=== PATIENT | female | born 2000 | race Caucasian/White ===

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

== ENCOUNTER 2020-06-24 16:04 | Inpatient (IN) ==
[2020-06-24] MEDS ORDERED: ONDANSETRON INJ 2 MG/ML 2 ML VIAL IV STA (18:13)
[2020-06-24] MEDS ORDERED: HYDROmorphone INJ 0.5 MG/0.5 ML SYR IV STA (18:13)
[2020-06-24] MEDS ORDERED: AMPICILLIN/SULBACTAM SOD 3,000 MG in 0.9 % SODIUM CHLORIDE 100 ML IV STA (18:13)
[2020-06-24] MEDS ORDERED: SODIUM CHLORIDE 0.9% 1000ML 1,000 ML IV ONE (18:15)
--- NOTE | 2020-06-24 18:23 | Emergency Department Note ---
Impression & Plan Bacteremia, Dental infection ED Provider Note CHIEF COMPLAINT: Dental pain, facial swelling, fevers HISTORY OF PRESENTING ILLNESS: This is a 19-year-old female who presents to the emergency department by private vehicle with complaint of worsening left-sided dental pain. She believes that the pain is coming from her left lower first molar, on which she had a root canal performed 1 week ago. The patient was evaluated in this emergency department last night for the same pain, she was giv en IV antibiotics as well as IV Dilaudid and sent home with Percocet and Augmentin. Patient states that she has been taking the Percocet and Augmentin without improvement. She has also taken ibuprofen. She states that she had a fever of 103 this afternoon and the pain has been progressively worsening today, she describes it as a constant throbbing and rates the pain a 5/10 currently. There is not been any discharge within the mouth. She states she has been unable to get a hold of her dentist. She denies any voice changes, difficulty swallowing, difficulty breathing, or pain radiating down the neck. She does feel that the facial swelling has gotten slightly worse. She denies any chest pain, palpitations, dizziness or syncope. REVIEW OF SYSTEMS: A complete 10 point review of systems was reviewed with the patient with pertinent positives and negatives as per history of present illn ess. All else were negative. PAST MEDICAL HISTORY: Anxiety, ADHD, IBS SOCIAL HISTORY: Lives at home, she denies tobacco use ALLERGIES: Reviewed in chart and with the patient PHYSICAL EXAM: CONSTITUTIONAL: Pleasant and cooperative. Nontoxic-appearing and in no acute distress, but appears uncomfortable from pain. Mildly dehydrated, but otherwise well appearing and well nourished. HEENT: Normocephalic, atraumatic. PERRL, EOMI. TMs normal. Tacky mucous membranes. The #19 tooth is carious and the gum is swollen and tender around it, especially along the lateral aspect, without any discharge or signs of an abscess. No woody edema or tenderness of the mouth floor. The remainder of the pharynx and tonsils are without erythema, edema, or exudate. The airway is patent. There is mild left-sided facial swelling which is warm and tender to palpation. The patient has overall good dental hygiene. NECK: Supple, full active range of motion without discomfort. No cervical or submandibular lymphadenopathy. RESPIRATORY: Clear to auscultation bilaterally with no wheezing, crackles, rhonchi or stridor. Equal expansion bilaterally. CARDIOVASCULAR: Regular rate and rhythm with no murmurs, rubs or gallops. Normal peripheral perfusion. No edema. GASTROINTESTINAL: Soft, nontender, nondistended. Bowel sounds present in all quadrants. MUSCULOSKELETAL: Full range of motion of all joints without discomfort. INTEGUMENTARY: No rash or other significant dermatologic conditions noted. NEUROLOGIC: Alert and oriented X 4 with normal affect. Normal strength and sensation in all 4 extremities. Normal speech. Normal gait observed. ED COURSE AND MEDICAL DECISION MAKING: CC: Patient presenting with complaint of dental pain, facial swelling, fevers DIFFERENTIAL DIAGNOSIS: Includes, but not limited to dental infection/abscess, facial cellulitis, postoperative pain, Haresh's angina, bacteremia/sepsis, among others. INTERPRETATION OF LABS: Leukocytosis with left shift, no anemia, normal platelets, no significant electrolyte abnormalities, normal renal function, normal liver enzymes. Lactate within normal limits. Serum negative. IMAGING: CT soft tissue neck w con HISTORY: 19 years-old Female left lower molar dental infection acute left-sided facial pain with reported dental infection COMPARISON: None TECHNIQUE: Multiple axial CT images of the soft tissues of the neck were obtained following the intravenous administration of 92 mL Optiray 320 IV contrast. A dose lowering technique was used consistent with the principals of ALARA. FINDINGS: There is no acute process of the imaged intracranial structures. The nasopharynx, oral pharynx and hypopharynx are patent. The epiglottis and aryepiglottic folds are unremarkable. The glottis and subglottic airway is within normal limits. Unremarkable thyroid. There are a few nonspecific prominent paratracheal lymph nodes of the upper mediastinum. The parotid and submandibular glands are unremarkable. Prominent left-sided level 1 lymph nodes measure up to 8 mm, likely reactive. Lung apices are clear without pneumothorax. Mastoid air cells and middle ear cavities are clear. Mild mucosal thickening involves the ethmoid air cells. Minimal mucosal thickening involves the sphenoid and inferior maxillary sinuses. There is a skin marker noted along the left jaw. Unerupted bilateral maxillary and left mandibular third molars with associated dentigerous (follicular) cysts, largest involving the left mandibular molar. No third molar identified involving the right mandible. No large periapical cysts. Streak artifact from dental amalgam hardware limits evaluation of the teeth. Root canal changes are noted involving the first left mandibular molar. No significant soft tissue swelling or drainable fluid collection. IMPRESSION: 1. Unerupted bilateral maxillary and left mandibular third molars are noted with associated dentigerous (follicular) cysts. 2. Streak artifact from dental amalgam hardware limits evaluation of the teeth. No large periapical cysts or drainable fluid collection identified. 3. Mildly prominent left-sided level I lymph nodes, likely reactive. 4. Mild paranasal sinus disease. MEDICATION RECONCILIATION: I attest that I have personally reviewed the patient's current medication list. INITIAL VITAL SIGNS REVIEW: I reviewed the patient's initial vital signs and interpret them as follows: T: Afebrile; BP: Normotensive; HR: Mildly tachycardic; RR: Within normal limits; Pulse Ox: Within normal limits on room air. Blood pressure screening: The patient was found to have normal blood pressure on screening and does not require follow-up for repeat blood pressure check. MDM SUMMARY: Patient was evaluated at bedside, history and physical exam performed. Patient is alert and oriented, in no acute distress, resting calmly in the stretcher. She is afebrile and nontoxic-appearing. She is noted to be mildly tachycardic and appears dehydrated clinically on exam. There is mild left-sided facial swelling appreciated on exam, and tenderness around the left lower first molar with no signs of a periapical abscess. No submandibular edema, trismus, or apparent airway involvement. I do not suspect Haresh's angina clinically. Cardiac monitoring: An order was placed for continuous cardiac monitoring. The monitor shows a rate of 104 bpm with sinus tachycardia rhythm. Orders were placed at bedside for labs including a lactic acid, IV fluid bolus for hydration, IV Unasyn 3 g for infection, IV Dilaudid for pain, IV Zofran for nausea, CT soft tissue neck with IV contrast to evaluate for dental abscess. Patient discussed with Dr. Stephen, who agrees with my assessment, plan, and disposition. Labs and imaging reviewed as above, labs notable for leukocytosis which is elevated from labs last night. Lactate is within normal limits. Labs are otherwise unremarkable. CT imaging of the soft tissues of the neck did not show any drainable fluid collection. The patient complained of persistent pain, which was initially improved after the Dilaudid, but she states it is coming back. Orders were placed for IV Toradol and p.o. Tylenol. The ED pharmacist contacted me to notify of 4/4 blood cultures from last night that are preliminarily positive for gram-positive cocci, most consistent with strep per ED pharmacist. He recommended placing the patient on IV vancomycin for better coverage, this was ordered. The patient has not been febrile during her ED stay and her tachycardia is improving. She denies any complaints of chest pain, shortness of breath, palpitations, dizziness or syncope. There was no heart murmur heard on auscultation. I spoke on the phone with Dr. Landa, [facility] hospitalist, who agrees to evaluate the patient for admission. The patient was updated on all results and plan for admission, all questions were answered to the best of my ability and she verbalized understanding, she was comfortable with this plan. The patient was stable at time of admission. The chart was completed utilizing [employer] Speech voice recognition software. G rammatical errors, random word insertions, pronoun errors, and incomplete sentences are an occasional consequence of this system due to software limitations, ambient noise, and hardware issues. Any formal questions or concerns about the content, text, or information contained within the body of this dictation should be directly addressed to the nurse practitioner for clarification. Past Med/Surg History Medical History (Updated 06/24/20 @ 23:07 by CAIO Rodríguez) ADH disorder Anxiety IBS (irritable bowel syndrome) Surgical History No pertinent past surgical history Family History Other No significant family history Social History Smoking Status: Never smoker Preferred Language: Citizen Of [place] marital status: Single Current Living Situation: Family current occupational status: employed and student Feels Safe at Home: Yes Allergies Allergies Allergy/AdvReac Type Severity Reaction Status Date / Time pseudoephedrine Allergy Mild Vomiting, Verified 06/24/20 00:05 breathing difficulty bee venom protein (honey bee) Allergy Unknown swelling Verified 06/24/20 00:05 omeprazole AdvReac Intermediate Vomiting Verified 06/24/20 00:05 and diarrhea Home Meds Home Medications Medication Instructions Recorded Confirmed cholecalciferol (vitamin D3) 1,000 unit PO QAM 09/24/18 06/24/20 [Vitamin D3] dicyclomine 20 mg PO QID 09/24/18 06/24/20 sertraline 50 mg PO DAILY@1500 09/24/18 06/24/20 norgestimate-ethinyl estradiol 1 tab PO DAILY 02/14/20 06/24/20 [Sprintec (28)] methylphenidate HCl 60 mg PO QAM 03/28/20 06/24/20 lidocaine 1 patch TOP DAILY PRN 04/10/20 06/24/20 methylphenidate HCl 20 mg PO DIRECTED 04/10/20 06/24/20 Previous Rx's Medication Instructions Recorded amoxicillin-pot clavulanate 1 tab PO BID #20 tab 06/24/20 [Augmentin] Results & Data (ED) Vital Signs Vital Signs - 24 hr 06/24/20 16:14 06/24/20 19:04 06/24/20 19:05 Temperature 37 C Temperature Source Oral Pulse Rate 91 H 93 H Pulse Rate [Left] 93 H Pulse Rate from SpO2 Sensor 88 Respiratory Rate 18 19 Blood Pressure 120/79 109/59 L Blood Pressure [Right Arm] 109/59 L Blood Pressure Mean 92 75 Blood Pressure Mean [Right Arm] 75 Pulse Oximetry 98 99 Oxygen Delivery Method Room Air Room Air Room Air Sepsis Recent Fever Within 48 Hours No Sepsis New/Unexplained Change in Mental Status No Sepsis Action Taken by Nursing No Action Required 06/24/20 19:38 06/24/20 20:00 06/24/20 20:30 Temperature Temperature Source Pulse Rate 102 H 95 H 107 H Pulse Rate [Left] Pulse Rate from SpO2 Sensor 102 H 96 H 108 H Respiratory Rate 27 H 17 18 Blood Pressure 117/77 127/89 131/77 Blood Pressure [Right Arm] Blood Pressure Mean 97 108 87 Blood Pressure Mean [Right Arm] Pulse Oximetry 100 100 99 Oxygen Delivery Method Room Air Room Air Room Air Sepsis Recent Fever Within 48 Hours Sepsis New/Unexplained Change in Mental Status Sepsis Action Taken by Nursing 06/24/20 21:00 06/24/20 21:30 06/24/20 22:01 Temperature Temperature Source Pulse Rate 102 H 88 101 H Pulse Rate [Left] Pulse Rate from SpO2 Sensor 103 H Respiratory Rate 17 16 16 Blood Pressure 136/80 136/71 179/80 H Blood Pressure [Right Arm] Blood Pressure Mean 96 101 116 Blood Pressure Mean [Right Arm] Pulse Oximetry 100 Oxygen Delivery Method Room Air Sepsis Recent Fever Within 48 Hours Sepsis New/Unexplained Change in Mental Status Sepsis Action Taken by Nursing 06/24/20 22:07 06/24/20 22:30 Temperature Temperature Source Pulse Rate 105 H 94 H Pulse Rate [Left] Pulse Rate from SpO2 Sensor 105 H 91 H Respiratory Rate 20 18 Blood Pressure 122/71 117/74 Blood Pressure [Right Arm] Blood Pressure Mean 97 103 Blood Pressure Mean [Right Arm] Pulse Oximetry 98 98 Oxygen Delivery Method Room Air Room Air Sepsis Recent Fever Within 48 Hours Sepsis New/Unexplained Change in Mental Status Sepsis Action Taken by Nursing Laboratory Data Result diagrams: 06/24/20 18:42 06/24/20 18:42 Lab Results 06/24/20 06/24/20 06/24/20 Range/Units 18:21 18:42 18:42 WBC 12.45 H (4.8-10.8) K/uL RBC 4.35 (4.2-5.4) M/uL Hgb 12.5 (12.0-16.0) g/dL Hct 37.4 (37-47) % MCV 86.0 (80-100) fL MCH 28.7 (25-34) pg MCHC 33.4 (32-36) g/dL RDW Std Deviation 42.2 (36.4-46.3) fL RDW Coeff of Candido 13.2 (11.5-14.5) % Plt Count 157 (130-400) K/uL MPV 9.7 (7.4-10.4) fL Immature Gran % (Auto) 0.2 % Neut % (Auto) 92.3 % Lymph % (Auto) 5.6 % [place] % (Auto) 1.7 % Eos % (Auto) 0.1 % Baso % (Auto) 0.1 % Neut # (Auto) 11.50 H (1.4-6.5) K/uL Lymph # (Auto) 0.70 L (1.2-3.4) K/uL [place] # (Auto) 0.21 (0.11-0.59) K/uL Eos # (Auto) 0.01 (0-0.5) K/uL Baso # (Auto) 0.01 (0-0.2) K/uL Immature Gran # (Auto) 0.02 (0.00-0.02) K/uL Sodium 139 (136-145) mmol/L Potassium 3.7 (3.5-5.1) mmol/L Chloride 108 H (98-107) mmol/L Carbon Dioxide 25 (21-32) mmol/L Anion Gap 6.0 (3-11) BUN 8 D (7-18) mg/dl Creatinine 0.84 (0.6-1.2) mg/dl Est Cr Clr Drug Dosing 129.9 ml/min Est GFR ( Amer) 116.8 Est GFR (Non-Af Amer) 100.8 BUN/Creatinine Ratio 9.4 L (10-20) Glucose 109 H (70-99) mg/dl Lactate 0.7 (0.4-2.0) mmol/L Calcium 8.6 (8.5-10.1) mg/dl Magnesium (1.8-2.4) mg/dl Total Bilirubin 0.4 (0.2-1) mg/dl AST 17 (15-37) U/L ALT 19 (12-78) U/L Alkaline Phosphatase 47 (45-117) U/L Troponin I (0-0.045) ng/ml Total Protein 7.1 (6.4-8.2) gm/dl Albumin 3.1 L (3.4-5.0) gm/dl Globulin 4.0 (2.5-4.0) gm/dl Albumin/Globulin Ratio 0.8 L (0.9-2) HCG, Qual (Negative) 06/24/20 06/24/20 06/24/20 Range/Units 18:42 18:42 18:42 WBC (4.8-10.8) K/uL RBC (4.2-5.4) M/uL Hgb (12.0-16.0) g/dL Hct (37-47) % MCV (80-100) fL MCH (25-34) pg MCHC (32-36) g/dL RDW Std Deviation (36.4-46.3) fL RDW Coeff of Candido (11.5-14.5) % Plt Count (130-400) K/uL MPV (7.4-10.4) fL Immature Gran % (Auto) % Neut % (Auto) % Lymph % (Auto) % [place] % (Auto) % Eos % (Auto) % Baso % (Auto) % Neut # (Auto) (1.4-6.5) K/uL Lymph # (Auto) (1.2-3.4) K/uL [place] # (Auto) (0.11-0.59) K/uL Eos # (Auto) (0-0.5) K/uL Baso # (Auto) (0-0.2) K/uL Immature Gran # (Auto) (0.00-0.02) K/uL Sodium (136-145) mmol/L Potassium (3.5-5.1) mmol/L Chloride (98-107) mmol/L Carbon Dioxide (21-32) mmol/L Anion Gap (3-11) BUN (7-18) mg/dl Creatinine (0.6-1.2) mg/dl Est Cr Clr Drug Dosing ml/min Est GFR ( Amer) Est GFR (Non-Af Amer) BUN/Creatinine Ratio (10-20) Glucose (70-99) mg/dl Lactate (0.4-2.0) mmol/L Calcium (8.5-10.1) mg/dl Magnesium 2.1 (1.8-2.4) mg/dl Total Bilirubin (0.2-1) mg/dl AST (15-37) U/L ALT (12-78) U/L Alkaline Phosphatase (45-117) U/L Troponin I < 0.015 (0-0.045) ng/ml Total Protein (6.4-8.2) gm/dl Albumin (3.4-5.0) gm/dl Globulin (2.5-4.0) gm/dl Albumin/Globulin Ratio (0.9-2) HCG, Qual Negative (Negative) Administered Medications Vancomycin HCl 2,500 mg/ (Sodium Chloride) 550 mls @ 200 mls/hr IV NOW ONE Stop: 06/24/20 23:09 Last Admin: 06/24/20 20:59 Dose: 200 mls/hr Documented by: [id number] Discontinued Medications Acetaminophen (Acetaminophen 500 Mg Tab) 1,000 mg PO NOW STA Stop: 06/24/20 20:15 Last Admin: 06/24/20 20:32 Dose: 1,000 mg Documented by: [id number] Hydromorphone HCl (Hydromorphone Inj 0.5 Mg/0.5 Ml Syr) 0.5 mg IV NOW STA Stop: 06/24/20 18:14 Last Admin: 06/24/20 18:57 Dose: 0.5 mg Documented by: [id number] Ampicillin Sodium/Sulbactam Sodium 3,000 mg/ Sodium Chloride 108 mls @ 200 mls/hr IV NOW STA Stop: 06/24/20 18:45 Last Infusion: 06/24/20 19:41 Dose: 0 mls/hr Documented by: [id number] Admin: 06/24/20 18:57 Dose: 200 mls/hr Documented by: [id number] Sodium Chloride (Nss 1000ml) 1,000 mls @ 999 mls/hr IV .Q1H1M ONE Stop: 06/24/20 19:15 Last Infusion: 06/24/20 19:51 Dose: 0 mls/hr Documented by: [id number] Admin: 06/24/20 18:57 Dose: 999 mls/hr Documented by: [id number] Ioversol (Ioversol 100ml) 92 ml IV ONCE ONE Stop: 06/24/20 19:28 Last Admin: 06/24/20 19:28 Dose: 92 ml Documented by: [id number] Ketorolac Tromethamine (Ketorolac Tromethamine 15 Mg/Ml Vial) 15 mg IV NOW STA Stop: 06/24/20 20:15 Last Admin: 06/24/20 20:32 Dose: 15 mg Documented by: [id number] Ondansetron HCl (Ondansetron Inj 2 Mg/Ml 2 Ml Vial) 4 mg IV NOW STA Stop: 06/24/20 18:14 Last Admin: 06/24/20 18:57 Dose: 4 mg Documented by: [id number] Discharge Plan Visit Data Chief Complaint: Dental/Oral Stated Complaint: INFECTION IN TOOTH ED Provider: Matias Stephen ED Midlevel Provider: Taya Rolle Discharge Problem: Bacteremia, Dental infection Patient Disposition: Admitted As Inpatient Condition: Good Discharge Instructions Interventions: ED Discharge Assessment Last Done: 06/24/20 22:49 Forms Stand Alone Forms: [facility] Prescriptions Prescriptions: No Action methylphenidate HCl 60 mg capsule, ER biphasic 30-70 60 mg PO QAM RF: 0 amoxicillin-pot clavulanate [Augmentin] 875-125 mg tablet 1 tab PO BID Qty: 20 RF: 0 dicyclomine 20 mg Tablet 20 mg PO QID RF: 0 sertraline 50 mg Tablet 50 mg PO DAILY@1500 RF: 0 cholecalciferol (vitamin D3) [Vitamin D3] 1,000 unit Capsule 1,000 unit PO QAM RF: 0 norgestimate-ethinyl estradiol [Sprintec (28)] 0.25-35 mg-mcg tablet 1 tab PO DAILY RF: 0 methylphenidate HCl 20 mg tablet 20 mg PO DIRECTED RF: 0 lidocaine 5 % adhesive patch,medicated 1 patch TOP DAILY PRN (Reason: Back Pain) RF: 0 Referrals Referrals: Gustavo Ag MD [Primary Care Provider] -
[2020-06-24 18:49] LABS: Basophils # (auto) 0.01 K/uL (0-0.2); Basophils % (auto) 0.1 %; Eosinophils # (auto) 0.01 K/uL (0-0.5); Eosinophils % (auto) 0.1 %; Hematocrit (blood only) 37.4 % (37-47); Hemoglobin 12.5 g/dL (12.0-16.0); Immature Granulocytes # (auto) 0.02 K/uL (0.00-0.02); Immature Granulocytes % (auto) 0.2 %; Lymphocytes % (auto) 5.6 %; Mean Corpuscular Hemoglobin 28.7 pg (25-34); Mean Corpuscular Hgb Conc 33.4 g/dL (32-36); Mean Platelet Volume 9.7 fL (7.4-10.4); Monocytes # (auto) 0.21 K/uL (0.11-0.59); Monocytes % (auto) 1.7 %; Neutrophils % (auto) 92.3 %; Platelet Count 157 K/uL (130-400); RDW Coefficient of Variation 13.2 % (11.5-14.5); RDW Standard Deviation 42.2 fL (36.4-46.3); Red Blood Count 4.35 M/uL (4.2-5.4); White Blood Count 12.45 K/uL (4.8-10.8)
[2020-06-24 19:12] LABS: Albumin Globulin Ratio 0.8 (0.9-2); Albumin Level 3.1 gm/dl (3.4-5.0); BUN Creatinine Ratio 9.4 (10-20); Bilirubin,Total 0.4 mg/dl (0.2-1); Calcium 8.6 mg/dl (8.5-10.1); Creatinine Clr Calc Pharmacy 129.9 ml/min; Est GFR (African American) 116.8; Est GFR (Non-African American) 100.8; Potassium 3.7 mmol/L (3.5-5.1); Total Protein 7.1 gm/dl (6.4-8.2)
[2020-06-24 19:16] LABS: Pregnancy Test, Serum Negative (Negative)
[2020-06-24] MEDS ORDERED: IOVERSOL 100ml IV ONE (19:27)
--- NOTE | 2020-06-24 19:45 | CT Scan Report ---
CT soft tissue neck w con HISTORY: 19 years-old Female left lower molar dental infection acute left-sided facial pain with rep orted dental infection COMPARISON: None TECHNIQUE: Multiple axial CT images of the soft tissues of the neck were obtained following the intra venous administration of 92 mL Optiray 320 IV contrast. A dose lowering technique was used consistent with the principals of MICHI. FINDINGS: There is no acute process of the imaged intracranial structures. The nasopharynx, oral pharynx and hy popharynx are patent. The epiglottis and aryepiglottic folds are unremarkable. The glottis and subglo ttic airway is within normal limits. Unremarkable thyroid. There are a few nonspecific prominent para tracheal lymph nodes of the upper mediastinum. The parotid and submandibular glands are unremarkable. Prominent left-sided level 1 lymph nodes measure up to 8 mm, likely reactive. Lung apices are clear without pneumothorax. Mastoid air cells and middle ear cavities are clear. Mild mucosal thickening involves the ethmoid air cells. Minimal mucosal thickening involves the sphenoid and inferior maxillary sinuses. There is a s kin marker noted along the left jaw. Unerupted bilateral maxillary and left mandibular third molars w ith associated dentigerous (follicular) cysts, largest involving the left mandibular molar. No third molar identified involving the right mandible. No large periapical cysts. Streak artifact from dental amalgam hardware limits evaluation of the teeth. Root canal changes are noted involving the first le ft mandibular molar. No significant soft tissue swelling or drainable fluid collection. IMPRESSION: 1. Unerupted bilateral maxillary and left mandibular third molars are noted with associated dentigero us (follicular) cysts. 2. Streak artifact from dental amalgam hardware limits evaluation of the teeth. No large periapical c ysts or drainable fluid collection identified. 3. Mildly prominent left-sided level I lymph nodes, likely reactive. 4. Mild paranasal sinus disease. ACT 112: Negative or not required by law. The above report was generated using voice recognition software. It may contain grammatical, syntax o r spelling errors. Electronically signed by: Johnathan Rosas M.D. 06/24/2020 7:43 PM
[2020-06-24] MEDS ORDERED: KETOROLAC TROMETHAMINE 15 MG/ML VIAL IV STA (20:14)
[2020-06-24] MEDS ORDERED: ACETAMINOPHEN 500 MG TAB PO STA (20:14)
[2020-06-24] MEDS ORDERED: VANCOMYCIN CONSULT ACTIVE PRN (20:25)
[2020-06-24] MEDS ORDERED: VANCOMYCIN HCL 2,500 MG in SODIUM CHLORIDE 0.9% 500 ML IV ONE (20:25)
--- NOTE | 2020-06-24 21:18 | History & Physical Report ---
Date of Service June 24, 2020 Assessment & Plan (1) Sepsis: Septicemia Gram-positive cocci in chains on initial Gram stain results Recent dental procedure ? Endocarditis ADD, learning disability as per records Medical telemetry Unasyn for now Repeat blood cultures in a.m. TTE re chest pain, gram-positive bacteremia possible endocarditis [facility] ID consult once CS results finalized RE bacteremia Inpatient dental consult as per patient family request, will consult oral maxillofacial surgeon RE dental pain DVT prophylaxis Lovenox subcu Full code Patient's mother requesting updates for providers. Ms. Mikaela Payne, contact #[phone]. Text document was generated using Scov[employer] recognition software. It may contain grammatical or spelling errors. Kindly contact undersigned for clarification of any documentation item in question. History of Present Illness Chief Complaint: Worsening dental pain Primary Care Provider: Gustavo Ag MD History obtained from patient, family, and records. Medical history significant for ADD, learning disability as per records, IBS as per records. Last week patient underwent root canal procedure for the first molar of her left lower jaw at a dental clinic in [place]. Patient recalls significant manipulation and pain during procedure. Yesterday afternoon however patient developed intolerable pain on the left jaw with fever and chills. No cough symptoms. No trismus. Patient noted to be febrile and tachycardic upon arrival at the ER. Blood cultures obtained at the ER. Patient given Unasyn for dental infection. Discharged on Augmentin course and advised to follow-up with local dentist. Local dentist recommended follow-up with [place] [facility] office as per patient. [place] [facility] office closed for the day as per patient's mother. 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 No unusual shortness of breath. Patient return to ER for evaluation. 2 bottles of blood cultures drawn from last night's ER visit currently growing gram-positive cocci in chains. Patient given Unasyn and Vancomycin at the ER. 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 Allergies Allergy/AdvReac Type Severity Reaction Status Date / Time pseudoephedrine Allergy Mild Vomiting, Verified 06/24/20 00:05 breathing difficulty bee venom protein (honey bee) Allergy Unknown swelling Verified 06/24/20 00:05 omeprazole AdvReac Intermediate Vomiting Verified 06/24/20 00:05 and diarrhea Home Medications Home Medications Medication Instructions Recorded Confirmed Type cholecalciferol (vitamin D3) 1,000 unit PO QAM 09/24/18 06/24/20 History [Vitamin D3] dicyclomine 20 mg PO QID 09/24/18 06/24/20 History sertraline 50 mg PO DAILY@1500 09/24/18 06/24/20 History norgestimate-ethinyl estradiol 1 tab PO DAILY 02/14/20 06/24/20 History [Sprintec (28)] methylphenidate HCl 60 mg PO QAM 03/28/20 06/24/20 History lidocaine 1 patch TOP DAILY PRN 04/10/20 06/24/20 History methylphenidate HCl 20 mg PO DIRECTED 04/10/20 06/24/20 History amoxicillin-pot clavulanate 1 tab PO BID #20 tab 06/24/20 06/24/20 Rx [Augmentin] Past Med/Surg History Medical History (Updated 06/25/20 @ 00:09 by Julius Landa MD) ADH disorder Anxiety IBS (irritable bowel syndrome) Surgical History No pertinent past surgical history Family History Other No significant family history Social History Smoking Status: Never smoker Hx Alcohol Use: No Hx Substance Use: No Preferred Language: Lebanese Communication Ability: Effective marital status: Single Current Living Situation: Family current occupational status: employed and student Feels Safe at Home: Yes Safety Concerns: Feels Safe At This Time Review of Systems Review of Systems: As per HPI, all 10 systems reviewed, all other ROS negative Physical Exam Physical Exam: GENERAL: Comfortable, anxious, obese, no respiratory distress SKIN: Normal color, warm HEENT: Bespectacled, [place] palpebral conjunctivae, no ptosis, dry buccal mucosa, no trismus, carious molars left mandibular arch NECK : Supple, short neck, no tenderness CHEST : CTA, anterior chest wall tenderness HEART : Tachycardic, no obvious murmurs ABDOMEN: Some distention, nontender EXTREMITIES : Minimal LE swelling, no LE tenderness, no other conspicuous deformities noted NEUROLOGIC : Coherent, no facial asymmetry, no other gross focality Results & Data Results & Data ([facility]) Vital Signs (Past 12 Hours) Vital Signs Temp Pulse Pulse Resp BP BP Pulse Ox 06/24/20 21:00 102 H 17 136/80 100 06/24/20 20:30 107 H 18 131/77 99 06/24/20 20:00 95 H 17 127/89 100 06/24/20 19:38 102 H 27 H 117/77 100 06/24/20 19:05 93 H 93 H 19 109/59 L 109/59 L 99 06/24/20 16:14 37 C 91 H 18 120/79 98 Laboratory Results Laboratory Results WBC 12.45 K/uL (4.8-10.8) H 06/24/20 18:42 RBC 4.35 M/uL (4.2-5.4) 06/24/20 18:42 Hgb 12.5 g/dL (12.0-16.0) 06/24/20 18:42 Hct 37.4 % (37-47) 06/24/20 18:42 MCV 86.0 fL (80-100) 06/24/20 18:42 MCH 28.7 pg (25-34) 06/24/20 18:42 MCHC 33.4 g/dL (32-36) 06/24/20 18:42 RDW Std Deviation 42.2 fL (36.4-46.3) 06/24/20 18:42 RDW Coeff of [place] 13.2 % (11.5-14.5) 06/24/20 18:42 Plt Count 157 K/uL (130-400) 06/24/20 18:42 MPV 9.7 fL (7.4-10.4) 06/24/20 18:42 Immature Gran % (Auto) 0.2 % 06/24/20 18:42 Neut % (Auto) 92.3 % 06/24/20 18:42 Lymph % (Auto) 5.6 % 06/24/20 18:42 [place] % (Auto) 1.7 % 06/24/20 18:42 Eos % (Auto) 0.1 % 06/24/20 18:42 Baso % (Auto) 0.1 % 06/24/20 18:42 Neut # (Auto) 11.50 K/uL (1.4-6.5) H 06/24/20 18:42 Lymph # (Auto) 0.70 K/uL (1.2-3.4) L 06/24/20 18:42 Foster # (Auto) 0.21 K/uL (0.11-0.59) 06/24/20 18:42 Eos # (Auto) 0.01 K/uL (0-0.5) 06/24/20 18:42 Baso # (Auto) 0.01 K/uL (0-0.2) 06/24/20 18:42 Immature Gran # (Auto) 0.02 K/uL (0.00-0.02) 06/24/20 18:42 Sodium 139 mmol/L (136-145) 06/24/20 18:42 Potassium 3.7 mmol/L (3.5-5.1) 06/24/20 18:42 Chloride 108 mmol/L (98-107) H 06/24/20 18:42 Carbon Dioxide 25 mmol/L (21-32) 06/24/20 18:42 Anion Gap 6.0 (3-11) 06/24/20 18:42 BUN 8 mg/dl (7-18) D 06/24/20 18:42 Creatinine 0.84 mg/dl (0.6-1.2) 06/24/20 18:42 Est Cr Clr Drug Dosing 129.9 ml/min 06/24/20 18:42 Est GFR ( Amer) 116.8 06/24/20 18:42 Est GFR (Non-Af Amer) 100.8 06/24/20 18:42 BUN/Creatinine Ratio 9.4 (10-20) L 06/24/20 18:42 Glucose 109 mg/dl (70-99) H 06/24/20 18:42 Lactate 0.7 mmol/L (0.4-2.0) 06/24/20 18:21 Calcium 8.6 mg/dl (8.5-10.1) 06/24/20 18:42 Magnesium 2.1 mg/dl (1.8-2.4) 06/24/20 18:42 Total Bilirubin 0.4 mg/dl (0.2-1) 06/24/20 18:42 AST 17 U/L (15-37) 06/24/20 18:42 ALT 19 U/L (12-78) 06/24/20 18:42 Alkaline Phosphatase 47 U/L (45-117) 06/24/20 18:42 Total Protein 7.1 gm/dl (6.4-8.2) 06/24/20 18:42 Albumin 3.1 gm/dl (3.4-5.0) L 06/24/20 18:42 Globulin 4.0 gm/dl (2.5-4.0) 06/24/20 18:42 Albumin/Globulin Ratio 0.8 (0.9-2) L 06/24/20 18:42 HCG, Qual Negative (Negative) 06/24/20 18:42 Diagnostic Findings Soft tissue neck CT: 1. Unerupted bilateral maxillary and left mandibular third molars are noted with associated dentigerous (follicular) cysts. 2. Streak artifact from dental amalgam hardware limits evaluation of the teeth. No large periapical cysts or drainable fluid collection identified. 3. Mildly prominent left-sided level I lymph nodes, likely reactive. 4. Mild paranasal sinus disease. Chest x-ray as per my interpretation no infiltrate EKG as per my interpretation : rate 105, sinus tachycardia, normal axis, no ischemia
[2020-06-24] MEDS ORDERED: LORazepam 0.25 MG/0.5 ML VIAL IV STA (23:21)
[2020-06-24] MEDS ORDERED: IBUPROFEN 200 MG TAB PO PRN (23:21)
[2020-06-24] MEDS ORDERED: LIDOCAINE 5% 1 PATCH TD PRN (23:21)
[2020-06-24] MEDS ORDERED: AMPICILLIN/SULBACTAM CONSULT ACTIVE PRN (23:27)
[2020-06-25] MEDS ORDERED: POTASSIUM CHLORIDE 20 MEQ TABCR PO ONE
[2020-06-25] MEDS: AMPICILLIN/SULBACTAM SOD 3,000 MG in 0.9 % SODIUM CHLORIDE 100 ML IV SCH ×5 (01:09→23:36)
[2020-06-25 01:49] LABS: Appearance Urine Clear (Clear); Bacteria Urine Automated Negative (Negative); Bilirubin Urine Negative (Negative); Blood Urine Trace (Negative); Cast Urine Automated 0 /lpf (0-5); Color Urine Yellow; Epithelial Cell Urine Auto >30 /lpf (0-5); Glucose Urine UA Negative (Negative); Ketones Urine Negative (Negative); Leukocyte Esterase Urine Negative (Negative); Nitrite Urine Negative (Negative); Protein Urine Negative (Negative); RBC Urine Automated 0-4 /hpf (0-4); Specific Gravity Urine 1.016 (1.000-1.030); Urobilinogen Urine Negative (Negative)
[2020-06-25 02:10] LABS: Amphetamines+Metham, Urine Neg (Neg); Barbiturates, Urine Neg (Neg); Benzodiazepine, Urine Neg (Neg); Cocaine, Urine Neg (Neg); MDMA (Ecstacy), Urine Neg (Neg); Methadone, Urine Neg (Neg); Opiate, Urine Neg (Neg); Phencyclidine, Urine Neg (Neg)
[2020-06-25] MEDS: ACETAMINOPHEN 325 MG TAB PO PRN ×3 (03:06→21:41)
[2020-06-25] MEDS ORDERED: LACTATED RINGER'S 1,000 ML IV ONE (04:12)
[2020-06-25 06:01] LABS: Basophils # (auto) 0.01 K/uL (0-0.2); Basophils % (auto) 0.2 %; Eosinophils # (auto) 0.02 K/uL (0-0.5); Eosinophils % (auto) 0.4 %; Hematocrit (blood only) 36.2 % (37-47); Hemoglobin 11.8 g/dL (12.0-16.0); Immature Granulocytes # (auto) 0.01 K/uL (0.00-0.02); Immature Granulocytes % (auto) 0.2 %; Lymphocytes # (auto) 0.43 K/uL (1.2-3.4); Lymphocytes % (auto) 7.7 %; Mean Corpuscular Hemoglobin 28.7 pg (25-34); Mean Corpuscular Hgb Conc 32.6 g/dL (32-36); Mean Corpuscular Volume 88.1 fL (80-100); Mean Platelet Volume 10.2 fL (7.4-10.4); Monocytes % (auto) 5.3 %; Neutrophils # (auto) 4.84 K/uL (1.4-6.5); Neutrophils % (auto) 86.2 %; Platelet Count 158 K/uL (130-400); RDW Coefficient of Variation 13.6 % (11.5-14.5); RDW Standard Deviation 44.4 fL (36.4-46.3); Red Blood Count 4.11 M/uL (4.2-5.4); White Blood Count 5.61 K/uL (4.8-10.8)
[2020-06-25] MEDS ORDERED: NSS + 20MEQ KCL 20 MEQ/1,000 ML BAG IV ONE ×2 (06:15)
[2020-06-25 06:30] LABS: BUN Creatinine Ratio 5.6 (10-20); Calcium 8.1 mg/dl (8.5-10.1); Creatinine Clr Calc Pharmacy 153.7 ml/min; Est GFR (African American) 140.7; Est GFR (Non-African American) 121.4; Potassium 4.1 mmol/L (3.5-5.1)
--- NOTE | 2020-06-25 07:37 | XRay Report ---
XR chest 1V portable CLINICAL HISTORY: Chest pain on admission. COMPARISON STUDY: Chest radiograph April 10, 2020. FINDINGS: Lung volumes are normal. Lungs are clear. There is no pneumothorax or pleural effusion. Car diac size is normal. Mediastinal contours are normal. There is no evidence for pulmonary edema. IMPRESSION: No acute cardiopulmonary findings. ACT 112: Negative or not required by law. Electronically signed by: Andrew Plata M.D. 06/25/2020 7:36 AM
[2020-06-25] MEDS: ENOXAPARIN INJ 40 MG/0.4 ML SYR SQ SCH (08:57)
[2020-06-25] MEDS: KETOROLAC TROMETHAMINE 15 MG/ML VIAL IV PRN ×2 (08:57→16:53)
--- NOTE | 2020-06-25 10:58 | Hospitalist Progress Note ---
Date of Service June 25, 2020 Assessment & Plan (1) Sepsis: resuscitated with abx (2) Bacteremia: S viridans bacteremia. Cont current abx and clear infection. BCx repeat are pending. Then follow ID instructions regarding PICC placement after tooth removal and clear cultures. (3) Dental infection: Tooth extraction planned for her by Dr. Blunt (4) Anxiety: Cont sertraline per home regimen. (5) IBS (irritable bowel syndrome): Dicyclomine per home regimen. Explore C-diff and stool studies in setting of abx. (6) DVT prophylaxis: Lovenox Full Code Dispo-to home when medically stable. Samantha Ames DO [facility] Hospitalist Admission and Anticipated Discharge Date Admission Date: June 24, 2020 Subjective +pain in L jaw and L neck area. One fever overnight Denies n/v Tolerating some food and water. Diarrhea 2 episodes Review of Systems Review of Systems: All systems reviewed & are unremarkable except as noted in Subjective Physical Exam Physical Exam: CONSTITUTIONAL: WNWD, vitals as above, generally well- appearing EYES: normal conjunctivae, no scleral icterus ENT: external ear and nose normal, oropharynx clear, TTP of L mandible and L neck, some erythema and swelling of left gumline NECK: trachea midline, pain to palpation of L neck and submandibular area. RESPIRATORY: clear to auscultation bilaterally, no crackles, rales or wheezes, normal respiratory effort CARDIOVASCULAR: regular rate and rhythm, S1 and 2 heard without murmurs, gallops or rubs, no JVD, no peripheral edema CHEST: inspection of chest was normal (+pacemaker, +port) GASTROINTESTINAL: normal bowel sounds, soft, nontender, no hepatomegaly, no guarding MUSCULOSKELETAL: strength 5/5 throughout, head is normocephalic and atraumatic SKIN: warm and dry NEUROLOGIC: No facial palsy, no dysarthria. CN 2-12 grossly intact, no sensory deficit, normal cognition, normal speech, no tremor PSYCHIATRIC: alert cooperative and oriented to person, place and time. Results & Data Results & Data ([facility]) Vital Signs (Past 12 Hours) Vital Signs Temp Pulse Pulse Resp BP Pulse Ox 06/25/20 07:34 89 06/25/20 07:03 37 C 91 H 18 112/76 98 06/25/20 03:03 38.4 C H 109 H 15 97/52 L 96 06/25/20 00:57 89 06/25/20 00:34 37.2 C 91 H 18 121/77 96 Laboratory Results Short CBC 06/24/20 06/25/20 Range/Units 18:42 05:17 WBC 12.45 H 5.61 (4.8-10.8) K/uL Hgb 12.5 11.8 L (12.0-16.0) g/dL Hct 37.4 36.2 L (37-47) % Plt Count 157 158 (130-400) K/uL BMP 06/24/20 06/25/20 18:42 05:17 Sodium 139 141 Potassium 3.7 4.1 Chloride 108 H 114 H Carbon Dioxide 25 23 BUN 8 D 4 L Creatinine 0.84 0.72 Glucose 109 H 105 H Calcium 8.6 8.1 L Cardiac Enzymes 06/24/20 Range/Units 18:42 Troponin I < 0.015 (0-0.045) ng/ml Liver Function 06/24/20 Range/Units 18:42 Total Bilirubin 0.4 (0.2-1) mg/dl AST 17 (15-37) U/L ALT 19 (12-78) U/L Alkaline Phosphatase 47 (45-117) U/L Albumin 3.1 L (3.4-5.0) gm/dl Urine 06/25/20 Range/Units 01:35 Urine Color Yellow Urine Appearance Clear (Clear) Urine pH 7.0 (4.5-7.5) Ur Specific [place] 1.016 (1.000-1.030) Urine Protein Negative (Negative) Urine Glucose (UA) Negative (Negative) Medications Administered Current Inpatient Medications Acetaminophen (Acetaminophen 325 Mg Tab) 650 mg PO Q4H PRN PRN Reason: Pain or Fever Stop: 07/24/20 23:20 Last Admin: 06/25/20 03:06 Dose: 650 mg Documented by: Enoxaparin Sodium (Enoxaparin Inj 40 Mg/0.4 Ml Syr) 40 mg SQ QAM [facility] Stop: 07/25/20 08:59 Last Admin: 06/25/20 08:57 Dose: Not Given Documented by: Ampicillin Sodium/Sulbactam Sodium 3,000 mg/ Sodium Chloride 108 mls @ 216 mls/hr IV Q6H [facility] Stop: 07/05/20 00:00 Last Infusion: 06/25/20 07:28 Dose: Infused Documented by: Potassium Chloride/Sodium Chloride (Normal Saline W/20 Meq Kcl) 20 meq in 1,000 mls @ 75 mls/hr IV .[id number] Stop: 06/25/20 19:34 Last Admin: 06/25/20 06:44 Dose: 75 mls/hr Documented by: Ibuprofen (Ibuprofen 200 Mg Tab) 200 mg PO Q6H PRN PRN Reason: Mild Pain Stop: 07/24/20 23:20 Last Admin: 06/25/20 06:15 Dose: 200 mg Documented by: Ketorolac Tromethamine (Ketorolac Tromethamine 15 Mg/Ml Vial) 15 mg IV Q6H PRN PRN Reason: Pain Stop: 06/29/20 23:20 Last Admin: 06/25/20 08:57 Dose: 15 mg Documented by: Lidocaine (Lidocaine 5% 1 Patch) 1 patch TD DAILY PRN PRN Reason: Back Pain Stop: 07/24/20 23:20 Miscellaneous (Remove Lidoderm Patch) 1 ea N/A DAILY@2100 [facility] Stop: 07/25/20 20:59 Miscellaneous (Methylphenidate Order Awaiting Action) 1 ea N/A QS [facility] Stop: 07/25/20 00:00 Last Admin: 06/25/20 07:38 Dose: Not Given Documented by: Miscellaneous ( Control- Order Awaiting Action) 1 ea N/A QS NESS Stop: 07/25/20 00:00 Last Admin: 06/25/20 07:38 Dose: Not Given Documented by: Miscellaneous Information (Ampicillin/Sulbactam Consult Active) 1 ea N/A UD PRN PRN Reason: Consult Stop: 07/24/20 23:26 Sertraline HCl (Sertraline Hcl 50 Mg Tablet) 50 mg PO DAILY@1500 NESS Stop: 07/25/20 14:59
--- NOTE | 2020-06-25 13:52 | Surgery Consultation ---
Date of Consultation June 25, 2020 I did see Kiki this AM I am in the process of seeing what is going on with her lower left tooth. I have calls in to the dental office and I am trying to obtain her recent dental X RAYs. Not sure what is going on but as soon as I get more information I will be able to complete the consult and come up with a tretament plan. No swelling, no + findings on CT scan, only symptoms--pain in tooth where ? root canal was done. I see no evidence of any dental infection! Thanks Fei Blunt History of Present Illness Attending Physician: Oral Maxillofacial Surgery Exam Present Complaint: I have pain from the tooth I had a root canal on last WednesdayJun 17 Symptoms have been ongoing for a while they would come and go. Intense pain over the weekend with fever--To ER diagnosed with a blood born infection--see ID consult. A detailed oral exam was completed. Finding-- No P-cor associated with the impacted teeth, tender gingival tissue # 19 area, no swelling,tender to percussion. Panorex: The Panorex X Ray was reviewed, there were no abnormal findings other then the impacted/malposed wisdom teeth. The following teeth were impacted # 1,16,17, The following teeth are decayed/fractured--#19 Root canal tooth that never became pain free. No interest in re doing procedure The following teeth are planned to be removed-- 19 wisdom teeth in future Soft tissue of the floor of the mouth, tongue, hard/soft palate, posterior pharyngeal area all with in normal limits, no pathology or abnormal findings noted. Cancer exam--No lesions noted that require follow up or Bx. Oral Care---Overall oral care is good Occlusion---Class I TMJ exam: No pop, clicking, pain, good ROM, No history of TMJ injury or dysfunction Periodontal exam---good Neck is supple, FROM, Able to extend and flex neck w/o difficulty, no masses, no abnormalities, no airway issues, no evidence of sleep apnea. Plan: I obtained XRs form dentist and discussed case with office doing the root canal--x rays show a well done endo # 19. Panorex shows impacted wisdom teeth that at present are asymptomatic --removal in future I reviewed that Endo was completed and looks good on XR but given the intense pain and clinical picture + families desire to remove tooth I will plan extraction WILMER. Set up with general anesthesia in hospital Risks reviewed (see below) Physical exam completed I reviewed the treatment plan and consent with the patient and her mother. Understanding was expressed. Time was given for questions regarding the surgery, risks and post op care. The procedure will be set up for Wednesday Review of informed consent with patient (and mother) Reason for surgery to remove the # 19 tooth that has not responded to the root canal causing intense pain: The wisdom teeth are impacted and in an abnormal position, removal is indicated and medically necessary we will plan this in the future to prevent another infection. The following tooth will be removed to control the pain and most likely cause of the blood infection--Given that the apex was not perforated based on working Endo films and no clinical swelling surrounding # 19 or adjacent soft tissue I can not say with any degree of certainty that there is a direct link between the endo procedure and the bacteriemia. I unusually see a post endo infection with facial and gingival swelling--the soft tissue and Post endo XRs look great but the pain is intense. Risks discussed: Pain,swelling,infection, dry socket, delayed healing, nerve injury to face,lips,tongue,chin area which could be permanent (rare). TMJ, jaw stiffness, change in bite (rare), ear pain (referred). Sinus problems like fistula or infection. Need to leave a small root fragment in place to avoid injury to nerve or sinus. Home care reviewed--tooth brushing, rinsing, follow up care with Dr Blunt. diet=[id number] dental. Discussed activity level, driving/work while on Rx pain Meds. Plan: For the GA and surgery at Hospital Set up wisdom teeth in future Allergies Allergy/AdvReac Type Severity Reaction Status Date / Time pseudoephedrine Allergy Mild Vomiting, Verified 06/24/20 00:05 breathing difficulty bee venom protein (honey bee) Allergy Unknown swelling Verified 06/24/20 00:05 omeprazole AdvReac Intermediate Vomiting Verified 06/24/20 00:05 and diarrhea Home Medications Home Medications Medication Instructions Recorded Confirmed Type cholecalciferol (vitamin D3) 1,000 unit PO QAM 09/24/18 06/24/20 History [Vitamin D3] dicyclomine 20 mg PO QID 09/24/18 06/24/20 History sertraline 50 mg PO DAILY@1500 09/24/18 06/24/20 History norgestimate-ethinyl estradiol 1 tab PO DAILY 02/14/20 06/24/20 History [Sprintec (28)] methylphenidate HCl 60 mg PO QAM 03/28/20 06/24/20 History lidocaine 1 patch TOP DAILY PRN 04/10/20 06/24/20 History methylphenidate HCl 20 mg PO DIRECTED 04/10/20 06/24/20 History amoxicillin-pot clavulanate 1 tab PO BID #20 tab 06/24/20 06/24/20 Rx [Augmentin] Patient History Medical History (Updated 06/25/20 @ 10:58 by Samantha Ames DO) ADH disorder Anxiety IBS (irritable bowel syndrome) Surgical History No pertinent past surgical history Family History Other No significant family history Social History Smoking Status: Never smoker Hx Alcohol Use: No Hx Substance Use: No Preferred Language: Yakut Communication Ability: Effective marital status: Single Current Living Situation: Family current occupational status: employed and 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
[2020-06-25] MEDS: SERTRALINE HCL 50 MG TABLET PO SCH (15:37)
--- NOTE | 2020-06-25 16:32 | Anesthesiology Consultation ---
Date of Service June 25, 2020 The patient tested negative for Covid 19 on 06/25/20. Assessment & Plan (1) Encounter for pre-operative examination: Chart Review Chart Review: Acceptable Risk for Surgery and Patient NOT seen in Pre Admission Testing Consults Requested none History Surgery Operation Date: 06/26/20 08:20 Proposed Procedures p Incision and Drainage, Extraction #19 Tooth - Fei Blunt, DMD Height/Weight Height: 5 ft 7 in Weight: 101.3 kg Allergies Allergy/AdvReac Type Severity Reaction Status Date / Time pseudoephedrine Allergy Mild Vomiting, Verified 06/24/20 00:05 breathing difficulty bee venom protein (honey bee) Allergy Unknown swelling Verified 06/24/20 00:05 omeprazole AdvReac Intermediate Vomiting Verified 06/24/20 00:05 and diarrhea Medications Home Medications Medication Instructions Recorded Confirmed Last Taken cholecalciferol (vitamin D3) 1,000 unit PO QAM 09/24/18 06/24/20 01/07/20 [Vitamin D3] dicyclomine 20 mg PO QID 09/24/18 06/24/20 01/07/20 21:00 sertraline 50 mg PO DAILY@1500 09/24/18 06/24/20 01/07/20 15:00 norgestimate-ethinyl estradiol 1 tab PO DAILY 02/14/20 06/24/20 Unknown [Sprintec (28)] methylphenidate HCl 60 mg PO QAM 03/28/20 06/24/20 Unknown lidocaine 1 patch TOP DAILY PRN 04/10/20 06/24/20 Unknown methylphenidate HCl 20 mg PO DIRECTED 04/10/20 06/24/20 Unknown amoxicillin-pot clavulanate 1 tab PO BID #20 tab 06/24/20 06/24/20 Unknown [Augmentin] Active Medications Generic Name Dose Route Start Last Admin Trade Name Freq PRN Reason Stop Dose Admin Acetaminophen 650 mg 06/24/20 23:21 06/25/20 13:21 Acetaminophen 325 Mg Tab PO 07/24/20 23:20 650 mg Q4H PRN Administration Pain or Fever Enoxaparin Sodium 40 mg 06/25/20 09:00 06/25/20 08:57 Enoxaparin Inj 40 Mg/0.4 Ml Syr SQ 07/25/20 08:59 Not Given QAM [facility] Ampicillin Sodium/Sulbactam 108 mls @ 216 mls/hr 06/25/20 00:00 06/25/20 13:13 Sodium 3,000 mg/ Sodium IV 07/05/20 00:00 Infused Chloride Q6H NESS Infusion Potassium Chloride/Sodium Chloride 20 meq in 1,000 mls @ 75 mls/hr 06/25/20 06:15 06/25/20 06:44 Normal Saline W/20 Meq Kcl IV 06/25/20 19:34 75 mls/hr .[id number] ONE Administration Ibuprofen 200 mg 06/24/20 23:21 06/25/20 06:15 Ibuprofen 200 Mg Tab PO 07/24/20 23:20 200 mg Q6H PRN Administration Mild Pain Ketorolac Tromethamine 15 mg 06/24/20 23:21 06/25/20 08:57 Ketorolac Tromethamine 15 Mg/Ml Vial IV 06/29/20 23:20 15 mg Q6H PRN Administration Pain Miscellaneous 1 ea 06/25/20 00:00 06/25/20 07:38 Methylphenidate Order Awaiting Action N/A 07/25/20 00:00 Not Given QS NESS Miscellaneous 1 ea 06/25/20 00:00 06/25/20 07:38 Control- Order Awaiting Action N/A 07/25/20 00:00 Not Given QS NESS Sertraline HCl 50 mg 06/25/20 15:00 06/25/20 15:37 Sertraline Hcl 50 Mg Tablet PO 07/25/20 14:59 50 mg DAILY@1500 NESS Administration Past Medical History Medical History ADH disorder Anxiety IBS (irritable bowel syndrome) Past Family History Family History Other No significant family history Past Surgical History Surgical History No pertinent past surgical history Social History Smoking Status: Never smoker Hx Alcohol Use: No Hx Substance Use: No Physical Exam Vital Signs Last Vital Signs Temp 37.3 C 06/25/20 15:39 Pulse 75 06/25/20 15:59 Resp 18 06/25/20 15:39 BP 125/83 06/25/20 15:39 Pulse Ox 98 06/25/20 15:39 Testing Laboratory Results 06/25/20 05:17 06/25/20 05:17 Urine Color Yellow 06/25/20 01:35 Urine Appearance Clear (Clear) 06/25/20 01:35 Urine pH 7.0 (4.5-7.5) 06/25/20 01:35 Ur Specific [place] 1.016 (1.000-1.030) 06/25/20 01:35 Urine Protein Negative (Negative) 06/25/20 01:35 Urine Glucose (UA) Negative (Negative) 06/25/20 01:35 Urine Ketones Negative (Negative) 06/25/20 01:35 Urine Nitrite Negative (Negative) 06/25/20 01:35 Ur Leukocyte Esterase Negative (Negative) 06/25/20 01:35 Urine WBC (Auto) 1-5 /hpf (0-5) 06/25/20 01:35 Urine RBC (Auto) 0-4 /hpf (0-4) 06/25/20 01:35 U Hyaline Cast (Auto) 0 /lpf (0-5) 06/25/20 01:35 U Epithel Cells (Auto) >30 /lpf (0-5) H 06/25/20 01:35 Urine Bacteria (Auto) Negative (Negative) 06/25/20 01:35 Echocardiogram Date: 06/25/20 EF: 55-60 LV Function: normal
[2020-06-25] MEDS ORDERED: MoRPHine SULFATE 2 MG/ML CARP IV PRN (16:57)
[2020-06-25] MEDS: OXYCODONE/ACETAMINOPHEN 5mg/325mg TAB PO PRN (20:20)
--- NOTE | 2020-06-25 22:48 | Electrocardiogram Report ---
Test Reason : Blood Pressure : / mmHG Vent. Rate : 081 BPM Atrial Rate : 081 BPM P-R Int : 144 ms QRS Dur : 086 ms QT Int : 378 ms P-R-T Axes : 044 058 026 degrees QTc Int : 439 ms Normal sinus rhythm Normal ECG When compared with ECG of 24-JUN-2020 00:20, No significant change was found Confirmed by Boni Littlejohn ([id number]) on 06/25/2020 10:47:49 PM Referred By: REFERRED SELF Confirmed By:Boni Littlejohn
[2020-06-26] MEDS: OXYCODONE/ACETAMINOPHEN 5mg/325mg TAB PO PRN (02:33)
[2020-06-26] MEDS: AMPICILLIN/SULBACTAM SOD 3,000 MG in 0.9 % SODIUM CHLORIDE 100 ML IV SCH ×3 (05:40→20:03)
[2020-06-26] MEDS: METHYLPHENIDATE HCL PO SCH (08:59)
[2020-06-26] MEDS ORDERED: METHYLPHENIDATE PO SCH (09:00)
[2020-06-26] MEDS: ENOXAPARIN INJ 40 MG/0.4 ML SYR SQ SCH (09:00)
[2020-06-26] MEDS: PATIENT'S OWN CONTROLLED MED PO SCH (09:01)
--- NOTE | 2020-06-26 09:14 | Hospitalist Progress Note ---
Date of Service June 26, 2020 Assessment & Plan (1) Sepsis: (2) Dental infection: (3) Bacteremia: S viridans bacteremia Secondary to dental infection Tooth extraction planned by Dr Blunt today BCX from 06/23 and 06/24 positive BCX from 06/25 negative so far Last fever was 06/25 at 3:03am at 38.4 ID recommendations noted Continue unasyn per ID recommendations Will need PICC for outpatient antibiotics once BCx clears (4) Anxiety: Cont sertraline per home regimen. (5) IBS (irritable bowel syndrome): Dicyclomine per home regimen. Will get C diff ordered if diarrhea persists (6) DVT prophylaxis: Lovenox Full Code Dispo-to home when medically stable. Admission and Anticipated Discharge Date Admission Date: June 24, 2020 Subjective Patient seen and examined Reports left jaw pain Denied any fevers, chills,nausea or vomiting Reported mild headache yesterday but none this morning Denied any dizziness, hearing problems Denied any chest pain, shortness of breath, cough Denied any abd pain, constipation. No diarrhea today yet. Denied any dysuria, freq, urgency, incontinence, hematuria Physical Exam Constitutional: well developed and well nourished; no acute distress Eyes: PERRL, conjunctivae normal, anicteric sclerae ENMT: external ear and nose normal, oropharynx normal Tenderness over left mandible Neck: normal visual inspection Normal ROM Respiratory: normal respiratory effort, lungs clear to auscultation Cardiovascular: RRR, no murmur, no edema Gastrointestinal (Abdomen): normal bowel sounds, soft, nontender, no hepatosplenomegaly Musculoskeletal: no cyanosis or clubbing, extremities motor strength 5/5 Neurologic: PERRL, EOMI, accommodation nl, no face palsy, no dysarthria Psychiatric: A+Ox3, euthymic affect Results & Data Results & Data ([facility]) Vital Signs (Past 12 Hours) Vital Signs Temp Pulse Pulse Resp BP Pulse Ox 06/26/20 07:02 37.1 C 81 18 125/76 97 06/26/20 03:02 37.0 C 61 18 119/72 98 06/26/20 01:03 96 H 06/25/20 23:06 37.1 C 79 18 124/74 98
[2020-06-26] MEDS ORDERED: ONDANSETRON INJ 2 MG/ML 2 ML VIAL IV PRN ×2 (10:20→11:38)
[2020-06-26] MEDS ORDERED: ONDANSETRON INJ 2 MG/ML 2 ML VIAL ONE (11:20)
[2020-06-26] MEDS ORDERED: fentaNYL citrate 100 MCG/2 ML VIAL ONE ×2 (11:20→12:22)
[2020-06-26] MEDS ORDERED: DEXAMETHASONE SOD INJ 4 MG/ML VIAL ONE (11:20)
[2020-06-26] MEDS ORDERED: PROPOFOL IV EMULSION 10 MG/ML 20 ML VIAL IV ONE (11:20)
[2020-06-26] MEDS ORDERED: MIDAZOLAM HCL 1 MG/ML 2ML VIAL ONE (11:20)
[2020-06-26] MEDS ORDERED: LIDOCAINE HCL 5% OINT 30 GM TUBE ONE (11:23)
[2020-06-26] MEDS ORDERED: OXYMETAZOLINE 0.05% 30 ML BTL ONE (11:23)
[2020-06-26] MEDS ORDERED: CHLORHEXIDINE GLUCONATE 0.12% 480 ML ONE (11:29)
[2020-06-26] MEDS ORDERED: BUPIVACAINE/EPINEPHRINE 0.5% 1:200,000 1.8 ML CARP ONE (11:29)
[2020-06-26] MEDS ORDERED: NALOXONE HCL 0.4 MG/1 ML VIAL/CARP IV PRN (11:38)
[2020-06-26] MEDS ORDERED: ATROPINE SULFATE 0.1 MG/ML 10ML SYR IV PRN (11:38)
[2020-06-26] MEDS ORDERED: FLUMAZENIL 0.1 MG/1 ML 10 ML VIAL IV PRN (11:38)
[2020-06-26] MEDS ORDERED: fentaNYL citrate 100 MCG/2 ML VIAL IV PRN (11:38)
[2020-06-26] MEDS ORDERED: PROMETHAZINE HCL 12.5 MG in SODIUM CHLORIDE 0.9% 50 ML IV PRN (11:38)
--- NOTE | 2020-06-26 11:59 | History & Physical Bridge Note ---
Date of Service June 26, 2020 History & Physical Bridge Note I have examined the patient, reviewed the History & Physical and in the interval since the performance of the History & Physical I have noted the following changes of clinical significance: no changes noted OK for extraction of the severely painful # 19
--- NOTE | 2020-06-26 12:50 | Post Operative Brief Note ---
PG Immediate Post Op with CF Date of Surgery June 26, 2020 Pre & Post Diagnosis Operation Date: 06/26/20 08:20 Pre-Op Diagnosis: Failed root canal tooth #19 causing bacteremia Post-Op Diagnosis: Failed root canal tooth #19 causing bacteremia I identified the patient and participated in the time-out.: Yes Procedure Operation Date: 06/26/20 08:20 Actual Procedures p Incision and Drainage, Extraction #19 Tooth(Left) - Fei Blunt DMD Surgeon Fei Blunt, [place] Boat Captain none Estimated Blood Loss 2 Findings Consistent with Post-Op Diagnosis Specimens Specimen Description: none
--- NOTE | 2020-06-26 13:38 | Anesthesiology Progress Note ---
Date of Service June 26, 2020 Anesthesia Post Procedure Vital Signs Vital Signs: Temp Pulse Pulse Pulse Pulse Resp BP 06/26/20 13:25 90 19 154/93 H 06/26/20 13:15 85 16 142/86 H 06/26/20 13:05 83 16 137/81 06/26/20 12:58 37.4 C 105 H 18 136/82 06/26/20 11:26 36.8 C 88 88 20 146/85 H 06/26/20 07:02 37.1 C 81 18 125/76 06/26/20 03:02 37.0 C 61 18 119/72 06/26/20 01:03 96 H 06/25/20 23:06 37.1 C 79 18 124/74 06/25/20 19:35 37.1 C 86 18 125/73 06/25/20 15:59 75 06/25/20 15:39 37.3 C 73 18 125/83 Pulse Ox 06/26/20 13:25 100 06/26/20 13:15 100 06/26/20 13:05 99 06/26/20 12:58 99 06/26/20 11:26 99 06/26/20 07:02 97 06/26/20 03:02 98 06/26/20 01:03 06/25/20 23:06 98 06/25/20 19:35 95 06/25/20 15:59 06/25/20 15:39 98 Pain Intensity Mouth: Pain Intensity: 2 Transfer of Care Handoff Completed per policy Notes Mental Status: alert / awake / arousable Patient Amnestic to Procedure: Yes Nausea / Vomiting: adequately controlled Pain: adequately controlled Airway Patency, RR, SpO2: stable & adequate BP & HR: stable & adequate Hydration State: stable & adequate Anesthetic Complications: no major complications apparent
[2020-06-26] MEDS: SPRINTEC CONTRACEPTIVE PO SCH (15:10)
[2020-06-26] MEDS: SERTRALINE HCL 50 MG TABLET PO SCH (15:11)
[2020-06-26] MEDS: METHYLPHENIDATE HCL 10 MG TABLET PO SCH ×2 (15:24→15:42)
[2020-06-27] MEDS: AMPICILLIN/SULBACTAM SOD 3,000 MG in 0.9 % SODIUM CHLORIDE 100 ML IV SCH ×4 (03:26→20:48)
[2020-06-27 05:57] LABS: Hematocrit (blood only) 35.4 % (37-47); Mean Corpuscular Hemoglobin 28.5 pg (25-34); Mean Corpuscular Hgb Conc 33.9 g/dL (32-36); Mean Corpuscular Volume 84.1 fL (80-100); Mean Platelet Volume 10.2 fL (7.4-10.4); Platelet Count 200 K/uL (130-400); RDW Standard Deviation 39.3 fL (36.4-46.3); Red Blood Count 4.21 M/uL (4.2-5.4); White Blood Count 4.88 K/uL (4.8-10.8)
[2020-06-27 06:41] LABS: BUN Creatinine Ratio 11.4 (10-20); Calcium 8.8 mg/dl (8.5-10.1); Creatinine Clr Calc Pharmacy 167.5 ml/min; Est GFR (African American) 148.4; Est GFR (Non-African American) 128.1
[2020-06-27] MEDS: SPRINTEC CONTRACEPTIVE PO SCH (09:15)
[2020-06-27] MEDS: ENOXAPARIN INJ 40 MG/0.4 ML SYR SQ SCH (09:20)
--- NOTE | 2020-06-27 09:25 | Hospitalist Progress Note ---
Date of Service June 27, 2020 Assessment & Plan (1) Sepsis: (2) Dental infection: (3) Bacteremia: S viridans bacteremia Secondary to dental infection s/p Incision and drainage, Tooth #[address] Blunt 06/25/20 Advance diet as tolerated BCX from 06/23 and 06/24 positive BCX from 06/25 negative so far Last fever was 06/25 at 3:03am at 38.4 Continue unasyn Discussed with ID Dr street If blood culture remain negative, Plan for PICC line placement tomorrow and discharge on iv ceft 2g qd + metronidazole 500mg po tid till 07/08/20 (4) Anxiety: Cont sertraline per home regimen. (5) IBS (irritable bowel syndrome): Dicyclomine per home regimen. (6) DVT prophylaxis: Lovenox Full Code Dispo-Possible dc tomorrow Admission and Anticipated Discharge Date Admission Date: June 24, 2020 Subjective Patient seen and examined. Had I/D, extraction of tooth #19 yesterday. Patient reports pain is well controlled No fevers, chills, neck pain No dizziness, headache Had nausea yesterday. Currently resolved Last loose stool was 2 days ago Denied any abd pain Denied any dysuria, freq, urgency, hematuria Denied any chest pain, cough, SOB, WILCOX Physical Exam Constitutional: well developed and well nourished; no acute distress Eyes: PERRL, conjunctivae normal, anicteric sclerae ENMT: external ear and nose normal, oropharynx normal Tooth #19 absent Neck: normal visual inspection Respiratory: normal respiratory effort, lungs clear to auscultation Cardiovascular: RRR, no murmur, no edema Gastrointestinal (Abdomen): normal bowel sounds, soft, nontender, no hepatosplenomegaly Musculoskeletal: no cyanosis or clubbing, extremities motor strength 5/5 Neurologic: PERRL, EOMI, accommodation nl, no face palsy, no dysarthria Psychiatric: A+Ox3, euthymic affect Results & Data Results & Data ([facility]) Vital Signs (Past 12 Hours) Vital Signs Temp Pulse Pulse Resp BP Pulse Ox 06/27/20 07:42 37.1 C 54 L 18 97/58 L 98 06/27/20 02:37 37.0 C 56 L 18 127/78 94 06/26/20 23:39 67 Laboratory Results Laboratory Results - last 24 hr 06/27/20 06/27/20 05:29 05:29 WBC 4.88 RBC 4.21 Hgb 12.0 Hct 35.4 L MCV 84.1 MCH 28.5 MCHC 33.9 RDW Std Deviation 39.3 RDW Coeff of Candido 13.0 Plt Count 200 MPV 10.2 Sodium 140 Potassium 4.0 Chloride 109 H Carbon Dioxide 24 Anion Gap 7.0 BUN 8 Creatinine 0.66 Est Cr Clr Drug Dosing 167.5 Est GFR ( Amer) 148.4 Est GFR (Non-Af Amer) 128.1 BUN/Creatinine Ratio 11.4 Glucose 111 H Calcium 8.8
[2020-06-27] MEDS: METHYLPHENIDATE HCL PO SCH (09:32)
[2020-06-27] MEDS: PATIENT'S OWN CONTROLLED MED PO SCH (09:32)
[2020-06-27] MEDS: METHYLPHENIDATE HCL 10 MG TABLET PO SCH ×2 (12:27→14:55)
[2020-06-27] MEDS: SERTRALINE HCL 50 MG TABLET PO SCH (15:02)
[2020-06-28] MEDS: AMPICILLIN/SULBACTAM SOD 3,000 MG in 0.9 % SODIUM CHLORIDE 100 ML IV SCH ×2 (02:54→10:40)
[2020-06-28 06:03] LABS: Hematocrit (blood only) 33.7 % (37-47); Hemoglobin 11.5 g/dL (12.0-16.0); Mean Corpuscular Hemoglobin 28.9 pg (25-34); Mean Corpuscular Hgb Conc 34.1 g/dL (32-36); Mean Corpuscular Volume 84.7 fL (80-100); Mean Platelet Volume 9.6 fL (7.4-10.4); Platelet Count 203 K/uL (130-400); Red Blood Count 3.98 M/uL (4.2-5.4); White Blood Count 5.66 K/uL (4.8-10.8)
[2020-06-28 06:59] LABS: BUN Creatinine Ratio 18.1 (10-20); Calcium 8.5 mg/dl (8.5-10.1); Creatinine Clr Calc Pharmacy 128.2 ml/min; Est GFR (African American) 116.8; Est GFR (Non-African American) 100.8; Potassium 3.8 mmol/L (3.5-5.1)
[2020-06-28] MEDS ORDERED: COUGH DROP (SUGAR FREE) LOZ 24 LOZ/1 BOX BUCCAL ONE (07:46)
[2020-06-28] MEDS: SPRINTEC CONTRACEPTIVE PO SCH (08:41)
[2020-06-28] MEDS: PATIENT'S OWN CONTROLLED MED PO SCH (08:41)
[2020-06-28] MEDS: METHYLPHENIDATE HCL PO SCH (08:41)
[2020-06-28] MEDS: ENOXAPARIN INJ 40 MG/0.4 ML SYR SQ SCH (08:42)
[2020-06-28 10:06] LABS: Appearance Urine Clear (Clear); Bilirubin Urine Negative (Negative); Blood Urine Negative (Negative); Color Urine Yellow; Glucose Urine UA Negative (Negative); Ketones Urine Negative (Negative); Leukocyte Esterase Urine Negative (Negative); Nitrite Urine Negative (Negative); Protein Urine Negative (Negative); Specific Gravity Urine 1.012 (1.000-1.030); Urobilinogen Urine Negative (Negative)
--- NOTE | 2020-06-28 10:56 | Discharge Summary ---
Date of Service June 28, 2020 Admission HPI Per Admitting Provider History obtained from patient, family, and records. Medical history significant for ADD, learning disability as per records, IBS as per records. Last week patient underwent root canal procedure for the first molar of her left lower jaw at a dental clinic in [place]. Patient recalls significant manipulation and pain during procedure. Yesterday afternoon however patient developed intolerable pain on the left jaw with fever and chills. No cough symptoms. No trismus. Patient noted to be febrile and tachycardic upon arrival at the ER. Blood cultures obtained at the ER. Patient given Unasyn for dental infection. Discharged on Augmentin course and advised to follow-up with local dentist. Local dentist recommended follow-up with [place] [facility] as per patient. [place] [facility] closed for the day as per patient's mother. 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 No unusual shortness of breath. Patient return to ER for evaluation. 2 bottles of blood cultures drawn from last night's ER visit currently growing gram-positive cocci in chains. Patient given Unasyn and Vancomycin at the ER. 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 Admission Exam Per Admitting Provider GENERAL: Comfortable, anxious, obese, no respiratory distress SKIN: Normal color, warm HEENT: [place]pect[place], [place] palpebral conjunctivae, no ptosis, dry buccal mucosa, no trismus, carious molars left mandibular arch NECK : Supple, short neck, no tenderness CHEST : CTA, anterior chest wall tenderness HEART : Tachycardic, no obvious murmurs ABDOMEN: Some distention, nontender EXTREMITIES : Minimal LE swelling, no LE tenderness, no other conspicuous deformities noted NEUROLOGIC : Coherent, no facial asymmetry, no other gross focality Principal Diagnosis Sepsis secondary to dental infection Strep anginosus bacteremia Discharge Exam Constitutional well developed and well nourished; no acute distress Eyes PERRL, conjunctivae normal, anicteric sclerae ENMT external ear and nose normal, oropharynx normal Neck normal visual inspection Respiratory normal respiratory effort, lungs clear to auscultation Cardiovascular RRR, no murmur, no edema Gastrointestinal (Abdomen) normal bowel sounds, soft, nontender, no hepatosplenomegaly Musculoskeletal no cyanosis or clubbing, extremities motor strength 5/5 Neurologic PERRL, EOMI, accommodation nl, no face palsy, no dysarthria Psychiatric A+Ox3, euthymic affect Discharge Data Allergies Allergy/AdvReac Type Severity Reaction Status Date / Time pseudoephedrine Allergy Mild Vomiting, Verified 06/24/20 00:05 breathing difficulty bee venom protein (honey bee) Allergy Unknown swelling Verified 06/24/20 00:05 omeprazole AdvReac Intermediate Vomiting Verified 06/24/20 00:05 and diarrhea Consultations 06/24/20 20:27 ED Decision to Admit Stat 06/24/20 21:46 Consult Oromaxillofacial Surgery Routine 06/25/20 08:33 Consult Infectious Diseases Routine Procedures Performed Operation Date: 06/26/20 08:20 Actual Procedures p Incision and Drainage, Extraction #19 Tooth(Left) - Fei Blunt, DMD Ordered Studies 06/24/20 18:13 CT soft tissue neck w con Stat FINDINGS: There is no acute process of the imaged intracranial structures. The nasopharynx, oral pharynx and hypopharynx are patent. The epiglottis and aryepiglottic folds are unremarkable. The glottis and subglottic airway is within normal limits. Unremarkable thyroid. There are a few nonspecific prominent paratracheal lymph nodes of the upper mediastinum. The parotid and submandibular glands are unremarkable. Prominent left-sided level 1 lymph nodes measure up to 8 mm, likely reactive. Lung apices are clear without pneumothorax. Mastoid air cells and middle ear cavities are clear. Mild mucosal thickening involves the ethmoid air cells. Minimal mucosal thickening involves the sphenoid and inferior maxillary sinuses. There is a skin marker noted along the left jaw. Unerupted bilateral maxillary and left mandibular third molars with associated dentigerous (follicular) cysts, largest involving the left mandibular molar. No third molar identified involving the right mandible. No large periapical cysts. Streak artifact from dental amalgam hardware limits evaluation of the teeth. Root canal changes are noted involving the first left mandibular molar. No significant soft tissue swelling or drainable fluid collection. IMPRESSION: 1. Unerupted bilateral maxillary and left mandibular third molars are noted with associated dentigerous (follicular) cysts. 2. Streak artifact from dental amalgam hardware limits evaluation of the teeth. No large periapical cysts or drainable fluid collection identified. 3. Mildly prominent left-sided level I lymph nodes, likely reactive. 4. Mild paranasal sinus disease. Hospital Course (1) Sepsis: (2) Dental infection: (3) Bacteremia: Secondary to dental infection s/p Incision and drainage, Tooth #[address] Blunt 06/25/20 Advance diet as tolerated BCX from 06/23 and 06/24 positive for streptococcus anginossus Was started on IV unasyn Repeat BCX from 06/25 negative Last fever was 06/25 at 3:03am at 38.4 Was evaluated by ID who recommended discharge on ceftriaxone 2g IV qd + metronidazole 500mg tid till 07/08/20 Patient got USS IV today. Arrangements made for home IV antibiotics (4) Anxiety: Cont sertraline per home regimen. (5) IBS (irritable bowel syndrome): Dicyclomine per home regimen. 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 Condition on Discharge: Good Activity: Resume your previous activity Lifting: Gradually increase as tolerated Bathing: No limitations Exercise/Sports: Gradually increase as tolerated Driving/Machine Use: Resume 1 day after discharge Weightbearing: Full weightbearing Non-emergency contact: Surgeon Call non-emergency contact if: you have any medication questions, your temperature is above 101.5, your wound has increased redness, your wound has increased drainage and your wound pain has increased Follow-up/Referrals: Gustavo Ag MD [Primary Care Provider] - 07/04/20 1:20 pm (Date & Time 07/04/2020 1:20 PM Provider Gustavo Ag MD [facility] ) Fei Blunt, [place] [Physician] - Diet: Regular Addtl Attending Provider Instructions: Ms Babin You came to the hospital with worsening dental pain with fevers and chills after your recent dental procedure. You were evaluated and found to have sepsis due to dental infection. You had incision and drainage with extraction of tooth. You are recovering well You still need antibiotics (iv ceftriaxone through the IV line and metronidazole by mouth) until 07/08/20. Arrangements have been made for your IV infusion at home. You can use tylenol as needed for pain as we discussed. Please follow up with your Primary Doctor ADDITIONAL ACTIVITY RECOMMENDATIONS: * [place] teeth after every meal. It is very important to keep your mouth clean to prevent infection. SPECIAL CARE INSTRUCTIONS: * Keep ice on the side of your face for the next 24 to 36 hours. This will help keep the swelling down. * Tomorrow start rinsing your mouth with 1/2 teaspoon salt in 8 ounces warm water. This rinse should be used every 4-6 hours. * You may experience slight nausea. To prevent this, never take your medication on an empty stomach. If nauseated, take small sips of miguel candy until you feel better; then you may start on applesauce and toast. * Some swelling is common. It should gradually decrease within 4-5 days. * A certain amount of bleeding is to be expected. It is often possible to control mild oozing by placing folded gauze over the area and biting down for 30 minutes. If you are unable to control excessive bleeding, call Dr Blunt at [phone] * You may experience some discomfort for a few days. If pain or swelling increases, Call Dr Blunt Pending Studies at Discharge: No Stand-Alone Forms: [facility], Work/School Release (Inpt), Smoking Cessation Medications and DC Order Prescriptions: New metronidazole 500 mg tablet 500 mg PO TID 10 Days Qty: 30 RF: 0 Continued methylphenidate HCl 60 mg capsule, ER biphasic 30-70 60 mg PO QAM RF: 0 dicyclomine 20 mg Tablet 20 mg PO QID RF: 0 sertraline 50 mg Tablet 50 mg PO DAILY@1500 RF: 0 cholecalciferol (vitamin D3) [Vitamin D3] 1,000 unit Capsule 1,000 unit PO QAM RF: 0 norgestimate-ethinyl estradiol [Sprintec (28)] 0.25-35 mg-mcg tablet 1 tab PO DAILY RF: 0 methylphenidate HCl 20 mg tablet 20 mg PO DIRECTED RF: 0 lidocaine 5 % adhesive patch,medicated 1 patch TOP DAILY PRN (Reason: Back Pain) RF: 0 Discontinued amoxicillin-pot clavulanate [Augmentin] 875-125 mg tablet 1 tab PO BID Qty: 20 RF: 0 Discharge Orders: Discharge Order (Routine); Ordered 06/28/20 Ordered By: Chetna Rivera Admission Data Admit Date/Time: 06/24/20 21:40 Attending Provider: Chetna Rivera I. Admit Provider: Julius Landa Primary Care Provider: Gustavo Ag Other Providers: Samantha Ames ; Julius Landa ; Fei Blunt Carlos M. ; Kwame Lake ; Lawrence Jenkins I. ; Jose Rafael Sanchez II ; Sally Woods ; Ron Carrillo Other Interventions: Discharge Summary Assessment (RN) Last Done: 06/28/20 13:43
[2020-06-28] MEDS ORDERED: cefTRIAXone SODIUM 2,000 MG in DEXTROSE 5% 50 ML IV STA (11:11)
[2020-06-28] MEDS ORDERED: metroNIDAZOLE 500 MG TAB PO SCH (11:15)
[2020-06-28] MEDS: METHYLPHENIDATE HCL 10 MG TABLET PO SCH (12:25)
--- NOTE | 2020-06-29 19:20 | Operative Report ---
Post Operative Report Pre & Post Diagnosis Operation Date: 06/26/20 08:20 Pre-Op Diagnosis: Failed root canal tooth #19 causing bacteremia Post-Op Diagnosis: Failed root canal tooth #19 causing bacteremia I identified the patient and participated in the time-out.: Yes Procedure Operation Date: 06/26/20 08:20 Actual Procedures p Incision and Drainage, Extraction #19 Tooth(Left) - Fei Blunt, DMD Problem: Pain,swelling located---#19 and subperiosteal and floor of mouth left side Finding: There is a carious, fractured and infected tooth at site#19 due to a failed root canal of # 19=perforated root canal causing the current bacteriemia : Plan: Surgical removal of the following tooth # 19 Procedure report: After a complete H&P/ vital signs and oral exam was completed the patient was ready for the surgical procedure. Informed consent was reviewed and the consent form was signed. I gave them time to discuss any questions and if I explained the surgery that I will be performing to their understanding. The patient was positioned and light adjusted, Peridex mouth rinse was used and a final time out was taken to review the correct procedure, once agreed the local anesthesia was given in the standard fashion for the area of surgery. Local Anesthesia: Using 1.8 cc Xylocaine 2% with 1/100,000 epi as a block and 1 cc Articaine 4% with epi as an infiltration, profound anesthesia was obtained within 5-10 minutes. Surgical Note: Now using a periosteal elevator the tissue was reflected to expose the alveolar bone. The rongeur was used to remove bone to allow the forceps to engage solid tooth structure. Using a controlled force the tooth was extracted in the standard manner. Upon removal of the tooth pus extruded from the socket. I reflected the tissue to get to the inferior boarder of the mandibular bone and drained the submandibular, Lingual and subperiosteal spaces. Once removed the roots were inspected it was noted that the root canal material was extruded into the bifurcation of the tooth in 2 areas. The interseptal bone and the socket were curetted. Based upon the finding of the root canal perforation this explains the severe pain and possible etiology of the sepsis. Sutures used: 2-0 Chromic x 2 A gauze pressure pack was placed over the socket and the the patient was allowed to wake up as per anesthesia dept protocal. General anesthesia was medically necessary due to the extreme pain and generalized swelling. Rx given: We will discuss with ID as to the appropriate antibiotics for Kiki given the bacteriemia in her blood. Post Op instructions: At this time I inspected the site: bleeding was controlled, instructions given by nursing staff (diet, oral care, use of gauze, follow up, pain management, activity, no driving if narcotics were Rx.) Discharge: The patient tolerated the I&D /extraction procedure extremely well Patient was discharged from OR Surgeon: Fei Blunt DMD [facility]acial [facility] Fei Blunt, DMD Road Worker none Estimated Blood Loss 2 Findings Consistent with Post-Op Diagnosis Specimens none Description of Procedure I&D and Extraction of # 19 I attest to the content of the Intraoperative Record and any orders documented therein. Any exceptions are noted below.
== END 2020-06-28 14:30 | disposition home health service (06) | DRG 856 ==
LOC: ED 16:04 → SUATTDRO 21:40 → 2N 21:40

== ENCOUNTER 2020-07-30 16:18 | Observation (INO) ==
--- NOTE | 2020-07-30 16:50 | Emergency Department Note ---
History of Present Illness General Chief complaint: Shortness of Breath/Dyspnea Stated complaint: SOB, CHEST PAIN, REF BY DOCTOR Time Seen by Provider: 07/30/20 16:21 Source: patient History of Present Illness Provider complaint: Chest pain Onset (ago): week(s) Location: chest and left Radiation: non-radiation Pain Consistency: + constant Maximum Pain Intensity: 8 Quality: + sharp Relieved By: + none Exacerbated By: + other (Deep breaths and exertion) Associated symptoms: + fever/chills (Chills no fever) and + shortness of breath; no cough and no nausea/vomiting This is a 19-year-old female sent over by her lead former for evaluation for endocarditis. The patient had sepsis from a dental infection in May. Since then she has been very tired and never felt like her self. Over the past week or greater she has had constant left-sided chest pain. The pain is located just left of the sternum and without radiation. She describes it as sharp. It is constant and unrelenting. She states it is worse with deep breaths and exertion. She states she has been to the emergency department 3 times over the past week and follow-up with her lead former today who sent her here for hospital admission. She denies any fever but states that she has had some chills. She complains of generalized fatigue. She has had no vomiting, abdominal pain, cough or cold symptoms or known exposure to COVID-19. She states she had a CT scan of her chest yesterday and she was told that she had inflammation around her heart. Home Medications Home Medications Medication Instructions Recorded Confirmed Type cholecalciferol (vitamin D3) 1,000 unit PO QAM 09/24/18 07/30/20 History [Vitamin D3] dicyclomine 20 mg PO TID 09/24/18 07/30/20 History sertraline 50 mg PO .HOLD 09/24/18 07/30/20 History norgestimate-ethinyl estradiol 1 tab PO QAM 02/14/20 07/30/20 History [Sprintec (28)] methylphenidate HCl 60 mg PO .HOLD 03/28/20 07/30/20 History methylphenidate HCl 20 mg PO .HOLD 04/10/20 07/30/20 History fluticasone propionate 1 spray INTRANASAL DAILY PRN 07/12/20 07/30/20 History hydrocodone-acetaminophen 1 tab PO Q4H PRN 07/22/20 07/30/20 History amoxicillin 875 mg-potassium 1 tab PO Q12H #10 tab 07/26/20 07/30/20 Rx clavulanate 125 mg tablet ondansetron HCl 8 mg PO Q8H PRN 07/30/20 07/30/20 History Allergies Allergy/AdvReac Type Severity Reaction Status Date / Time bee venom protein (honey bee) Allergy Intermediate swelling Verified 07/30/20 17:10 adhesive tape Allergy Mild Rash Verified 07/30/20 17:10 latex Allergy Mild Rash Verified 07/30/20 17:10 pseudoephedrine Allergy Mild Vomiting, Verified 07/30/20 17:10 breathing difficulty omeprazole AdvReac Intermediate Vomiting Verified 07/30/20 17:10 and diarrhea Past Med/Surg History Medical History (Updated 07/30/20 @ 20:05 by Trang Jenkins PA-C) ADH disorder Anxiety and depression Barretts esophagus GERD (gastroesophageal reflux disease) History of bacteremia history of S. anginosus following dental procedure in May 2020 Hx of sepsis 06/25/2020 FROM ROOT CANAL SURGERY IBS (irritable bowel syndrome) Temporomandibular joint disorder Surgical History H/O oral surgery History of colonoscopy History of esophagogastroduodenoscopy (EGD) Family History Grandmother (Paternal) Family history of diabetes mellitus Other Heart disease Social History Smoking Status: Never smoker Second Hand Exposure: No; Hx Alcohol Use: No Hx Substance Use: No Preferred Language: Japanese Communication Ability: Effective Software Sales Required: No Beliefs That Will Affect Care: None marital status: Single Current Living Situation: Family current occupational status: employed and student Other Information That Helps Us Care for You: No Feels Safe at Home: Yes Safety Concerns: Feels Safe At This Time Assistive Devices: Glasses Review of Systems See HPI for pertinent positives & negatives. and A total of 10 systems reviewed and were otherwise negative Physical Exam Vital Signs Vital Signs - 24 hr 07/30/20 16:20 07/30/20 16:40 07/30/20 16:44 Temperature 36.5 C Temperature Source Oral Pulse Rate 121 H 107 H Pulse Rate [Apical] 94 H Pulse Rate from SpO2 Sensor 108 H Pulse Rhythm [Apical] Regular Pulse Strength [Apical] Normal Respiratory Rate 22 20 22 Respiratory Effort / Characteristics Non-Labored Spontaneous Respiratory Depth Normal Normal Respiratory Pattern Regular Blood Pressure 154/98 H 130/87 Blood Pressure [Left Arm] 130/87 Blood Pressure Mean 116 97 Blood Pressure Mean [Left Arm] 101 Blood Pressure Position [Left Arm] Semi-fowlers Pulse Oximetry 100 100 100 Oxygen Delivery Method Room Air Room Air Sepsis Recent Fever Within 48 Hours No Sepsis New/Unexplained Change in Mental Status No Sepsis Action Taken by Nursing No Action Required 07/30/20 17:00 07/30/20 17:33 07/30/20 18:18 Temperature Temperature Source Pulse Rate 89 Pulse Rate [Apical] 102 H Pulse Rate from SpO2 Sensor Pulse Rhythm [Apical] Pulse Strength [Apical] Respiratory Rate 20 18 Respiratory Effort / Characteristics Respiratory Depth Respiratory Pattern Blood Pressure 116/87 Blood Pressure [Left Arm] 143/74 H Blood Pressure Mean 96 Blood Pressure Mean [Left Arm] 97 Blood Pressure Position [Left Arm] Pulse Oximetry 100 100 Oxygen Delivery Method Room Air Room Air Sepsis Recent Fever Within 48 Hours Sepsis New/Unexplained Change in Mental Status Sepsis Action Taken by Nursing 07/30/20 18:19 07/30/20 18:30 07/30/20 19:00 Temperature Temperature Source Pulse Rate 100 H 99 H 104 H Pulse Rate [Apical] Pulse Rate from SpO2 Sensor 104 H 99 H 100 H Pulse Rhythm [Apical] Pulse Strength [Apical] Respiratory Rate 18 18 18 Respiratory Effort / Characteristics Respiratory Depth Respiratory Pattern Blood Pressure 143/74 H 136/87 143/79 H Blood Pressure [Left Arm] Blood Pressure Mean 94 94 98 Blood Pressure Mean [Left Arm] Blood Pressure Position [Left Arm] Pulse Oximetry 100 100 100 Oxygen Delivery Method Sepsis Recent Fever Within 48 Hours Sepsis New/Unexplained Change in Mental Status Sepsis Action Taken by Nursing Constitutional: Vital signs reviewed. Eyes: Pupils are equal round reactive to light. Conjunctiva are noninjected. ENT: Pharynx is clear without erythema or exudate. Mucous membranes are moist. Neck supple without meningeal signs. Respiratory: Clear to auscultation bilaterally. Breath sounds are equal bilaterally. Cardiovascular: Regular rate and rhythm. No rubs or gallops. No murmurs. GI: Soft, nondistended and nontender. Bowel sounds are present. Musculoskeletal: No peripheral edema. No lower extremity tenderness. Integumentary: No cyanosis. or jaundice. Neurological: The patient is awake and alert. No focal deficits. Psychiatric: Anxious. Course Administered Medications Dicyclomine HCl (Dicyclomine Hcl 20 Mg Tab) 20 mg PO TID NESS Stop: 08/29/20 20:59 Last Admin: 07/30/20 21:59 Dose: 20 mg Documented by: [id number] Cefepime HCl 2,000 mg/ Syringe 20 mls @ 5 mls/min IV Q8H NESS Stop: 09/10/20 21:59 Last Admin: 07/30/20 21:59 Dose: 5 mls/min Documented by: [id number] Vancomycin HCl 2,500 mg/ (Sodium Chloride) 550 mls @ 200 mls/hr IV ONE ONE Stop: 07/31/20 00:14 Last Admin: 07/30/20 21:58 Dose: 200 mls/hr Documented by: [id number] Discontinued Medications Potassium Chloride (K Raudel / Wtr) 10 meq in 100 mls @ 100 mls/hr IV ONE ONE Stop: 07/30/20 19:00 Last Infusion: 07/30/20 20:26 Dose: 0 mls/hr Documented by: [id number] Admin: 07/30/20 18:18 Dose: 100 mls/hr Documented by: [id number] Potassium Chloride (Potassium Chloride 20 Meq Tabcr) 40 meq PO NOW STA Stop: 07/30/20 20:59 Last Admin: 07/30/20 21:59 Dose: 40 meq Documented by: [id number] Medical Decision Making Differential Diagnosis Pleurisy, GERD, PE, endocarditis, pericarditis, myocarditis Medical Records Attestation: I reviewed the patient's medical records. The patient was admitted to the hospital in late May for sepsis developing after a dental infection. She was seen here 3 times in the past week for chest pain. She was last seen here yesterday and had a CT angiogram of the chest which showed no evidence of pulmonary embolism. There is no intrathoracic abnormality noted by the radiologist. Home Medications Current Medication List: was personally reviewed by me Laboratory Data Attestation: I reviewed the patient's lab results. Result diagrams: 07/30/20 16:56 07/30/20 16:56 Lab Results 07/30/20 07/30/20 07/30/20 Range/Units 16:56 16:56 16:56 WBC 10.30 (4.8-10.8) K/uL RBC 4.47 (4.2-5.4) M/uL Hgb 12.7 (12.0-16.0) g/dL Hct 37.0 (37-47) % MCV 82.8 (80-100) fL MCH 28.4 (25-34) pg MCHC 34.3 (32-36) g/dL RDW Std Deviation 38.4 (36.4-46.3) fL RDW Coeff of Candido 12.8 (11.5-14.5) % Plt Count 282 (130-400) K/uL MPV 9.6 (7.4-10.4) fL Immature Gran % (Auto) 0.4 % Neut % (Auto) 67.0 % Lymph % (Auto) 25.7 % [place] % (Auto) 6.3 % Eos % (Auto) 0.3 % Baso % (Auto) 0.3 % Neut # (Auto) 6.90 H (1.4-6.5) K/uL Lymph # (Auto) 2.65 (1.2-3.4) K/uL [place] # (Auto) 0.65 H (0.11-0.59) K/uL Eos # (Auto) 0.03 (0-0.5) K/uL Baso # (Auto) 0.03 (0-0.2) K/uL Immature Gran # (Auto) 0.04 H (0.00-0.02) K/uL ESR (0-21) mm/hr PT 11.4 (9.0-12.0) Seconds INR 1.1 (0.9-1.1) APTT 27.9 (21.0-31.0) Seconds PTT Ratio 1.0 Sodium 139 (136-145) mmol/L Potassium 3.2 L (3.5-5.1) mmol/L Chloride 110 H (98-107) mmol/L Carbon Dioxide 19 L (21-32) mmol/L Anion Gap 10.0 (3-11) BUN 9 (7-18) mg/dl Creatinine 0.86 (0.6-1.2) mg/dl Est Cr Clr Drug Dosing 125.5 ml/min Est GFR ( Amer) 113.5 Est GFR (Non-Af Amer) 97.9 BUN/Creatinine Ratio 10.1 (10-20) Glucose 85 (70-99) mg/dl Calcium 9.7 (8.5-10.1) mg/dl Magnesium (1.8-2.4) mg/dl Total Bilirubin 0.5 (0.2-1) mg/dl AST 14 L (15-37) U/L ALT 27 (12-78) U/L Alkaline Phosphatase 59 (45-117) U/L Troponin I < 0.015 (0-0.045) ng/ml C-Reactive Protein 0.42 H (0-0.29) mg/dl Total Protein 8.1 (6.4-8.2) gm/dl Albumin 3.9 (3.4-5.0) gm/dl Globulin 4.2 H (2.5-4.0) gm/dl Albumin/Globulin Ratio 0.9 (0.9-2) Lipase 66 L (73-393) U/L TSH 0.948 (0.300-4.500) uIu/ml Anaplasma Smear See Comment Lyme Disease IgG Ab (Negative) Lyme Disease IgM Ab (Negative) 07/30/20 07/30/20 07/30/20 Range/Units 16:56 16:56 16:59 WBC (4.8-10.8) K/uL RBC (4.2-5.4) M/uL Hgb (12.0-16.0) g/dL Hct (37-47) % MCV (80-100) fL MCH (25-34) pg MCHC (32-36) g/dL RDW Std Deviation (36.4-46.3) fL RDW Coeff of Candido (11.5-14.5) % Plt Count (130-400) K/uL MPV (7.4-10.4) fL Immature Gran % (Auto) % Neut % (Auto) % Lymph % (Auto) % [place] % (Auto) % Eos % (Auto) % Baso % (Auto) % Neut # (Auto) (1.4-6.5) K/uL Lymph # (Auto) (1.2-3.4) K/uL [place] # (Auto) (0.11-0.59) K/uL Eos # (Auto) (0-0.5) K/uL Baso # (Auto) (0-0.2) K/uL Immature Gran # (Auto) (0.00-0.02) K/uL ESR 24 H (0-21) mm/hr PT (9.0-12.0) Seconds INR (0.9-1.1) APTT (21.0-31.0) Seconds PTT Ratio Sodium (136-145) mmol/L Potassium (3.5-5.1) mmol/L Chloride (98-107) mmol/L Carbon Dioxide (21-32) mmol/L Anion Gap (3-11) BUN (7-18) mg/dl Creatinine (0.6-1.2) mg/dl Est Cr Clr Drug Dosing ml/min Est GFR ( Amer) Est GFR (Non-Af Amer) BUN/Creatinine Ratio (10-20) Glucose (70-99) mg/dl Calcium (8.5-10.1) mg/dl Magnesium 1.8 (1.8-2.4) mg/dl Total Bilirubin (0.2-1) mg/dl AST (15-37) U/L ALT (12-78) U/L Alkaline Phosphatase (45-117) U/L Troponin I (0-0.045) ng/ml C-Reactive Protein (0-0.29) mg/dl Total Protein (6.4-8.2) gm/dl Albumin (3.4-5.0) gm/dl Globulin (2.5-4.0) gm/dl Albumin/Globulin Ratio (0.9-2) Lipase (73-393) U/L TSH (0.300-4.500) uIu/ml Anaplasma Smear Lyme Disease IgG Ab Negative (Negative) Lyme Disease IgM Ab Negative (Negative) ECG Data Attestation: I personally reviewed and interpreted this ECG as follows: Indication: + chest pain Rate (beats per minute): 101 Rhythm: + sinus tachycardia ECG Intervals/blocks: + Normal QRS ECG ST segments: + Nonspecific ST abnormalities ECG Findings: no PVCs MDM Narrative Prior to the patient's arrival I did speak to Dr. Rossi of cardiology regarding this patient. He requested the patient have 2 sets of blood cultures drawn and be admitted to the hospital for evaluation of endocarditis. He recommended leaving the antibiotic choice up to the hospitalist. I did evaluate the patient as noted above. She is presenting with generalized fatigue since her discharge last month. She has also had persistent chest pain over the past week or so. IV access was established. I did place an order for continuous cardiac monitoring. The monitor showed normal sinus rhythm at a rate of 98 bpm. I did order and personally review the patient's 12-lead EKG as described above. She has mild sinus tachycardia with no ST elevations or PVCs or heart block, low voltage QRS or electrical alternans. I did order blood cultures. I did order and review the patient's blood work as noted in the electronic medical record. White count is not significantly elevated. She is not anemic. Platelets are normal. CRP and ESR are both elevated. Potassium is 3.2. CO2 is 19. Troponin is negative. I did treat the patient with IV KCl. I did discuss the case with the hospitalist and case management director for further care and evaluation. Impression & Plan Chest pain, Acute hypokalemia, Generalized weakness Discharge Plan Visit Data Chief Complaint: Shortness of Breath/Dyspnea Stated Complaint: SOB, CHEST PAIN, REF BY DOCTOR ED Provider: Nigel Linda Discharge Problem: Chest pain, Acute hypokalemia, Generalized weakness Patient Disposition: Admitted As Inpatient Discharge Instructions Interventions: ED Discharge Assessment Last Done: 07/30/20 20:40
[2020-07-30 17:35] LABS: Basophils # (auto) 0.03 K/uL (0-0.2); Basophils % (auto) 0.3 %; Eosinophils # (auto) 0.03 K/uL (0-0.5); Eosinophils % (auto) 0.3 %; Hemoglobin 12.7 g/dL (12.0-16.0); Immature Granulocytes # (auto) 0.04 K/uL (0.00-0.02); Immature Granulocytes % (auto) 0.4 %; Lymphocytes # (auto) 2.65 K/uL (1.2-3.4); Lymphocytes % (auto) 25.7 %; Mean Corpuscular Hemoglobin 28.4 pg (25-34); Mean Corpuscular Hgb Conc 34.3 g/dL (32-36); Mean Corpuscular Volume 82.8 fL (80-100); Mean Platelet Volume 9.6 fL (7.4-10.4); Monocytes # (auto) 0.65 K/uL (0.11-0.59); Monocytes % (auto) 6.3 %; Platelet Count 282 K/uL (130-400); RDW Coefficient of Variation 12.8 % (11.5-14.5); RDW Standard Deviation 38.4 fL (36.4-46.3); Red Blood Count 4.47 M/uL (4.2-5.4)
[2020-07-30 17:46] LABS: INR 1.1 (0.9-1.1); Partial Thromboplastin Time 27.9 Seconds (21.0-31.0); Prothrombin Time 11.4 Seconds (9.0-12.0)
[2020-07-30 17:53] LABS: Alanine Aminotransferase 27 U/L (12-78); Albumin Level 3.9 gm/dl (3.4-5.0); Aspartate Aminotransferase 14 U/L (15-37); BUN Creatinine Ratio 10.1 (10-20); Blood Urea Nitrogen 9 mg/dl (7-18); Calcium 9.7 mg/dl (8.5-10.1); Carbon Dioxide 19 mmol/L (21-32); Chloride 110 mmol/L (98-107); Creatinine Clr Calc Pharmacy 125.5 ml/min; Est GFR (African American) 113.5; Est GFR (Non-African American) 97.9; Glucose 85 mg/dl (70-99); Lipase 66 U/L (73-393); Potassium 3.2 mmol/L (3.5-5.1); Sodium 139 mmol/L (136-145)
[2020-07-30 17:58] LABS: Albumin Globulin Ratio 0.9 (0.9-2); Alkaline Phosphatase 59 U/L (45-117); Bilirubin,Total 0.5 mg/dl (0.2-1); C Reactive Protein 0.42 mg/dl (0-0.29); Globulin 4.2 gm/dl (2.5-4.0); Total Protein 8.1 gm/dl (6.4-8.2); Troponin I < 0.015 ng/ml (0-0.045)
[2020-07-30] MEDS ORDERED: POTASSIUM CHLORIDE / WTR 10 MEQ/100 ML PLCT IV ONE (18:01)
--- NOTE | 2020-07-30 18:39 | History & Physical Report ---
Date of Service July 30, 2020 Assessment & Plan (1) Endocarditis: SUSPECTED ENDOCARDITIS (2) History of bacteremia: This is a 19yo F with PMH of strep anginosus bacteremia following dental procedure in May 2020, ADHD and IBS who presents from cardiology clinic for evaluation of endocarditis. -Persistent chest tightness, dyspnea and lightheadedness since wisdom teeth removal 07/17/20. Has been taking Bactrim -History of strep anginosus bacteremia 2 months ago treated with Unasyn and discharged home on Rocephin and Flagyl - has not felt back to baseline since -Afebrile on admission, no leukocytosis, mild chest tightness, persistent li ghtheadedness and fatigue -Blood cultures obtained, will start empiric vanc and cefepime and follow cultures. [facility] - risk for abscess formation with strep anginosus, may need additional imaging once culture results -2D echo ordered. Routine cardiology consult placed. NPO after midnight in case of RICKY tomorrow - pre procedural COVID screen ordered (3) Acute hypokalemia: Potassium of 3.2. Replaced with 10mEq K Raudel in ED and additional 40mg PO KCl. Monitor with daily BMP (4) IBS (irritable bowel syndrome): Continue dicyclomine (5) ADH disorder: Ritalin currently held per PCP DVT Ppx: SCDs Code status: FULL PCP: Kimberli Dispo: Observation PCU. Plan to return home once medically stable. Patient seen in collaboration with Dr. Vargas. Please see addendum. Patient will be followed by Dr. Morgan starting tomorrow, 07/31. History of Present Illness Chief Complaint: Sent from clinic for concern for endocarditis Primary Care Provider: Gustavo Ag MD This is a 19yo F with PMH of strep anginosus bacteremia following dental procedure in May 2020, ADHD and IBS who presents from cardiology clinic for evaluation of endocarditis. Patient has been seen the ED in the clinic within the last 10 days for symptoms of chest tightness, palpitations, shortness of breath and dizziness. Underwent root canal at the end of May and developed strep anginosus bacteremia treated with Unasyn and discharged home on Rocephin and Flagyl. Has been feeling poorly since then but has progressively begun to feel worse. Underwent wisdom teeth removal on July 17 and is taking Augmentin. Over the past 10 days, has felt more persistently short of breath with chest tightness but no pain. Denies any near-syncope or syncope. Has felt warm at times with chills but denies any measurable fever. Denies visual changes, cough, wheezing, nausea, vomiting, abdominal pain, dysuria, diarrhea or constipation. Was sent in by cardiology clinic for further work-up of endocarditis. In ED, patient is afebrile and hemodynamically stable. No leukocytosis. Potassium of 3.2. CRP of 0.42 and ESR of 24. Initial troponin negative. Allergies Allergy/AdvReac Type Severity Reaction Status Date / Time bee venom protein (honey bee) Allergy Intermediate swelling Verified 07/30/20 17:10 adhesive tape Allergy Mild Rash Verified 07/30/20 17:10 latex Allergy Mild Rash Verified 07/30/20 17:10 pseudoephedrine Allergy Mild Vomiting, Verified 07/30/20 17:10 breathing difficulty omeprazole AdvReac Intermediate Vomiting Verified 07/30/20 17:10 and diarrhea Home Medications Home Medications Medication Instructions Recorded Confirmed Type cholecalciferol (vitamin D3) 1,000 unit PO QAM 09/24/18 07/30/20 History [Vitamin D3] dicyclomine 20 mg PO TID 09/24/18 07/30/20 History sertraline 50 mg PO .HOLD 09/24/18 07/30/20 History norgestimate-ethinyl estradiol 1 tab PO QAM 02/14/20 07/30/20 History [Sprintec (28)] methylphenidate HCl 60 mg PO .HOLD 03/28/20 07/30/20 History methylphenidate HCl 20 mg PO .HOLD 04/10/20 07/30/20 History fluticasone propionate 1 spray INTRANASAL DAILY PRN 07/12/20 07/30/20 History hydrocodone-acetaminophen 1 tab PO Q4H PRN 07/22/20 07/30/20 History amoxicillin 875 mg-potassium 1 tab PO Q12H #10 tab 07/26/20 07/30/20 Rx clavulanate 125 mg tablet ondansetron HCl 8 mg PO Q8H PRN 07/30/20 07/30/20 History Past Med/Surg History Medical History (Updated 07/30/20 @ 20:05 by Trang Jenkins PA-C) ADH disorder Anxiety and depression Barretts esophagus GERD (gastroesophageal reflux disease) History of bacteremia history of S. anginosus following dental procedure in May 2020 Hx of sepsis 06/25/2020 FROM ROOT CANAL SURGERY IBS (irritable bowel syndrome) Temporomandibular joint disorder Surgical History H/O oral surgery History of colonoscopy History of esophagogastroduodenoscopy (EGD) Family History Grandmother (Paternal) Family history of diabetes mellitus Other Heart disease Social History Smoking Status: Never smoker Second Hand Exposure: No; Hx Alcohol Use: No Hx Substance Use: No Preferred Language: German Communication Ability: Effective Electronic Prepress Operator Required: No Beliefs That Will Affect Care: None marital status: Single Current Living Situation: Family current occupational status: employed and student Feels Safe at Home: Yes Assistive Devices: Glasses Review of Systems Review of Systems: At least ten systems reviewed and negative except as noted in the HPI. Physical Exam Physical Exam: General Appearance: WD/WN, vitals as above, NAD, sitting up in bed, pleasant, conversing easily Head: normocephalic, atraumatic Eyes: normal inspection, PERRL, conjunctivae normal, anicteric sclerae ENT: external ear and nose normal, oropharynx normal Neck: normal visual inspection, trachea midline, no thyromegaly Respiratory: normal respiratory effort, lungs clear to auscultation, no wheeze, rales, rhonchi. No accessory muscle use Cardiovascular: tachycardic, regular rhythm, no murmur appreciated, normal peripheral pulses, no BLE edema. Vessels: no JVD Chest: normal inspection of chest Abdomen/GI: normal bowel sounds, soft, nontender, no hepatosplenomegaly Extremities/Musculoskeletal: no cyanosis or clubbing, extremities motor strength 5/5 Neurologic: PERRL, EOMI, accommodation nl, no face palsy, no dysarthria, CN's II-XI intact bilaterally and moves all extremities Psychiatric: A+Ox3, euthymic affect Skin: no rashes, normal color, warm/dry Results & Data Results & Data ([facility]) Vital Signs (Past 12 Hours) Vital Signs Temp Pulse Pulse Resp BP BP Pulse Ox 07/30/20 18:18 102 H 18 143/74 H 100 07/30/20 17:33 100 07/30/20 16:44 94 H 22 130/87 100 07/30/20 16:20 36.5 C 121 H 22 154/98 H 100 Laboratory Results Short CBC 07/30/20 Range/Units 16:56 WBC 10.30 (4.8-10.8) K/uL Hgb 12.7 (12.0-16.0) g/dL Hct 37.0 (37-47) % Plt Count 282 (130-400) K/uL BMP 07/30/20 16:56 Sodium 139 Potassium 3.2 L Chloride 110 H Carbon Dioxide 19 L BUN 9 Creatinine 0.86 Glucose 85 Calcium 9.7 Cardiac Enzymes 07/30/20 Range/Units 16:56 Troponin I < 0.015 (0-0.045) ng/ml Liver Function 07/30/20 Range/Units 16:56 Total Bilirubin 0.5 (0.2-1) mg/dl AST 14 L (15-37) U/L ALT 27 (12-78) U/L Alkaline Phosphatase 59 (45-117) U/L Albumin 3.9 (3.4-5.0) gm/dl Supervising Physician Co-Signing Physician Notes I, Dr. Tavo Vargas, have seen and examined the patient with physician assistant engineer and would like to comment that on Physical Exam General: no acute distress Heart Rate: high 90 bpm to low 100s Lungs: no wheezing, on room air Abdomen: soft, nontender, positive symptoms Neuro: no focal motor deficits, awake and alert and oriented, and speaking in full sentences Assessment and Plan -This is a 19 year old female who was treated in the past for bacteremia which was treated and then in end of June with dental procedure. Since the dental procedure, patient reports of chest discomforts or subjective shortness of breath. She cannot report objectively if she has had any recorded fevers at h ome. She reports she has had negative Covid-19 tests in the past. Given the history of bacteremia and then subsequent symptoms with dental procedure, the patient is here in the emergency room at the recommendation of [facility] cardiology for ruling out possible endocarditis. -will start on empiric antibiotics of IV cefepime and IV Vancomycin for now, follow the blood cultures, COVID-19 screening test ordered for possible RICKY by cardiology service on 07/31/2020, NPO after midnight for possible RICKY by cardiology service on 07/31/2020 -replete serum potassium with potassium supplements -agree with the assessment and plan as documented by physician assistant engineer -My colleague Dr. Morgan will be following the patient starting on 07/31/2020 as hospitalist
[2020-07-30 20:33] LABS: Lyme Ab IgM w/WB Rflx Negative (Negative)
[2020-07-30 20:34] LABS: Lyme Ab IgG w/WB Rflx Negative (Negative)
[2020-07-30 20:38] LABS: Thyroid Stimulating Hormone 0.948 uIu/ml (0.300-4.500)
[2020-07-30] MEDS ORDERED: FLUTICASONE PROPIONATE NA SPR 16 GM BTL NAE PRN (20:58)
[2020-07-30] MEDS ORDERED: ACETAMINOPHEN 325 MG TAB PO PRN (20:58)
[2020-07-30] MEDS ORDERED: ONDANSETRON INJ 2 MG/ML 2 ML VIAL IV PRN (20:58)
[2020-07-30] MEDS ORDERED: POTASSIUM CHLORIDE 20 MEQ TABCR PO STA (20:58)
[2020-07-30] MEDS ORDERED: POLYETHYLENE (MIRALAX) 17 GM PACK PO PRN (20:58)
[2020-07-30] MEDS ORDERED: VANCOMYCIN CONSULT ACTIVE PRN (21:03)
[2020-07-30] MEDS ORDERED: CEFEPIME CONSULT ACTIVE PRN (21:04)
[2020-07-30] MEDS ORDERED: VANCOMYCIN HCL 2,500 MG in SODIUM CHLORIDE 0.9% 500 ML IV ONE (21:30)
[2020-07-30] MEDS: DICYCLOMINE HCL 20 MG TAB PO SCH (21:59)
[2020-07-30] MEDS: CEFEPIME 2,000 MG in SYRINGE 0 ML IV SCH (21:59)
--- NOTE | 2020-07-30 22:33 | Pharmacy Report ---
Pharmacy Abx Initial Consult - Date of Service July 30, 2020 - Pharmacy Dosing Scope Date of Consult: 07/30/20 Consultation requested by: Trang Jenkins Pharmacy is consulted to initiate Vancomycin and Cefepime IV dosing therapy, order appropriate labs and adjust drug dose/frequency. - Subjective The patient is a 19 year old F admitted on 07/30/20 19:12. - Objective Height: 5 ft 7.5 in Weight: 93.8 kg Vital Signs (Past 12hrs): Vital Signs Temp Pulse Pulse Resp BP BP Pulse Ox 07/30/20 20:59 37.1 C 100 H 18 122/79 100 07/30/20 20:30 108 H 20 117/73 100 07/30/20 19:31 101 H 18 134/73 100 07/30/20 19:00 104 H 18 143/79 H 100 07/30/20 18:30 99 H 18 136/87 100 07/30/20 18:19 100 H 18 143/74 H 100 07/30/20 18:18 102 H 18 143/74 H 100 07/30/20 17:33 100 07/30/20 17:00 89 20 116/87 07/30/20 16:44 94 H 22 130/87 100 07/30/20 16:40 107 H 20 130/87 100 07/30/20 16:20 36.5 C 121 H 22 154/98 H 100 Lab Results (24hrs): Laboratory Tests (24 Hours) 07/30/20 07/30/20 07/30/20 16:56 16:56 16:56 WBC 10.30 Neut # (Auto) 6.90 H ESR 24 H Creatinine 0.86 Est Cr Clr Drug Dosing 125.5 C-Reactive Protein 0.42 H Micro Results: 07/30/20 17:24 Aerobic Blood Culture - Pending Blood Anaerobic Blood Culture - Pending 07/30/20 16:56 Aerobic Blood Culture - Pending Blood Anaerobic Blood Culture - Pending - Risk Factors for Resistance * Antimicrobial use within the last 90 days : Flagyl/ Rocephin and Augmentin in May 2020 - Assessment & Plan Assessment 19 year old F admitted for possible endocarditis. Pt was being treated for strep anginosus bacteremia (with augmentin) following wisdom teeth removal in May 2020. * Renal function at baseline * Blood cultures pending * Patient meets criteria for vancomycin AUC dosing nomogram * AUC/KORY is the preferred PK/PD target for vancomycin * Target AUC/KORY = 400-600 * AUC guided dosing is effective and associated with decreased risk of nephrotoxicity Plan Vancomycin and Cefepime for treatment of possible endocarditis. Vancomycin IV * Estimated PK Parameters: Vd 0.65 L/kg, Kaden 0.104 hr-1, t1/2 6.66 hr * Loading dose: 2500 mg (26 mg/kg) * Maintenance dose: 1500 mg IV (16 mg/kg) every 8 hours * Goal trough level for endocarditis : ~20 mcg/mL * Trough level ordered for 08/01/20 @0530 Cefepime * 2gm IV Q12H Pharmacy will continue to follow and will adjust dose/frequency as necessary. Thank you.
[2020-07-30] MEDS ORDERED: ZOLPIDEM TARTRATE 5 MG TAB PO PRN (23:18)
[2020-07-31] MEDS ORDERED: ORAL CONTRACEPTIVE: ORDER AWAITING ACTION SCH
[2020-07-31 02:29] LABS: Pregnancy Test, Urine Negative (Negative)
[2020-07-31] MEDS ORDERED: DAPTOMYCIN CONSULT ACTIVE PRN (05:04)
--- NOTE | 2020-07-31 05:07 | Hospitalist Progress Note ---
Date of Service July 31, 2020 Assessment & Plan Admission and Anticipated Discharge Date Admission Date: July 30, 2020 Subjective Patient seemed to develop candice syndrome with iv vancomycin. Received benadryl. stopped vanco( received almost the full dose of vancomycin). Changed iv vanco to daptomycin. Thanks Results & Data Results & Data ([facility]) Vital Signs (Past 12 Hours) Vital Signs Temp Pulse Pulse Resp BP BP Pulse Ox 07/31/20 03:28 36.8 C 112 H 16 101/64 96 07/30/20 23:46 36.5 C 98 H 16 101/70 98 07/30/20 20:59 37.1 C 100 H 18 122/79 100 07/30/20 20:30 108 H 20 117/73 100 07/30/20 19:31 101 H 18 134/73 100 07/30/20 19:00 104 H 18 143/79 H 100 07/30/20 18:30 99 H 18 136/87 100 07/30/20 18:19 100 H 18 143/74 H 100 07/30/20 18:18 102 H 18 143/74 H 100 07/30/20 17:33 100
[2020-07-31] MEDS ORDERED: VANCOMYCIN HCL 1,500 MG in SODIUM CHLORIDE 0.9% 500 ML IV SCH (06:00)
[2020-07-31] MEDS: DAPTOmycin 500 MG in SYRINGE 0 ML IV SCH (06:26)
[2020-07-31] MEDS: CEFEPIME 2,000 MG in SYRINGE 0 ML IV SCH ×3 (06:26→21:27)
[2020-07-31] MEDS ORDERED: CONSULT PHARMACY STA (07:07)
--- NOTE | 2020-07-31 08:48 | Cardiology Consultation ---
Date of Consultation July 31, 2020 Assessment & Plan (1) History of bacteremia: (2) Endocarditis: This patient had a previous bacteremia with a strep following a dental procedure and abscess. She has atypical chest pain which is reproducible with palpation of the anterior chest and is increased with inspiration consistent with pleuritic pain. She had a high quality transthoracic echocardiogram which was essentially normal. No evidence of bacterial vegetations. Blood cultures are pending however, the patient was on antibiotics and the value of a negative blood culture is suspect. She has no leukocytosis. I will put her on ibuprofen for her chest wall and pleuritic pain. I am going to hold off on the RICKY for now until her blood cultures have returned. I think at this time a RICKY would be low yield. ID consult is pending. History of Present Illness Attending Physician: Francisco Morgan MD History of Present Illness This is a 19-year-old female who in late May had a root canal performed by dentist in [place]. After that procedure she was admitted with sepsis and an abscessed tooth to [place]. Blood cultures grew St[facility]inosis. [facility] surgery here. She was kept on antibiotics post discharge and eventually in June had an elective removal of her wisdom teeth. Of note, she was not given antibiotics following the extraction of her wisdom teeth, but several days later felt poorly and was started on Augmentin. The patient's blood cultures at that time were negative. She has remained on Augmentin until this hospital admission. She was seen yesterday at the cardiology clinic and described not feeling well with dyspnea and pleuritic chest pain. The patient's pain is very reproducible by palpation of the anterior chest. She was admitted and started on IV antibiotics and blood cultures are still pending. She had an echocardiogram completed which I reviewed. The study is of high quality and essentially shows an anatomically normal heart and no vegetations. Past medical history 1. Chest discomfort 2. Palpitations 3. Sepsis following root canal, May 2020 4. ADHD on chronic Ritalin therapy 5. GERD 6. Anxiety/depression Allergies Allergy/AdvReac Type Severity Reaction Status Date / Time bee venom protein (honey bee) Allergy Intermediate swelling Verified 07/30/20 17:10 adhesive tape Allergy Mild Rash Verified 07/30/20 17:10 latex Allergy Mild Rash Verified 07/30/20 17:10 pseudoephedrine Allergy Mild Vomiting, Verified 07/30/20 17:10 breathing difficulty vancomycin AdvReac Severe Redness of Verified 07/31/20 12:44 Skin omeprazole AdvReac Intermediate Vomiting Verified 07/30/20 17:10 and diarrhea Home Medications Home Medications Medication Instructions Recorded Confirmed Type cholecalciferol (vitamin D3) 1,000 unit PO QAM 09/24/18 07/30/20 History [Vitamin D3] dicyclomine 20 mg PO TID 09/24/18 07/30/20 History sertraline 50 mg PO .HOLD 09/24/18 07/30/20 History norgestimate-ethinyl estradiol 1 tab PO QAM 02/14/20 07/30/20 History [Sprintec (28)] methylphenidate HCl 60 mg PO .HOLD 03/28/20 07/30/20 History methylphenidate HCl 20 mg PO .HOLD 04/10/20 07/30/20 History fluticasone propionate 1 spray INTRANASAL DAILY PRN 07/12/20 07/30/20 History hydrocodone-acetaminophen 1 tab PO Q4H PRN 07/22/20 07/30/20 History amoxicillin 875 mg-potassium 1 tab PO Q12H #10 tab 07/26/20 07/30/20 Rx clavulanate 125 mg tablet ondansetron HCl 8 mg PO Q8H PRN 07/30/20 07/30/20 History Patient History Medical History ADH disorder Anxiety and depression Barretts esophagus GERD (gastroesophageal reflux disease) History of bacteremia history of S. anginosus following dental procedure in May 2020 Hx of sepsis 06/25/2020 FROM ROOT CANAL SURGERY IBS (irritable bowel syndrome) Temporomandibular joint disorder Surgical History H/O oral surgery History of colonoscopy History of esophagogastroduodenoscopy (EGD) Family History Grandmother (Paternal) Family history of diabetes mellitus Other Heart disease Social History Smoking Status: Never smoker Second Hand Exposure: No; Hx Alcohol Use: No Hx Substance Use: No Preferred Language: Israeli Communication Ability: Effective Vest Busheler Required: No Beliefs That Will Affect Care: None marital status: Single Current Living Situation: Family current occupational status: employed and student Other Information That Helps Us Care for You: No Feels Safe at Home: Yes Safety Concerns: Feels Safe At This Time Assistive Devices: Glasses Review of Systems Review of Systems: All systems reviewed & are unremarkable except as noted in HPI & below Nothing additional to add. Physical Exam Physical Exam: General: no acute distress and stated age Head: normocephalic, no masses, lesions, tenderness or abnormalities Eyes: conjunctiva are pink and non-injected, sclera clear Neck: supple, no adenopathy, no bruits, normal jugular venous pulse, no hepatojugular reflux Chest: normal shape and normal respiratory effort Lungs: clear to auscultation and percussion Cardiac Exam: - regular rate & rhythm, no murmurs gallops or rubs - normal S1, normal S2 Pulses: 2(+) throughout Abdomen: abdomen soft, non-tender, no abnormal masses and no hepatosplenomegaly Musculoskeletal: no gait disturbance, no joint inflammation, no deforming arthritis Extremities: no edema and no cyanosis Neuro: grossly normal exam Results & Data ([facility]) Vital Signs (Past 12 Hours) Vital Signs Temp Pulse Pulse Resp BP Pulse Ox 07/31/20 07:45 36.9 C 88 16 115/74 98 07/31/20 03:28 36.8 C 112 H 16 101/64 96 07/30/20 23:46 36.5 C 98 H 16 101/70 98 07/30/20 20:59 37.1 C 100 H 18 122/79 100 Laboratory Results Laboratory Results - last 24 hr 07/30/20 07/30/20 07/30/20 16:56 16:56 16:56 WBC 10.30 RBC 4.47 Hgb 12.7 Hct 37.0 MCV 82.8 MCH 28.4 MCHC 34.3 RDW Std Deviation 38.4 RDW Coeff of Candido 12.8 Plt Count 282 MPV 9.6 Immature Gran % (Auto) 0.4 Neut % (Auto) 67.0 Lymph % (Auto) 25.7 [place]idan % (Auto) 6.3 Eos % (Auto) 0.3 Baso % (Auto) 0.3 Neut # (Auto) 6.90 H Lymph # (Auto) 2.65 Sheridan # (Auto) 0.65 H Eos # (Auto) 0.03 Baso # (Auto) 0.03 Immature Gran # (Auto) 0.04 H ESR PT 11.4 INR 1.1 APTT 27.9 PTT Ratio 1.0 Sodium 139 Potassium 3.2 L Chloride 110 H Carbon Dioxide 19 L Anion Gap 10.0 BUN 9 Creatinine 0.86 Est Cr Clr Drug Dosing 125.5 Est GFR ( Amer) 113.5 Est GFR (Non-Af Amer) 97.9 BUN/Creatinine Ratio 10.1 Glucose 85 Calcium 9.7 Magnesium Total Bilirubin 0.5 AST 14 L ALT 27 Alkaline Phosphatase 59 Troponin I < 0.015 C-Reactive Protein 0.42 H Total Protein 8.1 Albumin 3.9 Globulin 4.2 H Albumin/Globulin Ratio 0.9 Lipase 66 L TSH 0.948 Urine Test Nasal Screen MRSA (PCR) Anaplasma Smear See Comment Lyme Disease IgG Ab Lyme Disease IgM Ab COVID-19 Eval Order SARS-CoV-2, RNA, NAAT 07/30/20 07/30/20 07/30/20 16:56 16:56 16:59 WBC RBC Hgb Hct MCV MCH MCHC RDW Std Deviation RDW Coeff of Candido Plt Count MPV Immature Gran % (Auto) Neut % (Auto) Lymph % (Auto) Sheridan % (Auto) Eos % (Auto) Baso % (Auto) Neut # (Auto) Lymph # (Auto) [place] # (Auto) Eos # (Auto) Baso # (Auto) Immature Gran # (Auto) ESR 24 H PT INR APTT PTT Ratio Sodium Potassium Chloride Carbon Dioxide Anion Gap BUN Creatinine Est Cr Clr Drug Dosing Est GFR ( Amer) Est GFR (Non-Af Amer) BUN/Creatinine Ratio Glucose Calcium Magnesium 1.8 Total Bilirubin AST ALT Alkaline Phosphatase Troponin I C-Reactive Protein Total Protein Albumin Globulin Albumin/Globulin Ratio Lipase TSH Urine Test Nasal Screen MRSA (PCR) Anaplasma Smear Lyme Disease IgG Ab Negative Lyme Disease IgM Ab Negative COVID-19 Eval Order SARS-CoV-2, RNA, NAAT 07/30/20 07/30/20 07/30/20 20:02 20:02 22:05 WBC RBC Hgb Hct MCV MCH MCHC RDW Std Deviation RDW Coeff of Candido Plt Count MPV Immature Gran % (Auto) Neut % (Auto) Lymph % (Auto) [place] % (Auto) Eos % (Auto) Baso % (Auto) Neut # (Auto) Lymph # (Auto) [place] # (Auto) Eos # (Auto) Baso # (Auto) Immature Gran # (Auto) ESR PT INR APTT PTT Ratio Sodium Potassium Chloride Carbon Dioxide Anion Gap BUN Creatinine Est Cr Clr Drug Dosing Est GFR ( Amer) Est GFR (Non-Af Amer) BUN/Creatinine Ratio Glucose Calcium Magnesium Total Bilirubin AST ALT Alkaline Phosphatase Troponin I C-Reactive Protein Total Protein Albumin Globulin Albumin/Globulin Ratio Lipase TSH Urine Test Nasal Screen MRSA (PCR) Negative Anaplasma Smear Lyme Disease IgG Ab Lyme Disease IgM Ab COVID-19 Eval [facility] SARS-CoV-2, RNA, NAAT NEGATIVE 07/31/20 07/31/20 00:50 09:23 WBC RBC Hgb Hct MCV MCH MCHC RDW Std Deviation RDW Coeff of Candido Plt Count MPV Immature Gran % (Auto) Neut % (Auto) Lymph % (Auto) [place] % (Auto) Eos % (Auto) Baso % (Auto) Neut # (Auto) Lymph # (Auto) [place]idan # (Auto) Eos # (Auto) Baso # (Auto) Immature Gran # (Auto) ESR PT INR APTT PTT Ratio Sodium Pending Potassium Pending Chloride Pending Carbon Dioxide Pending Anion Gap Pending BUN Pending Creatinine Pending Est Cr Clr Drug Dosing Pending Est GFR ( Amer) Pending Est GFR (Non-Af Amer) Pending BUN/Creatinine Ratio Pending Glucose Pending Calcium Pending Magnesium Total Bilirubin AST ALT Alkaline Phosphatase Troponin I C-Reactive Protein Total Protein Albumin Globulin Albumin/Globulin Ratio Lipase TSH Urine Test Negative Nasal Screen MRSA (PCR) Anaplasma Smear Lyme Disease IgG Ab Lyme Disease IgM Ab COVID-19 Eval Order SARS-CoV-2, RNA, NAAT Diagnostic Findings The patient's transthoracic echocardiogram shows essentially an anatomically normal heart and no evidence for endocarditis. The patient had a CTA of the chest that failed to show pulmonary emboli or other chest pathology. Medications Administered Current Inpatient Medications Acetaminophen (Acetaminophen 325 Mg Tab) 650 mg PO Q4H PRN PRN Reason: Pain or Fever Stop: 08/29/20 20:57 Dicyclomine HCl (Dicyclomine Hcl 20 Mg Tab) 20 mg PO TID [facility] Stop: 08/29/20 20:59 Last Admin: 07/31/20 09:27 Dose: 20 mg Documented by: Fluticasone Propionate (Fluticasone Propionate Na Spr 16 Gm Btl) 1 sprays LINNEA DAILY PRN PRN Reason: Nasal Congestion Stop: 08/29/20 20:57 Cefepime HCl 2,000 mg/ Syringe 20 mls @ 5 mls/min IV Q8H [facility] Stop: 09/10/20 21:59 Last Admin: 07/31/20 06:26 Dose: 5 mls/min Documented by: Daptomycin 500 mg/ Syringe 10 mls @ 5 mls/min IV DAILY@0600 [facility]; Protocol Stop: 09/11/20 05:59 Last Admin: 07/31/20 06:26 Dose: 5 mls/min Documented by: Ibuprofen (Ibuprofen 200 Mg Tab) 400 mg PO Q6H [facility] Stop: 08/30/20 09:44 Miscellaneous (Sprintec: Patient's Own Oral Contraceptive) 1 ea PO DAILY NESS Stop: 08/30/20 08:59 Last Admin: 07/31/20 09:28 Dose: 1 ea Documented by: Miscellaneous Information (Cefepime Consult Active) 1 ea N/A UD PRN PRN Reason: Consult Stop: 08/29/20 21:03 Miscellaneous Information (Daptomycin Consult Active) 1 ea N/A UD PRN PRN Reason: Consult Stop: 08/30/20 05:03 Ondansetron HCl (Ondansetron Inj 2 Mg/Ml 2 Ml Vial) 4 mg IV Q6H PRN PRN Reason: Nausea Stop: 08/29/20 20:57 Polyethylene Glycol (Polyethylene (Miralax) 17 Gm Pack) 17 gm PO DAILY PRN PRN Reason: Constipation Stop: 08/29/20 20:57 Vitamin D (Cholecalciferol 1,000 Units 25 Mcg Tab) 1,000 units PO QAM [facility] Stop: 08/30/20 08:59 Last Admin: 07/31/20 09:27 Dose: 1,000 units Documented by: Zolpidem Tartrate (Zolpidem Tartrate 5 Mg Tab) 5 mg PO HS PRN PRN Reason: Sleep Stop: 08/29/20 23:17 Last Admin: 07/30/20 23:51 Dose: 5 mg Documented by:
[2020-07-31] MEDS: DICYCLOMINE HCL 20 MG TAB PO SCH ×3 (09:27→19:27)
[2020-07-31] MEDS: CHOLECALCIFEROL 1,000 UNITS 25 MCG TAB PO SCH (09:27)
[2020-07-31] MEDS: SPRINTEC CONTRACEPTIVE PO SCH (09:28)
[2020-07-31 10:20] LABS: BUN Creatinine Ratio 11.3 (10-20); Calcium 9.1 mg/dl (8.5-10.1); Est GFR (African American) 123.9; Est GFR (Non-African American) 106.9; Potassium 4.1 mmol/L (3.5-5.1)
[2020-07-31] MEDS: IBUPROFEN 200 MG TAB PO SCH ×3 (11:14→21:27)
--- NOTE | 2020-07-31 11:51 | Electrocardiogram Report ---
Test Reason : Blood Pressure : / mmHG Vent. Rate : 090 BPM Atrial Rate : 090 BPM P-R Int : 140 ms QRS Dur : 092 ms QT Int : 382 ms P-R-T Axes : 051 067 058 degrees QTc Int : 467 ms Normal sinus rhythm Normal ECG When compared with ECG of 30-JUL-2020 16:31, (unconfirmed) T wave inversion no longer evident in Inferior leads Confirmed by Obinna Livingston ([id number]) on 07/31/2020 11:51:43 AM Referred By: Robby Rossi Confirmed By:Juan Antonio Livingston
--- NOTE | 2020-07-31 11:57 | Electrocardiogram Report ---
Test Reason : Blood Pressure : / mmHG Vent. Rate : 101 BPM Atrial Rate : 101 BPM P-R Int : 138 ms QRS Dur : 096 ms QT Int : 390 ms P-R-T Axes : 042 029 -08 degrees QTc Int : 505 ms Sinus tachycardia Nonspecific ST abnormality Abnormal ECG When compared with ECG of 29-JUL-2020 16:20, No significant change was found Confirmed by Obinna Livingston ([id number]) on 07/31/2020 11:57:18 AM Referred By: Robby Rossi Confirmed By:Juan Antonio Livingston
--- NOTE | 2020-07-31 14:44 | Hospitalist Progress Note ---
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 endocarditis. -Persistent chest tightness, dyspnea and lightheadedness since wisdom teeth removal 07/17/20. Has been taking Augmentin (?Bactrim) -Pt reports taking Abx for the past 2 weeks, last dose AM prior to admission -History of strep anginosus bacteremia 2 months ago treated with Unasyn and discharged home on Rocephin and Flagyl - has not felt back to baseline since -Afebrile on admission, no leukocytosis, mild chest tightness, persistent lightheadedness and fatigue -Blood cultures obtained, started empiric vanc and cefepime on admission, and follow cultures. Consult [facility] ID - risk for abscess formation with strep anginosus, may need additional imaging once culture results -2D echo ordered. Routine cardiology consult placed. NPO after midnight in case of RICKY tomorrow - pre procedural COVID screen ordered -TTE obtained today 07/31, unremarkable (3) Acute hypokalemia: Potassium of 3.2 on admission replete and monitor (4) IBS (irritable bowel syndrome): Continue dicyclomine Pt reports loose stools -will obtain culture and c. diff (5) ADH disorder: Ritalin currently held per PCP DVT Ppx: SCDs Code status: FULL PCP: Kimberli Dispo: Observation PCU. Plan to return home once medically stable. Admission and Anticipated Discharge Date Admission Date: July 30, 2020 Subjective Pt is currently resting in bed in NAD. Says her chest discomfort and dyspnea improved. Reports she felt very poorly yesterday. reports loose stools Review of Systems Review of Systems: All systems reviewed & are unremarkable except as noted in HPI & below Constitutional: no fever and no chills Respiratory: + dyspnea (much improved) Cardiovascular: + chest pain (improved); no edema Gastrointestinal: + change in bowel habits and + diarrhea/loose stools; no abdominal pain, no nausea and no vomiting Physical Exam Physical Exam: General Appearance: young female, WD/WN, vitals as above, NAD, sitting up in bed, pleasant, conversing easily Head: normocephalic, atraumatic Eyes: normal inspection, PERRL,EOMI, conjunctivae normal, anicteric sclerae ENT: external ear and nose normal, oropharynx normal Neck: normal visual inspection, trachea midline, no thyromegaly Respiratory: normal respiratory effort, lungs clear to auscultation, no wheeze, rales, rhonchi. No accessory muscle use Cardiovascular: mildly , regular rhythm, no murmur appreciated, normal peripheral pulses, no BLE edema. Vessels: no JVD Chest: normal inspection of chest Abdomen/GI: normal bowel sounds, soft, nontender, nondistended Extremities/Musculoskeletal: no cyanosis or clubbing, extremities motor strength 5/5, moves extremities spontaneously Neurologic: PERRL, EOMI, accommodation nl, no face palsy, no dysarthria, CN's II-XI intact bilaterally and moves all extremities Psychiatric: A+Ox3, euthymic affect Skin: no rashes, normal color, warm/dry Results & Data Results & Data ([facility]) Vital Signs (Past 12 Hours) Vital Signs Temp Pulse Pulse Pulse Resp BP Pulse Ox 07/31/20 11:26 36.8 C 101 H 18 112/72 95 07/31/20 07:45 36.9 C 89 88 16 115/74 98 07/31/20 03:28 36.8 C 112 H 16 101/64 96 Laboratory Results 07/31/20 07/31/20 07/30/20 Range/Units 09:23 00:50 22:05 WBC (4.8-10.8) K/uL RBC (4.2-5.4) M/uL Hgb (12.0-16.0) g/dL Hct (37-47) % MCV (80-100) fL MCH (25-34) pg MCHC (32-36) g/dL RDW Std Deviation (36.4-46.3) fL RDW Coeff of Candido (11.5-14.5) % Plt Count (130-400) K/uL MPV (7.4-10.4) fL Immature Gran % (Auto) % Neut % (Auto) % Lymph % (Auto) % Meade % (Auto) % Eos % (Auto) % Baso % (Auto) % Neut # (Auto) (1.4-6.5) K/uL Lymph # (Auto) (1.2-3.4) K/uL Meade # (Auto) (0.11-0.59) K/uL Eos # (Auto) (0-0.5) K/uL Baso # (Auto) (0-0.2) K/uL Immature Gran # (Auto) (0.00-0.02) K/uL ESR (0-21) mm/hr PT (9.0-12.0) Seconds INR (0.9-1.1) APTT (21.0-31.0) Seconds PTT Ratio Sodium 142 (136-145) mmol/L Potassium 4.1 D (3.5-5.1) mmol/L Chloride 115 H (98-107) mmol/L Carbon Dioxide 21 (21-32) mmol/L Anion Gap 6.0 (3-11) BUN 9 (7-18) mg/dl Creatinine 0.80 (0.6-1.2) mg/dl Est Cr Clr Drug Dosing 134.0 ml/min Est GFR ( Amer) 123.9 Est GFR (Non-Af Amer) 106.9 BUN/Creatinine Ratio 11.3 (10-20) Glucose 92 (70-99) mg/dl Calcium 9.1 (8.5-10.1) mg/dl Magnesium (1.8-2.4) mg/dl Total Bilirubin (0.2-1) mg/dl AST (15-37) U/L ALT (12-78) U/L Alkaline Phosphatase (45-117) U/L Troponin I (0-0.045) ng/ml C-Reactive Protein (0-0.29) mg/dl Total Protein (6.4-8.2) gm/dl Albumin (3.4-5.0) gm/dl Globulin (2.5-4.0) gm/dl Albumin/Globulin Ratio (0.9-2) Lipase (73-393) U/L TSH (0.300-4.500) uIu/ml Urine Test Negative (Negative) Nasal Screen MRSA (PCR) Negative (Negative) Anaplasma Smear Lyme Disease IgG Ab (Negative) Lyme Disease IgM Ab (Negative) COVID-19 Eval Order SARS-CoV-2, RNA, NAAT (NEGATIVE) 07/30/20 07/30/20 07/30/20 Range/Units 20:02 20:02 16:59 WBC (4.8-10.8) K/uL RBC (4.2-5.4) M/uL Hgb (12.0-16.0) g/dL Hct (37-47) % MCV (80-100) fL MCH (25-34) pg MCHC (32-36) g/dL RDW Std Deviation (36.4-46.3) fL RDW Coeff of Candido (11.5-14.5) % Plt Count (130-400) K/uL MPV (7.4-10.4) fL Immature Gran % (Auto) % Neut % (Auto) % Lymph % (Auto) % Meade % (Auto) % Eos % (Auto) % Baso % (Auto) % Neut # (Auto) (1.4-6.5) K/uL Lymph # (Auto) (1.2-3.4) K/uL Meade # (Auto) (0.11-0.59) K/uL Eos # (Auto) (0-0.5) K/uL Baso # (Auto) (0-0.2) K/uL Immature Gran # (Auto) (0.00-0.02) K/uL ESR (0-21) mm/hr PT (9.0-12.0) Seconds INR (0.9-1.1) APTT (21.0-31.0) Seconds PTT Ratio Sodium (136-145) mmol/L Potassium (3.5-5.1) mmol/L Chloride (98-107) mmol/L Carbon Dioxide (21-32) mmol/L Anion Gap (3-11) BUN (7-18) mg/dl Creatinine (0.6-1.2) mg/dl Est Cr Clr Drug Dosing ml/min Est GFR ( Amer) Est GFR (Non-Af Amer) BUN/Creatinine Ratio (10-20) Glucose (70-99) mg/dl Calcium (8.5-10.1) mg/dl Magnesium (1.8-2.4) mg/dl Total Bilirubin (0.2-1) mg/dl AST (15-37) U/L ALT (12-78) U/L Alkaline Phosphatase (45-117) U/L Troponin I (0-0.045) ng/ml C-Reactive Protein (0-0.29) mg/dl Total Protein (6.4-8.2) gm/dl Albumin (3.4-5.0) gm/dl Globulin (2.5-4.0) gm/dl Albumin/Globulin Ratio (0.9-2) Lipase (73-393) U/L TSH (0.300-4.500) uIu/ml Urine Test (Negative) Nasal Screen MRSA (PCR) (Negative) Anaplasma Smear Lyme Disease IgG Ab Negative (Negative) Lyme Disease IgM Ab Negative (Negative) COVID-19 [facility] SARS-CoV-2, RNA, NAAT NEGATIVE (NEGATIVE) 07/30/20 07/30/20 07/30/20 Range/Units 16:56 16:56 16:56 WBC (4.8-10.8) K/uL RBC (4.2-5.4) M/uL Hgb (12.0-16.0) g/dL Hct (37-47) % MCV (80-100) fL MCH (25-34) pg MCHC (32-36) g/dL RDW Std Deviation (36.4-46.3) fL RDW Coeff of Candido (11.5-14.5) % Plt Count (130-400) K/uL MPV (7.4-10.4) fL Immature Gran % (Auto) % Neut % (Auto) % Lymph % (Auto) % Meade % (Auto) % Eos % (Auto) % Baso % (Auto) % Neut # (Auto) (1.4-6.5) K/uL Lymph # (Auto) (1.2-3.4) K/uL Meade # (Auto) (0.11-0.59) K/uL Eos # (Auto) (0-0.5) K/uL Baso # (Auto) (0-0.2) K/uL Immature Gran # (Auto) (0.00-0.02) K/uL ESR 24 H (0-21) mm/hr PT 11.4 (9.0-12.0) Seconds INR 1.1 (0.9-1.1) APTT 27.9 (21.0-31.0) Seconds PTT Ratio 1.0 Sodium (136-145) mmol/L Potassium (3.5-5.1) mmol/L Chloride (98-107) mmol/L Carbon Dioxide (21-32) mmol/L Anion Gap (3-11) BUN (7-18) mg/dl Creatinine (0.6-1.2) mg/dl Est Cr Clr Drug Dosing ml/min Est GFR ( Amer) Est GFR (Non-Af Amer) BUN/Creatinine Ratio (10-20) Glucose (70-99) mg/dl Calcium (8.5-10.1) mg/dl Magnesium 1.8 (1.8-2.4) mg/dl Total Bilirubin (0.2-1) mg/dl AST (15-37) U/L ALT (12-78) U/L Alkaline Phosphatase (45-117) U/L Troponin I (0-0.045) ng/ml C-Reactive Protein (0-0.29) mg/dl Total Protein (6.4-8.2) gm/dl Albumin (3.4-5.0) gm/dl Globulin (2.5-4.0) gm/dl Albumin/Globulin Ratio (0.9-2) Lipase (73-393) U/L TSH (0.300-4.500) uIu/ml Urine Test (Negative) Nasal Screen MRSA (PCR) (Negative) Anaplasma Smear Lyme Disease IgG Ab (Negative) Lyme Disease IgM Ab (Negative) COVID-19 Eval Order SARS-CoV-2, RNA, NAAT (NEGATIVE) 07/30/20 07/30/20 Range/Units 16:56 16:56 WBC 10.30 (4.8-10.8) K/uL RBC 4.47 (4.2-5.4) M/uL Hgb 12.7 (12.0-16.0) g/dL Hct 37.0 (37-47) % MCV 82.8 (80-100) fL MCH 28.4 (25-34) pg MCHC 34.3 (32-36) g/dL RDW Std Deviation 38.4 (36.4-46.3) fL RDW Coeff of Candido 12.8 (11.5-14.5) % Plt Count 282 (130-400) K/uL MPV 9.6 (7.4-10.4) fL Immature Gran % (Auto) 0.4 % Neut % (Auto) 67.0 % Lymph % (Auto) 25.7 % Meade % (Auto) 6.3 % Eos % (Auto) 0.3 % Baso % (Auto) 0.3 % Neut # (Auto) 6.90 H (1.4-6.5) K/uL Lymph # (Auto) 2.65 (1.2-3.4) K/uL Meade # (Auto) 0.65 H (0.11-0.59) K/uL Eos # (Auto) 0.03 (0-0.5) K/uL Baso # (Auto) 0.03 (0-0.2) K/uL Immature Gran # (Auto) 0.04 H (0.00-0.02) K/uL ESR (0-21) mm/hr PT (9.0-12.0) Seconds INR (0.9-1.1) APTT (21.0-31.0) Seconds PTT Ratio Sodium 139 (136-145) mmol/L Potassium 3.2 L (3.5-5.1) mmol/L Chloride 110 H (98-107) mmol/L Carbon Dioxide 19 L (21-32) mmol/L Anion Gap 10.0 (3-11) BUN 9 (7-18) mg/dl Creatinine 0.86 (0.6-1.2) mg/dl Est Cr Clr Drug Dosing 125.5 ml/min Est GFR ( Amer) 113.5 Est GFR (Non-Af Amer) 97.9 BUN/Creatinine Ratio 10.1 (10-20) Glucose 85 (70-99) mg/dl Calcium 9.7 (8.5-10.1) mg/dl Magnesium (1.8-2.4) mg/dl Total Bilirubin 0.5 (0.2-1) mg/dl AST 14 L (15-37) U/L ALT 27 (12-78) U/L Alkaline Phosphatase 59 (45-117) U/L Troponin I < 0.015 (0-0.045) ng/ml C-Reactive Protein 0.42 H (0-0.29) mg/dl Total Protein 8.1 (6.4-8.2) gm/dl Albumin 3.9 (3.4-5.0) gm/dl Globulin 4.2 H (2.5-4.0) gm/dl Albumin/Globulin Ratio 0.9 (0.9-2) Lipase 66 L (73-393) U/L TSH 0.948 (0.300-4.500) uIu/ml Urine Test (Negative) Nasal Screen MRSA (PCR) (Negative) Anaplasma Smear See Comment Lyme Disease IgG Ab (Negative) Lyme Disease IgM Ab (Negative) COVID-19 Eval Order SARS-CoV-2, RNA, NAAT (NEGATIVE) Medications Administered Current Inpatient Medications Acetaminophen (Acetaminophen 325 Mg Tab) 650 mg PO Q4H PRN PRN Reason: Pain or Fever Stop: 08/29/20 20:57 Dicyclomine HCl (Dicyclomine Hcl 20 Mg Tab) 20 mg PO TID NESS Stop: 08/29/20 20:59 Last Admin: 07/31/20 13:49 Dose: 20 mg Documented by: Fluticasone Propionate (Fluticasone Propionate Na Spr 16 Gm Btl) 1 sprays LINNEA DAILY PRN PRN Reason: Nasal Congestion Stop: 08/29/20 20:57 Cefepime HCl 2,000 mg/ Syringe 20 mls @ 5 mls/min IV Q8H NESS Stop: 09/10/20 21:59 Last Admin: 07/31/20 13:49 Dose: 5 mls/min Documented by: Daptomycin 500 mg/ Syringe 10 mls @ 5 mls/min IV DAILY@0600 [facility]; Protocol Stop: 09/11/20 05:59 Last Admin: 07/31/20 06:26 Dose: 5 mls/min Documented by: Ibuprofen (Ibuprofen 200 Mg Tab) 400 mg PO Q6H NESS Stop: 08/30/20 09:44 Last Admin: 07/31/20 11:14 Dose: 400 mg Documented by: Miscellaneous (Sprintec: Patient's Own Oral Contraceptive) 1 ea PO DAILY NESS Stop: 08/30/20 08:59 Last Admin: 07/31/20 09:28 Dose: 1 ea Documented by: Miscellaneous Information (Cefepime Consult Active) 1 ea N/A UD PRN PRN Reason: Consult Stop: 08/29/20 21:03 Miscellaneous Information (Daptomycin Consult Active) 1 ea N/A UD PRN PRN Reason: Consult Stop: 08/30/20 05:03 Ondansetron HCl (Ondansetron Inj 2 Mg/Ml 2 Ml Vial) 4 mg IV Q6H PRN PRN Reason: Nausea Stop: 08/29/20 20:57 Polyethylene Glycol (Polyethylene (Miralax) 17 Gm Pack) 17 gm PO DAILY PRN PRN Reason: Constipation Stop: 08/29/20 20:57 Vitamin D (Cholecalciferol 1,000 Units 25 Mcg Tab) 1,000 units PO QAM NESS Stop: 08/30/20 08:59 Last Admin: 07/31/20 09:27 Dose: 1,000 units Documented by: Zolpidem Tartrate (Zolpidem Tartrate 5 Mg Tab) 5 mg PO HS PRN PRN Reason: Sleep Stop: 08/29/20 23:17 Last Admin: 07/30/20 23:51 Dose: 5 mg Documented by:
[2020-07-31] MEDS ORDERED: TRAMADOL HCL 50 MG TABLET PO PRN (19:06)
--- NOTE | 2020-07-31 19:11 | Hospitalist Progress Note ---
Date of Service July 31, 2020 Assessment & Plan Admission and Anticipated Discharge Date Admission Date: July 30, 2020 Subjective Patient again had "squeezing chest" sensation, EKG obtained by nursing staff, seems unremarkable. Patient has been taking Tylenol and ibuprofen, reports that it is not helping. Will order as needed 25 tramadol, and heating pad, will continue to closely monitor. Results & Data Results & Data ([facility]) Vital Signs (Past 12 Hours) Vital Signs Temp Pulse Pulse Resp BP Pulse Ox 07/31/20 11:26 36.8 C 101 H 18 112/72 95 07/31/20 07:45 36.9 C 89 88 16 115/74 98
[2020-08-01] MEDS: IBUPROFEN 200 MG TAB PO SCH ×3 (04:24→15:25)
[2020-08-01] MEDS ORDERED: VANCOMYCIN TROUGH ONE (05:30)
[2020-08-01] MEDS: CEFEPIME 2,000 MG in SYRINGE 0 ML IV SCH (06:22)
[2020-08-01] MEDS: DAPTOmycin 500 MG in SYRINGE 0 ML IV SCH (06:22)
[2020-08-01 06:24] LABS: Hematocrit (blood only) 33.8 % (37-47); Hemoglobin 11.1 g/dL (12.0-16.0); Mean Corpuscular Hemoglobin 28.2 pg (25-34); Mean Corpuscular Hgb Conc 32.8 g/dL (32-36); Mean Platelet Volume 9.9 fL (7.4-10.4); Platelet Count 258 K/uL (130-400); RDW Coefficient of Variation 13.1 % (11.5-14.5); RDW Standard Deviation 41.3 fL (36.4-46.3); Red Blood Count 3.93 M/uL (4.2-5.4)
[2020-08-01 06:58] LABS: Blood Urea Nitrogen 12 mg/dl (7-18); Calcium 8.6 mg/dl (8.5-10.1); Carbon Dioxide 22 mmol/L (21-32); Chloride 112 mmol/L (98-107); Creatinine Clr Calc Pharmacy 171.8 ml/min; Est GFR (African American) > 150.0; Glucose 94 mg/dl (70-99); Potassium 4.2 mmol/L (3.5-5.1); Sodium 140 mmol/L (136-145)
[2020-08-01] MEDS: SPRINTEC CONTRACEPTIVE PO SCH (08:52)
[2020-08-01] MEDS: CHOLECALCIFEROL 1,000 UNITS 25 MCG TAB PO SCH (08:52)
[2020-08-01] MEDS: DICYCLOMINE HCL 20 MG TAB PO SCH ×2 (08:52→14:10)
--- NOTE | 2020-08-01 09:10 | Hospitalist Progress Note ---
Date of Service August 01, 2020 Assessment & Plan (1) Endocarditis: Pt admitted for SUSPECTED ENDOCARDITIS Endocarditis not confirmed at this time, and likely not the cause of patient's symptoms. 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 endocarditis. -Persistent chest tightness, dyspnea and lightheadedness since wisdom teeth removal 07/17/20. Has been taking Augmentin (?Bactrim) -Pt reports taking Abx for the past 2 weeks, last dose AM prior to admission -History of strep anginosus bacteremia 2 months ago treated with Unasyn and discharged home on Rocephin and Flagyl - has not felt back to baseline since -Afebrile on admission, no leukocytosis, mild chest tightness, persistent lightheadedness and fatigue -Blood cultures obtained, started empiric vanc and cefepime on admission, and follow cultures. -Consult [facility] ID - risk for abscess formation with strep anginosus, may need additional imaging once culture results -2D echo obtained and cardiology consulted. -TTE obtained 07/31, unremarkable -Discussed with ID, agree that RICKY is low yield and so not recommended at this time. Recommend to follow-up blood cultures as outpatient. Recommend to stop antibiotics. (3) Acute hypokalemia: Potassium of 3.2 on admission replete and monitor (4) IBS (irritable bowel syndrome): Continue dicyclomine Pt reports loose stools -will obtain culture and c. diff (5) ADH disorder: Ritalin currently held per PCP DVT Ppx: SCDs Code status: FULL PCP: Dr. Ag Dispo: Observed PCU. Plan to return home Admission and Anticipated Discharge Date Admission Date: July 30, 2020 Subjective Patient is currently resting in bed, in no acute distress. Currently denies any chest pain or shortness of breath. She says occasionally she has squeezing sensation of her chest however her echocardiogram, and all EKGs are unremarkable. Per cardiology, recommend ibuprofen and Tylenol. Infectious disease specialist, recommend to discontinue antibiotics and follow- up cultures, RICKY is likely low yield and so not recommended at this time. Review of Systems Review of Systems: All systems reviewed & are unremarkable except as noted in HPI & below Constitutional: no fever and no chills Respiratory: no cough and no dyspnea Cardiovascular: no chest pain, no palpitations and no edema Gastrointestinal: no abdominal pain, no nausea and no vomiting Physical Exam Physical Exam: General Appearance: young female, WD/WN, vitals as above, NAD, sitting up in bed, pleasant, conversing easily Head: normocephalic, atraumatic Eyes: normal inspection, PERRL,EOMI, conjunctivae normal, anicteric sclerae ENT: external ear and nose normal, oropharynx normal Neck: normal visual inspection, trachea midline, no thyromegaly Respiratory: normal respiratory effort, lungs clear to auscultation, no wheeze, rales, rhonchi. No accessory muscle use Cardiovascular: mildly , regular rhythm, no murmur appreciated, normal peripheral pulses, no BLE edema. Vessels: no JVD Chest: normal inspection of chest Abdomen/GI: normal bowel sounds, soft, nontender, nondistended Extremities/Musculoskeletal: no cyanosis or clubbing, extremities motor strength 5/5, moves extremities spontaneously Neurologic: PERRL, EOMI, no face palsy, no dysarthria, CN's II-XI intact bilaterally and moves all extremities Psychiatric: A+Ox3, euthymic affect Skin: no rashes, normal color, warm/dry Results & Data Results & Data ([facility]) Vital Signs (Past 12 Hours) Vital Signs Temp Pulse Resp BP Pulse Ox 08/01/20 07:10 37.2 C 69 19 113/58 L 96 08/01/20 03:19 36.9 C 84 14 118/74 98 07/31/20 23:29 37 C 111 H 16 139/67 95 Laboratory Results 08/01/20 08/01/20 08/01/20 Range/Units 05:29 05:29 05:29 WBC 6.80 (4.8-10.8) K/uL RBC 3.93 L (4.2-5.4) M/uL Hgb 11.1 L (12.0-16.0) g/dL Hct 33.8 L (37-47) % MCV 86.0 (80-100) fL MCH 28.2 (25-34) pg MCHC 32.8 (32-36) g/dL RDW Std Deviation 41.3 (36.4-46.3) fL RDW Coeff of Candido 13.1 (11.5-14.5) % Plt Count 258 (130-400) K/uL MPV 9.9 (7.4-10.4) fL Sodium 140 (136-145) mmol/L Potassium 4.2 (3.5-5.1) mmol/L Chloride 112 H (98-107) mmol/L Carbon Dioxide 22 (21-32) mmol/L Anion Gap 6.0 (3-11) BUN 12 (7-18) mg/dl Creatinine 0.63 (0.6-1.2) mg/dl Est Cr Clr Drug Dosing 171.8 ml/min Est GFR ( Amer) > 150.0 Est GFR (Non-Af Amer) 130.0 BUN/Creatinine Ratio 19.0 (10-20) Glucose 94 (70-99) mg/dl Calcium 8.6 (8.5-10.1) mg/dl Vancomycin Trough 1.0 (See Comment) mcg/ml 07/31/20 Range/Units 09:23 WBC (4.8-10.8) K/uL RBC (4.2-5.4) M/uL Hgb (12.0-16.0) g/dL Hct (37-47) % MCV (80-100) fL MCH (25-34) pg MCHC (32-36) g/dL RDW Std Deviation (36.4-46.3) fL RDW Coeff of Candido (11.5-14.5) % Plt Count (130-400) K/uL MPV (7.4-10.4) fL Sodium 142 (136-145) mmol/L Potassium 4.1 D (3.5-5.1) mmol/L Chloride 115 H (98-107) mmol/L Carbon Dioxide 21 (21-32) mmol/L Anion Gap 6.0 (3-11) BUN 9 (7-18) mg/dl Creatinine 0.80 (0.6-1.2) mg/dl Est Cr Clr Drug Dosing 134.0 ml/min Est GFR ( Amer) 123.9 Est GFR (Non-Af Amer) 106.9 BUN/Creatinine Ratio 11.3 (10-20) Glucose 92 (70-99) mg/dl Calcium 9.1 (8.5-10.1) mg/dl Vancomycin Trough (See Comment) mcg/ml Medications Administered Current Inpatient Medications Acetaminophen (Acetaminophen 325 Mg Tab) 650 mg PO Q4H PRN PRN Reason: Pain or Fever Stop: 08/29/20 20:57 Dicyclomine HCl (Dicyclomine Hcl 20 Mg Tab) 20 mg PO TID NESS Stop: 08/29/20 20:59 Last Admin: 08/01/20 08:52 Dose: 20 mg Documented by: Fluticasone Propionate (Fluticasone Propionate Na Spr 16 Gm Btl) 1 sprays LINNEA DAILY PRN PRN Reason: Nasal Congestion Stop: 08/29/20 20:57 Cefepime HCl 2,000 mg/ Syringe 20 mls @ 5 mls/min IV Q8H [facility] Stop: 09/10/20 21:59 Last Admin: 08/01/20 06:22 Dose: 5 mls/min Documented by: Daptomycin 500 mg/ Syringe 10 mls @ 5 mls/min IV DAILY@0600 [facility]; Protocol Stop: 09/11/20 05:59 Last Admin: 08/01/20 06:22 Dose: 5 mls/min Documented by: Ibuprofen (Ibuprofen 200 Mg Tab) 400 mg PO Q6H [facility] Stop: 08/30/20 09:44 Last Admin: 08/01/20 08:52 Dose: 400 mg Documented by: Miscellaneous (Sprintec: Patient's Own Oral Contraceptive) 1 ea PO DAILY NESS Stop: 08/30/20 08:59 Last Admin: 08/01/20 08:52 Dose: 1 ea Documented by: Miscellaneous Information (Cefepime Consult Active) 1 ea N/A UD PRN PRN Reason: Consult Stop: 08/29/20 21:03 Miscellaneous Information (Daptomycin Consult Active) 1 ea N/A UD PRN PRN Reason: Consult Stop: 08/30/20 05:03 Ondansetron HCl (Ondansetron Inj 2 Mg/Ml 2 Ml Vial) 4 mg IV Q6H PRN PRN Reason: Nausea Stop: 08/29/20 20:57 Polyethylene Glycol (Polyethylene (Miralax) 17 Gm Pack) 17 gm PO DAILY PRN PRN Reason: Constipation Stop: 08/29/20 20:57 Tramadol HCl (Tramadol Hcl 50 Mg Tablet) 25 mg PO Q4H PRN PRN Reason: Pain Stop: 08/30/20 19:05 Last Admin: 07/31/20 19:27 Dose: 25 mg Documented by: Vitamin D (Cholecalciferol 1,000 Units 25 Mcg Tab) 1,000 units PO QAM NESS Stop: 08/30/20 08:59 Last Admin: 08/01/20 08:52 Dose: 1,000 units Documented by: Zolpidem Tartrate (Zolpidem Tartrate 5 Mg Tab) 5 mg PO HS PRN PRN Reason: Sleep Stop: 08/29/20 23:17 Last Admin: 07/30/20 23:51 Dose: 5 mg Documented by:
--- NOTE | 2020-08-01 11:08 | Cardiology Progress Note ---
Date of Service August 01, 2020 Assessment & Plan (1) Endocarditis: (2) History of bacteremia: (3) Anxiety: (4) ADH disorder: (5) IBS (irritable bowel syndrome): The patient had a telemedicine consult with the ID specialist from [facility] today. The report is not currently available. If they do not feel strongly that the patient needs a RICKY then I believe she can be started on a diet. If the ID consult indicates the need for RICKY then we will perform it today. Admission and Anticipated Discharge Date Admission Date: July 30, 2020 Subjective The patient states that her chest pain and dyspnea have improved. She had a telemedicine consult with ID from [facility] today. Review of Systems Review of Systems: All systems reviewed & are unremarkable except as noted in Subjective Physical Exam Physical Exam: General: no acute distress and stated age Head: normocephalic, no masses, lesions, tenderness or abnormalities Eyes: conjunctiva are pink and non-injected, sclera clear Neck: supple, no adenopathy, no bruits, normal jugular venous pulse, no hepatojugular reflux Chest: normal shape and normal respiratory effort Lungs: clear to auscultation and percussion Cardiac Exam: - regular rate & rhythm, no murmurs gallops or rubs - normal S1, normal S2 Pulses: 2(+) throughout Abdomen: abdomen soft, non-tender, no abnormal masses and no hepatosplenomegaly Musculoskeletal: no gait disturbance, no joint inflammation, no deforming arthritis Extremities: no edema and no cyanosis Neuro: grossly normal exam Results & Data ([facility]) Vital Signs (Past 12 Hours) Vital Signs Temp Pulse Resp BP Pulse Ox 08/01/20 07:10 37.2 C 69 19 113/58 L 96 08/01/20 03:19 36.9 C 84 14 118/74 98 07/31/20 23:29 37 C 111 H 16 139/67 95 Laboratory Results Laboratory Results - last 24 hr 08/01/20 08/01/20 08/01/20 05:29 05:29 05:29 WBC 6.80 RBC 3.93 L Hgb 11.1 L Hct 33.8 L MCV 86.0 MCH 28.2 MCHC 32.8 RDW Std Deviation 41.3 RDW Coeff of Candido 13.1 Plt Count 258 MPV 9.9 Sodium 140 Potassium 4.2 Chloride 112 H Carbon Dioxide 22 Anion Gap 6.0 BUN 12 Creatinine 0.63 Est Cr Clr Drug Dosing 171.8 Est GFR ( Amer) > 150.0 Est GFR (Non-Af Amer) 130.0 BUN/Creatinine Ratio 19.0 Glucose 94 Calcium 8.6 Stl C. diff Tox B Gene Vancomycin Trough 1.0 08/01/20 09:15 WBC RBC Hgb Hct MCV MCH MCHC RDW Std Deviation RDW Coeff of Candido Plt Count MPV Sodium Potassium Chloride Carbon Dioxide Anion Gap BUN Creatinine Est Cr Clr Drug Dosing Est GFR ( Amer) Est GFR (Non-Af Amer) BUN/Creatinine Ratio Glucose Calcium Stl C. diff Tox B Gene TNP Vancomycin Trough Diagnostic Findings EKG is normal today. Medications Administered Current Inpatient Medications Acetaminophen (Acetaminophen 325 Mg Tab) 650 mg PO Q4H PRN PRN Reason: Pain or Fever Stop: 08/29/20 20:57 Dicyclomine HCl (Dicyclomine Hcl 20 Mg Tab) 20 mg PO TID [facility] Stop: 08/29/20 20:59 Last Admin: 08/01/20 08:52 Dose: 20 mg Documented by: Fluticasone Propionate (Fluticasone Propionate Na Spr 16 Gm Btl) 1 sprays LINNEA DAILY PRN PRN Reason: Nasal Congestion Stop: 08/29/20 20:57 Cefepime HCl 2,000 mg/ Syringe 20 mls @ 5 mls/min IV Q8H [facility] Stop: 09/10/20 21:59 Last Admin: 08/01/20 06:22 Dose: 5 mls/min Documented by: Daptomycin 500 mg/ Syringe 10 mls @ 5 mls/min IV DAILY@0600 [facility]; Protocol Stop: 09/11/20 05:59 Last Admin: 08/01/20 06:22 Dose: 5 mls/min Documented by: Ibuprofen (Ibuprofen 200 Mg Tab) 400 mg PO Q6H [facility] Stop: 08/30/20 09:44 Last Admin: 08/01/20 08:52 Dose: 400 mg Documented by: Miscellaneous (Sprintec: Patient's Own Oral Contraceptive) 1 ea PO DAILY NESS Stop: 08/30/20 08:59 Last Admin: 08/01/20 08:52 Dose: 1 ea Documented by: Miscellaneous Information (Cefepime Consult Active) 1 ea N/A UD PRN PRN Reason: Consult Stop: 08/29/20 21:03 Miscellaneous Information (Daptomycin Consult Active) 1 ea N/A UD PRN PRN Reason: Consult Stop: 08/30/20 05:03 Ondansetron HCl (Ondansetron Inj 2 Mg/Ml 2 Ml Vial) 4 mg IV Q6H PRN PRN Reason: Nausea Stop: 08/29/20 20:57 Polyethylene Glycol (Polyethylene (Miralax) 17 Gm Pack) 17 gm PO DAILY PRN PRN Reason: Constipation Stop: 08/29/20 20:57 Tramadol HCl (Tramadol Hcl 50 Mg Tablet) 25 mg PO Q4H PRN PRN Reason: Pain Stop: 08/30/20 19:05 Last Admin: 07/31/20 19:27 Dose: 25 mg Documented by: Vitamin D (Cholecalciferol 1,000 Units 25 Mcg Tab) 1,000 units PO QAM NESS Stop: 08/30/20 08:59 Last Admin: 08/01/20 08:52 Dose: 1,000 units Documented by: Zolpidem Tartrate (Zolpidem Tartrate 5 Mg Tab) 5 mg PO HS PRN PRN Reason: Sleep Stop: 08/29/20 23:17 Last Admin: 07/30/20 23:51 Dose: 5 mg Documented by:
--- NOTE | 2020-08-01 15:28 | Discharge Summary ---
Date of Service August 01, 2020 Admission HPI Per Admitting Provider This is a 19yo F with PMH of strep anginosus bacteremia following dental procedure in May 2020, ADHD and IBS who presents from cardiology clinic for evaluation of endocarditis. Patient has been seen the ED in the clinic within the last 10 days for symptoms of chest tightness, palpitations, shortness of breath and dizziness. Underwent root canal at the end of May and developed strep anginosus bacteremia treated with Unasyn and discharged home on Rocephin and Flagyl. Has been feeling poorly since then but has progressively begun to feel worse. Underwent wisdom teeth removal on July 17 and is taking Augmentin. Over the past 10 days, has felt more persistently short of breath with chest tightness but no pain. Denies any near-syncope or syncope. Has felt warm at times with chills but denies any measurable fever. Denies visual changes, cough, wheezing, nausea, vomiting, abdominal pain, dysuria, diarrhea or constipation. Was sent in by cardiology clinic for further work-up of endocarditis. In ED, patient is afebrile and hemodynamically stable. No leukocytosis. Potassium of 3.2. CRP of 0.42 and ESR of 24. Initial troponin negative. Admission Exam Per Admitting Provider General Appearance: WD/WN, vitals as above, NAD, sitting up in bed, pleasant, conversing easily Head: normocephalic, atraumatic Eyes: normal inspection, PERRL, conjunctivae normal, anicteric sclerae ENT: external ear and nose normal, oropharynx normal Neck: normal visual inspection, trachea midline, no thyromegaly Respiratory: normal respiratory effort, lungs clear to auscultation, no wheeze, rales, rhonchi. No accessory muscle use Cardiovascular: tachycardic, regular rhythm, no murmur appreciated, normal peripheral pulses, no BLE edema. Vessels: no JVD Chest: normal inspection of chest Abdomen/GI: normal bowel sounds, soft, nontender, no hepatosplenomegaly Extremities/Musculoskeletal: no cyanosis or clubbing, extremities motor strength 5/5 Neurologic: PERRL, EOMI, accommodation nl, no face palsy, no dysarthria, CN's II-XI intact bilaterally and moves all extremities Psychiatric: A+Ox3, euthymic affect Skin: no rashes, normal color, warm/dry Principal Diagnosis Chest pain, suspected endocarditis, endocarditis not confirmed Chest pain secondary to costochondritis, chest wall and pleuritic pain Discharge Exam General Appearance: young female, WD/WN, vitals as above, NAD, sitting up in bed, pleasant, conversing easily Head: normocephalic, atraumatic Eyes: normal inspection, PERRL,EOMI, conjunctivae normal, anicteric sclerae ENT: external ear and nose normal, oropharynx normal Neck: normal visual inspection, trachea midline, no thyromegaly Respiratory: normal respiratory effort, lungs clear to auscultation, no wheeze, rales, rhonchi. No accessory muscle use Cardiovascular: mildly , regular rhythm, no murmur appreciated, normal peripheral pulses, no BLE edema. Vessels: no JVD Chest: normal inspection of chest Abdomen/GI: normal bowel sounds, soft, nontender, nondistended Extremities/Musculoskeletal: no cyanosis or clubbing, extremities motor strength 5/5, moves extremities spontaneously Neurologic: PERRL, EOMI, no face palsy, no dysarthria, CN's II-XI intact bilaterally and moves all extremities Psychiatric: A+Ox3, euthymic affect Skin: no rashes, normal color, warm/dry Discharge Data Allergies Allergy/AdvReac Type Severity Reaction Status Date / Time bee venom protein (honey bee) Allergy Intermediate swelling Verified 07/30/20 17:10 adhesive tape Allergy Mild Rash Verified 07/30/20 17:10 latex Allergy Mild Rash Verified 07/30/20 17:10 pseudoephedrine Allergy Mild Vomiting, Verified 07/30/20 17:10 breathing difficulty vancomycin AdvReac Severe Redness of Verified 07/31/20 12:44 Skin omeprazole AdvReac Intermediate Vomiting Verified 07/30/20 17:10 and diarrhea Consultations 07/30/20 18:35 ED Decision to Admit Stat 07/30/20 20:58 Consult Cardiology Routine 07/31/20 14:03 Consult Infectious Diseases Routine Hospital Course (1) Endocarditis: Pt admitted for SUSPECTED ENDOCARDITIS Endocarditis not confirmed at this time, and likely not the cause of patient's symptoms. 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 endocarditis. -Persistent chest tightness, dyspnea and lightheadedness since wisdom teeth removal 07/17/20. Has been taking Augmentin (?Bactrim) -Pt reports taking Abx for the past 2 weeks, last dose AM prior to admission -History of strep anginosus bacteremia 2 months ago treated with Unasyn and discharged home on Rocephin and Flagyl - has not felt back to baseline since -Afebrile on admission, no leukocytosis, mild chest tightness, persistent lightheadedness and fatigue -Blood cultures obtained, started empiric vanc and cefepime on admission, and follow cultures. -Consult [facility] ID - risk for abscess formation with strep anginosus, may need additional imaging once culture results -2D echo obtained and cardiology consulted. -TTE obtained 07/31, unremarkable -Discussed with ID, agree that RICKY is low yield and so not recommended at this time. Recommend to follow-up blood cultures as outpatient. Recommend to stop antibiotics. -At this time believed, chest pain is caused by costochondritis, chest wall/pleuritic pain, recommend Tylenol and ibuprofen. PCP follow-up. (3) Acute hypokalemia: Potassium of 3.2 on admission replete and monitor (4) IBS (irritable bowel syndrome): Continue dicyclomine Pt reports loose stools -will obtain culture and c. diff (5) ADH disorder: Ritalin currently held per PCP PCP: Dr. Ag Total Time Total Time Spent Total Time Spent (In Minutes): 40 Total Time Includes: Examination of the Patient, Discharge Planning, Medication Reconciliation and Communication With Other Providers Discharge Plan Discharge Items Patient Disposition: Home - Self-Care Reason For Visit: ENDOCARDITIS Discharge Diagnosis: Chest pain, suspected endocarditis, endocarditis not confirmed Chest pain secondary to costochondritis, chest wall and pleuritic pain Activity: Per Instructions section Non-emergency contact: Primary Care Provider Call non-emergency contact if: you have any medication questions and your symptoms worsen Follow-up/Referrals: Gustavo Ag MD [Primary Care Provider] - (Date & Time 08/07/2020 11:20 AM Provider Gustavo Ag MD [facility] ) Diet: Regular Addtl Attending Provider Instructions: Follow-up with your primary care doctor, appointment was scheduled for you for August 07. Primary care provider will need to check on final blood cultures results. If blood cultures are positive, you may need RICKY, procedure we discussed in the hospital. If blood cultures are positive, you will also need to be seen by infectious disease doctor. Continue taking Tylenol and ibuprofen for suspected costochondritis/chest wall and pleuritic pain. Pending Studies at Discharge: Yes Studies:: Blood culture, final results Stand-Alone Forms: My [facility], Smoking Cessation Medications and DC Order Prescriptions: New acetaminophen 325 mg Tablet 650 mg PO Q4H PRN (Reason: pain) 10 Days RF: 0 ibuprofen 200 mg Tablet 400 mg PO Q6H 10 Days Qty: 80 RF: 0 Continued fluticasone propionate 50 mcg/actuation [place],Suspension 1 spray INTRANASAL DAILY PRN (Reason: Nasal Congestion) RF: 0 hydrocodone-acetaminophen 7.5-325 mg tablet 1 tab PO Q4H PRN (Reason: Pain) RF: 0 ondansetron HCl 8 mg tablet 8 mg PO Q8H PRN (Reason: Nausea And Vomiting) RF: 0 dicyclomine 20 mg Tablet 20 mg PO TID RF: 0 sertraline 50 mg Tablet 50 mg PO .HOLD RF: 0 cholecalciferol (vitamin D3) [Vitamin D3] 1,000 unit Capsule 1,000 unit PO QAM RF: 0 norgestimate-ethinyl estradiol [Sprintec (28)] 0.25-35 mg-mcg tablet 1 tab PO QAM RF: 0 Discontinued amoxicillin-pot clavulanate 875-125 mg tablet 1 tab PO Q12H Qty: 10 RF: 0 methylphenidate HCl 60 mg capsule, ER biphasic 30-70 60 mg PO .HOLD RF: 0 methylphenidate HCl 20 mg tablet 20 mg PO .HOLD RF: 0 Discharge Orders: Discharge Order (Routine); Ordered 08/01/20 Ordered By: Francisco Morgan Admission Data Admit Date/Time: 07/30/20 19:12 Attending Provider: Francisco Morgan Admit Provider: Tavo Vargas Primary Care Provider: Gustavo Ag Other Providers: Tl Richard ; Frank Ludwig ; Tavo Vargas ; Patrick Lockhart ; Kwame Lake ; Lawrence Jenkins I. ; Jose Rafael Sanchez II ; Sally Woods ; Ron Carrillo
--- NOTE | 2020-08-01 17:40 | Electrocardiogram Report ---
Test Reason : Blood Pressure : / mmHG Vent. Rate : 092 BPM Atrial Rate : 053 BPM P-R Int : 000 ms QRS Dur : 084 ms QT Int : 384 ms P-R-T Axes : 000 040 026 degrees QTc Int : 474 ms Sinus rhythm Confirmed by Obinna Livingston ([id number]) on 08/01/2020 5:39:31 PM Referred By: Robby Rossi Confirmed By:Juan Antonio Livingston
--- NOTE | 2020-08-01 17:45 | Electrocardiogram Report ---
Test Reason : Blood Pressure : / mmHG Vent. Rate : 077 BPM Atrial Rate : 077 BPM P-R Int : 140 ms QRS Dur : 096 ms QT Int : 402 ms P-R-T Axes : 041 063 041 degrees QTc Int : 454 ms Normal sinus rhythm Normal ECG When compared with ECG of 31-JUL-2020 18:50, (unconfirmed) Previous ECG has undetermined rhythm, needs review Confirmed by Obinna Livingston ([id number]) on 08/01/2020 5:45:33 PM Referred By: Robby Rossi Confirmed By:Juan Antonio Livingston
== END 2020-08-01 17:03 | disposition home or self-care (01) ==
LOC: 2S 16:18 → ED 16:18 → SUATTDRO 19:12 → 2S 20:40

== ENCOUNTER 2021-05-07 00:22 | Inpatient (IN) ==
[2021-05-07] MEDS ORDERED: OXYTOCIN 30 UNITS/500 ML BAG IV PRN ×3 (00:42→15:42)
[2021-05-07] MEDS ORDERED: PENICILLIN G POTASSIUM 6 MU in DEXTROSE 5% 250 ML IV STA (00:42)
--- NOTE | 2021-05-07 00:49 | Progress Note ---
Date of Service May 07, 2021 Subjective Admit Note 20 F P0000 at 35 weeks admitted to L&D with PROM at around 1145 PM 05/06/21 with copious clear fluid. Cervix 2/70/-3/vertex/anterior/soft. EFW 7.5 lbs. GBS is unknown. Covid testing is pending. Will admit in early labor and start antibiotics. Planning for epidural. Anticipate normal delivery,
[2021-05-07 01:14] LABS: Hematocrit (blood only) 32.4 % (37-47); Mean Corpuscular Hemoglobin 28.4 pg (25-34); Mean Corpuscular Volume 83.5 fL (80-100); Platelet Count 165 K/uL (130-400); RDW Coefficient of Variation 14.8 % (11.5-14.5); RDW Standard Deviation 45.5 fL (36.4-46.3); Red Blood Count 3.88 M/uL (4.2-5.4); White Blood Count 10.41 K/uL (4.8-10.8)
[2021-05-07] MEDS: LACTATED RINGER'S 1,000 ML IV PRN ×2 (01:20→12:12)
[2021-05-07] MEDS: PENICILLIN G POTASSIUM 3 MU in DEXTROSE 5% 100 ML IV PRN ×3 (04:55→12:43)
[2021-05-07] MEDS ORDERED: ePHEDrine sulfate 50 MG/ML AMP ONE (05:04)
[2021-05-07] MEDS ORDERED: fentaNYL citrate 100 MCG/2 ML VIAL ONE (05:04)
[2021-05-07] MEDS ORDERED: BUPIVACAINE 0.25% 30 ML VIAL ONE (05:04)
[2021-05-07] MEDS ORDERED: SODIUM CHLORIDE 0.9% INJ 10 ML VIAL ONE (05:04)
[2021-05-07] MEDS ORDERED: fentaNYL 2MCG/ML ROPIVACAINE 1.25MG/ML 100 ML BAG EPI ONE (05:05)
--- NOTE | 2021-05-07 05:43 | Anesthesiology Consultation ---
Date of Service May 07, 2021 Assessment & Plan Chart Review Chart Review: Acceptable Risk for Labor Epidural Consults Requested none ASA ASA2 Proposed Anesthesia Anesthesia Type: Labor Epidural Risk / Benefits Reviewed With: PT / POA / Parent / Guardian, Accepts Plan and Informed Consent Obtained History Height/Weight Height: 5 ft 8 in Weight: 114.759 kg Allergies Allergy/AdvReac Type Severity Reaction Status Date / Time bee venom protein (honey bee) Allergy Intermediate swelling Verified 04/14/21 10:30 adhesive tape Allergy Mild Rash Verified 04/14/21 10:30 latex Allergy Mild Rash Verified 04/14/21 10:30 pseudoephedrine Allergy Mild Vomiting, Verified 04/14/21 10:30 breathing difficulty vancomycin AdvReac Severe Redness of Verified 04/14/21 10:30 Skin omeprazole AdvReac Intermediate Vomiting Verified 04/14/21 10:30 and diarrhea Medications Home Medications Medication Instructions Recorded Confirmed Last Taken vit no.133-ferrous 1 tab PO DAILY 11/12/20 05/07/21 05/06/21 09:00 fumarate 28 mg-folic acid 800 mcg tablet () ferrous sulfate 325 mg (65 mg 325 mg PO DAILY #30 tab 04/14/21 05/07/21 05/06/21 09:00 iron) tablet,delayed release Active Medications Generic Name Dose Route Start Last Admin Trade Name kCq PRN Reason Stop Dose Admin Penicillin G Potassium 3 mu/ 106 mls @ 100 mls/hr 05/07/21 00:42 05/07/21 04:55 Dextrose IV 05/17/21 00:41 100 mls/hr Q4H PRN Administration Give until delivery Lactated Ringer's 1,000 mls @ 125 mls/hr 05/07/21 00:42 05/07/21 01:20 Lr IV 05/09/21 00:41 999 mls/hr .Q8H PRN Administration L&D Protocol Protocol Past Medical History Medical History ADH disorder Anxiety and depression Barretts esophagus GERD (gastroesophageal reflux disease) History of bacteremia history of S. anginosus following dental procedure in May 2020 Hx of sepsis 06/25/2020 FROM ROOT CANAL SURGERY IBS (irritable bowel syndrome) Temporomandibular joint disorder Exercise / Class Metabolic Activity II 4-5 Yardwork/Stairs/Walk up hill Past Family History Family History Grandmother (Paternal) Family history of diabetes mellitus Other Heart disease Past Surgical History Surgical History H/O oral surgery History of colonoscopy History of esophagogastroduodenoscopy (EGD) Past Anesthesia History No Hx of Anesthesia Complications and No Family Hx of Anesthesia Complications History of PONV No Hx of PONV and No Hx of Motion Sickness Social History Smoking Status: Never smoker Do You Dip or Chew Tobacco: No Hx Alcohol Use: No Hx Substance Use: No substance use type: does not use Physical Exam Vital Signs Last Vital Signs Temp 98.1 F 05/07/21 03:54 Pulse 79 05/07/21 05:37 Resp 18 05/07/21 00:45 BP 161/92 H 05/07/21 05:34 Pulse Ox 100 05/07/21 05:37 ENMT Mouth: no dentition abnormality Thyromental Distance: > or= 3.5 Finger Breadths Mallampati Class: II Neck normal visual inspection Respiratory normal respiratory effort Auscultation: lungs clear to auscultation bilaterally Cardiovascular Rate/Rhythm: regular rate and regular rhythm Testing Laboratory Results 05/07/21 00:58
[2021-05-07] MEDS ORDERED: NALOXONE HCL 1 MG in SODIUM CHLORIDE 0.9% 1000ML 1,000 ML IV PRN (06:09)
[2021-05-07] MEDS ORDERED: ONDANSETRON INJ 2 MG/ML 2 ML VIAL IV PRN (06:09)
[2021-05-07] MEDS ORDERED: NALBUPHINE HCL INJ 10 MG/ML AMP IV PRN (06:09)
[2021-05-07] MEDS ORDERED: ePHEDrine sulfate 50 MG/ML AMP IV PRN (06:09)
[2021-05-07] MEDS ORDERED: diphenhydrAMINE 50 MG/ML VIAL IV PRN (06:09)
[2021-05-07] MEDS ORDERED: fentaNYL 2MCG/ML ROPIVACAINE 1.25MG/ML 100 ML BAG EPI PRN (06:09)
[2021-05-07] MEDS ORDERED: NALOXONE HCL 0.4 MG/1 ML VIAL/CARP IV PRN (06:09)
--- NOTE | 2021-05-07 11:15 | Labor Progress Brief Note ---
Date of Service May 07, 2021 Assessment & Plan Admission and Anticipated Discharge Date Admission Date: May 07, 2021 Physical Exam Genitourinary: Manual OB Exam: + cervical dilation 4 cm, + cervical effacement 80%, + station -2 and + amniotic fluid clear Results & Data ([facility]) Vital Signs (Past 12 Hours) Vital Signs Temp Pulse Resp BP Pulse Ox 05/07/21 11:12 90 100 05/07/21 11:10 90 123/70 05/07/21 11:07 80 98 05/07/21 11:02 91 H 100 05/07/21 10:57 89 100 05/07/21 10:54 82 109/68 05/07/21 10:52 76 99 05/07/21 10:47 88 100 05/07/21 10:42 89 99 05/07/21 10:40 98 H 127/68 05/07/21 10:37 116 H 100 05/07/21 10:32 99 H 100 05/07/21 10:29 83 111/60 05/07/21 10:27 85 100 05/07/21 10:26 98 H 136/92 05/07/21 10:22 79 100 05/07/21 10:17 79 100 05/07/21 10:12 89 100 05/07/21 10:11 82 124/75 05/07/21 10:10 20 05/07/21 10:07 85 100 05/07/21 10:02 83 100 05/07/21 09:57 80 100 05/07/21 09:54 80 136/63 05/07/21 09:52 77 100 05/07/21 09:47 92 H 100 05/07/21 09:42 83 99 05/07/21 09:40 76 133/60 05/07/21 09:37 82 100 05/07/21 09:32 81 100 05/07/21 09:27 83 100 05/07/21 09:25 78 129/69 05/07/21 09:22 80 100 05/07/21 09:17 83 99 05/07/21 09:12 75 100 05/07/21 09:11 75 122/60 05/07/21 09:10 20 05/07/21 09:07 77 99 05/07/21 09:02 78 100 05/07/21 08:57 80 100 05/07/21 08:54 78 121/62 05/07/21 08:52 74 100 05/07/21 08:47 74 100 05/07/21 08:42 84 100 05/07/21 08:40 75 115/59 L 05/07/21 08:37 83 100 05/07/21 08:32 81 100 05/07/21 08:27 83 100 05/07/21 08:24 93 H 131/72 05/07/21 08:22 70 100 05/07/21 08:17 99 H 100 05/07/21 08:12 105 H 100 05/07/21 08:11 83 127/71 05/07/21 08:10 18 05/07/21 08:07 67 100 05/07/21 08:02 66 100 05/07/21 07:57 64 99 05/07/21 07:55 80 128/63 05/07/21 07:52 90 100 05/07/21 07:47 73 100 05/07/21 07:42 71 99 05/07/21 07:39 68 119/56 L 05/07/21 07:37 71 98 05/07/21 07:32 66 99 05/07/21 07:27 78 100 05/07/21 07:26 74 112/53 L 05/07/21 07:22 72 100 05/07/21 07:17 76 100 05/07/21 07:12 86 100 05/07/21 07:10 36.6 C 91 H 18 142/71 H 05/07/21 07:07 73 98 05/07/21 07:02 71 98 05/07/21 06:57 82 100 05/07/21 06:55 81 133/63 05/07/21 06:52 91 H 100 05/07/21 06:47 78 100 05/07/21 06:42 82 100 05/07/21 06:39 81 113/58 L 05/07/21 06:37 77 98 05/07/21 06:32 84 98 05/07/21 06:28 82 124/59 L 05/07/21 06:27 82 100 05/07/21 06:23 175/117 H 05/07/21 06:22 77 175/101 H 100 05/07/21 06:19 82 174/74 H 05/07/21 06:17 79 159/73 H 100 05/07/21 06:16 81 161/64 H 05/07/21 06:13 77 162/77 H 05/07/21 06:12 82 157/73 H 99 05/07/21 06:11 75 162/76 H 05/07/21 06:09 80 160/89 H 05/07/21 06:07 89 158/84 H 98 05/07/21 06:03 85 159/75 H 05/07/21 06:02 84 99 05/07/21 06:00 86 156/81 H 05/07/21 05:57 114 H 188/99 H 100 05/07/21 05:54 104 H 169/79 H 05/07/21 05:52 98 H 100 05/07/21 05:51 99 H 149/78 H 05/07/21 05:50 108 H 151/85 H 05/07/21 05:47 108 H 169/94 H 100 05/07/21 05:42 105 H 100 05/07/21 05:37 79 100 05/07/21 05:34 80 161/92 H 05/07/21 05:32 92 H 100 05/07/21 05:27 72 100 05/07/21 05:23 75 139/80 05/07/21 05:22 89 100 05/07/21 04:53 83 122/70 05/07/21 03:54 36.7 C 70 106/62 05/07/21 03:09 89 123/78 05/07/21 00:49 85 135/96 05/07/21 00:45 36.6 C 18 05/07/21 00:43 36.6 C 85 18 135/96
--- NOTE | 2021-05-07 14:23 | Delivery Summary ---
Vaginal Delivery Summary Date of Service May 07, 2021 Vaginal Delivery Summary live male RAMÓN over intact perineum with delayed cord clamping and Apgars 7/8 weight pending. Cord blood obtained followed by spontaneous delivery of intact placenta. No tears. EBL 100 ml. Final sponge and instrument count are correct. Mom and baby stable.
--- NOTE | 2021-05-07 14:53 | Anesthesia Procedure Note ---
Date of Service May 07, 2021 Anesthesia Post Epidural Note Vital Signs Vital Signs: Temp Pulse Resp BP Pulse Ox 36.8 C 83 18 120/54 L 98 05/07/21 14:15 05/07/21 14:46 05/07/21 14:30 05/07/21 14:46 05/07/21 14:17 Notes Mental Status: alert / awake / arousable and participated in evaluation Nausea / Vomiting: adequately controlled Pain: adequately controlled Airway Patency, RR, SpO2: stable & adequate BP & HR: stable & adequate Hydration State: stable & adequate Neuraxial Anesthesia: was administered and sensory block is resolving Anesthetic Complications: no major complications apparent and Pt Satisfied with anesthetic care Epidural: Removed without complications and With tip intact Notes: Epidural site clean, dry and intact. No signs of edema, erythema or bruising at insertion site. Pt instructed to request anesthesia if she has residual lower extremity numbness or if she develops lower extremity pain or weakness, back pain or headache.
[2021-05-07] MEDS ORDERED: DIPHTHERIA/TETANUS/PERTUSSIS 0.5 ML SYR/VIAL IM ONE (15:42)
[2021-05-07] MEDS ORDERED: bisacodyL 10 MG SUPP PR PRN (15:42)
[2021-05-07] MEDS ORDERED: SUPERCREAM 0.870% 15 GM JAR EXT PRN (15:42)
[2021-05-07] MEDS ORDERED: ACETAMINOPHEN 325 MG TAB PO PRN (15:42)
[2021-05-07] MEDS ORDERED: HYDROCORTISONE ACETATE 25 MG SUPP PR PRN (15:42)
[2021-05-07] MEDS ORDERED: BENZOCAINE 20% AER SPR 82.5 GM CAN EXT PRN (15:42)
[2021-05-07] MEDS ORDERED: IBUPROFEN 600 MG TAB PO ONE (15:46)
[2021-05-07] MEDS: IBUPROFEN 600 MG TAB PO PRN (20:31)
[2021-05-07] MEDS: DOCUSATE SODIUM 100 MG CAP PO SCH (20:31)
[2021-05-08 06:32] LABS: Hematocrit (blood only) 30.1 % (37-47); Hemoglobin 10.1 g/dL (12.0-16.0); Mean Corpuscular Hemoglobin 28.2 pg (25-34); Mean Corpuscular Hgb Conc 33.6 g/dL (32-36); Mean Corpuscular Volume 84.1 fL (80-100); Mean Platelet Volume 10.1 fL (7.4-10.4); Platelet Count 146 K/uL (130-400); RDW Coefficient of Variation 14.9 % (11.5-14.5); RDW Standard Deviation 46.2 fL (36.4-46.3); Red Blood Count 3.58 M/uL (4.2-5.4); White Blood Count 10.54 K/uL (4.8-10.8)
[2021-05-08] MEDS: FERROUS SULFATE 325 MG TAB PO SCH (09:00)
[2021-05-08] MEDS: DOCUSATE SODIUM 100 MG CAP PO SCH ×2 (09:00→21:24)
[2021-05-08] MEDS: PRENATAL VITAMIN 1 TAB PO SCH (09:00)
[2021-05-08] MEDS ORDERED: NON-FORMULARY MEDICATION (Pnv133-Ferrous Fumarate-Fa [Prenatal] 28-800 mg-mcg Tablet) PO SCH (09:00)
[2021-05-08] MEDS ORDERED: FERROUS SULFATE 325 MG TAB PO SCH (09:00)
--- NOTE | 2021-05-08 09:44 | Obstetrical Progress Note ---
Date of Service May 08, 2021 Assessment & Plan (1) Normal course: PPD #1 pt doing well d/c AM Subjective Ambulation: ambulating normally Voiding: no voiding problems Passing Gas:: Yes Diet Tolerance:: regular diet Lochia:: Small Feeding Type:: breast feeding Review of Systems All systems reviewed & are unremarkable except as noted in HPI & below Physical Exam Constitutional WD/WN, vitals as above well developed and well nourished Eyes PERRL, conjunctivae normal, anicteric sclerae Neck trachea midline, no thyromegaly Respiratory normal respiratory effort, lungs clear to auscultation Auscultation: no crackles, no rales and no wheezes Cardiovascular RRR, no murmur, no edema Gastrointestinal (Abdomen) normal bowel sounds, soft, nontender, no hepatosplenomegaly Uterus is below umbilicus Musculoskeletal no cyanosis or clubbing, extremities motor strength 5/5 Skin no rashes, warm and dry Neurologic patellar DTR's 2+ bilat, sensation intact Psychiatric A+Ox3, euthymic affect Genitourinary normal external appearance Results & Data ([facility]) Vital Signs (Past 12 Hours) Vital Signs Temp Pulse Resp BP 05/08/21 07:35 37.1 C 81 16 111/70 05/08/21 04:35 36.7 C 81 18 106/68 05/07/21 23:30 37.1 C 92 H 18 121/79
[2021-05-08] MEDS ORDERED: bisacodyL 5 MG TABEC PO SCH (20:00)
[2021-05-09] MEDS: IBUPROFEN 600 MG TAB PO PRN (06:25)
[2021-05-09 07:02] LABS: Hematocrit (blood only) 33.2 % (37-47); Hemoglobin 10.8 g/dL (12.0-16.0)
[2021-05-09] MEDS: FERROUS SULFATE 325 MG TAB PO SCH (08:36)
[2021-05-09] MEDS: PRENATAL VITAMIN 1 TAB PO SCH (08:36)
[2021-05-09] MEDS: DOCUSATE SODIUM 100 MG CAP PO SCH (08:38)
--- NOTE | 2021-05-09 08:55 | Obstetrical Progress Note ---
Date of Service May 09, 2021 Assessment & Plan Admission and Anticipated Discharge Date Admission Date: May 07, 2021 Subjective Patient is seen and examined. She feels well, no complaints. Ambulating without dizziness Voiding without difficulty Tolerating regular diet with out N&V Bleeding is minimal No fever/ chills/ CP/ SOB/ N&V/ Leg pain Bottle feeding without problems. Baby is in nursery Vital Signs Temp Pulse Resp BP 05/09/21 00:00 36.9 C 89 16 113/72 Lab Results 05/07/21 05/07/21 05/07/21 Range/Units 00:50 00:50 00:58 WBC 10.41 (4.8-10.8) K/uL RBC 3.88 L (4.2-5.4) M/uL Hgb 11.0 L (12.0-16.0) g/dL Hct 32.4 L (37-47) % MCV 83.5 (80-100) fL MCH 28.4 (25-34) pg MCHC 34.0 (32-36) g/dL RDW Std Deviation 45.5 (36.4-46.3) fL RDW Coeff of Candido 14.8 H (11.5-14.5) % Plt Count 165 (130-400) K/uL MPV 10.0 (7.4-10.4) fL COVID-19 Eval Order Covid19 [facility]Now [facility] SARS-CoV-2, RNA, NAAT NEGATIVE (NEGATIVE) 05/08/21 05/09/21 Range/Units 06:04 06:47 WBC 10.54 (4.8-10.8) K/uL RBC 3.58 L (4.2-5.4) M/uL Hgb 10.1 L 10.8 L (12.0-16.0) g/dL Hct 30.1 L 33.2 L (37-47) % MCV 84.1 (80-100) fL MCH 28.2 (25-34) pg MCHC 33.6 (32-36) g/dL RDW Std Deviation 46.2 (36.4-46.3) fL RDW Coeff of Candido 14.9 H (11.5-14.5) % Plt Count 146 (130-400) K/uL MPV 10.1 (7.4-10.4) fL COVID-19 Eval Order SARS-CoV-2, RNA, NAAT (NEGATIVE) PE: General: Alert, orientedx3, NAD Abd: soft, NT, fundus firm, below Umbilicus Perineum intact, Lochia rubra minimal Ext; NT, no edema AP: 20 yo s/p , ppd# 2 VSS Afebrile doing well Continue routine care All questions were answered D/C home / nesting, f/u in office Discussed when to call Results & Data ([facility]) Vital Signs (Past 12 Hours) Vital Signs Temp Pulse Resp BP 05/09/21 00:00 36.9 C 89 16 113/72
== END 2021-05-09 18:15 | disposition home or self-care (01) | DRG 807 ==
LOC: OPB 00:22 → 4S1 00:26 → 4S2 17:09

== ENCOUNTER 2023-10-31 08:54 | Inpatient (IN) ==
--- OUTSIDE RECORDS SUMMARY | 2023-10-31 08:59 | External Medical Summary | Summary of Care ---
Author Name Unknown Organization [facility] Address [address] [address] Phone [phone] Care Team Providers Care Puppet Developer Name Role Phone Gustavo Ag MD Primary Care Provider [phone] Reason for Visit * Reason Comments Follow Up Yearly, hx of IBS, i ntestinal metaplasia Encounter Details Date Type Department Care Team (Late st Contact Info) Description 09/24/2023 9:00 AM EST Office Visit Gastroenterology, [facility] [address] [place] [address] Leonor Agrawal CRNP [address] [place] [address] Intestinal metaplasia of gastric mucosa* Allergies Active Allergy Reactions Criticality Noted Date Comments Adhesive Tape Low 07/30/2020 Other reaction(s): Rash Bee Venom Anaphylaxis High 10/16/2010 Latex Low 07/30/2020 Other reaction(s): Rash Omeprazole High 04/10/2020 Pseudoephedrine Nausea/vomiting,Unkn o wn Low 02/01/2019 Vancomycin High 07/31/2020 Other reaction(s): Redness of Skin; Umm Syndrome Wound Dressing Adhesive 07/30/2020 documented as of this encounter (statuses as of 09/24/2023) Medications Medication Sig Dispensed Refills Start Date End Date Status Sertraline HCl 50 MG Oral Tablet (Zoloft)Indications :Depression 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 X 2 weeks. Increasing to 1 tab daily therafter.. 90 Tablet 1 03/18/2022 Active Polyethylene Glycol 3350 17 GM/SCOOP Oral Powder (MiraLax) Take 17 g by mouth in the morning. One cap full in juice, to effect 1 stool per day. .. 1530 g 3 03/19/2023 Active Folic Acid 1 MG Oral TabletIndications:F olic acid deficiency Take 1 Tablet by mouth in the morning. 90 Tablet 1 04/11/2023 Active B-12 1000 MCG Oral TabletIndications:B 12 deficiency Take 1 Tablet by mouth daily. 90 Tablet 1 04/18/2023 Active Vitamin D 25 MCG (1000 UT) Oral TabletIndications:V itamin D deficiency Take 1 Tablet by mouth daily. 90 Tablet 1 04/18/2023 Active buPROPion HCl ER (SR) 150 MG Oral Tablet Extended Release 12 Hour (Wellbutrin SR) Take 1 tab by mouth once a day for 1 week then take 1 tab twice a day (morning & late afternoon) 60 Tablet 4 08/03/2023 Active Naltrexone HCl 50 MG Oral Tablet (Revia) Take 1/2 tab by mouth once a day for 1 week then take 1/2 tab twice a day (morning & late afternoon) 30 Tablet 4 08/03/2023 Active Famotidine 20 MG Oral Tablet (Pepcid) Take 1 Tablet by mouth at bedtime. 30 Tablet 2 09/24/2023 Active documented as of this encounter (statuses as of 09/24/2023) Active Problems Problem Noted Date Diagnosed Date Gastroesophageal reflux disease without esophagi tis 02/01/2023 Food insecurity 04/06/2022 Overview: Per [facility] Protocol Iron deficiency anemia 03/26/2022 Anemia of 03/26/2022 Globus sensation 05/06/2020 Hematuria 07/30/2017 Irritable bowel syndrome wit h both constipation and diarrhea 05/11/2017 Class 2 obesity without seri ous comorbidity with body mass index (BMI) of 37.0 to 37.9 in adult 08/24/2016 LEARNING DISABILITY 11/11/2009 documented as of this encounter (statuses as of 09/24/2023) Resolved Problems Problem Noted Date Diagnosed Date Resolved Date Vaginal delivery 05/21/2022 02/01/2023 Depression during in third trimester 03/20/2022 06/24/2022 Overview: 04/29/2022: Patient reports that mood is stable. Declines assistance. Denies suicidal or homicidal thoughts. Advised patient to go to the emergency room if she has any suicidal or homicidal thoughts. Patient verbalized understanding and agrees. Nausea and vomiting during 03/20/2022 06/24/2022 Overview: Desires assistance. Prescription given for Zofran per patient request as this has worked well for her in the past. Back pain affecting pregnanc y in third trimester 02/26/2022 06/24/2022 Overview: Intermittent backache and sciatic pain. Patient desires physical therapy referral. Referral made. related nausea, antepartum 12/22/2021 06/24/2022 Overview: On vitamin B6. Heartburn during in third trimester 12/22/1906/24/2022 Overview: On Pepcid. Trichomonas infection 12/22/20212021 Overview: Trichomonas positive in . S/p treatment with Metronidazole. Retesting negative. Retesting at 3 months - negative. Retest at 36 weeks gestation - obtained on 04/29/2022. Thyroid disease during pregn jennifer in third trimester 10/01/2021 06/24/2022 Overview: See endocrinology evaluation 09/23/21: "mild elevation of free T4, suppressed TSH D/d: Autoimmune thyroiditis Thyrotoxicosis in Physiological changes in " TSH 08/28/21 TSH 0.02, T4 1.8 10/02/21 TSH 2.25, Free T4 0.7 Doing well on current Levothyroxine dose. Endocrinology is following patient - saw patient last on 04/20/2022. S/p TSH and T4 on 02/16/2022 - within normal limits. Last Assessment & Plan: TSH Results: Lab Results Component Value Date/Time TSH - [facility] 0.82 12/23/2021 09:22 AM TSH - [facility] 0.72 11/21/2021 08:59 AM TSH - [facility] 1.54 10/29/2021 04:03 PM TSH - [facility] 0.73 05/25/2020 09:44 AM TSH - [facility] 0.59 07/08/2017 12:01 PM TSH - [facility] 0.93 05/18/2016 01:13 PM Abnormal glucose tolerance i n mother complicating 10/01/2021 06/24/2022 Overview: Abnormal early GTT 144, passes 3 hour. Passed three hour glucose test in the third trimester. Short interval between pregn ancies complicating , antepartum 09/22/202106/24 Overview: Last on 05/07/2021. History of delivery, currently in third trimester 09/22/2021 06/24/2022 Overview: delivery at 35 weeks, 0 days. Seeing MFM. Discontinuing Perla due to significant side effects. Discussed with Dr. Lopez and he agrees. Recommended vaginal progesterone - patient declines. Discussed other options with [facility] [place] and no additional options. Patient aware. Last Assessment & Plan: Patient is taking Perla. Elevated LFTs 09/22/2021 06/24/2022 Overview: Elevated LFT on 09/22/2021. Repeat CMP - LFTs within normal limits on 11/12/2021. Last Assessment & Plan: Advise repeat LFT and referral to chainstitch tunnel elastic operator if continued elevations. BMI 38.0-38.9,adult 09/22/2021 06/24/20 22 Overview: Pre-gravid BMI 38.09. 11 to 20 lbs weight gain in . Declines Nutrition referral. NST's weekly at 37 weeks. Growth ultrasound every 4 weeks after 20 weeks. Failed early 1 hour glucose, passed early three hour glucose. Repeat three hour glucose test at 28 weeks. Following with MFM. Abnormal TSH 09/22/2021 06/24/2022 Overview: TSH Results: Lab Results Component Value Date/Time TSH - [facility] 0.02 (L) 08/28/2021 12:42 PM TSH - [facility] 0.73 05/25/2020 09:44 AM TSH - [facility] 0.59 07/08/2017 12:01 PM TSH - [facility] 0.93 05/18/2016 01:13 PM T4 Results: Lab Results Component Value Date/Time FREE T4 REFLEXIVE NOT APPLICABLE 05/25/2020 09:44 AM T4, FREE - [facility] 1.8 (H) 08/28/2021 12:42 PM T4, FREE - [facility] 1.02 01/22/2012 09:21 AM T4, FREE - [facility] 1.11 06/09/2011 09:18 AM T4, FREE - [facility] 0.95 07/09/2010 01:52 PM T4, TOTAL - [facility] 6.5 01/22/2012 09:21 AM T4, TOTAL - [facility] 6.7 06/09/2011 09:18 AM Urgent Endocrinology referral made. Supervision of high-risk pre gnancy, third trimester 09/22/2021 06/24/2022 Overview: Estimated Date of Delivery: 05/26/2022. Continue vitamin. O positive. Rubella immune. Varicella not immune. Qnatal low risk. Declines MSAFP testing. Seeing [facility] for anatomy ultrasound. Doing the following lab work on 03/18/2022: CBC, type and screen and three hour glucose test. Tdap vaccine completed on 04/29/2022. GBS culture - Negative. Completed COVID-19 vaccine. Completed influenza vaccine. contraception: IUD immediately . Desires to bottle feed. Last Assessment & Plan: We discussed common symptoms of second pregnancies. We discussed use of the My Chart Alexi to communicate with providers. History of premature rupture of membranes (PPROM) 09/22/2021 06/24/2022 Overview: PPROM at 35 weeks, 0 days on 05/07/2021. Discontinuing Sydnee due to significant side effects. Discussed with Dr. Lopez and he agrees. Recommended vaginal progesterone - patient declines. Discussed with MFM and no other available option. Patient aware. Enlarged thyroid 09/22/2021 06/24/2022 Overview: 1. Mild thyroid enlargement with heterogeneous echotexture. Correlate with thyroid function tests. 2. Hypoechoic nodule along the inferior aspect of the right thyroid lobe. Differential considerations include parathyroid adenoma and lymph node. Correlate with serum calcium level. Urgent Endocrinology referral made. History of depression 09/22/20212021 Overview: Reports stable mood currently. Declines assistance. 09/22/2021 02/01/2023 Overview: 09/22/21 Problem Action Taken Date entered Entered by Date resolved BMI greater than 30 Discuss importance of proper diet 09/22/2021 Nayana Lilly RN 09/22/21 Depression Discuss options with Provider 09/22/2021 Nayana Lilly RN 09/22/21 History of labor Maternal Medicine consult 09/22/2021 Nayana Lilly RN 09/22/21 Education Booklet and appropriate trimester education reviewed. 09/22/2021 Nayana Lilly RN 09/22/21 Nutrition Discussed WIC 09/22/2021 Nayana Lilly RN 09/22/21 02/11/22 Problem Action Taken Date entered Entered by Date resolved Possibly leaking fluid Appointment with provider 02/11/2022 Yas Talavera RN 02/11/22 03/03/22 Problem Action Taken Date entered Entered by Date resolved Current needs or questions Patient denies having any current needs or questions 03/03/2022 Yas Talavera RN 03/03/22 04/02/22 Problem Action Taken Date entered Entered by Date resolved Pelvic pain or discomfort/General discomfort Appointment with provider 04/02/2022 Yas Talavera RN Ongoing 04/29/22 Problem Action Taken Date entered Entered by Date resolved Current needs or questions Patient denies having any current needs or questions 04/29/2022 05/06/22 Yas Talavera RN 04/29/22 05/06/22 05/06/22 05/07/22 Problem Action Taken Date entered Entered by Date resolved Pelvic pain or discomfort/General discomfort Take a warm (not hot) tub bath or shower Change positions, try Tylenol according to directions, if pain is severe or persistent, call your provider 05/07/2022 Yas Talavera RN Ongoing Antepartum anemia complicating 05/01/2021 05/29/2021 Overview: hgb 10.0 on 04/14 Abnormal findings on screening 04/21/2021 05/29/2021 Overview: Dilated renal pelvis seen on growth u/s at 32w. Supervision of normal first 10/31/2020 05/29/2021 Overview: Problem Action Taken Date entered Entered by Date resolved First placed referral for Nurse Family partnership 10/31/2020 Amira Caruso RN 10/31/2020 nutrition Provided due date letter for pt to attend WIC 10/31/2020 Amira Caruso RN 10/31/2020 1st trimester education Reviewed w/pt 10/31/2020 Amira Caruso RN 10/31/2020 Problem Action Taken Date entered Entered by Date resolved Current needs or questions Patient denies having any current needs or questions 11/28/2020 Amira Caruso RN 11/28/2020 Problem Action Taken Date entered Entered by Date resolved Current needs or questions Patient denies having any current needs or questions 12/26/2020 Amira Caruso RN 12/26/2020 Problem Action Taken Date entered Entered by Date resolved 2nd trimester education Reviewed w/patient 12/26/2020 Amira Caruso RN 12/26/2020 Problem Action Taken Date entered Entered by Date resolved Current needs or questions Patient denies having any current needs or questions 01/23/2021 Amira Caruso RN 01/23/2021 Problem Action Taken Date entered Entered by Date resolved Current needs or questions Patient denies having any current needs or questions 02/20/2021 Amira Caruso RN 02/20/2021 Problem Action Taken Date entered Entered by Date resolved Current needs or questions 3rd trimester education completed Patient denies having any current needs or questions 03/20/2021 Maria Eugenia Thornton RN 03/20/2021 Problem Action Taken Date entered Entered by resolved Current needs or questions Patient denies having any current needs or questions 04/03/2021 Maria Eugenia Thornton RN 04/03/2021 Problem Action Taken Date entered Entered by Date resolved Current needs or questions Patient denies having any current needs or questions 04/03/2021 Maria Eugenia Thornton RN 04/03/2021 Problem Action Taken Date entered Entered by Date resolved Readiness form completed 04/18/2021 Amira Caruso RN 04/18/2021 Abdominal pain, chronic, right upper quadrant 07/30/20 17 09/22/2021 Acute noninfective otitis ex terna of both ears 04/08/2017 05/11/2017 Eustachian tube dysfunction 04/08/2017 05/11/2017 Chronic rhinitis 04/08/2017 05/11/2017 Otalgia 04/08/2017 05/11/2017 Chronic chest pain 02/19/2017 7 Nausea 09/10/2016 04/06/2017 Small intestinal bacterial overgrowth 09/10/2016 04/06/2017 Irritable bowel syndrome wit h both constipation and diarrhea 08/24/2016 04/06/2017 Chronic abdominal pain 08/24/201604/06 Nausea and vomiting 08/24/2016 09/10/20 16 Constipation 09/24/2011 07/09/2015 Overview: ICD-10 update of inactive term Hematuria, microscopic 09/24/201104/06 Obesity, pediatric, BMI 95th to 98th percentile for age 1209/24/2011 08/24/2016 Proteinuria 09/24/2011 07/09/2015 Attention deficit hyperactiv ity disorder (ADHD) 04/13/2011 06/24/2022 Overview: Stopped medication with knowledge of . States doing okay although at times noting lack of focus. Planning to stay off till after the . Prescriber aware. Last Assessment & Plan: Discussed that avoidance of ADHD medications advised. Risk versus benefit to be considered. Continued use potentially increases risk of IUGR. Recommend referral to mental health specialist for evaluation and treatment if the patient experiences increased inattention, forgetfulness, restlessness and/or impulsivity. These symptoms may adversely affect the patient's behavioral and/or emotional functioning. With continued use of ADHD amphetamine like medications f/u with MFM for growth ultrasound every 4 weeks recommended. CANDIDAL PERIRECTAL RASH 07/31/201010/2010 ARTICULATION DISORDER 12/20/20092014 Situational anxiety 12/20/2009 03/11/20 20 ECZEMATOUS DERMATITIS 11/11/20092016 HYPOTHYROIDISM NOS 10/08/2009 6 documented as of this encounter (statuses as of 09/24/2023) Immunizations Name Administration Dates Next Due COVID-19 mRNA, LNP-s, No Pre serve, 2-Dose Series (Moderna) 10/27/2021,09/29/2021 DTaP Dipth/Tet/Acell Pertussis (Infanrix), Peds 10/28/2005,01/19/2002,04/18/2001,02/14,2000 H1N1 2009 Influenza, IM 09/30/2009,08/26/2009 H1N1 2009 Influenza, Intranasal 09/30/2009,08/29 HIB PRP-T, 4 dose (ActHib) 10/20/2001,02/14/2001 ,2000 HPV Vaccine, 4-Valent 07/18/2013,06/16/2012,11/25 Haemophilius B (HIB), unspecified 10/20/2001,,2000 Hepatitis B, 0-19 yrs 10/20/2001,02/14/2001,11/26 IPV - Polio Virus Vaccine (Inact) 2005,10/20/2001,02/14/2001,12/16 MMR - Measles/Mumps/Rubella Vaccine 10/28/2005,1 2000 Meningococcal Conjugate Vacc ine (Menactra/Menveo) 02/28/2018,12/09/2011 Meningococcal MCV4P Conjugat e Vaccine (Menactra) 02/28/2018,12/09/2011 PPD 10/03/2021, 9,12/05/2018,10/20,10/11/2017 Pneumococcal Conjugate Vacci ne, 7 Valent 03/27/2002,04/18/2001,02/14/2001,12/16 SEASONAL INFLUENZA, PF, 6 M & Above, IM , (FLULAVAL or FLUZONE) 08/25/2022,09/15/2021,08/12/2018 Seasonal Influenza Virus Vac cine, Unspecified Formulation 08/25/2022,09/15/2021,08/31/2019,08/12,07/18/2013,07/16/2011,07/28/2010 ,08/14/2009 Seasonal Influenza, Quadriva lent, No Preserve, IM 08/31/2019 Seasonal Influenza, Split, I IV3, With Preserve, Inj 07/18/2013,07/16/2011,07/28/2010,08/14 TD - Tetanus/Diptheria (ADULT) 06/26/2011 TD, Preservative Free 06/26/2011 TDAP (age 10 and older)(Boostrix) 04/29/2022, Varicella Vaccine (Chicken Pox) 01/18/2008,09/30 documented as of this encounter Social History Tobacco Use Types Packs/Day Years Used Date Smoking Tobacco: Never Passive Smoke Exposure: Past Smokeless Tobacco: Never Tobacco Cessation:Counseling Given: Not Answered Alcohol Use Standard Drinks/Week Comments No 0 (1 standard drink = 0.6 oz pur e alcohol) Denies with 2020 PHQ-2 Answer Date Recorded PHQ Adult Total Score 0 04/07/2023 Hunger Vital Sign Answer Date Recorded Worried About Running Out of Food in the Last Ye ar Never true 05/24/2020 Ran Out of Food in the Last Year Never true 05/24/2020 Bill[place] Depression Scale Answer Date Recorded [place] Depression Scale Total 0 06/24/2022 The thought of harming myself has occurred to me . Never 06/24/2022 Sex and Gender Information Value Date Recorded Sex Assigned at Female 05/19/2019 9:03 AM EDT Gender Identity Female 05/19/2019 9:03 AM EDT Sexual Orientation Straight 05/19/2019 9: 03 AM EDT Job Start Date Occupation Industry Not on file Not on file Not on file documented as of this encounter Last Filed Vital Signs Vital Sign Reading Time Taken Comments Blood Pressure 112/54 09/24/2023 8:26 AM EST Pulse 80 09/24/2023 8:26 AM EST Temperature 36.6 C (97.8 F) 09/24/2023 8:26 AM ES T Respiratory Rate - - Oxygen Saturation 98% 09/24/2023 8:26 AM EST Inhaled Oxygen Concentration - - Weight 106.8 kg (235 lb 8 oz) 09/24/2023 8:26 AM EST Height - - Body Mass Index 35.81 07/30/2023 1:26 PM EDT documented in this encounter Functional Status Functional Status Response Date of Assess ment Are you deaf or do you have serious difficulty h earing? No 02/25/2016 Are you blind or do you have serious difficulty seeing, even when wearing glasses? No 02/25/2016 Do you have serious difficul ty walking or climbing stairs? (5 years old or older) No 02/25/2016 Do you have difficulty dress ing or bathing? (5 years old or older) No 02/25/2016 Because of a physical, menta l, or emotional condition, do you have difficulty doing errands alone such as visiting a doctor s office or shopping? (15 years old or older) Yes 02/25/20 16 Cognitive Status Response Date of Assessm ent Because of a physical, menta l, or emotional condition, do you have serious difficulty concentrating, remembering, or making decisions? (5 years old or older) Yes 02/25/2016 documented as of this encounter Progress Notes * Leonor Agrawal CRNP - 09/24/2023 8:29 AM EST DATE OF SERVICE: 09/24/2023 REFERRING PHYSICIAN: Gustavo Ag MD CC: follow up Office Visit 09/24/2023 : Was not able to tolerate PPI. Caused pain and nausea. Stopped this and feels well. She notes she is able to tolerate pepcid. Overall feeling well. No abd pain. No nausea, vomiting. No GERD. No heartburn, reflux, regurgitation. No dysphagia. Bowels moving well. No black or bloody stools. No fever, chills, CP, SOB. Labs at time of diagnosis: CBC, CRP, CMP, amylase, lipase, IgA, TTG, lead level, milk RAST, FT4 RUQ US 2016: WNL CT of the abdomen 2016: fatty liver, otherwise WNL HIDA 2016: WNL EGD 2019: Normal esophagus. - Z-line regular, 40 cm from the incisors. - Erythematous mucosa in the stomach. Multiple biopsies were obtained in the gastric fundus, on the greater curvature of the stomach, on the lesser curvature of the stomach, at the incisura and in the gastric antrum. - Normal duodenal bulb and second portion of the duodenum EGD 2019: Ectopic gastric mucosa in the upper third of the esophagus. Injected. Treated with argon plasma coagulation (APC). - No endoscopic esophageal abnormality to explain patient's dysphagia. Esophagus dilated. Dilated. - Normal stomach. - Normal duodenal bulb and second portion of the duodenum. Colonoscopy 2018: The examined portion of the ileum was normal. Normal mucosa in the entire examined colon. Biopsied. The distal rectum and anal verge are normal onretroflexion view. EGD 2018: Ectopic gastric mucosa in the upper third of the esophagus. Erythematous mucosa in the antrum. Biopsied. Normal duodenal bulb and second portion of the duodenum.Biopsied EGD 2009: normal, bx negative Colonoscopy 2009: normal, bx negative Family history of GI malignancy: none Family history of liver disease: none Family history of IBD: none Family history of IBD: Crohn's Past Medical History: Diagnosis Date Abdominal pain ADHD BMI (body mass index), pediatric, 95-99% for age Depression Diarrhea Fatty liver disease, nonalcoholic Functional constipation GERD (gastroesophageal reflux disease) Follows with Gastroenterology, [facility] treatment 2019 effective Hepatomegaly Panic disorder Suicidal ideation Thyroid disease affecting 09/22/2021 Family History Problem Relation Age of Onset Anxiety Disorder Mother Depression Mother Arthritis Mother Obesity Mother Gastro-intestinal disorder Mother GERD Hypertension Father Gastro-intestinal disorder Father cholecystectomy Allergies Father Gastro-intestinal disorder Grandmother (Maternal) Diabetes Grandmother (Maternal) htn Hypertension Grandmother (Maternal) Gastro-intestinal disorder Grandmother (Paternal) cholecystectomy/status post cholecystectomy/GERD Diabetes Grandmother (Paternal) Hypertension Grandmother (Paternal) Gastro-intestinal disorder Aunt (Unspecified) PA with GERD and PUD Eye Problems Aunt (Unspecified) PA with hyperlipidemia Other (migraine) Aunt (Unspecified) Hypertension Uncle (Unspecified) Hypertension Uncle (Unspecified) Other (Thyroid cancer) Uncle (Unspecified) Stroke Uncle (Unspecified) MU Thyroid Disorder Uncle (Unspecified) PU Other (No liver disease or pancreastic diisease) Uncle (Unspecified) Other (No IBD, Celiac or CF) Uncle (Unspecified) Other (No lactose intolerance or food allergy) Uncle (Unspecified) Gastro-intestinal disorder Other several cousins status post cholecystectomy Heart Disorder Other in several members on both sides of the family Gastro-intestinal disorder Other lactose intolerance Past Surgical History: Procedure Laterality Date ANESTH, UPPER GI ENDOSCOPIC PROCS 03/28/2010 WNL including biopsies. Lactase low nl at a16.7 COLONOSCOPY W/ BIOPSY (RECTUM) 2009 WNL including biopsies COLONOSCOPY, DIAGNOSTIC (RECTUM) 07/27/2019 normal bx/COLONOSCOPY FLEXIBLE PROXIMAL DIAGNOSTIC performed by Daniella Correa MD at ENDOSCOPY [facility] CT ABDOMEN/PELVIS 07/15/2016 WNL other than hepatomegally and focal fatty liver changes EGD, FLEXIBLE, DIAGNOSTIC 07/27/2019 intestinal metaplasia, repeat 1 yr/ESOPHAGOGASTRODUODENOSCOPY (EGD), FLEXIBLE, TRANSORAL, DIAGNOSTIC performed by Daniella Correa MD at ENDOSCOPY [facility] EGD, FLEXIBLE, DIAGNOSTIC 04/24/2020 Ectopic gastric mucosa - injected / ESOPHAGOGASTRODUODENOSCOPY (EGD), FLEXIBLE, TRANSORAL, DIAGNOSTIC performed by Daniella Correa MD at ENDOSCOPY [facility] EGD, FLEXIBLE, DIAGNOSTIC 08/12/2020 mild gastric irritation on bx, repeat 5 yrs / ESOPHAGOGASTRODUODENOSCOPY (EGD), FLEXIBLE, TRANSORAL, DIAGNOSTIC performed by Daniella Correa MD at ENDOSCOPY [facility] EGD, FLEXIBLE, W/BIOPSY 2009 NM HEPATOBILIARY SYSTEM WITH PHARMACOLOGIC INTERVENTION 08/18/2016 Social History Tobacco Use Smoking status: Never Passive exposure: Past Smokeless tobacco: Never Vaping Use Vaping Use: Never used Substance Use Topics Alcohol use: No Comment: Denies with 2020 Drug use: No Review of patient's allergies indicates: Allergen Reactions Bee Sting [Bee Venom] Anaphylaxis Omeprazole Vancomycin Other reaction(s): Redness of Skin; Umm Syndrome Wound Dressing Adhesive Adhesive Tape Other reaction(s): Rash Latex Other reaction(s): Rash Pseudoephedrine Nausea/vomiting and Unknown Current Outpatient Medications Medication Sig Dispense Refill Sertraline HCl 50 MG Oral Tablet (Zoloft) Take by mouth 0.5 Tablets in the morning. X 2 weeks. Increasing to 1 tab daily therafter.. 90 Tablet 1 Polyethylene Glycol 3350 17 GM/SCOOP Oral Powder (MiraLax) Take 17 g by mouth in the morning. One cap full in juice, to effect 1 stool per day. .. 1530 g 3 Folic Acid 1 MG Oral Tablet Take 1 Tablet by mouth in the morning. 90 Tablet 1 B-12 1000 MCG Oral Tablet Take 1 Tablet by mouth daily. 90 Tablet 1 Vitamin D 25 MCG (1000 UT) Oral Tablet Take 1 Tablet by mouth daily. 90 Tablet 1 buPROPion HCl ER (SR) 150 MG Oral Tablet Extended Release 12 Hour (Wellbutrin SR) Take 1 tab by mouth once a day for 1 week then take 1 tab twice a day (morning & late afternoon) 60 Tablet 4 Naltrexone HCl 50 MG Oral Tablet (Revia) Take 1/2 tab by mouth once a day for 1 week then take 1/2 tab twice a day (morning & late afternoon) 30 Tablet 4 No current facility-administered medications for this visit. REVIEW OF SYSTEMS: All other findings negative except as noted in HPI. EXAM: BP 112/54 | Pulse 80 | Temp 36.6 C (97.8 F) | Wt 106.8 kg (235 lb 8 oz) | SpO2 98% | BMI 35.81 kg/m | BSA 2.26 m GENERAL: Well developed and well nourished in no acute distress. SKIN: No rashes, ulcers, jaundice or spider angiomata. HEENT: Normocephalic, sclera clear, pharynx normal. NECK: Supple, no lymphadenopathy. LUNGS: Clear to auscultation bilaterally, no respiratory distress or accessory muscles used. HEART: Regular rate & rhythm, no murmurs and no gallops. ABDOMEN: Normal bowel sounds, soft and nontender, no masses or hepatosplenomegaly. EXTREMITIES: No palmar erythema, no ankle edema, no skin discoloration, no clubbing, no cyanosis. NEURO: No lateralizing findings. Sensory/Motor grossly normal. DIAGNOSTIC TEST: not indicated ASSESSMENT AND PLAN: 22 year old female with IBS, IM s/p APC of inlet patch due for EGD in 2024 clinically feeling well. - Miralax 1/2 every dialy - Good water intake - Start Metamucil once daily - Pepcid 20 mg once daily - EGD 2024 - ED for emergencies - Please call with any questions or concerns RETURN TO CLINIC: 6 months I spent a total of 30 minutes on the date of service in review of patient's record, and previously obtained information in person and appropriate medical visit, discussion and education of plan, withpatient and/or caregiver, placing orders for tests/referral/procedures as medically necessary and documentation of pertinent clinical information in patient's medical records for their visit today. CAIO Fuller 09/24/2023 8:36 AM documented in this encounter Nursing Notes * Vy Sierra LPN - 09/24/2023 8:27 AM EST Patient identified by name and date of . Chief Complaint Patient presents with Follow Up Yearly, hx of IBS, intestinal metaplasia documented in this encounter Plan of Treatment Upcoming Encounters Date Type Department Care Team (Late st Contact Info) Description 01/17/2024 1:00 PM EDT Office Visit Nutrition & [facility] Management, [facility] [address] [place] [address] Patricia Black PA-C [address] [facility] [place] [address] 02/07/2024 3:10 PM EDT Office Visit Endocrinology, [place] [address] [place] [address] Anthony Wu MD [address] [place] [address] Scheduled Procedures Name Priority Associated Diagnoses Date/Ti me ESOPHAGOGASTRODUODENOSCOPY ( EGD), FLEXIBLE, TRANSORAL, DIAGNOSTIC Recall Intestinal metaplasia of gastric mucosa Health Maintenance Due Date Last Done Comments Pap Smear 2021 Gonorrhea / Chlamydia Screen 03/27/202312/2021, 03/12/2022, 02/11/2022, Additional history exists COVID-19 Vaccine ( season) 2023 10/27/2021, 09/29/2021 Influenza Vaccine (FLU shot) (#1) 2023 08/25/2022, 08/25/2022, 09/15/2021, Additional history exists Depression Screening 04/07/2024 04/07/2023 DTaP,Tdap,and Td Vaccines (8 - Td or Tdap) 04/29/2032 04/29/2022, 03/20/2021, 06/26/2011, Additional history exists Hepatitis B Completed 10/20/2001, 01/24, 2000 GARDASIL-HPV IMMUNIZATION SERIES Completed 07/18/2013, 06/16/2012, 12/09/2011 MENINGOCOCCAL (MENACTRA/MENVEO) Completed 02/28/2018, 02/28/2018, 12/09/2011, Additional history exists Pneumococcal Vaccine: Pediatrics (0 to 5 Years) and At-Risk Patients (6 to 64 Years) Aged Out No longer eligible based on patient's age to complete this topic documented as of this encounter Medical Devices Not on filedocumented as of this encounter Visit Diagnoses Diagnosis Intestinal metaplasia of gastric mucosa- Primary Other specified disorder of stomach and duodenum documented in this encounter Advance Directives Latest Code Status on File Code Status Date Activated Date Inactivated Comments Full Code 05/19/2022 7:17 PM 05/21/2022 10:56 PM This order reflects the patients wishes and were consensually agreed upon. Care Teams Puppet Developer Relationship Specialty Start Date End Date Gustavo Ag MD [address] [place] [address] PCP - General Family Medicine 12/08/18 documented as of this encounter
--- OUTSIDE RECORDS SUMMARY | 2023-10-31 08:59 | External Medical Summary | Summary of Care ---
Author Name Unknown Organization [facility] [address] [facility] [address] Phone [phone] Care Team Providers Care Urban Redevelopment Specialist Name Role Phone Gustavo Ag MD Primary Care Provider [phone] Reason for Visit * Reason Onset Date Comments Precert Denied 08/02/2023 CONTRAVE Encounter Details Date Type Department Care Team Description 08/02/2023 Telephone Nutrition & Weight Management, [facility] [address] [place] [address] Patricia Black PA-C [address] [place] [address] Precert Denied ( CONTRAVE/) Allergies Active Allergy Reactions Severity Noted Date Comments Adhesive Tape Low 07/30/2020 Other reaction(s): Rash Bee Venom Anaphylaxis High 10/16/2010 Latex Low 07/30/2020 Other reaction(s): Rash Omeprazole High 04/10/2020 Pseudoephedrine Nausea/vomiting,Unkn ow n Low 02/01/2019 Vancomycin High 07/31/2020 Other reaction(s): Redness of Skin; Umm Syndrome Wound Dressing Adhesive 07/30/2020 documented as of this encounter (statuses as of 08/10/2023) Medications Medication Sig Dispensed Refills Start Date [...] mouth daily. 90 Tablet 1 04/18/2023 Active documented as of this encounter (statuses as of 08/10/2023) Active Problems Problem Noted Date Gastroesophageal reflux disease without esophagitis 02/01/2023 Food insecurity 04/06/2022 Overview: Per [facility] Protocol Iron deficiency anemia 03/26/2022 Anemia of 03/26/2022 Globus sensation 05/06/2020 Hematuria 07/30/2017 Irritable bowel syndrome with both const ipation and diarrhea 05/11/2017 Class 2 obesity without seri ous comorbidity with body mass index (BMI) of 37.0 to 37.9 in adult 08/24/2016 LEARNING DISABILITY 11/11/2009 documented as of this encounter (statuses as of 08/10/2023) Resolved Problems Problem Noted Date Resolved Date Vaginal delivery 05/21/2022 02/01/2023 Depression during in third trimester 0 03/20/2022 06/24/2022 Overview: 04/29/2022: Patient reports that [...] her in the past. Back pain affecting in third trimester 02/26/2022 06/24/2022 Overview: Intermittent backache and sciatic pain. Patient desires physical therapy referral. Referral made. related nausea, antepartum 12/22/2021 06/24/2022 Overview: On vitamin B6. Heartburn during in third trimester 06/24/2022 Overview: On Pepcid. Trichomonas infection 12/22/2021 06/24/2022 Overview: Trichomonas positive in . S/p treatment with Metronidazole. Retesting negative. Retesting at 3 months - negative. Retest at 36 weeks gestation - obtained on 04/29/2022. Thyroid disease during in third trimes ter 10/01/2021 06/24/2022 Overview: See endocrinology evaluation 09/23/21: [...] 0.93 05/18/2016 01:13 PM Abnormal glucose tolerance in mother complicatin g 10/01/2021 06/24/2022 Overview: Abnormal early GTT 144, passes 3 hour. Passed three hour glucose test in the third trimester. Short interval between pregn ancies complicating , antepartum 09/22/2021 06/24/2022 Overview: Last on 05/07/2021. History of delivery, currently in third trimester 09/22/2021 06/24/2022 Overview: delivery at 35 weeks, 0 days. Seeing MFM. Discontinuing Sydnee due to significant side effects. Discussed with Dr. Lopez and he agrees. Recommended vaginal progesterone - patient declines. Discussed other options with CAIO [place] and no additional options. Patient aware. Last Assessment & Plan: Patient is taking Sydnee. Elevated LFTs 09/22/2021 06/24/2022 Overview: Elevated LFT on 09/22/2021. Repeat CMP - LFTs within normal limits on 11/12/2021. Last Assessment & Plan: Advise repeat LFT and referral to modular set crew member if continued elevations. BMI 38.0-38.9,adult 09/22/2021 06/24/2022 Overview: Pre-gravid BMI 38.09. 11 to 20 [...] Urgent Endocrinology referral made. Supervision of high-risk , third trimderek ter 09/22/2021 06/24/2022 Overview: Estimated Date of Delivery: 05/26/2022. Continue vitamin. O positive. Rubella immune. Varicella not immune. Qnatal low risk. Declines MSAFP testing. Seeing M for anatomy ultrasound. Doing the following lab work on 03/18/2022: CBC, type and screen and three hour glucose test. Tdap vaccine completed on 04/29/2022. GBS culture - Negative. Completed COVID-19 vaccine. Completed influenza vaccine. contraception: IUD immediately . Desires to bottle feed. Last Assessment & Plan: We discussed common symptoms of second pregnancies. We discussed use of the Swarm Chart Alexi to communicate with providers. History of premature rupture of membrane s (PPROM) 09/22/2021 06/24/2022 Overview: PPROM at 35 weeks, 0 days on 05/07/2021. Discontinuing Kerman due to significant side effects. Discussed with [...] Urgent Endocrinology referral made. History of depression 09/22/2021 06/24/2022 Overview: Reports stable mood currently. Declines assistance. [...] Yas Talavera RN Ongoing Antepartum anemia complicating 021 05/29/2021 Overview: hgb 10.0 on 04/14 Abnormal findings on screening 021 05/29/2021 Overview: Dilated renal pelvis seen on [...] 04/18/2021 Abdominal pain, chronic, right upper quadrant 09/22/2021 Acute noninfective otitis externa of both ears 0 04/08/2017 05/11/2017 Eustachian tube dysfunction 04/08/201704/24 Chronic rhinitis 04/08/2017 05/11/2017 Otalgia 04/08/2017 05/11/2017 Chronic chest pain 02/19/2017 04/06/2017 Nausea 09/10/2016 04/06/2017 Small intestinal bacterial overgrowth 09/10/2016 04/06/2017 Irritable bowel syndrome with both constipation and diarrhea 08/24/2016 04/06/2017 Chronic abdominal pain 08/24/2016 7 Nausea and vomiting 08/24/2016 09/10/2016 Constipation 09/24/2011 07/09/2015 Overview: ICD-10 update of inactive term Hematuria, microscopic 09/24/2011 7 Obesity, pediatric, BMI 95th to 98th percentile for age 1209/24/2011 08/24/2016 Proteinuria 09/24/2011 07/09/2015 Attention deficit hyperactivity disorder (ADHD) 04/13/2011 06/24/2022 Overview: Stopped medication [...] every 4 weeks recommended. CANDIDAL PERIRECTAL RASH 07/31/2010 011 ARTICULATION DISORDER 12/20/2009 07/09/2015 Situational anxiety 12/20/2009 03/11/2020 ECZEMATOUS DERMATITIS 11/11/2009 04/06/2017 HYPOTHYROIDISM NOS 10/08/2009 08/24/2016 documented as of this encounter (statuses as of 08/10/2023) Immunizations Name Administration Dates Next Due COVID-19 [...] Passive Smoke Exposure: Past Smokeless Tobacco: Never Alcohol Use Standard Drinks/Week Comments No 0 (1 standard drink = 0.6 oz pur e alcohol) Denies with 2020 Food Insecurity Answer Date Recorded Within the past 12 months, y ou worried that your food would run out before you got money to buy more. Never true 05/24/2020 Within the past 12 months, t he food you bought just didn't last and you didn't have money to get more. Never true 05/24/2020 Sex Assigned at Date Recorded Female 05/19/2019 9:03 AM E DT Job Start Date Occupation Industry Not on file Not on file Not on file documented as of this encounter Functional Status Functional Status Response [...] or making decisions? (5 years old or older Yes 02/25/2016 documented as of this encounter Miscellaneous Notes * Telephone Encounter - Cristiana Sher LPN - 08/02/2023 11:53 AM EDT Zander requires prior auth. BIN: [id number] N: [id number] ID: [id number] Class 2 severe obesity due to excess calories with serious comorbidity and body mass index (BMI) of35.0 to 35.9 in adult Abnormal weight gain documented in this encounter Plan of Treatment Upcoming Encounters Date Type Specialty Care Team Description 09/24/2023 Office Visit Gastroenterology Leonor Agrawal CRNP [address] [place] [address] 01/17/2024 Office Visit Gastroenterology Patricia Black PA-C [address] [place] [address] 02/07/2024 Office Visit Endocrinology Anthony Wu MD [address] [place] [address] Scheduled Procedures Name Priority Associated Diagnoses Date/Ti [...] Not on filedocumented as of this encounter Advance Directives Latest Code Status on File Code Status Date Activated Date Inactivated Comments Full Code 05/19/2022 7:17 PM 05/21/2022 10:56 PM This order reflects the patients wishes and were consensually agreed upon. Care Teams Urban Redevelopment Specialist Relationship Specialty Start Date End Date Gustavo Ag MD [address] [place] [address] PCP - General Family Medicine 12/08/18 documented as of this encounter
--- OUTSIDE RECORDS SUMMARY | 2023-10-31 08:59 | External Medical Summary ---
Author Name Unknown Address Unknown Organization [id number]:[facility] [place] [address] [place] [address] Ave[address] [facility] [address] Laboratory Report Ordering Provider Test Date Status TORI DANIEL 08/15/2023 16:02:41 Final Observation Date Value Abnormality Reference (Units) Status Streptococcus pyogenes DNA [Presence] in Throat by BAKARI with probe detection 08/15/2023 16:02:41 Negative. No Group A Streptococcus detected by PCR (amplified probe). Negative Final This test was developed and its performance characteristics determined by [facility]. It has not been cleared or approved by the FDA. The laboratory is regulated under CLIA as qualified to perform high- complexity testing. This test is used for clinical purposes. It should not be regarded as investigational or for research. Performing Location [facility] [place] [facility] [address] [facility] [address]
--- OUTSIDE RECORDS SUMMARY | 2023-10-31 08:59 | External Medical Summary ---
Author Name Unknown Address Unknown Organization [id number]:[facility] [place] [address] [facility] [address] Laboratory Report Ordering Provider Test Date Status TORI DANIEL 08/15/2023 16:46:33 Final Observation Date Value Abnormality Reference (Units ) Status SARS Coronavirus 2 08/15/2023 16:46:33 Negative N egative Final No SARS-CoV2 Coronavirus RNA detected by PCR (amplified probe).
This express test was developed and its performance characteristics determined by [facility]. It has not been cleared or approved by the U.S. Food and Drug Administration (FDA). FDA does not require this test to go thru premarket FDA review. This test is used for clinical purposes. It should not be regarded as investigational or for research. This laboratory is certified under the Clinical Laboratory Improvement Amendments (CLIA) as qualified to perform high complexity clinical laboratory testing.

This test is a nucleic acid amplification test (NAAT), a reverse transcriptase polymerase chain reaction (RT-PCR) test, or a Centers for Disease Control-acceptable equivalent. The test is performed in a high complexity Clinical Laboratory Improvement Amendments-(CLIA) certified laboratory. The test is acceptable for SARS-CoV-2 diagnosis, surveillance, and travel within the [place] and to most countries. Please check with local testing authorities about requirements before travel.

The validation of bronchial specimens, tracheal aspirates, and sputum for this assay was developed and performance characteristics determined by [facility]. The validation of alternate specimen types has not been cleared or approved by the U.S. Food and Drug Administration (FDA). It has been determined that such clearance is not necessary. Influenza virus A RNA [Prese nce] in Specimen by BAKAIR with probe detection 08/15/2023 16:46:33 Negative Negative Final No Influenza A RNA detected by PCR (amplified probe) Influenza virus B RNA [Prese nce] in Specimen by BAKARI with probe detection 08/15/2023 16:46:33 Negative Negative Final No Influenza B RNA detected by PCR (amplified probe) Respiratory syncytial virus RNA [Identifier] in Specimen by BAKARI with probe detection 08/15/2023 16:46:33 Negative Negative Final No Respiratory Syncytial Vir us RNA detected by PCR (amplified probe) Performing Location LABORATORY [address] [place]. [facility] [address]
--- OUTSIDE RECORDS SUMMARY | 2023-10-31 08:59 | External Medical Summary | Summary of Care ---
Author Name Unknown Organization [facility] Address [address] [address] Phone [phone] Care Team Providers Care Home Health Specialist Name Role Phone Gustavo Ag MD Primary Care Provider +1- [phone] Reason for Visit * Reason Comments Follow Up Encounter Details Date Type Department Care Team (Late st Contact Info) Description 10/08/2023 4:00 PM EST Office Visit Cardiology, [facility] [address] [place] [address] Nigel Galeas O, DO [address] [place] [address] Fluttering heart* Allergies Active Allergy Reactions Criticality Noted Date Comments Adhesive Tape Low 07/30/2020 Other reaction(s): Rash Bee Venom Anaphylaxis High 10/16/2010 Latex Low 07/30/2020 Other reaction(s): Rash Omeprazole High 04/10/2020 Pseudoephedrine Nausea/vomiting,Unkn o wn Low 02/01/2019 Vancomycin High 07/31/2020 Other reaction(s): Redness of Skin; Umm Syndrome Wound Dressing Adhesive 07/30/2020 documented as of this encounter (statuses as of 10/08/2023) Medications Medication Sig Dispensed Refills Start Date [...] at bedtime. 30 Tablet 2 09/24/2023 Active Metoprolol Succinate ER 25 MG Oral Tablet Extended Release 24 Hour (Toprol XL) Take 0.5 Tablets by mouth in the morning. 34 Tablet 6 10/08/2023 Active documented as of this encounter (statuses as of 10/08/2023) Active Problems Problem Noted Date Diagnosed Date Gastroesophageal reflux disease without esophagi tis 02/01/2023 Iron deficiency anemia 03/26/2022 Anemia of 03/26/2022 Globus sensation 05/06/2020 Hematuria 07/30/2017 Irritable bowel syndrome wit h both constipation and diarrhea 05/11/2017 Class 2 obesity without seri ous comorbidity with body mass index (BMI) of 37.0 to 37.9 in adult 08/24/2016 LEARNING DISABILITY 11/11/2009 documented as of this encounter (statuses as of 10/08/2023) Resolved Problems Problem Noted Date Diagnosed Date Resolved Date Vaginal delivery 05/21/2022 02/01/2023 Food insecurity 04/06/2022 10/07/2023 Overview: Per [facility] Protocol Depression during in third trimester 03/20/2022 06/24/2022 [...] - patient declines. Discussed other options with [facility] [place] and no additional options. Patient aware. Last Assessment & Plan: Patient is taking Sydnee. Elevated LFTs 09/22/2021 06/24/2022 Overview: Elevated LFT on 09/22/2021. Repeat CMP - LFTs within normal limits on 11/12/2021. Last Assessment & Plan: Advise repeat LFT and referral to sports management intern if continued elevations. BMI 38.0-38.9,adult 09/22/2021 06/24/20 Overview: Pre-gravid BMI 38.09. 11 to 20 lbs weight gain in . Declines Nutrition referral. NST's weekly at 37 weeks. Growth ultrasound every 4 weeks after 20 weeks. Failed early 1 hour glucose, passed early three hour glucose. Repeat three hour glucose test at 28 weeks. Following with [facility]. Abnormal TSH 09/22/2021 06/24/2022 Overview: TSH Results: [...] Qnatal low risk. Declines MSAFP testing. Seeing [facility] for anatomy ultrasound. Doing the following lab work on 03/18/2022: CBC, type and screen and three hour glucose test. Tdap vaccine completed on 04/29/2022. GBS culture - Negative. Completed COVID-19 vaccine. Completed influenza vaccine. contraception: IUD immediately . Desires to bottle feed. Last Assessment & Plan: We discussed common symptoms of second pregnancies. We discussed use of the [employer] Alexi to communicate with providers. History [...] as of this encounter (statuses as of 10/08/2023) Immunizations Name Administration Dates Next Due COVID-19 [...] Pneumococcal Conjugate Vacci ne, 7 Valent 03/27/2002,04/18/2001,02/14/2001,12/16 Seasonal Influenza Virus Vac cine, Unspecified Formulation 08/25/2022,09/15/2021,08/31/2019,08/12,07/18/2013,07/16/2011,07/28/2010 ,08/14/2009 Seasonal Influenza, PF, 6 M & above, IM , (FluLaval or Fluzone) 08/25/2022,09/15/2021,08/12/2018 Seasonal Influenza, Quadriva lent, No Preserve, IM [...] in the Last Year Never true 05/24/2020 [place] Depression Scale Answer Date Recorded [place] Depression Scale Total 0 06/24/2022 The thought [...] Sign Reading Time Taken Comments Blood Pressure 116/74 10/08/2023 3:40 PM EST Pulse 75 10/08/2023 3:40 PM EST Temperature - - Respiratory Rate - - Oxygen Saturation 99% 10/08/2023 3:40 PM EST Inhaled Oxygen Concentration - - Weight 106.1 kg (234 lb) 10/08/2023 3:40 PM EST Height - - Body Mass Index 35.58 07/30/2023 1:26 PM EDT documented in this [...] as of this encounter Progress Notes * Nigel Galeas, DO - 10/08/2023 3:52 PM EST SUBJECTIVE: Patient returns today for follow up of palpitations. Patient's 1st encounter with the undersigned. Previously followed by Dr. Rossi. Chart reviewed. History of palpitations and ADHD. Reports palpitations and intermittent lightheadedness. Symptoms occurring on a daily basis. At times palpitations related to stress, however, may occur independently. Notes 1 episode of overt syncopeover the past 4 months. Syncopal episode associated with abdominal discomfort and nausea. Patient noted a feeling of warmth followed by nausea. Syncope occurred while at school. No seizure activity or incontinence reported. She did not seek further medical attention at that time. Attempting to hydrate and exercise regularly. Notes occasional episodes of resting chest discomfort. Denies any exertional chest pain or unusual shortness of breath. Stable functional capacity. ROS: All others negative other than those noted in the HPI. ECG: Normal sinus rhythm, normal ECG 7 Day Zio report 08/04/2023: Patient had a min HR of 41 bpm, max HR of 151 bpm, and avg HR of 79 bpm. Predominant underlying rhythm was Sinus Rhythm. 1 run of Ventricular Tachycardia occurred lasting 7 beats with a max rate of 112 bpm (avg 103 bpm). Isolated SVEs were rare (<1.0%), and no SVE Couplets or SVE Triplets were present. Isolated VEs were rare (<1.0%), VE Couplets were rare (<1.0%), and no VE Triplets were present. Agree with Preliminary Findings All triggered events correlated sinus rhythm. 2D echocardiogram report [facility] 07/31/2020: Normal echocardiogram. Patient Active Problem List Diagnosis Code LEARNING DISABILITY F81.89 Class 2 obesity without serious comorbidity with body mass index (BMI) of 37.0 to 37.9 in adult E66.9, Z68.37 Irritable bowel syndrome with both constipation and diarrhea K58.2 Hematuria R31.9 Globus sensation R09.A2 Iron deficiency anemia D50.9 Anemia of O99.019 Gastroesophageal reflux disease without esophagitis K21.9 Social History Tobacco Use Smoking status: Never [...] (morning & late afternoon) 30 Tablet 4 Famotidine 20 MG Oral Tablet (Pepcid) Take 1 Tablet by mouth at bedtime. 30 Tablet 2 No current facility-administered medications for this visit. Lipid Panel Results: Lab Results Component Value Date/Time TSH - [facility] 0.91 04/07/2023 12:19 PM TSH - [facility] 0.69 02/01/2023 02:29 PM TSH - [facility] 0.66 10/07/2022 02:54 PM TSH - [facility] 0.73 05/25/2020 09:44 AM TSH - [facility] 0.59 07/08/2017 12:01 PM TSH - [facility] 0.93 05/18/2016 01:13 PM CBC Results: Results for orders placed or performed during the hospital encounter of 05/19/22 CBC Result Value Ref Range WBC 9.85 4.00 - 10.80 K/uL RBC 4.28 3.85 - 5.15 M/uL HGB 12.3 12.0 - 15.3 g/dL HCT 36.2 36.0 - 45.2 % MCV 84.6 81.5 - 97.5 fL MCH 28.7 27.0 - 34.0 pg MCHC 34.0 32.0 - 36.0 g/dL RDW 17.0 11.5 - 15.5 % PLT 201 140 - 400 K/uL MPV 10.6 6.6 - 11.1 fL nRBCs 0 <=0 /100 WBCs OBJECTIVE/PHYSICAL EXAMINATION: BP 116/74 | Pulse 75 | Wt 106.1 kg (234 lb) | SpO2 99% | BMI 35.58 kg/m | BSA 2.26 m General: NAD, AAO x3, well nourished. Obese. HEENT: Normocephalic. Atraumatic. Conjunctiva pink, noscleral icterus. No carotid bruits, the carotid upstrokes are brisk. No JVD. No HJR Heart: Regular normal S-1 and S-2 no S-3 or S-4 gallop. No murmurs or rubs appreciated. PMI is not displaced. No RVheave. Lungs: Clear bilateral without rales , rhonchi, or wheeze. Abdomen: Normal bowel sounds. Soft. Nontender. No masses or organomegaly. No abdominal bruits. Extremities: No clubbing, cyanosis, oredema. Pulses: radial=2/4, posterior tibial=2/4. Neuro: No focal deficits. ASSESSMENT: 1. 22-year-old female presents for evaluation recurrent palpitations. -no symptomatic dysrhythmia per Zio monitor -no evidence of structural heart disease 2. Vasovagal syncope PLAN: Add low-dose Toprol-XL to improve symptom control. Patient agreeable to 12.5 mg daily. Conservative treatment of vasovagal syncope and palpitations reviewed. Patient will continue to improve hydration, electrolyte replacement, and liberalize sodium intake. Instructed to avoid injury bylower herself to the ground with any near syncopal symptoms. Consider addition of [id number] compression stockings in the future. Encouraged to continue her regular aerobic exercise program. All questions answered to patient's satisfaction. Thank you for allowing me to participate in the care of your patient. I will see her back on an as-needed basis. Nigel Galeas DO, [facility] Associate Cardiology - [facility] documented in this encounter Nursing Notes * Fauzia Omalley CMA - 10/08/2023 3:37 PM EST Examination Room: 11 Name: Quique Saldaña Date of : (2000) Reason for Visit: heart flutters Interim Hospitalization(s): none Problems/Concerns: heart flutters, feels dizzy and like she is going to pass out. Hot flashes everytime it happens. Lasts about 2-3 minutes. Chest Pain/SOB: Chest pains once in a while, feels like a tightness My [facility] is a way you can talk to your provider online through e-mail. Would you like to sign up? I can activate it for you? ALREADY ACTIVE Patient was instructed to not get up on the exam table until directed and assisted by their provider; patient is to remain seated in the chair/ wheelchair/ exam table for fall prevention and safety reasons. Patient is aware to have assistance to step down off exam table with personnel. Patient voiced full comprehension of instructions. documented in this encounter Plan of Treatment Upcoming Encounters Date Type Department Care Team (Late st Contact Info) Description 01/17/2024 1:00 PM EDT Office Visit Nutrition & Weight Management, [facility] [address] [place] [address] Patricia Black PA-C [address] [place] [address] 02/07/2024 3:10 PM EDT Office Visit Endocrinology, [address] [id number] Anthony Wu MD Scheduled Orders Name Type Priority Associated Diagnoses Orde r Schedule EKG EKG Routine Fluttering heart Ordered: 10/08/2023 Scheduled Procedures Name Priority Associated Diagnoses Date/Ti [...] as of this encounter Visit Diagnoses Diagnosis Fluttering heart- Primary Ventricular flutter documented in this encounter Advance Directives Latest Code Status on File Code Status Date Activated Date Inactivated Comments Full Code 05/19/2022 7:17 PM 05/21/2022 10:56 PM This order reflects the patients wishes and were consensually agreed upon. Care Teams Home Health Specialist Relationship Specialty Start Date End Date Gustavo Ag MD [address] [place] [address] PCP - General Family Medicine 12/08/18 documented as of this encounter
--- OUTSIDE RECORDS SUMMARY | 2023-10-31 08:59 | External Medical Summary | Summary of Care ---
Author Name Unknown Organization [facility] Address [address] [facility] [place] [address] Phone [phone] Care Team Providers Care Maitre D Name Role Phone Gustavo Ag MD Primary Care Provider +1- [phone] Reason for Visit * Reason Onset Date Comments Advice 08/06/2023 Order Request 08/06/2023 Encounter Details Date Type Department Care Team Description 08/06/2023 Telephone [facility] [address] [place] [address] Gustavo Ag MD [address] [place] [address] Advice; Order Request Allergies Active Allergy Reactions Severity Noted Date Comments Adhesive Tape Low 07/30/2020 Other reaction(s): Rash Bee Venom Anaphylaxis High 10/16/2010 Latex Low 07/30/2020 Other reaction(s): Rash Omeprazole High 04/10/2020 Pseudoephedrine Nausea/vomiting,Unkn ow n Low 02/01/2019 Vancomycin High 07/31/2020 Other reaction(s): Redness of Skin; Umm Syndrome Wound Dressing Adhesive 07/30/2020 documented as of this encounter (statuses as of 08/09/2023) Medications Medication Sig Dispensed Refills Start Date [...] late afternoon) 30 Tablet 4 08/03/2023 Active documented as of this encounter (statuses as of 08/09/2023) Active Problems Problem Noted Date Gastroesophageal reflux [...] as of this encounter (statuses as of 08/09/2023) Resolved Problems Problem Noted Date Resolved Date [...] 35 weeks, 0 days. Seeing MFM. Discontinuing [place] due to significant side effects. Discussed with Dr. Lopez and he agrees. Recommended vaginal progesterone - patient declines. Discussed other options with [facility] [place] and no additional options. Patient aware. Last Assessment & Plan: Patient is taking [place]. Elevated LFTs 09/22/2021 06/24/2022 Overview: Elevated LFT on 09/22/2021. Repeat CMP - LFTs within normal limits on 11/12/2021. Last Assessment & Plan: Advise repeat LFT and referral to kiln setter if continued elevations. BMI 38.0-38.9,adult 09/22/2021 06/24/2022 [...] referral made. Supervision of high-risk , third trimes ter 09/22/2021 06/24/2022 Overview: Estimated Date of [...] Date resolved Readiness form completed 04/18/2021 Amira Caruso, SHERINE 04/18/2021 Abdominal pain, chronic, right upper quadrant [...] as of this encounter (statuses as of 08/09/2023) Immunizations Name Administration Dates Next Due COVID-19 [...] shopping? (15 years old or older) Yes 05/03/20 16 Cognitive Status Response Date of Assessm ent Because of a physical, menta l, or emotional condition, do you have serious difficulty concentrating, remembering, or making decisions? (5 years old or older Yes 02/25/2016 documented as of this encounter Miscellaneous Notes * Telephone Encounter - Alis Steele LPN - 08/09/2023 2:48 PM EDT Read MyG - pt also went to ER * Telephone Encounter - Sharon Don LPN - 08/06/2023 2:42 PM EDT Attempted to call patient, unable to leave a message. MYG message sent * Telephone Encounter - Gustavo Ag MD - 08/06/2023 2:31 PM EDT It is ok for x-ray - ordered * Telephone Encounter - Suha Christine LPN - 08/06/2023 1:32 PM EDT Kiki, patient calling. Working out yesterday. Now back is [facility] at [facility]. Had issues there before with herniated disc. Took 3 ibuprofen last night and this morning. Doesn't seem to help. Rates the pain as a 5 or 6. Hurts more when bending over. 7 to 7.5 out of 10. It feels swollen. Tried icy/hot and aspercreme. Neither one of those helped. Asking if she can have an x-ray done without comingin? She is very busy with her school schedule. Please advise. * Telephone Encounter - MIMA Loza - 08/06/2023 1:29 PM EDT Reason for patient's call: back pain and pt states area is swollen Caller was transferred to [facility] at the nurse line. documented in this encounter Plan of Treatment Upcoming Encounters Date Type Specialty Care Team Description 09/24/2023 Office Visit Gastroenterology Leonor Agrawal CRNP [address] [place] [address] 01/17/2024 Office Visit Gastroenterology Patricia Black PA-C [address] [place] [address] 02/07/2024 Office Visit Endocrinology Anthony Wu MD [address] [place] [address] Scheduled Orders Name Type Priority Associated Diagnoses Orde r Schedule XR L SPINE AP AND LATERAL Medical Imaging Routine Acute midline low back pain without sciatica Expected: 08/06/2023, Expires: 09/06/2024 Scheduled Procedures Name Priority Associated Diagnoses Date/Ti [...] as of this encounter Visit Diagnoses Diagnosis Acute midline low back pain without sciatica- Primary documented in this encounter Advance Directives Latest Code Status on File Code Status Date Activated Date Inactivated Comments Full Code 05/19/2022 7:17 PM 05/21/2022 10:56 PM This order reflects the patients wishes and were consensually agreed upon. Care Teams Maitre D Relationship Specialty Start Date End Date Gustavo Ag MD [address], [place] [id number] PCP - General Family Medicine 12/08/18 documented as of this encounter
--- OUTSIDE RECORDS SUMMARY | 2023-10-31 08:59 | External Medical Summary | Summary of Care ---
Author Name Unknown Organization [facility] Address [address] [place] [address] Phone [phone] Care Team Providers Care Vibratory Pile Driver Name Role Phone Gustavo Ag MD Primary Care Provider +1- [phone] Reason for Visit * Reason Onset Date Comments Sore Throat Sore Throat 08/15/2023 Encounter Details Date Type Department Care Team (Latest Contact Info) Description 08/15/2023 6:00 PM EDT Convenient Care Visit [facility] [address] [place] [address] Javad Carrington PA-C [address] [place] [address] Acute sore throat* Allergies Active Allergy Reactions Criticality Noted Date Comments Adhesive Tape Low 07/30/2020 Other reaction(s): Rash Bee Venom Anaphylaxis High 10/16/2010 Latex Low 07/30/2020 Other reaction(s): Rash Omeprazole High 04/10/2020 Pseudoephedrine Nausea/vomiting,Unkn o wn Low 02/01/2019 Vancomycin High 07/31/2020 Other reaction(s): Redness of Skin; Umm Syndrome Wound Dressing Adhesive 07/30/2020 documented as of this encounter (statuses as of 08/15/2023) Medications Medication Sig Dispensed Refills Start Date [...] as of this encounter (statuses as of 08/15/2023) Active Problems Problem Noted Date Diagnosed Date [...] as of this encounter (statuses as of 08/15/2023) Resolved Problems Problem Noted Date Diagnosed Date [...] Last Assessment & Plan: Patient is taking [place]. Elevated LFTs 09/22/2021 06/24/2022 Overview: Elevated LFT on 09/22/2021. Repeat CMP - LFTs within normal limits on 11/12/2021. Last Assessment & Plan: Advise repeat LFT and referral to welder 2nd shift if continued elevations. BMI 38.0-38.9,adult 09/22/2021 06/24/20 [...] as of this encounter (statuses as of 08/15/2023) Immunizations Name Administration Dates Next Due COVID-19 [...] Past Smokeless Tobacco: Never Tobacco Cessation:Counseling Given: Yes Alcohol Use Standard Drinks/Week Comments No 0 (1 standard drink = 0.6 oz pur e alcohol) Denies with 2020 PHQ-2 Answer Date Recorded PHQ Adult Total Score 0 04/07/2023 [place] Depression Scale Answer Date Recorded [place] Depression Scale Total Never 06/24/2022 The thought of harming myself has occurred to me . 0 06/24/2022 Sex and Gender Information Value Date Recorded Sex Assigned at Female 05/19/2019 9:03 AM EDT Gender Identity Female 05/19/2019 9:03 AM EDT Sexual Orientation Straight 05/19/2019 9: 03 AM EDT Job Start Date Occupation Industry Not on file Not on file Not on file documented as of this encounter Last Filed Vital Signs Vital Sign Reading Time Taken Comments Blood Pressure 136/80 08/15/2023 3:52 PM EDT Pulse 76 08/15/2023 3:52 PM EDT Temperature 37.6 C (99.6 F) 08/15/2023 3:52 PM ED T Respiratory Rate 13 08/15/2023 3:52 PM EDT Oxygen Saturation 98% 08/15/2023 3:52 PM EDT Inhaled Oxygen Concentration - - Weight 108.7 kg (239 lb 9.6 oz) 08/15/2023 3:52 PM EDT Height - - Body Mass Index 36.43 07/30/2023 1:26 PM EDT documented in this [...] Yes 02/25/2016 documented as of this encounter Patient Instructions * Patient Instructions* Javad Carrington PA-C - 08/15/2023 4:49 PM EDT Can use tylenol/ibuprofen as needed for pain. Over the counter (OCT) lozenges and chloraseptic throat sprays can be helpful as well. If diabetes or elevated blood sugar is not a problem, can use honey as well to help sooth the throat. Hot tea and warm beverages can be very soothing on the throat. Warm salt water gargles as needed several times a day. Drink plenty of fluids and get plenty of rest. If your sore throat is accompanied by post-nasal drip, consider nasal sprays and/or OTC non-drowsy antihistamines like Claritin, Zyrtec, or Allegry as well and consider using a cool mist vaporizer. Return or follow-up with PCP if no improvement or worsening symptoms over the next week. documented in this encounter Progress Notes * Javad Carrington PA-C - 08/15/2023 4:44 PM EDT Nursing Notes: Maribel Galloway, THREAD ROLLER 08/15/23 1554 Signed Quique Saldaña is a 22 year old female who presents to clinic today for... Main Symptoms:sore throat, painful to swallow How long: two days Tried: "cold medicine" Pt accompanied by: self Quique Saldaña is a 22 year old female who presents with sore throat symptoms. Patient was accompanied by Self. HPI: Severity of Symptoms: Minimal Modifying Factors (what was done since onset of Symptoms): "OTC cold meds" Timing (How often does it occur): constant Quality (Feels Like): hurts to swallow Other associated Signs and Symptoms: denies all other symptoms ROS: See HPI HISTORY: Past Medical History: Diagnosis Date Abdominal pain ADHD BMI (body mass index), pediatric, 95-99% for age Depression Diarrhea Fatty liver disease, nonalcoholic Functional constipation GERD (gastroesophageal reflux disease) Follows with Gastroenterology, [facility] treatment 2019 effective Hepatomegaly Panic disorder Suicidal ideation Thyroid disease affecting 09/22/2021 Past Surgical History: Procedure Laterality Date ANESTH, UPPER GI ENDOSCOPIC PROCS 03/28/2010 WNL including biopsies. Lactase low nl at a16.7 COLONOSCOPY W/ BIOPSY (RECTUM) 2009 WNL including biopsies COLONOSCOPY, DIAGNOSTIC (RECTUM) 07/27/2019 normal bx/COLONOSCOPY FLEXIBLE PROXIMAL DIAGNOSTIC performed by Daniella Correa MD at [facility]OSCOPY [facility] ABDOMEN/PELVIS 07/15/2016 WNL other than hepatomegally and focal fatty liver changes EGD, FLEXIBLE, DIAGNOSTIC 07/27/2019 intestinal metaplasia, repeat 1 yr/ESOPHAGOGASTRODUODENOSCOPY (EGD), FLEXIBLE, TRANSORAL, DIAGNOSTIC performed by Daniella Correa MD at ENDOSCOPY [facility] EGD, FLEXIBLE, DIAGNOSTIC 04/24/2020 Ectopic gastric mucosa - injected / ESOPHAGOGASTRODUODENOSCOPY (EGD), FLEXIBLE, TRANSORAL, DIAGNOSTIC performed by Daniella Correa MD at ENDOSCOPY [facility] EGD, FLEXIBLE, DIAGNOSTIC 08/12/2020 mild gastric irritation on bx, repeat 5 yrs / ESOPHAGOGASTRODUODENOSCOPY (EGD), FLEXIBLE, TRANSORAL, DIAGNOSTIC performed by Daniella Correa MD at ENDOSCOPY [facility] EGD, FLEXIBLE, W/BIOPSY 2009 NM HEPATOBILIARY SYSTEM WITH PHARMACOLOGIC INTERVENTION 08/18/2016 Social History Tobacco Use Smoking status: Never Passive exposure: Past Smokeless tobacco: Never Substance Use Topics Alcohol use: No Comment: Denies with 2020 Vaping/E-Cigarette Use Vaping/E-Cigarette Use Never User Passive Exposure No Counseling Given? No Vaping/E-Cigarette Substances Nicotine No Other No Flavoring No THC No Cannabidiol (CBD) No Vaping/E-Cigarette Devices Disposable No Pre-filled or Refillable Cartridge No Refillable Tank No Pre-filled Pod No Current Outpatient Medications Medication Sig Dispense Refill [...] No current facility-administered medications for this visit. Review of patient's allergies indicates: Allergen Reactions Bee Sting [Bee Venom] Anaphylaxis Omeprazole Vancomycin Other reaction(s): Redness of Skin; Umm Syndrome Wound Dressing Adhesive Adhesive Tape Other reaction(s): Rash Latex Other reaction(s): Rash Pseudoephedrine Nausea/vomiting and Unknown Family History Problem Relation Age of Onset [...] the family Gastro-intestinal disorder Other lactose intolerance OBJECTIVE: BP 136/80 | Pulse 76 | Temp 37.6 C (99.6 F) | Resp 13 | Wt 108.7 kg (239 lb 9.6 oz) | SpO2 98% | BMI 36.43 kg/m | BSA 2.28 m Wt Readings from Last 1 Encounters: 08/15/23 108.7 kg (239 lb 9.6 oz) General appearance: awake, alert, no apparent distress HEENT: perrl and eomi tms - clear, normal light reflex, no erythema + red and irritated pharynx Without exudates No sinus tenderness or facial pain to percussion + turbinate engorgement and discharge Neck: normal, supple, no adenopathy Respiratory: clear to auscultation, no rhonchi, no wheezes, and no crackles Heart: regular rate, regular rhythm, no murmurs , no rubs, and no gallops Skin: skin color, texture, turgor are normal, no rashes or significant lesions Results for orders placed or performed in visit on 08/15/23 STREP A SCREEN, POINT OF CARE (ENTER/EDIT) Result Value Ref Range Strep A Result Negative Negative Procedural Control Valid? Yes Lot Number [id number] Expiration Date 12/27/2024 *Note: Due to a large number of results and/or encounters for the requested time period, some results have not been displayed. A complete set of results can be found in Results Review. Patient Instructions Can use tylenol/ibuprofen as needed for pain. Over the counter (OCT) lozenges and chloraseptic throat sprays can be helpful as well. If diabetes or elevated blood sugar is not a problem, can use honey as well to help sooth the throat. Hot tea and warm beverages can be very soothing on the throat. Warm salt water gargles as needed several times a day. Drink plenty of fluids and get plenty of rest. If your sore throat is accompanied by post-nasal drip, consider nasal sprays and/or OTC non-drowsy antihistamines like Claritin, Zyrtec, or Allegry as well and consider using a cool mist vaporizer. Return or follow-up with PCP if no improvement or worsening symptoms over the next week. Assessment: Acute sore throat (Primary) - STREP A SCREEN, POINT OF CARE (ENTER/EDIT) - GROUP A STREP PCR; Future; Expected date: 08/15/2023 - GROUP A STREP PCR - INFLUENZA A/B RSV SARS-COV2,PCR Rapid strep neg Likely viral Will follow swabs Patient goals for plan of care were discussed Javad Carrington PA-C [address] [address] documented in this encounter Nursing Notes * Maribel Galloway LPN - 08/15/2023 3:50 PM EDT Quique Saldaña is a 22 year old female who presents to clinic today for... Main Symptoms:sore throat, painful to swallow How long: two days Tried: "cold medicine" Pt accompanied by: self documented in this encounter Plan of Treatment Upcoming Encounters Date Type Department Care Team (Late st Contact Info) Description 09/24/2023 9:00 AM EST Office Visit Gastroenterology, [facility] [address] [place] [address] Leonor Agrawal CRNP [address] [place] [address] 01/17/2024 1:00 PM EDT Office Visit Nutrition & Weight Management, [facility] [address] [place] [address] Patriica Black PA-C [address] [place] [address] 02/07/2024 3:10 PM EDT Office Visit Endocrinology, [place] [address] [place] [address] Anthony Wu MD [address] [place], [place] [id number] Pending Results Name Type Priority Associated Diagnoses Date /Time GROUP A STREP PCR Lab Routine Acute sore throat 08/15/2023 4:02 PM EDT INFLUENZA A/B RSV SARS-COV2,PCR Lab STAT Acute sore throat 08/15/2023 4:46 PM EDT Scheduled Orders Name Type Priority Associated Diagnoses Orde r Schedule GROUP A STREP PCR Lab Routine Acute sore throat Expected: 08/15/2023, Expires: 08/15/2024 Scheduled Procedures Name Priority Associated Diagnoses Date/Ti [...] Not on filedocumented as of this encounter Procedures Procedure Name Priority Date/Time Associated Diagnosis Comments STREP A SCREEN, POINT OF CARE (ENTER/EDIT) Routine 08/15/2023 Acute sore throat documented in this encounter Results * STREP A SCREEN, POINT OF CARE (ENTER/EDIT) (08/15/2023) Strep A Result Negative Negative Procedural Control Valid? Yes Lot Number [id number] Expiration Date 12/27/2024 Swab Throat swab / Unknown 08/15/2023 Javad Carrington PA-C LAB POINT O F CARE TEST ENTER/EDIT ORDERABLES documented in this encounter Visit Diagnoses Diagnosis Acute sore throat- Primary documented in this encounter Advance Directives Latest Code Status on File Code Status Date Activated Date Inactivated Comments Full Code 05/19/2022 7:17 PM 05/21/2022 10:56 PM This order reflects the patients wishes and were consensually agreed upon. Care Teams Vibratory Pile Driver Relationship Specialty Start Date End Date Gustavo Ag MD [address] [place] [address] PCP - General Family Medicine 12/08/18 documented as of this encounter
--- OUTSIDE RECORDS SUMMARY | 2023-10-31 08:59 | External Medical Summary | Summary of Care ---
Author Name Unknown Organization [facility] Address [address] [place] [address] Phone [phone] Care Team Providers Care Research Physicist Name Role Phone Gustavo Ag MD Primary Care Provider +1- [phone] Encounter Details Date Type Department Care Team (Late st Contact Info) Description 09/22/2023 Telephone [facility] [address] [place] [address] Gustavo Ag MD [address] [place] [address] Allergies Active Allergy Reactions Criticality Noted Date Comments Adhesive Tape Low 07/30/2020 Other reaction(s): Rash Bee Venom Anaphylaxis High 10/16/2010 Latex Low 07/30/2020 Other reaction(s): Rash Omeprazole High 04/10/2020 Pseudoephedrine Nausea/vomiting,Unkn o wn Low 02/01/2019 Vancomycin High 07/31/2020 Other reaction(s): Redness of Skin; Umm Syndrome Wound Dressing Adhesive 07/30/2020 documented as of this encounter (statuses as of 09/22/2023) Medications Medication Sig Dispensed Refills Start Date [...] as of this encounter (statuses as of 09/22/2023) Active Problems Problem Noted Date Diagnosed Date [...] as of this encounter (statuses as of 09/22/2023) Resolved Problems Problem Noted Date Diagnosed Date [...] 35 weeks, 0 days. Seeing MFM. Discontinuing [place] due to significant side effects. Discussed with Dr. Lopez and he agrees. Recommended vaginal progesterone - patient declines. Discussed other options with [facility] [place] and no additional options. Patient aware. Last Assessment & Plan: Patient is taking [place]. Elevated LFTs 09/22/2021 06/24/2022 Overview: Elevated LFT on 09/22/2021. Repeat CMP - LFTs within normal limits on 11/12/2021. Last Assessment & Plan: Advise repeat LFT and referral to paper pattern folder if continued elevations. BMI 38.0-38.9,adult 09/22/2021 06/24/20 [...] 35 weeks, 0 days on 05/07/2021. Discontinuing Magee due to significant side effects. Discussed with [...] as of this encounter (statuses as of 09/22/2023) Immunizations Name Administration Dates Next Due COVID-19 [...] in the Last Year Never true 05/24/2020 [place] Depression Scale Answer Date Recorded [place] Depression Scale Total 0 06/24/2022 The thought [...] encounter Miscellaneous Notes * Telephone Encounter - Dina Cortes MED ASSIST - 09/22/2023 3:21 PM EST Spoke with pt. Advised previous message. Verbalized understanding. Pt requesting blood test and states she missed her period and that is the reason. * Telephone Encounter - Gustavo Ag MD - 09/22/2023 2:58 PM EST It is not clear to me from the message if she is requesting blood or urine test. Both ordered. Would also be helpful to know the reason (missed/late period or concern for ectopic ). * Telephone Encounter - Glendy Del Castillo OSA - 09/22/2023 2:30 PM EST 09/22/23 Pt called the call center asking for lab work for a HCG test () order to be put in before the end of the day today? Please call the pt at [phone] when orders are placed? documented in this encounter Plan of Treatment Upcoming Encounters Date Type Department Care Team (Late st Contact Info) Description 09/24/2023 9:00 AM EST Office Visit Gastroenterology, [facility] [address] [place] [address] Leonor Agrawal CRNP [address] [place] [address] 01/17/2024 1:00 PM EDT Office Visit Nutrition & Weight Management, [facility] [address] [place] [address] Patricia Black PA-C [address] [place] [address] 02/07/2024 3:10 PM EDT Office Visit Endocrinology, [place] [address] [place] [address] Anthony Wu MD [address] [place], [place] [id number] Scheduled Orders Name Type Priority Associated Diagnoses Orde r Schedule HCG QUALITATIVE, URINE Lab Routine Menstrual irregularity Expected: 09/22/2023, Expires: 09/22/2024 BETA-HCG, QUANTITATIVE Lab Routine Menstrual irregularity Expected: 09/22/2023, Expires: 12/23/2023 Scheduled Procedures Name Priority Associated Diagnoses Date/Ti me ESOPHAGOGASTRODUODENOSCOPY ( EGD), FLEXIBLE, TRANSORAL, DIAGNOSTIC Recall Intestinal metaplasia of gastric mucosa Health Maintenance Due Date Last Done Comments Pap Smear 2021 Gonorrhea / Chlamydia Screen 03/27/202312/2021, 03/12/2022, 02/11/2022, Additional history exists COVID-19 Vaccine (2022- season) 2023 10/27/2021, 09/29/2021 Influenza Vaccine (FLU [...] as of this encounter Visit Diagnoses Diagnosis Menstrual irregularity- Primary Irregular menstrual cycle documented in this encounter Advance Directives Latest Code Status on File Code Status Date Activated Date Inactivated Comments Full Code 05/19/2022 7:17 PM 05/21/2022 10:56 PM This order reflects the patients wishes and were consensually agreed upon. Care Teams Research Physicist Relationship Specialty Start Date End Date Gustavo Ag MD [address] [place] [address] PCP - General Family Medicine 12/08/18 documented as of this encounter
--- OUTSIDE RECORDS SUMMARY | 2023-10-31 08:59 | External Medical Summary | Summary of Care ---
Author Name Unknown Organization [facility] Address [address] [place] [facility] [place] [address] Phone [phone] Care Team Providers Care Manager Heavy Equipment Name Role Phone Gustavo Ag MD Primary Care Provider +1- [phone] Encounter Details Date Type Department Care Team (Late st Contact Info) Description 09/15/2023 Population Health External Data Unspecified Department Allergies Active Allergy Reactions Criticality Noted Date Comments Adhesive Tape Low 07/30/2020 Other reaction(s): Rash Bee Venom Anaphylaxis High 10/16/2010 Latex Low 07/30/2020 Other reaction(s): Rash Omeprazole High 04/10/2020 Pseudoephedrine Nausea/vomiting,Unkn o wn Low 02/01/2019 Vancomycin High 07/31/2020 Other reaction(s): Redness of Skin; Umm Syndrome Wound Dressing Adhesive 07/30/2020 documented as of this encounter (statuses as of 09/15/2023) Medications Medication Sig Dispensed Refills Start Date [...] as of this encounter (statuses as of 09/15/2023) Active Problems Problem Noted Date Diagnosed Date [...] as of this encounter (statuses as of 09/15/2023) Resolved Problems Problem Noted Date Diagnosed Date [...] 35 weeks, 0 days. Seeing MFM. Discontinuing [place] due to significant side effects. Discussed with [...] Plan: Advise repeat LFT and referral to acetylene plant operator if continued elevations. BMI 38.0-38.9,adult 09/22/2021 [...] Qnatal low risk. Declines MSAFP testing. Seeing [facility] for anatomy ultrasound. Doing the following lab work on 03/18/2022: CBC, type and screen and three hour glucose test. Tdap vaccine completed on 04/29/2022. GBS culture - Negative. Completed COVID-19 vaccine. Completed influenza vaccine. contraception: IUD immediately . Desires to bottle feed. Last Assessment & Plan: We discussed common symptoms of second pregnancies. We discussed use of the [employer] Chart Alexi to communicate with providers. History of premature rupture of membranes (PPROM) 09/22/2021 06/24/2022 Overview: PPROM at 35 weeks, 0 days on 05/07/2021. Discontinuing Sydnee due to significant side effects. Discussed with Dr. Lopez and he agrees. Recommended vaginal progesterone - patient declines. Discussed with M and no other available option. Patient aware. [...] as of this encounter (statuses as of 09/15/2023) Immunizations Name Administration Dates Next Due COVID-19 [...] in the Last Year Never true 05/24/2020 [place] Depression Scale Answer Date Recorded [place] Depression Scale Total 0 06/24/2022 The thought [...] Yes 02/25/2016 documented as of this encounter Plan of Treatment Upcoming Encounters Date Type Department Care Team (Late st Contact Info) Description 09/24/2023 9:00 AM EST Office Visit Gastroenterology, [facility] [address] [place] [address] Leonor Agrawal CRNP [address] [place] [address] 01/17/2024 1:00 PM EDT Office Visit Nutrition & Weight Management, [facility] [address] [place] [address] Patricia Black PA-C [address] [place] [address] 02/07/2024 3:10 PM EDT Office Visit Endocrinology, [place] [address] [place] [address] Anthony Wu MD [address] [place], [place] [id number] Scheduled Procedures Name Priority Associated Diagnoses Date/Ti [...] and were consensually agreed upon. Care Teams Manager Heavy Equipment Relationship Specialty Start Date End Date Gustavo Ag MD [address] [place] [address] PCP - General Family Medicine 12/08/18 documented as of this encounter
--- OUTSIDE RECORDS SUMMARY | 2023-10-31 09:00 | External Medical Summary | Summary of Care ---
Author Name Unknown Organization [facility] Address [address] [place] [address] Phone [phone] Care Team Providers Care Filter Tank Tender Name Role Phone uGstavo Ag MD Primary Care Provider +1- [phone] Reason for Visit * Reason Onset Date Comments Advice 05/07/2023 ED follow up Encounter Details Date Type Department Care Team Description 05/07/2023 Telephone [facility] [address] [place] [address] Gustavo Ag MD [address] [place] [address] Advice (ED follow up) Allergies Active Allergy Reactions Severity Noted Date Comments Adhesive Tape Low 07/30/2020 Other reaction(s): Rash Bee Venom Anaphylaxis High 10/16/2010 Latex Low 07/30/2020 Other reaction(s): Rash Omeprazole High 04/10/2020 Pseudoephedrine Nausea/vomiting,Unkn ow n Low 02/01/2019 Vancomycin High 07/31/2020 Other reaction(s): Redness of Skin; Umm Syndrome Wound Dressing Adhesive 07/30/2020 documented as of this encounter (statuses as of 05/07/2023) Medications Medication Sig Dispensed Refills Start Date End Date Status Sertraline HCl 50 MG Oral Tablet (Zoloft)Indications :Depression 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 X 2 weeks. Increasing to 1 tab daily therafter.. 90 Tablet 1 03/18/2022 Active Pantoprazole Sodium 20 MG Oral Tablet Delayed Release (Protonix) Take 1 Tablet by mouth in the morning. 90 Tablet 3 03/19/2023 Active Additional Information Patient not taking.Reported on 04/07/2023 Polyethylene Glycol 3350 17 GM/SCOOP Oral Powder [...] as of this encounter (statuses as of 05/07/2023) Active Problems Problem Noted Date Gastroesophageal reflux [...] as of this encounter (statuses as of 05/07/2023) Resolved Problems Problem Noted Date Resolved Date [...] Last Assessment & Plan: Patient is taking [place]. Elevated LFTs 09/22/2021 06/24/2022 Overview: Elevated LFT on 09/22/2021. Repeat CMP - LFTs within normal limits on 11/12/2021. Last Assessment & Plan: Advise repeat LFT and referral to geography instructor if continued elevations. BMI 38.0-38.9,adult 09/22/2021 06/24/2022 [...] Qnatal low risk. Declines MSAFP testing. Seeing [facility] for anatomy ultrasound. Doing the following lab work on 03/18/2022: CBC, type and screen and three hour glucose test. Tdap vaccine completed on 04/29/2022. GBS culture - Negative. Completed COVID-19 vaccine. Completed influenza vaccine. contraception: IUD immediately . Desires to bottle feed. Last Assessment & Plan: We discussed common symptoms of second pregnancies. We discussed use of the Cytheris Chart Alexi to communicate with providers. History of premature rupture of membrane s (PPROM) 09/22/2021 06/24/2022 Overview: PPROM at 35 weeks, 0 days on 05/07/2021. Discontinuing Nehawka due to significant side effects. Discussed with Dr. Lopez and he agrees. Recommended vaginal progesterone - patient declines. Discussed with [facility] and no other available option. Patient aware. [...] any current needs or questions 04/03/2021 Maria Euegnia Thornton RN 04/03/2021 Problem Action Taken Date [...] as of this encounter (statuses as of 05/07/2023) Immunizations Name Administration Dates Next Due COVID-19 mRNA, LNP-s, No Pre serve, 2-Dose Series (Moderna) 10/27/2021,09/29/2021 DTaP - Dipth/Tet/Acell Pertussis 006,01/19/2002,04/18/2001,02/14,2000 H1N1 2009 Influenza, IM 09/30/2009,08/26/2009 H1N1 2009 Influenza, Intranasal 09/30/2009,08/29 HIB 4 dose (Acthib) 10/20/2001,02/14/2001,2000 HPV Vaccine, 4-Valent 07/18/2013,06/16/2012,11/25 Haemophilus B (HIB) 10/20/2001,02/14/2001,2000 Hepatitis B, 0-19 yrs 10/20/2001,02/14/2001,11/26 IPV - Polio Virus Vaccine (Inact) 2005,10/20/2001,02/14/2001,12/16 MMR - Measles/Mumps/Rubella Vaccine 10/28/2005,1 2000 Meningococcal Conjugate Vacc ine (Menactra/Menveo) 02/28/2018,12/09/2011 Meningococcal MCV4P Conjugat e Vaccine (Menactra) 02/28/2018,12/09/2011 PPD 10/03/2021, 9,12/05/2018,10/20,10/11/2017 Pneumococcal Conjugate Vacci ne, 7 Valent 03/27/2002,04/18/2001,02/14/2001,12/16 Seasonal Influenza Virus Vac cine, Unspecified Formulation 08/25/2022,09/15/2021,08/31/2019,08/12,07/18/2013,07/16/2011,07/28/2010 ,08/14/2009 Seasonal Influenza, Quadriva lent, No Preserve, 6 Mons & Above, IM 08/25/2022,09/15/2021,08/12/2018 Seasonal Influenza, Quadriva lent, No Preserve, IM 08/31/2019 Seasonal Influenza, Split, I IV3, With Preserve, Inj 07/18/2013,07/16/2011,07/28/2010,08/14 TD - Tetanus/Diptheria (ADULT) 06/26/2011 TD, Preservative Free 06/26/2011 TDAP (age 10 and older)(Boostrix) 04/29/2022, Varicella Vaccine (Chicken Pox) 01/18/2008,09/30 documented as of this encounter Social History Tobacco Use Types Packs/Day Years Used Date Smoking Tobacco: Never Smokeless Tobacco: Never Alcohol Use Standard Drinks/Week [...] encounter Miscellaneous Notes * Telephone Encounter - MIMA Castellanos - 05/07/2023 9:39 AM EDT Pt calling back in to schedule er follow up, Scheduled today with dr palacios * Telephone Encounter - MIMA Hilliard - 05/07/2023 9:22 AM EDT Patient needs ED Follow-up. If New Patient - Were surrounding clinics offered? N/A Please see call details. documented in this encounter Plan of Treatment Upcoming Encounters Date Type Specialty Care Team Description 05/07/2023 Office Visit Family Medicine Ron Palacios MD [address], [place] [id number] 07/20/2023 Office Visit Gastroenterology Leonor Agrawal CRNP [address] [place] [address] 07/30/2023 Office Visit Gastroenterology Patricia Black PA-C [address] [place] [address] 02/07/2024 Office Visit Endocrinology Anthony Wu MD [address] [place] [address] Scheduled Procedures Name Priority Associated Diagnoses Date/Ti me ESOPHAGOGASTRODUODENOSCOPY ( EGD), FLEXIBLE, TRANSORAL, DIAGNOSTIC Recall Intestinal metaplasia of gastric mucosa Health Maintenance Due Date Last Done Comments Pap Smear 2021 COVID-19 Vaccine (3 - Moderna series) 12/22/2021 10/27/2021, 09/29/2021 Gonorrhea / Chlamydia Screen 03/27/202312/2021, 03/12/2022, 02/11/2022, Additional history exists Influenza Vaccine (FLU shot) (#1) 2023 08/25/2022, 08/25/2022, 09/15/2021, Additional history exists Depression Screening, Annual for Pts 12 and Over 04/07/2024 04/07/2023 DTaP,Tdap,and Td Vaccines (8 - Td or Tdap) 04/29/2032 04/29/2022, 03/20/2021, 06/26/2011, Additional history exists Hepatitis B Completed 10/20/2001, 01/24, 2000 GARDASIL-HPV IMMUNIZATION SERIES Completed 07/18/2013, 06/16/2012, 12/09/2011 MENINGOCOCCAL (MENACTRA/MENVEO) Completed 02/28/2018, 02/28/2018, 12/09/2011, Additional history exists Hepatitis C Screening Completed 09/22/2021 Pneumococcal Vaccine: Pediatrics (0 to 5 Years) [...] and were consensually agreed upon. Care Teams Filter Tank Tender Relationship Specialty Start Date End Date Gustavo Ag MD [address] [place] [address] PCP - General Family Medicine 12/08/18 documented as of this encounter
--- OUTSIDE RECORDS SUMMARY | 2023-10-31 09:00 | External Medical Summary | Summary of Care ---
Author Name Unknown Organization [facility] Address [address] [place] [place] [address] Phone [phone] Care Team Providers Care Plastic Press Operator Name Role Phone Gustavo Ag MD Primary Care Provider +1- [phone] Reason for Visit * Reason Comments Acute Swollen ankles and b ack pain on right side.Boil on vagina Encounter Details Date Type Department Care Team Description 06/01/2023 Office Visit [facility] [address] [place] [address] Natalie Dye PA-C [address] [place] [address] Leg edema*; Acute midline low back pain without sciatica; Cellulitis of labia Allergies Active Allergy Reactions Severity Noted Date Comments Adhesive Tape Low 07/30/2020 Other reaction(s): Rash Bee Venom Anaphylaxis High 10/16/2010 Latex Low 07/30/2020 Other reaction(s): Rash Omeprazole High 04/10/2020 Pseudoephedrine Nausea/vomiting,Unkn ow n Low 02/01/2019 Vancomycin High 07/31/2020 Other reaction(s): Redness of Skin; Umm Syndrome Wound Dressing Adhesive 07/30/2020 documented as of this encounter (statuses as of 06/01/2023) Medications Medication Sig Dispensed Refills Start Date End Date Status Sertraline HCl 50 MG Oral Tablet (Zoloft)Indicati ons:Depression during in third trimester Take by mouth [...] 03/19/2023 Active Folic Acid 1 MG Oral TabletIndication s:Folic acid deficiency Take 1 Tablet by mouth in the morning. 90 Tablet 1 04/11/2023 Active B-12 1000 MCG Oral TabletIndication s:B12 deficiency Take 1 Tablet by mouth daily. 90 Tablet 1 04/18/2023 Active Vitamin D 25 MCG (1000 UT) Oral TabletIndication s:Vitamin D deficiency Take 1 Tablet by mouth daily. 90 Tablet 1 04/18/2023 Active Meloxicam 15 MG Oral TabletIndication s:Acute midline low back pain without sciatica Take 1 Tablet by mouth in the morning. for pain.. 30 Tablet 5 06/01/2023 Active Doxycycline Hyclate 100 MG Oral CapsuleIndicatio ns:Cellulitis of labia Take 1 Capsule by mouth in the morning and 1 Capsule before bedtime. Do all this for 10 days. Until gone.. 20 Capsule 0 06/01/2023 3 Active Pantoprazole Sodium 20 MG Oral Tablet Delayed Release (Protonix) Take 1 Tablet by mouth in the morning. 90 Tablet 3 03/19/2023 3 Discontinued documented as of this encounter (statuses as of 06/01/2023) Active Problems Problem Noted Date Gastroesophageal reflux [...] as of this encounter (statuses as of 06/01/2023) Resolved Problems Problem Noted Date Resolved Date [...] 35 weeks, 0 days. Seeing MFM. Discontinuing [place] due to significant side effects. Discussed with Dr. Lopez and he agrees. Recommended vaginal progesterone - patient declines. Discussed other options with [facility] [place] and no additional options. Patient aware. Last Assessment & Plan: Patient is taking [place]. Elevated LFTs 09/22/2021 06/24/2022 Overview: Elevated LFT on 09/22/2021. Repeat CMP - LFTs within normal limits on 11/12/2021. Last Assessment & Plan: Advise repeat LFT and referral to divisional merchandising manager if continued elevations. BMI 38.0-38.9,adult 09/22/2021 06/24/2022 [...] Qnatal low risk. Declines MSAFP testing. Seeing [facility] for anatomy ultrasound. Doing the following lab [...] 35 weeks, 0 days on 05/07/2021. Discontinuing [place] due to significant side effects. Discussed with [...] as of this encounter (statuses as of 06/01/2023) Immunizations Name Administration Dates Next Due COVID-19 [...] Sign Reading Time Taken Comments Blood Pressure 104/60 06/01/2023 10:36 AM EDT Pulse 93 06/01/2023 10:36 AM EDT Temperature 35.8 C (96.4 F) 06/01/2023 1 0:36 AM EDT Respiratory Rate 18 06/01/2023 10:3 6 AM EDT Oxygen Saturation 98% 06/01/2023 10: 36 AM EDT Inhaled Oxygen Concentration - - Weight 110.8 kg (244 lb 3.2 oz) 023 10:36 AM EDT Height - - Body Mass Index 38.25 05/07/2023 11:38 AM EDT documented in this encounter Functional Status [...] as of this encounter Progress Notes * Natalie Dye PA-C - 06/01/2023 10:43 AM EDT Images from the original note were not included. History of Present Illness Kiki Saldaña is a 22 year old female that presents for Acute (Swollen ankles and back pain onright side./Boil on vagina ) Here for a few issues. Has a boil on her vagina. She just noticed it yesterday. Very painful. She is not sure if it is open. Hurts to sit. Not making her sick, no fever or chills. This is on her R side. Some ankle swelling as well. Her legs swell. Has ankle compression socks she wears but cannot wear the taller ones as they squeeze her legs too mcuh. When her legs swell, it gets tight. Mom has significant lymphedema. Her R side back is starting to hurt. Has herniated disc. Pain was R sided but now starting to hurt all over. When using proper body mechanics it hurts. Taking IB and es tylenol. Component Latest Ref Rng 04/07/2023 BUN 6 - 20 mg/dL 13 Creatinine 0.5 - 1.0 mg/dL 0.9 Estimated Glomerular Filtration Rate >=60 mL/min >90 Sodium 135 - 146 mmol/L 140 Potassium 3.5 - 5.1 mmol/L 4.6 Chloride 98 - 107 mmol/L 106 CO2 22 - 32 mmol/L 22 Anion Gap 7 - 15 mmol/L 12 Glucose 70 - 120 mg/dL 93 Albumin 3.8 - 5.0 g/dL 4.3 AST 10 - 35 U/L 16 Alkaline Phosphatase 35 - 130 U/L 51 Bilirubin, Total <=1.2 mg/dL 0.3 Calcium 8.4 - 10.2 mg/dL 9.6 Protein 6.0 - 8.3 g/dL 6.9 ALT 10 - 35 U/L 21 Physical Exam Vitals: 06/01/23 1036 Temp: 35.8 C (96.4 F) Pulse: 93 Resp: 18 SpO2: 98% BP: 104/60 BP Readings from Last 3 Encounters: 06/01/23 104/60 05/07/23 100/70 04/07/23 108/76 Wt Readings from Last 3 Encounters: 06/01/23 110.8 kg (244 lb 3.2 oz) 05/07/23 110.2 kg (243 lb) 04/07/23 111.9 kg (246 lb 12.8 oz) BMI Readings from Last 3 Encounters: 06/01/23 38.25 kg/m 05/07/23 38.06 kg/m 04/07/23 38.65 kg/m Ht Readings from Last 3 Encounters: 05/07/23 1.702 m (5' 7") 04/07/23 1.702 m (5' 7") 02/03/23 1.702 m (5' 7") General: alert, healthy and no distress Head: Normocephalic, No masses, lesions, tenderness or abnormalities Heart: regular rate & rhythm, no murmur, no gallops, S-1 normal and S-2 normal Lungs: chest symmetric with normal AP diameter, no chest deformities noted, no chest wall tenderness, lungs clear to auscultation Extremities: less than 2 second capillary refill, no joint deformities, effusion, or inflammation Skin: skin color, texture, turgor are normal, R labia small 1 cm draining abscess on labia majora, no surrounding erythema Assessment and Plan Leg edema (Primary) - DURABLE MEDICAL EQUIPMENT - compressions socks - low compression Acute midline low back pain without sciatica - XR L SPINE AP AND LATERAL - Meloxicam 15 MG Oral Tablet; Take 1 Tablet by mouth in the morning. for pain.. Discussion with patient of risk and benefit of medication. also discussion of common side affects. patient counseled and is aware and wishes to purse this medication, agrees to call with any issues or concerns. Cellulitis of labia - Doxycycline Hyclate 100 MG Oral Capsule; Take 1 Capsule by mouth in the morning and 1 Capsule before bedtime. Do all this for 10 days. Until gone.. Warm compresses Wrap-Up hold IB, cont tylneol Need images from [facility] compression socks Time: I spent a total of 10-19 minutes (exact time 19 mins) on the date of service in preparation, delivery, and documentation of the care provided to Quique Saldaña excluding any time spent in the performance of separately billed services. Natalie Dye PA-C 06/01/2023 10:53 AM documented in this encounter Nursing Notes * Madiha Jolley LPN - 06/01/2023 10:34 AM EDT Chief Complaint Patient presents with Acute Swollen ankles and back pain on right side. Boil on vagina documented in this encounter Plan of Treatment Upcoming Encounters Date Type Specialty Care Team Description 07/20/2023 Office Visit Gastroenterology Leonor Agrawal CRNP [address] [place] [address] 07/30/2023 Office Visit Gastroenterology Patricia Black PA-C [address] [place] [address] 02/07/2024 Office Visit Endocrinology Anthony Wu MD [address] [place] [address] Scheduled Orders Name Type Priority Associated Diagnoses Orde r Schedule XR L SPINE AP AND LATERAL Medical Imaging Routine Acute midline low back pain without sciatica Ordered: 06/01/2023 Scheduled Procedures Name Priority Associated Diagnoses Date/Ti [...] as of this encounter Visit Diagnoses Diagnosis Leg edema- Primary Edema Acute midline low back pain without sciatica Cellulitis of labia Vaginitis and vulvovaginitis, unspecified documented in this encounter Advance Directives Latest Code Status on File Code Status Date Activated Date Inactivated Comments Full Code 05/19/2022 7:17 PM 05/21/2022 10:56 PM This order reflects the patients wishes and were consensually agreed upon. Care Teams Plastic Press Operator Relationship Specialty Start Date End Date Gustavo Ag MD [address] [place] [address] PCP - General Family Medicine 12/08/18 documented as of this encounter
--- OUTSIDE RECORDS SUMMARY | 2023-10-31 09:00 | External Medical Summary | Summary of Care ---
Author Name Unknown Organization [facility] Address [address] [facility] [address] Phone [phone] Care Team Providers Care Cephalometric Tracer Name Role Phone Gustvao Ag MD Primary Care Provider +1- [phone] Reason for Visit * Reason Onset Date Comments Other 07/30/2023 Encounter Details Date Type Department Care Team Description 07/30/2023 Telephone Nutrition & Weight Management, [facility] [address] [place] [address] Patricia Black PA-C [address] [place] [address] Other Allergies Active Allergy Reactions Severity Noted Date Comments Adhesive Tape Low 07/30/2020 Other reaction(s): Rash Bee Venom Anaphylaxis High 10/16/2010 Latex Low 07/30/2020 Other reaction(s): Rash Omeprazole High 04/10/2020 Pseudoephedrine Nausea/vomiting,Unkn ow n Low 02/01/2019 Vancomycin High 07/31/2020 Other reaction(s): Redness of Skin; Umm Syndrome Wound Dressing Adhesive 07/30/2020 documented as of this encounter (statuses as of 08/02/2023) Medications Medication Sig Dispensed Refills Start Date [...] mouth daily. 90 Tablet 1 04/18/2023 Active Contrave 8-90 MG Oral Tablet Extended Release 12 Hour (Naltrexone-buPROPi on HCl ER)Indications:Clas s 2 severe obesity due to excess calories with serious comorbidity and body mass index (BMI) of 35.0 to 35.9 in adult Take one tab by mouth in am x 1 week, then one tab twice daily x 1 week, then two tabs in am and 1 tab in pm x 1 week, then two tabs twice daily 120 Tablet 3 07/30/2023 Active documented as of this encounter (statuses as of 08/02/2023) Active Problems Problem Noted Date Gastroesophageal reflux [...] as of this encounter (statuses as of 08/02/2023) Resolved Problems Problem Noted Date Resolved Date [...] Last Assessment & Plan: Patient is taking [place]. Elevated LFTs 09/22/2021 06/24/2022 Overview: Elevated LFT on 09/22/2021. Repeat CMP - LFTs within normal limits on 11/12/2021. Last Assessment & Plan: Advise repeat LFT and referral to gel coater if continued elevations. BMI 38.0-38.9,adult 09/22/2021 06/24/2022 [...] as of this encounter (statuses as of 08/02/2023) Immunizations Name Administration Dates Next Due COVID-19 [...] Encounter - Cristiana Sher LPN - 08/02/2023 3:24 PM EDT [facility] no longer covering Contrave as it is no longer rebatable. * Telephone Encounter - Kirsten Poole RN - 07/30/2023 4:14 PM EDT Pt calling in. Reports her pharmacy said her contrave will be $600. I told her I would call the pharmacy to see if it was flagging for a PA. I Called her pharmacy it is flagging for a PA documented in this encounter Plan of Treatment Upcoming Encounters Date Type Specialty Care Team Description 09/24/2023 Office Visit Gastroenterology Leonor Agrawal CRNP [address] [place] [address] 01/17/2024 Office Visit Gastroenterology Patricia Black PA-C [address] [place] [address] 02/07/2024 Office Visit Endocrinology Anthony Wu MD [address] [place] [facility] [place] [address] Scheduled Procedures Name Priority Associated Diagnoses [...] and were consensually agreed upon. Care Teams Cephalometric Tracer Relationship Specialty Start Date End Date Gustavo Ag MD [address] [place] [address] PCP - General Family Medicine 12/08/18 documented as of this encounter
--- OUTSIDE RECORDS SUMMARY | 2023-10-31 09:00 | External Medical Summary | Summary of Care ---
Author Name Unknown Organization [facility] Address [address] [place] [place] [place] [address] Phone [phone] Care Team Providers Care Piercing Mill Operator Name Role Phone Gustavo Ag MD Primary Care Provider +1- [phone] Reason for Visit * Reason Onset Date Comments Advice 07/09/2023 Requesting to sp milagrosk w/ nurse Encounter Details Date Type Department Care Team Description 07/09/2023 Telephone [facility] [address] [place] [address] Gustavo Ag MD [address] [place] [address] Advice (Requesting to speak w/ nurse) Allergies Active Allergy Reactions Severity Noted Date Comments Adhesive Tape Low 07/30/2020 Other reaction(s): Rash Bee Venom Anaphylaxis High 10/16/2010 Latex Low 07/30/2020 Other reaction(s): Rash Omeprazole High 04/10/2020 Pseudoephedrine Nausea/vomiting,Unkn ow n Low 02/01/2019 Vancomycin High 07/31/2020 Other reaction(s): Redness of Skin; Umm Syndrome Wound Dressing Adhesive 07/30/2020 documented as of this encounter (statuses as of 07/09/2023) Medications Medication Sig Dispensed Refills Start Date [...] 1 04/18/2023 Active Meloxicam 15 MG Oral TabletIndications:A cute midline low back pain without sciatica Take 1 Tablet by mouth in the morning. for pain.. 30 Tablet 5 06/01/2023 Active Amoxicillin-Pot Clavulanate 875-125 MG Oral Tablet (Augmentin) Take 1 Tablet by mouth in the morning and 1 Tablet before bedtime. Do all this for 10 days. 20 Tablet 0 07/09/2023 07/19/2023 Active documented as of this encounter (statuses as of 07/09/2023) Active Problems Problem Noted Date Gastroesophageal reflux disease without esophagitis 02/01/2023 Food insecurity 04/06/2022 Overview: Per [facility] Protocol Iron deficiency anemia 03/26/2022 Anemia of 03/26/2022 Globus sensation 05/06/2020 Hematuria 07/30/2017 Irritable bowel syndrome with both const ipation and diarrhea 05/11/2017 Class 2 obesity without seri ous comorbidity with body mass index (BMI) of 37.0 to 37.9 in adult 08/24/2016 LEARNING DISABILITY 11/11/2009 documented as of this encounter (statuses as of 07/09/2023) Resolved Problems Problem Noted Date Resolved Date [...] 35 weeks, 0 days. Seeing MFM. Discontinuing Kirkpatrick due to significant side effects. Discussed with [...] Plan: Advise repeat LFT and referral to giving officer if continued elevations. BMI 38.0-38.9,adult 09/22/2021 06/24/2022 [...] 35 weeks, 0 days on 05/07/2021. Discontinuing Kirkpatrick due to significant side effects. Discussed with [...] as of this encounter (statuses as of 07/09/2023) Immunizations Name Administration Dates Next Due COVID-19 [...] Formulation 08/25/2022,09/15/2021,08/31/2019,08/12,07/18/2013,07/16/2011,07/28/2010 ,08/14/2009 Seasonal Influenza, PF, 6 mo ns & Above, IM , (Flulaval) 08/25/2022,09/15/2021,08/12/2018 Seasonal Influenza, Quadriva lent, No Preserve, [...] encounter Miscellaneous Notes * Telephone Encounter - Gustavo Ag MD - 07/09/2023 4:46 PM EDT noted * Telephone Encounter - Latoya Lee LPN - 07/09/2023 1:53 PM EDT Provider to address: Pt is calling and states that she sat down on the ground and felt something, when getting up pt realized there was a mole there and it but the back of her left thigh. Pt's does not see any broken skin but is red where she was bit. Is asking what she should do? Called PCP office, spoke with Alis. Advised urgent care if pt is concerned about the bite site and since it is red pt should be seen. Made pt aware and will comply. Will have bite evaluated. I Reason for Call: Advice (Requesting to speak w/ nurse) Contact: Telephone Call Contact Type: Care Coordination Total Time including non face to face (minutes): 10 * Telephone Encounter - MIMA Padilla - 07/09/2023 1:51 PM EDT Reason for patient's call: Requesting to speak w/ nurse. Will not elaborate. Caller was transferred to [facility] at the nurse line. documented in this encounter Plan of Treatment Upcoming Encounters Date Type Specialty Care Team Description 07/30/2023 Office Visit Gastroenterology Patricia Black PA-C [address] [place] [address] 09/24/2023 Office Visit Gastroenterology Leonor Agrawal CRNP [address] [place] [address] 02/07/2024 Office Visit Endocrinology Anthony Wu MD [address] [facility] [place] [address] Scheduled Procedures Name Priority Associated Diagnoses [...] and were consensually agreed upon. Care Teams Piercing Mill Operator Relationship Specialty Start Date End Date Gustavo Ag MD [address] [place] [address] PCP - General Family Medicine 12/08/18 documented as of this encounter
--- OUTSIDE RECORDS SUMMARY | 2023-10-31 09:00 | External Medical Summary | Summary of Care ---
Author Name Unknown Organization [facility] Address [address] [address] Phone [phone] Care Team Providers Care Cardiac Care Nurse Name Role Phone Gustavo Ag MD Primary Care Provider +1- [phone] Reason for Visit * Reason Onset Date Comments Other 07/30/2023 Encounter Details Date Type Department Care Team Description 07/30/2023 Telephone Nutrition & Weight Management, [facility] [address] [place] [address] Patricia Black PA-C [address] [place] [address] Other Allergies Active Allergy Reactions Severity Noted Date Comments Adhesive Tape Low 07/30/2020 Other reaction(s): Rash Bee Venom Anaphylaxis High 10/16/2010 Latex Low 07/30/2020 Other reaction(s): Rash Omeprazole High 04/10/2020 Pseudoephedrine Nausea/vomiting,Unkn ow n Low 02/01/2019 Vancomycin High 07/31/2020 Other reaction(s): Redness of Skin; Umm Syndrome Wound Dressing Adhesive 07/30/2020 documented as of this encounter (statuses as of 08/03/2023) Medications Medication Sig Dispensed Refills Start Date End Date Status Sertraline HCl 50 MG Oral Tablet (Zoloft)Indicatio ns:Depression during in third trimester Take by mouth [...] 03/19/2023 Active Folic Acid 1 MG Oral TabletIndications :Folic acid deficiency Take 1 Tablet by mouth in the morning. 90 Tablet 1 04/11/2023 Active B-12 1000 MCG Oral TabletIndications :B12 deficiency Take 1 Tablet by mouth daily. 90 Tablet 1 04/18/2023 Active Vitamin D 25 MCG (1000 UT) Oral TabletIndications :Vitamin D deficiency Take 1 Tablet by mouth [...] late afternoon) 30 Tablet 4 08/03/2023 Active Contrave 8-90 MG Oral Tablet Extended Release 12 Hour (Naltrexone-buPRO Pion HCl ER)Indications:Cl ass 2 severe obesity due to excess calories with serious comorbidity and body mass index (BMI) of 35.0 to 35.9 in adult Take one tab by mouth in am x 1 week, then one tab twice daily x 1 week, then two tabs in am and 1 tab in pm x 1 week, then two tabs twice daily 120 Tablet 3 07/30/2023 3 Discontinue d(Medicatio n List Clean Up) documented as of this encounter (statuses as of 08/03/2023) Active Problems Problem Noted Date Gastroesophageal reflux [...] as of this encounter (statuses as of 08/03/2023) Resolved Problems Problem Noted Date Resolved Date [...] Last Assessment & Plan: Patient is taking [place]. Elevated LFTs 09/22/2021 06/24/2022 Overview: Elevated LFT on 09/22/2021. Repeat CMP - LFTs within normal limits on 11/12/2021. Last Assessment & Plan: Advise repeat LFT and referral to manager costing if continued elevations. BMI 38.0-38.9,adult 09/22/2021 06/24/2022 [...] referral made. Supervision of high-risk [facility] 09/22/2021 06/24/2022 Overview: Estimated Date of Delivery: 05/26/2022. Continue vitamin. O positive. Rubella immune. Varicella not immune. Qnatal low risk. Declines MSAFP testing. Seeing [facility] for anatomy ultrasound. Doing the following lab work on 03/18/2022: CBC, type and screen and three hour glucose test. Tdap vaccine completed on 04/29/2022. GBS culture - Negative. Completed COVID-19 vaccine. Completed influenza vaccine. contraception: IUD immediately . Desires to bottle feed. Last Assessment & Plan: We discussed common symptoms of second pregnancies. We discussed use of the [employer] Chart Alexi to communicate with providers. History [...] as of this encounter (statuses as of 08/03/2023) Immunizations Name Administration Dates Next Due COVID-19 [...] as of this encounter Miscellaneous Notes * Addendum Note - Patricia Black PA-C - 08/03/2023 8:04 AM EDTAddended by: PATRICIA BLACK on: 08/03/2023 08:04 AM Modules accepted: Orders * Telephone Encounter - Cristiana Sher LPN [...] Office Visit Gastroenterology Leonor Agrawal CRNP [address] [facility] [place] [address] 01/17/2024 Office Visit Gastroenterology Patricia Black PA-C [address] [place] [address] 02/07/2024 Office Visit Endocrinology Anthony Wu MD [address] [place] [address] Scheduled Procedures Name Priority Associated [...] and were consensually agreed upon. Care Teams Cardiac Care Nurse Relationship Specialty Start Date End Date Gustavo Ag MD [address] [place] [address] PCP - General Family Medicine 12/08/18 documented as of this encounter
--- OUTSIDE RECORDS SUMMARY | 2023-10-31 09:00 | External Medical Summary | Summary of Care ---
Author Name Unknown Organization [facility] Address [address] [place] [address] Phone [phone] Care Team Providers Care Insurance Counselor Name Role Phone Gustavo Ag MD Primary Care Provider +1- [phone] Encounter Details Date Type Department Care Team Description 01/17/2019 Hospital Encounter Radiology Film File [address] [place] [address] Allergies Active Allergy Reactions Severity Noted Date Comments Adhesive Tape Low 07/30/2020 Other reaction(s): Rash Bee Venom Anaphylaxis High 10/16/2010 Latex Low 07/30/2020 Other reaction(s): Rash Omeprazole High 04/10/2020 Pseudoephedrine Nausea/vomiting,Unkn ow n Low 02/01/2019 Vancomycin High 07/31/2020 Other reaction(s): Redness of Skin; Umm Syndrome Wound Dressing Adhesive 07/30/2020 documented as of this encounter (statuses as of 06/04/2023) Medications No known medicationsdocumented as of this encounter (statuses as of 06/04/2023) Active Problems Problem Noted Date Gastroesophageal reflux [...] as of this encounter (statuses as of 06/04/2023) Resolved Problems Problem Noted Date Resolved Date [...] 35 weeks, 0 days. Seeing MFM. Discontinuing [place] due to significant side effects. Discussed with [...] Plan: Advise repeat LFT and referral to vba developer if continued elevations. BMI 38.0-38.9,adult 09/22/2021 06/24/2022 [...] Qnatal low risk. Declines MSAFP testing. Seeing [facility] for anatomy ultrasound. Doing the following lab [...] 35 weeks, 0 days on 05/07/2021. Discontinuing [place] due to significant side effects. Discussed with [...] as of this encounter (statuses as of 06/04/2023) Immunizations Name Administration Dates Next Due DTaP - Dipth/Tet/Acell Pertussis 006,01/19/2002,04/18/2001,02/14,2000 H1N1 2009 Influenza, IM 09/30/2009,08/26/2009 H1N1 2009 Influenza, Intranasal 09/30/2009,08/29 HIB 4 dose (Acthib) 10/20/2001,02/14/2001,2000 HPV Vaccine, 4-Valent 07/18/2013,06/16/2012,11/25 Haemophilus B (HIB) 10/20/2001,02/14/2001,2000 Hepatitis B, 0-19 yrs 10/20/2001,02/14/2001,11/26 IPV - Polio Virus Vaccine (Inact) 2005,10/20/2001,02/14/2001,12/16 MMR - Measles/Mumps/Rubella Vaccine 10/28/2005,1 2000 Meningococcal Conjugate Vacc ine (Menactra/Menveo) 02/28/2018,12/09/2011 Meningococcal MCV4P Conjugat e Vaccine (Menactra) 02/28/2018,12/09/2011 PPD 12/14/2018, 9,10/20/2017,10/11 Pneumococcal Conjugate Vacci ne, 7 Valent 03/27/2002,04/18/2001,02/14/2001,12/16 Seasonal Influenza Virus Vac cine, Unspecified Formulation 08/12/2018,07/18/2013,07/16/2011,07/28,08/14/2009 Seasonal Influenza, Quadriva lent, No Preserve, 6 Mons & Above, IM 08/12/2018 Seasonal Influenza, Split, I IV3, With Preserve, Inj 07/18/2013,07/16/2011,07/28/2010,08/14 TD - Tetanus/Diptheria (ADULT) 06/26/2011 TD, Preservative Free 06/26/2011 Varicella Vaccine (Chicken Pox) 01/18/2008,09/30 documented as of this encounter Social History Tobacco Use Types Packs/Day Years Used Date Smoking Tobacco: Never Smokeless Tobacco: Never Alcohol Use Standard Drinks/Week Comments No 0 (1 standard drink = 0.6 oz pur e alcohol) Food Insecurity Answer Date Recorded Within the [...] file Not on file Not on file COVID-19 Exposure Response Date Recorded In the last month, have you been in contact with someone who was confirmed or suspected to have Coronavirus / COVID-19? Unable to assess 06/28/2020 11:25 AM EDT documented as of this encounter Functional Status [...] Agrawal CRNP [address] [place] [address] 07/30/2023 Office Visit Gastroenterology Patricia Black PA-C [address] [place] [address] 02/07/2024 Office Visit Endocrinology Anthony Wu MD [address] [place] [address] Scheduled Procedures Name Priority Associated [...] Procedure Name Priority Date/Time Associated Diagnosis Comments RADIOLOGY EXAM - MRI (IMAGES ONLY, NO REPORT) Routine 01/17/2019 5:20 PM EDT documented in this encounter Results * RADIOLOGY EXAM - MRI (IMAGES ONLY, NO REPORT) (01/17/2019 5:20 PM EDT) 01/17/2019 5:18 PM EDT Narrative Scheduling, [place]ent - 06/03/2023 9:20 AM EDT This is an imaging study not interpreted or resulted by a [facility]. Natalie Dye PA-C RAD MRI-MRA documented in this encounter Advance Directives Latest Code Status on File Code Status Date Activated Date Inactivated Comments Full Code 05/19/2022 7:17 PM 05/21/2022 10:56 PM This order reflects the patients wishes and were consensually agreed upon. Care Teams Insurance Counselor Relationship Specialty Start Date End Date Gustavo Ag MD [address] [place], [place] [id number] PCP - General Family Medicine 12/08/18 documented as of this encounter
--- OUTSIDE RECORDS SUMMARY | 2023-10-31 09:00 | External Medical Summary | Summary of Care ---
Author Name Unknown Organization [facility] Address [address] [facility] [address] Phone [phone] Care Team Providers Care Sander And Buffer Name Role Phone Gustavo Ag MD Primary Care Provider +1- [phone] Reason for Visit * Reason Onset Date Comments Other 07/30/2023 Encounter Details Date Type Department Care Team Description 07/30/2023 Telephone Nutrition & Weight Management, [facility] [address] [place] [address] Patricia Black PA-C [address] [place] [address] Other Allergies Active Allergy Reactions Severity Noted [...] Last Assessment & Plan: Patient is taking [place]. Elevated LFTs 09/22/2021 06/24/2022 Overview: Elevated LFT on 09/22/2021. Repeat CMP - LFTs within normal limits on 11/12/2021. Last Assessment & Plan: Advise repeat LFT and referral to completions manager if continued elevations. BMI 38.0-38.9,adult 09/22/2021 [...] encounter Miscellaneous Notes * Telephone Encounter - Kirsten Poole RN [...] Agrawal CRNP [address] [place] [address] 01/17/2024 Office Visit Gastroenterology Patricia Black PA-C [address] [place] [address] 02/07/2024 Office Visit Endocrinology Anthony Wu MD [address], [place] [phone] Scheduled Procedures Name Priority Associated Diagnoses Date/Ti [...] and were consensually agreed upon. Care Teams Sander And Buffer Relationship Specialty Start Date End Date Gustavo Ag MD [address] [place] [address] PCP - General Family Medicine 12/08/18 documented as of this encounter
--- OUTSIDE RECORDS SUMMARY | 2023-10-31 09:00 | External Medical Summary | Summary of Care ---
Author Name Unknown Organization [facility] Address [address] [place] [address] Phone [phone] Care Team Providers Care Heel Slugger Name Role Phone Gustavo Ag MD Primary Care Provider [phone]- [phone] Reason for Visit * Reason Comments Weight Management Diet, exercise, and medications * Evaluate & Treat - Unlimited Visits (Within 10 days (routine)) - Authorized Specialty Diagnoses / Procedures Referred By Contact Referred To Contact GI NUTRITION/IM / Gastroenterology Diagnoses Class 2 obesity due to excess calories without serious comorbidity with body mass index (BMI) of 38.0 to 38.9 in adult Sheeba Stapleton PA-C [address] [place], [place] [id number] Referral ID Status Reason Start Date Expiration Date Visits Requested Visits Authorized [id number] Authorized Specialty Services Required 04/07/[phone] Encounter Details Date Type Department Care Team Description 07/30/2023 Office Visit Nutrition & Weight Management, [facility] [address] [place] [address] Patricia Black PA-C [address] [place] [address] Class 2 severe obesity due to excess calories with serious comorbidity and body mass index (BMI) of 35.0 to 35.9 in adult *; Abnormal weight gain; Gastroesophageal reflux disease without esophagitis; Palpitations; Irritable bowel syndrome with both constipation and diarrhea Allergies Active Allergy Reactions Severity Noted Date Comments Adhesive Tape Low 07/30/2020 Other reaction(s): Rash Bee Venom Anaphylaxis High 10/16/2010 Latex Low 07/30/2020 Other reaction(s): Rash Omeprazole High 04/10/2020 Pseudoephedrine Nausea/vomiting,Unkn ow n Low 02/01/2019 Vancomycin High 07/31/2020 Other reaction(s): Redness of Skin; Umm Syndrome Wound Dressing Adhesive 07/30/2020 documented as of this encounter (statuses as of 07/30/2023) Medications Medication Sig Dispensed Refills Start Date [...] twice daily 120 Tablet 3 07/30/2023 Active Meloxicam 15 MG Oral TabletIndications :Acute midline low back pain without sciatica Take 1 Tablet by mouth in the morning. for pain.. 30 Tablet 5 06/01/2023 3 Discontinue d(Medicatio n List Clean Up) documented as of this encounter (statuses as of 07/30/2023) Active Problems Problem Noted Date Gastroesophageal reflux [...] as of this encounter (statuses as of 07/30/2023) Resolved Problems Problem Noted Date Resolved Date [...] Plan: Advise repeat LFT and referral to field crop farming supervisor if continued elevations. BMI 38.0-38.9,adult 09/22/2021 06/24/2022 [...] second pregnancies. We discussed use of the [employer] to communicate with providers. History of premature rupture of membrane s (PPROM) 09/22/2021 06/24/2022 Overview: PPROM at 35 weeks, 0 days on 05/07/2021. Discontinuing Sydnee due to significant side effects. Discussed with Dr. Lopez and he agrees. Recommended vaginal progesterone - patient declines. Discussed with MF and no other available option. Patient aware. [...] as of this encounter (statuses as of 07/30/2023) Immunizations Name Administration Dates Next Due COVID-19 [...] Sign Reading Time Taken Comments Blood Pressure 127/61 07/30/2023 1:26 PM EDT Pulse 122 07/30/2023 1:26 PM EDT Temperature 36.6 C (97.9 F) 07/30/2023 1:26 PM ED T Respiratory Rate - - Oxygen Saturation 98% 07/30/2023 1:26 PM EDT Inhaled Oxygen Concentration - - Weight 106.9 kg (235 lb 9.6 oz) 07/30/2023 1:26 PM EDT Height 172.7 cm (5' 8") 07/30/2023 1:26 PM EDT Body Mass Index 35.82 07/30/2023 1:26 PM EDT documented in this [...] as of this encounter Progress Notes * Patricia Black PA-C - 07/30/2023 1:48 PM EDT COMPREHENSIVE WEIGHT MANAGEMENT CLINIC CONSULTATION INITIAL CONSULT Referring Physician: Sheeba Stapleton PA-C Nursing Notes: Vy Sierra LPN 07/30/23 1328 Signed Patient identified by name and date of . Chief Complaint Patient presents with Weight Management Diet, exercise, and medications Neck: 15inches Waist: 47inches Source of information: Patient Available records reviewed: Recent provider visits, Imaging, and Labs Reason for Referral: Weight Management. Quique Saldaña is a 22 year old patient with a past medical history for Patient Active Problem List Diagnosis Code LEARNING DISABILITY F81.89 Class 2 obesity without serious comorbidity with body mass index (BMI) of 37.0 to 37.9 in adult E66.9, Z68.37 Irritable bowel syndrome with both constipation and diarrhea K58.2 Hematuria R31.9 Globus sensation R09.A2 Iron deficiency anemia D50.9 Anemia of O99.019 Food insecurity Z59.41 Gastroesophageal reflux disease without esophagitis K21.9 who presents to the [facility] for further recommendations. HPI: The patient suffers from Class II obesity Patient is interested in the following treatment options for obesity: possible medication use. Previous Weight Management Interventions: The patient has tried weight loss in the past without significant technical mgr success. - Initial clinic visit 07/30/23. Weight 235 lbs Height 68" Body mass index is 35.82 kg/m. -program goal weight: Today's Visit 07/30/23 - Overall goal: 195lbs is goal weight - Wt hx: has always struggled - Highest wt as adult: 246lbs - Lowest wt as adult: 210lbs - Barriers: "go after junk food", bored eating - Family weight hx: parents struggle - 2 kids, youngest born April 2022 Wt Readings from Last 8 Encounters: 07/30/23 106.9 kg (235 lb 9.6 oz) 06/01/23 110.8 kg (244 lb 3.2 oz) 05/07/23 110.2 kg (243 lb) 04/07/23 111.9 kg (246 lb 12.8 oz) 03/19/23 109.7 kg (241 lb 14.4 oz) 02/03/23 108 kg (238 lb 3.2 oz) 02/01/23 107.2 kg (236 lb 4.8 oz) 01/05/23 107 kg (236 lb) Current Diet: Describes typical diet history/24 hr recall Breakfast: eggs, PB toast, yogurt. fruit Snacks: Cj espinosa&Ms. Jonas Marx its Lunch: pizza, hot dogs, chicken with peas or rice Snacks: Cj espinosa&Ms. Jonas Marx its Dinner: tacos, pasta, pizza Snacks: fruit Drinks: water, flavored water, 1 can of soda Restaurant meals: once a week Activity: ADL, [employer] - treadmill, stair stepper, machines Past Medical History Patient Active Problem List Diagnosis Code LEARNING DISABILITY F81.89 Class 2 obesity without serious comorbidity with body mass index (BMI) of 37.0 to 37.9 in adult E66.9, Z68.37 Irritable bowel syndrome with both constipation and diarrhea K58.2 Hematuria R31.9 Globus sensation R09.A2 Iron deficiency anemia D50.9 Anemia of O99.019 Food insecurity Z59.41 Gastroesophageal reflux disease without esophagitis K21.9 Glaucoma No Hypertension: No CAD: No Congestive heart failure No DVT/PE, clotting disorder: No Stroke: No Seizures: No Sleep Apnea: No Asthma: Yes COPD: No Patient denies personal or family history of medullary thyroid carcinoma. Patient denies personal or family history of multiple endocrine neoplasia syndrome type II Patient denies personal history of pancreatitis Diabetes: No GERD: Yes: Requiring medications: No History of nephrolithiasis: Yes, . Anxiety/Depression: Yes Past Surgical History: Procedure Laterality Date ANESTH, UPPER GI ENDOSCOPIC PROCS 03/28/2010 WNL including biopsies. Lactase low nl at a16.7 COLONOSCOPY W/ BIOPSY (RECTUM) 2009 WNL including biopsies COLONOSCOPY, DIAGNOSTIC (RECTUM) 07/27/2019 normal bx/COLONOSCOPY FLEXIBLE PROXIMAL DIAGNOSTIC performed by Daniella Correa MD at ENDOSCOPY [facility] ABDOMEN/PELVIS 07/15/2016 WNL other than hepatomegally and focal fatty liver changes EGD, FLEXIBLE, DIAGNOSTIC 07/27/2019 intestinal metaplasia, repeat 1 yr/ESOPHAGOGASTRODUODENOSCOPY (EGD), FLEXIBLE, TRANSORAL, DIAGNOSTIC performed by Daniella Correa MD at ENDOSCOPY [facility] EGD, FLEXIBLE, DIAGNOSTIC 04/24/2020 Ectopic gastric mucosa - injected / ESOPHAGOGASTRODUODENOSCOPY (EGD), FLEXIBLE, TRANSORAL, DIAGNOSTIC performed by Daniella Correa MD at ENDOSCOPY [facility] EGD, FLEXIBLE, DIAGNOSTIC 08/12/2020 mild gastric irritation on bx, repeat 5 yrs / ESOPHAGOGASTRODUODENOSCOPY (EGD), FLEXIBLE, TRANSORAL, DIAGNOSTIC performed by Daniella Correa MD at ENDOSCOPY [facility] EGD, FLEXIBLE, W/BIOPSY 2009 NM HEPATOBILIARY SYSTEM WITH PHARMACOLOGIC INTERVENTION 08/18/2016 Review of patient's allergies indicates: Allergen Reactions [...] Tablet by mouth daily. 90 Tablet 1 Contrave 8-90 MG Oral Tablet Extended Release 12 Hour (Naltrexone-buPROPion HCl ER) Take one tab bymouth in am x 1 week, then one tab twice daily x 1 week, then two tabs in am and 1 tab in pm x 1 week, then two tabs twice daily 120 Tablet 3 No current facility-administered medications for this visit. 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 Menstrual Cycle: Yes, regular Control: none, vasectomy Physical Examination: BP 127/61 | Pulse 122 | Temp 36.6 C (97.9 F) | Ht 1.727 m (5' 8") | Wt 106.9 kg (235 lb 9.6 oz)| LMP 07/08/2023 | SpO2 98% | BMI 35.82 kg/m | BSA 2.26 m General: Patient awake alert and oriented. Patient is well appearing and in no acute distress. Skin: No rashes. HEENT: Head is atraumatic, normocephalic. EOMs intact Abdomen: Obese Neuro: No focal deficits Psych: Appropriate mood and affect. Assessment and Recommendation: Abnormal weight gain Body mass index is 35.82 kg/m. Class II obesity. Discussed weight management options and would like to proceed with medication weight management. Barriers are consistency. Motivators are feeling better, avoiding/reducing comorbid conditions. Patient goals were discussed in detail at visit. Explained to the patient that they can lose on average ~5-10% of current weight with medical management, ~10-15% with medication use, and ~40-60% with bariatric surgery. Interest in surgery 0% Motivation to make behavioral and dietary changes 90% 1. Keep a food log. If you bite it, write it! Apps like [employer] or [employer] Calorie goal: 1800 Macronutrients: Protein 10%-35%, Carbohydrates 45%-65%, fat 20%-35% Lower carb: protein 35%, Carbohydrates 40%, fat 25% 2. Drink 48-64 ounces of non-caloric beverages per day. No fruit juices or regular soda Try crystal light, propel, zero calorie flavored water, plain water 3. Goal of 30 minutes of exercise 5 days per week (150 minutes per week--can be divided up however you would like) Aim for aerobic activity and muscle strengthening activities 4. Increase fruit and vegetable servings to 5-6 per day. 1/2 of your plate should be fruits and vegetables 5. Eat 100-200 calories within 1-2 hours of awakening, and every 4 - 6 hours while awake. Do not skip meals!! Eat 3 meals with snacks in between. Choose 100 calorie or less snacks, protein snacks (see handout) 7. Weight yourself weekly and follow trend over time (day to day weight fluctuations can be discouraging) 8. Decrease starches like bread, pasta, cereal, potatoes and corn. Aim for of your plate Try substitutions like zoodles, lentil pasta, cauliflower mashed potatoes, whole grain foods, quinoa Limit junk/processed foods Chips, pretzels, cookies, cakes, sweets White bread/rolls/wraps/bagels, white rice 9. Increase protein to feel full longer (1/4 of your plate; see myplate handout) Quique was seen today for weight management. Diagnoses and all orders for this visit: Class 2 severe obesity due to excess calories with serious comorbidity and body mass index (BMI) of35.0 to 35.9 in adult - Contrave 8-90 MG Oral Tablet Extended Release 12 Hour (Naltrexone-buPROPion HCl ER); Take one tabby mouth in am x 1 week, then one tab twice daily x 1 week, then two tabs in am and 1 tab in pm x 1week, then two tabs twice daily -start contrave -plan switch to wegovy -caution phentermine - not on contraception, palpitations, avoid topamax - hx kidney stones -add protein at breakfast Abnormal weight gain Gastroesophageal reflux disease without esophagitis -diet controlled Palpitations -caution phentermine Irritable bowel syndrome with both constipation and diarrhea -avoid xenical I spent a total of 40 minutes on the date of service in preparation, delivery, and documentation ofthe care provided to Bobbijo Agustina Saldaña excluding any time spent in the performance of separatelybilled services. Time spent with patient 35 minutes. More than 50% of my time spent with patient providing counseling about the benefits of weight loss, about the patient's nutritional status, detailed explanations about calorie count, types of nutrients to choose, and composition of the meals. Reviewed and discussed weight, weight trends and pertinent labs and test results. Motivational interview provided in order to prepare the patient to achieve future goals. The patient agreed to try all the plan discussed and return in three months. Patient was instructed to message or call in the meantime with any further concerns or questions. Patricia CHEN, MPH [facility] Nutrition and Weight Management [facility]) documented in this encounter Nursing Notes * Vy Sierra LPN - 07/30/2023 1:27 PM EDT Patient identified by name and date of . Chief Complaint Patient presents with Weight Management Diet, exercise, and medications Neck: 15inches Waist: 47inches documented in this encounter Plan of Treatment Upcoming Encounters Date Type Specialty Care Team Description 09/24/2023 Office Visit Gastroenterology Leonor Agrawal CRNP [address] [place] [address] 01/17/2024 Office Visit Gastroenterology Patricia Black PA-C [address] [place] [address] 02/07/2024 Office Visit Endocrinology Anthony Wu MD [address] [place] [address] Scheduled Procedures Name Priority Associated Diagnoses Date/Ti me ESOPHAGOGASTRODUODENOSCOPY ( EGD), FLEXIBLE, TRANSORAL, DIAGNOSTIC Recall Intestinal metaplasia of gastric mucosa Health Maintenance Due Date Last Done Comments Pap Smear 2021 Gonorrhea / Chlamydia Screen 03/27/202312/2021, 03/12/2022, 02/11/2022, Additional history exists COVID-19 Vaccine (3 season) 2023 10/27/2021, 09/29/2021 Influenza Vaccine (FLU [...] as of this encounter Visit Diagnoses Diagnosis Class 2 severe obesity due to excess calories with serious comorbidity and body mass index (BMI) of 35.0 to 35.9 in adult- Primary Abnormal weight gain Gastroesophageal reflux disease without esophagitis Esophageal reflux Palpitations Irritable bowel syndrome with both constipation and diarrhea documented in this encounter Advance Directives Latest Code Status on File Code Status Date Activated Date Inactivated Comments Full Code 05/19/2022 7:17 PM 05/21/2022 10:56 PM This order reflects the patients wishes and were consensually agreed upon. Care Teams Heel Slugger Relationship Specialty Start Date End Date Gustavo Ag MD [address], [place] [id number] PCP - General Family Medicine 12/08/18 documented as of this encounter
--- OUTSIDE RECORDS SUMMARY | 2023-10-31 09:00 | External Medical Summary | Summary of Care ---
Author Name Unknown Organization [facility] Address [address] [place] [address] Phone [phone] Care Team Providers Care Pump Runner Name Role Phone Gustavo Ag MD Primary Care Provider [phone]- [phone] Reason for Visit * Reason Comments Animal Bite Bite by a ground mol e Encounter Details Date Type Department Care Team Description 07/09/2023 [facility] [address] [facility] [address] [place] [address] Jeanine Fu PA-C [address] [facility] [place] [address] Animal bite* Allergies Active Allergy Reactions Severity Noted Date [...] Active Amoxicillin-Pot Clavulanate 875-125 MG Oral Tablet (Augmentin)Indicati ons:Animal bite Take 1 Tablet by mouth in the [...] 35 weeks, 0 days. Seeing MFM. Discontinuing Watson due to significant side effects. Discussed with [...] Plan: Advise repeat LFT and referral to slasher tender if continued elevations. BMI 38.0-38.9,adult 09/22/2021 06/24/2022 [...] 35 weeks, 0 days on 05/07/2021. Discontinuing Watson due to significant side effects. Discussed with [...] Sign Reading Time Taken Comments Blood Pressure 118/78 07/09/2023 2:45 PM EDT Pulse 78 07/09/2023 2:45 PM EDT Temperature 36.9 C (98.5 F) 07/09/2023 2:45 PM ED T Respiratory Rate - - Oxygen Saturation 98% 07/09/2023 2:45 PM EDT Inhaled Oxygen Concentration - - Weight - - Height - - Body Mass Index - - documented in this encounter Functional Status Functional [...] this encounter Patient Instructions * Patient Instructions* Jeanine Fu PA-C - 07/09/2023 3:01 PM EDT documented in this encounter Progress Notes * Jeanine Fu PA-C - 07/09/2023 2:55 PM EDT Quique Saldaña is a 22 year old female who presents with a mole bite on the left thigh from a wild mole. Animal is up to date on rabies vaccine? no Animal could not be captured. The service cleaner was not contacted. HPI: The bite occurred today at home. The animal was well-appearing and the bite was provoked. Current symptoms include: swelling and erythema Patient started self-treatment? No The last tetanus shot was less than 5 years ago. The patient's tetanus status is up to date. Patient was accompanied by Self. Constitutional: no fever, chills, sweats, or fatigue ROS: All others negative other than those noted in HPI HISTORY: Past Medical History: Diagnosis Date Abdominal pain ADHD BMI (body mass index), pediatric, 95-99% for age Depression Diarrhea Fatty liver disease, nonalcoholic Functional constipation GERD (gastroesophageal reflux disease) Follows with Gastroenterology, [facility] treatment 2019 effective Hepatomegaly Panic disorder Suicidal ideation Thyroid disease affecting 09/22/2021 Past Surgical History: Procedure Laterality Date ANESTH, UPPER GI ENDOSCOPIC PROCS 03/28/2010 WNL including biopsies. Lactase low nl at a16.7 COLONOSCOPY W/ BIOPSY (RECTUM) 2009 WNL including biopsies COLONOSCOPY, DIAGNOSTIC (RECTUM) 07/27/2019 normal bx/COLONOSCOPY FLEXIBLE PROXIMAL DIAGNOSTIC performed by Daniella Correa MD at ENDOSCOPY [facility] CT ABDOMEN/PELVIS 07/15/2016 WNL other than hepatomegally and focal fatty liver changes EGD, FLEXIBLE, DIAGNOSTIC 07/27/2019 intestinal metaplasia, repeat 1 yr/ESOPHAGOGASTRODUODENOSCOPY (EGD), FLEXIBLE, TRANSORAL, DIAGNOSTIC performed by Daniella Correa MD at ENDOSCOPY [facility] EGD, FLEXIBLE, DIAGNOSTIC 04/24/2020 Ectopic gastric mucosa - injected / ESOPHAGOGASTRODUODENOSCOPY (EGD), FLEXIBLE, TRANSORAL, DIAGNOSTIC performed by Daniella Correa MD at ENDOSCOPY [facility] EGD, FLEXIBLE, DIAGNOSTIC 08/12/2020 mild gastric irritation on bx, repeat 5 yrs / ESOPHAGOGASTRODUODENOSCOPY (EGD), FLEXIBLE, TRANSORAL, DIAGNOSTIC performed by Daniella Correa MD at ENDOSCOPY [facility] EGD, FLEXIBLE, W/BIOPSY 2009 NM HEPATOBILIARY SYSTEM [...] Tablet by mouth daily. 90 Tablet 1 Meloxicam 15 MG Oral Tablet Take 1 Tablet by mouth in the morning. for pain.. 30 Tablet 5 Amoxicillin-Pot Clavulanate 875-125 MG Oral Tablet (Augmentin) Take 1 Tablet by mouth in the morning and 1 Tablet before bedtime. Do all this for 10 days. 20 Tablet 0 No current facility-administered medications for this visit. [...] Gastro-intestinal disorder Other lactose intolerance OBJECTIVE: BP 118/78 | Pulse 78 | Temp 36.9 C (98.5 F) (Tympanic) | LMP 07/08/2023 | SpO2 98% General: alert, no distress, cooperative, comfortable HEENT: normocephalic, atraumatic, Supple without masses or lymphadenopathy, sclera and conjuctiva clear bl Heart: regular rate & rhythm, no murmurs and no gallops Lungs: no chest wall tenderness, lungs clear to auscultation Abdomen: abdomen soft, non-tender and normal bowel sounds Extremities: no edema, no clubbing, no cyanosis Neuro Exam: alert & oriented x 3 with fluent speech, no focal motor/sensory deficits, gait normal Skin: Exposed skin color, texture, turgor normal. Posterior thigh with many excoriations and open scratched comedones vs papules. No obvious bite wound ASSESSMENT/PLAN mole bite Called health department and cdc. Prophylaxis for rabies not indicated. To treat with prophylaxis. Animal bite (Primary) - Amoxicillin-Pot Clavulanate 875-125 MG Oral Tablet (Augmentin); Take 1 Tablet by mouth in the morning and 1 Tablet before bedtime. Do all this for 10 days. Patient instructed to go to the ER if significant worsening of redness or development of high fevers as would likely need IV antibiotics in that scenario. Patient instructed to contact Primary Care Provider if No improvement in 5 days or symptoms worsen. Contact [facility] if unable to reach Primary Care Provider. All required forms completed. Jeanine Fu PA-C [address] [address] documented in this encounter Nursing Notes * Hiwot Infante LPN - 07/09/2023 2:43 PM EDT Quique Saldaña is a 22 year old female who presents to walk-in clinic today complaining of Chief Complaint Patient presents with Animal Bite Bite by a ground mole Main Symptoms:upper L thigh, called her pcp and was told to come here Cause: ground mole How long: about 2pm Tried: no OTC medications Pt accompanied by: Self documented in this encounter Plan of Treatment Upcoming Encounters Date Type Specialty Care Team Description 07/30/2023 Office Visit Gastroenterology Patricia Black PA-C [address] [place] [address] 09/24/2023 Office Visit Gastroenterology SebLeonor shaikh CRNP [address] [place] [address] 02/07/2024 Office Visit Endocrinology Anthony Wu MD [address] [facility] [place] [address] Scheduled Procedures Name Priority Associated Diagnoses Date/Ti [...] as of this encounter Visit Diagnoses Diagnosis Animal bite- Primary Open wound(s) (multiple) of unspecified site(s), without mention of complication documented in this encounter Advance Directives Latest Code Status on File Code Status Date Activated Date Inactivated Comments Full Code 05/19/2022 7:17 PM 05/21/2022 10:56 PM This order reflects the patients wishes and were consensually agreed upon. Care Teams Pump Runner Relationship Specialty Start Date End Date Gustavo Ag MD [address] [facility] [place] [id number] PCP - General Family Medicine 12/08/18 documented as of this encounter
--- OUTSIDE RECORDS SUMMARY | 2023-10-31 09:00 | External Medical Summary | Summary of Care ---
Author Name Unknown Organization [facility] Address [address] [place] [address] Phone [phone] Care Team Providers Care Cashier Wrapper Name Role Phone Gustavo Ag MD Primary Care Provider [phone] Reason for Visit * Reason Comments Emergency Department Follow-Up Simmons on thumb and pointer finger left hand Encounter Details Date Type Department Care Team Description 05/07/2023 Office Visit [facility] [address] [place] [address] Ron Palacios MD [address] [place] [address] Second degree burn of finger of left hand, sequela* Allergies Active Allergy Reactions Severity Noted Date [...] Status Sertraline HCl 50 MG Oral Tablet (Zoloft)Indication s:Depression 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 X 2 weeks. Increasing to 1 tab daily therafter.. 90 Tablet 1 03/18/2022 Active Pantoprazole Sodium 20 MG Oral Tablet Delayed Release (Protonix) Take 1 Tablet by mouth in the morning. 90 Tablet 3 03/19/2023 Active Additional Information Patient not taking.Reported on 05/07/2023 Polyethylene Glycol 3350 17 GM/SCOOP Oral Powder (MiraLax) Take 17 g by mouth in the morning. One cap full in juice, to effect 1 stool per day. .. 1530 g 3 03/19/2023 Active Folic Acid 1 MG Oral TabletIndications: Folic acid deficiency Take 1 Tablet by mouth in the morning. 90 Tablet 1 04/11/2023 Active B-12 1000 MCG Oral TabletIndications: B12 deficiency Take 1 Tablet by mouth daily. 90 Tablet 1 04/18/2023 Active Vitamin D 25 MCG (1000 UT) Oral TabletIndications: Vitamin D deficiency Take 1 Tablet by mouth daily. 90 Tablet 1 04/18/2023 Active Mupirocin 2 % External Ointment (Bactroban)Indicat ions:Second degree burn of finger of left hand, sequela Apply topically to affected area 3 times a day for 14 days. To affected area for up to 14 days. 22 g 1 05/07/2023 05/21/2023 Active documented as of this encounter (statuses [...] 35 weeks, 0 days. Seeing MFM. Discontinuing [place] due to significant side effects. Discussed with [...] Plan: Advise repeat LFT and referral to nitro man if continued elevations. BMI 38.0-38.9,adult 09/22/2021 06/24/2022 [...] referral made. Supervision of high-risk , third formerly [facility] 09/22/2021 06/24/2022 Overview: Estimated Date of [...] current needs or questions 04/03/2021 Maria Eugenia Thronton RN 04/03/2021 Problem Action Taken Date entered [...] Sign Reading Time Taken Comments Blood Pressure 100/70 05/07/2023 11:38 AM EDT Pulse 76 05/07/2023 11:38 AM EDT Temperature - - Respiratory Rate 16 05/07/2023 11:38 AM EDT Oxygen Saturation - - Inhaled Oxygen Concentration - - Weight 110.2 kg (243 lb) 05/07/2023 11:38 AM EDT Height 170.2 cm (5' 7") 05/07/2023 11:38 AM EDT Body Mass Index 38.06 05/07/2023 11:38 AM EDT documented in this [...] as of this encounter Progress Notes * Ron Palacios MD - 05/07/2023 11:51 AM EDT Subjective: Quique Saldaña is a 22 year old female. Chief Complaint Patient presents with Emergency Department Follow-Up Simmons on thumb and pointer finger left hand HPI: 22-year-old is seen today because of a burn on her left 2nd finger. She sustained the injury taking a baking she out of the oven. She burnt the 2nd finger in the area of the proximal phalanx. She was seen in the emergency room later that evening. She was evaluated in the ER in told to use bacitracin on the wound. She has not had any fever. She still has discomfort. Patient Active Problem List Diagnosis Code LEARNING DISABILITY F81.89 Class 2 obesity without serious comorbidity with body mass index (BMI) of 37.0 to 37.9 in ofspcU85.9, Z68.37 Irritable bowel syndrome with both constipation and diarrhea K58.2 Hematuria R31.9 Globus sensation R09.89 Iron deficiency anemia D50.9 Anemia of O99.019 Food insecurity Z59.41 Gastroesophageal reflux disease without esophagitis K21.9 Current Outpatient Medications Medication Sig Dispense Refill [...] Tablet by mouth daily. 90 Tablet 1 Mupirocin 2 % External Ointment (Bactroban) Apply topically to affected area 3 times a day for 14 days. To affected area for up to 14 days. 22 g 1 Pantoprazole Sodium 20 MG Oral Tablet Delayed Release (Protonix) Take 1 Tablet by mouth in the morning. (Patient not taking: Reported on 05/07/2023) 90 Tablet 3 No current facility-administered medications for this visit. Review of patient's allergies indicates: Allergen Reactions Bee Sting [Bee Venom] Anaphylaxis Omeprazole Vancomycin Other reaction(s): Redness of Skin; Umm Syndrome Wound Dressing Adhesive Adhesive Tape Other reaction(s): Rash Latex Other reaction(s): Rash Pseudoephedrine Nausea/vomiting and Unknown Objective: BP 100/70 | Pulse 76 | Resp 16 | Ht 1.702 m (5' 7") | Wt 110.2 kg (243 lb) | BMI 38.06 kg/m | BSA2.28 m Physical Exam: SKIN: She has a second-degree burn with blistering in a linear fashion across the radial aspect of the proximal phalanx of the 2nd finger of her left hand. There is no evidence of lymphangitis. Thereis just a very slight amount of erythema right around the edge of the blister. ASSESSMENT/PLAN: Second degree burn of finger of left hand, sequela (Primary) - Mupirocin 2 % External Ointment (Bactroban); Apply topically to affected area 3 times a day for 14 days. To affected area for up to 14 days. Stopper bacitracin. She is instructed to seek ER evaluation if she notes red streaking up left handor arm. Ron Palacios MD documented in this encounter Nursing Notes * Elda Allen LPN - 05/07/2023 11:39 AM EDT The patient has been properly identified by confirmation of name and date of . Chief Complaint Patient presents with Emergency Department Follow-Up Simmons on thumb and pointer finger left hand documented in this encounter Plan of Treatment Upcoming Encounters Date Type Specialty Care Team Description 07/20/2023 Office Visit Gastroenterology Leonor Agrawal CRNP [address] [place] [address] 07/30/2023 Office Visit Gastroenterology Patricia Black PA-C [address] [place] [address] 02/07/2024 Office Visit Endocrinology Anthony Wu MD [address] [place] [address] Scheduled Procedures Name Priority Associated [...] as of this encounter Visit Diagnoses Diagnosis Second degree burn of finger of left hand, sequela- Primary documented in this encounter Advance Directives Latest Code Status on File Code Status Date Activated Date Inactivated Comments Full Code 05/19/2022 7:17 PM 05/21/2022 10:56 PM This order reflects the patients wishes and were consensually agreed upon. Care Teams Cashier Wrapper Relationship Specialty Start Date End Date Gustavo Ag MD [address], [place] [id number] PCP - General Family Medicine 12/08/18 documented as of this encounter
[2023-10-31] MEDS ORDERED: KETOROLAC TROMETHAMINE 15 MG/ML VIAL IV STA ×2 (09:28→12:36)
[2023-10-31] MEDS ORDERED: SODIUM CHLORIDE 0.9% 1,000 ML IV ONE ×2 (09:28→12:36)
[2023-10-31] MEDS ORDERED: ONDANSETRON INJ 2 MG/ML 2 ML VIAL IV STA ×2 (09:28→12:36)
[2023-10-31] MEDS ORDERED: ACETAMINOPHEN 1,000 MG/100 ML VIAL IV STA (09:28)
[2023-10-31 09:39] LABS: Appearance Urine Cloudy (Clear); Bacteria Urine Automated 1+ (Negative); Bilirubin Urine Negative (Negative); Blood Urine Trace (Negative); Color Urine Dark Yellow; Epithelial Cell Urine Auto >30 /lpf (0-5); Glucose Urine UA Negative (Negative); Ketones Urine Trace (Negative); Leukocyte Esterase Urine Negative (Negative); Nitrite Urine Negative (Negative); Protein Urine Negative (Negative); RBC Urine Automated 0-4 /hpf (0-4); Specific Gravity Urine 1.033 (1.000-1.030); Urobilinogen Urine Negative (Negative); pH Urine 5.5 (4.5-7.5)
--- NOTE | 2023-10-31 09:43 | Emergency Department Note ---
Impression & Plan Hydronephrosis, right, Ureterolithiasis, Acute right flank pain ED Provider Note NAME: AJ GOMEZ AGE: 23 SEX: F ARRIVES VIA: Walk-In INFORMANT: Patient ED PROVIDER(S): Veto Trammell MD CHIEF COMPLAINT: Right flank pain PLAN: Disposition: Admit MEDICAL DECISION MAKING: The patient is a pleasant 23-year-old woman with a past medical history of GERD, Avelar's esophagus, anxiety/depression, ADHD, IBS who presents to Emergency Department via walk-in accompanied by her mother for evaluation of acute onset right flank abdominal pain this morning with urinary urgency and frequency that been ongoing for the past couple of days. She reports associated nausea. She reports having pressure in her bladder. She denies blood in her urine or burning with urination. She denies fevers, chills, cough, congestion. On my evaluation the patient is uncomfortable no distress, afebrile stable vital signs. She appears clinically dry. She has mild right flank and right abdominal discomfort without discrete tenderness. WBC, H/H and platelets within limits. Chemistry without metabolic acidosis. Electrolytes LFTs unremarkable. Lipase not elevated. hCG negative. UA demonstrates ketones and 1+ bacteria albeit with epithelial cells present and no significant WBCs and negative nitrites. CT of the abdomen pelvis demonstrates a 5 mm stone within the distal right ureter with associated moderate right hydroureteronephrosis. Patient was initially with IV hydration, Toradol, APAP, Zofran and had some improvement however fluctuating symptoms, severe persisted. She was given additional treatment with Flomax and IV Toradol, and IV morphine following CT and her pain continued to be severe and so we agreed to proceed with referral to hospital service for admission for inpatient management and pain control and likely urology consultation. Case was discussed with Karrie Peacock, [facility] PAC, with Mo [facility] hospitalist who will evaluate the patient for admission. Triage Nursing notes reviewed and agree them. Prior/external medical records reviewed Vital Signs: reviewed Differential diagnosis: Renal colic, UTI, appendicitis, diverticulitis, mesenteric ischemia, aortic pathology, infections, inflammatory bowel disease, PUD, biliary pathology, as well as other pathologies. ER treatment provided: See below. Diagnostics interpreted by me: Cardiac Monitoring: An order for continuous cardiac monitoring was placed and demonstrated normal sinus rhythm, 72 bpm, no ectopy. Laboratory studies: See below Imaging studies: See below Consultation(s): Karrie Peacock, [facility], with Mo [facility] hospitalist. HPI: The patient is a pleasant 23-year-old woman with a past medical history of GERD, Avelar's esophagus, anxiety/depression, ADHD, IBS who presents to Emergency Department via walk-in accompanied by her mother for evaluation of acute onset right flank abdominal pain this morning with urinary urgency and frequency that been ongoing for the past couple of days. She reports associated nausea. She reports having pressure in her bladder. She denies blood in her urine or burning with urination. She denies fevers, chills, cough, congestion. ROS: See above HPI for pertinent positives & negatives. A total of 10 systems reviewed and were otherwise negative. VITALS:See Below PHYSICAL EXAMINATION: GENERAL: Awake, alert, uncomfortable-appearing, in no distress, BMI 35.2 HENT: Normocephalic, atraumatic. Oropharynx with dry mucous membranes and otherwise unremarkable. EYES: Normal conjunctiva. Sclera non-icteric. NECK: Supple. No nuchal rigidity. FROM. No JVD. RESPIRATORY: Clear to auscultation. CARDIAC: Regular rate, normal rhythm. Extremities warm and well perfused. Pulses equal. ABDOMEN: Soft, non-distended. Mild right flank and right abdominal discomfort without discrete tenderness to palpation. No rebound or guarding. No masses. RECTAL: Deferred. MUSCULOSKELETAL: Chest examination reveals no tenderness. The back is symmetrical on inspection without obvious abnormality. There is no CVA tenderness to palpation. No joint edema. LOWER EXTREMITIES: Calves are equal size bilaterally and non-tender. No edema. No discoloration. NEURO: Normal sensorium. No sensory or motor deficits noted. SKIN: No rash or jaundice noted. Veto Trammell MD Past Med/Surg History Medical History (Updated 10/31/23 @ 23:34 by Veto Trammell MD) Obesity (BMI 30-39.9) Premature labor Hypothyroidism History of bacteremia history of S. anginosus following dental procedure in May 2020 Barretts esophagus GERD (gastroesophageal reflux disease) Hx of sepsis 06/25/2020 FROM ROOT CANAL SURGERY Temporomandibular joint disorder Anxiety and depression IBS (irritable bowel syndrome) ADH disorder Surgical History History of colonoscopy History of esophagogastroduodenoscopy (EGD) H/O oral surgery Family History Grandmother (Paternal) Family history of diabetes mellitus Other Heart disease Social History Smoking Status: Never smoker Second Hand Exposure: Yes (significant other smokes); Do You Dip or Chew Tobacco: No; Hx Alcohol Use: No Hx Substance Use: No Preferred Language: Kiswahili Communication Ability: Effective Coat Finisher Required: No Beliefs That Will Affect Care: None marital status: Current Living Situation: Family Current Living Situation Comment: Lives with Mother, Father, and Chrissy, son Michele current occupational status: employed and student Feels Safe at Home: Yes Gender Identity: Female Assistive Devices: None Allergies Allergies Allergy/AdvReac Type Severity Reaction Status Date / Time bee venom protein (honey bee) Allergy Intermediate swelling Verified 03/11/22 23:06 adhesive tape Allergy Mild Rash Verified 03/11/22 23:06 latex Allergy Mild Rash Verified 03/11/22 23:06 pseudoephedrine Allergy Mild Vomiting, Verified 03/11/22 23:06 breathing difficulty vancomycin AdvReac Severe Redness of Verified 03/11/22 23:06 Skin omeprazole AdvReac Intermediate Vomiting Verified 03/11/22 23:06 and diarrhea Home Meds Home Medications Medication Instructions Recorded Confirmed cyanocobalamin (vitamin B-12) 1,000 mcg PO QAM 12/13/21 10/31/23 1,000 mcg tablet famotidine 20 mg tablet 20 mg PO DAILY PRN Heartburn 03/11/22 10/31/23 bupropion HCl 150 mg tablet,12 hr 150 mg PO BID 10/31/23 10/31/23 sustained-release metoprolol succinate 25 mg 12.5 mg PO DAILY 10/31/23 10/31/23 tablet,extended release 24 hr naltrexone 50 mg tablet 25 mg PO BID 10/31/23 10/31/23 sertraline 50 mg tablet 50 mg PO DAILY 10/31/23 10/31/23 Results & Data (ED) Vital Signs Vital Signs - 24 hr 10/31/23 09:06 10/31/23 09:31 10/31/23 09:55 Temperature 36.8 C Temperature Source Oral Pulse Rate 72 67 Pulse Rate [Apical] Respiratory Rate 18 Respiratory Effort / Characteristics Non-Labored Spontaneous Respiratory Depth Normal Respiratory Pattern Regular Blood Pressure 118/63 Blood Pressure [Right Arm] Blood Pressure Mean 81 Blood Pressure Mean [Right Arm] Pulse Oximetry 97 97 Oxygen Delivery Method Room Air Sepsis Recent Fever Within 48 Hours No Sepsis New/Unexplained Change in Mental Status No Sepsis Action Taken by Nursing No Action Required 10/31/23 13:00 10/31/23 14:14 Temperature Temperature Source Pulse Rate 79 Pulse Rate [Apical] 59 L Respiratory Rate 19 Respiratory Effort / Characteristics Respiratory Depth Respiratory Pattern Blood Pressure Blood Pressure [Right Arm] 146/88 H Blood Pressure Mean Blood Pressure Mean [Right Arm] 107 Pulse Oximetry 95 Oxygen Delivery Method Room Air Sepsis Recent Fever Within 48 Hours Sepsis New/Unexplained Change in Mental Status Sepsis Action Taken by Nursing Laboratory Data Attestation: I reviewed the patient's lab results. 10/31/23 09:18 10/31/23 09:18 Lab Results 10/31/23 10/31/23 Range/Units 09:15 09:18 WBC 6.00 (4.8-10.8) K/ul RBC 4.83 (4.20-5.40) M/uL Hgb 14.1 (12.0-16.0) g/dl Hct 42.8 (37.0-47.0) % MCV 88.6 (80.0-100.0) fL MCH 29.2 (25.0-34.0) pg MCHC 32.9 (32.0-36.0) g/dL RDW Std Deviation 41.3 (36.4-46.3) fL RDW Coeff of Candido 12.7 (11.5-14.5) % Plt Count 227 (130-400) K/uL MPV 10.0 (9.4-12.4) fL Immature Gran % (Auto) 0.2 % Neut % (Auto) 64.0 % Lymph % (Auto) 26.5 % Hubbard % (Auto) 7.8 % Eos % (Auto) 0.8 % Baso % (Auto) 0.7 % Neut # (Auto) 3.84 (1.40-6.50) K/uL Lymph # (Auto) 1.59 (1.20-3.40) K/uL Hubbard # (Auto) 0.47 (0.11-0.59) K/uL Eos # (Auto) 0.05 (0.00-0.50) K/uL Baso # (Auto) 0.04 (0.00-0.20) K/uL Immature Gran # (Auto) 0.01 (0.01-0.20) K/uL Sodium 139 (136-145) mmol/L Potassium 3.9 (3.5-5.1) mmol/L Chloride 108 H (98-107) mmol/L Carbon Dioxide 25 (21-32) mmol/L Anion Gap 6 (3-11) BUN 11 (6-23) mg/dl Creatinine 0.84 (0.6-1.2) mg/dl Est Cr Clr Drug Dosing 132.2 ml/min Est GFR ( Amer) 113.5 ml/min Est GFR (Non-Af Amer) 98.0 ml/min BUN/Creatinine Ratio 13.1 (10-20) Glucose 102 H (70-99(Fasting)) mg/dl Calcium 9.5 (8.6-10.3) mg/dl Total Bilirubin 0.7 (0.2-1.0) mg/dl AST 12 L (13-39) U/L ALT 12 (7-52) U/L Alkaline Phosphatase 36 (34-104) U/L Total Protein 7.7 (6.0-8.3) gm/dl Albumin 4.4 (3.4-5.0) gm/dl Globulin 3.3 (2.5-4.0) gm/dl Albumin/Globulin Ratio 1.3 (0.9-2) Lipase 10 L (11-82) U/L HCG, Qual Negative (Negative) Urine Color Dark Yellow Urine Appearance Cloudy A (Clear) Urine pH 5.5 (4.5-7.5) Ur Specific [place] 1.033 H (1.000-1.030) Urine Protein Negative (Negative) Urine Glucose (UA) Negative (Negative) Urine Ketones Trace H (Negative) Urine Blood Trace H (Negative) Urine Nitrite Negative (Negative) Urine Bilirubin Negative (Negative) Urine Urobilinogen Negative (Negative) Ur Leukocyte Esterase Negative (Negative) Urine WBC (Auto) 5-10 H (0-5) /hpf Urine RBC (Auto) 0-4 (0-4) /hpf U Hyaline Cast (Auto) Not Reportable U Epithel Cells (Auto) >30 H (0-5) /lpf Urine Bacteria (Auto) 1+ H (Negative) Administered Medications Bupropion HCl (Bupropion Sr 150 Mg Tabcr) 150 mg PO BID NESS Stop: 11/30/23 20:59 Last Admin: 10/31/23 20:41 Dose: 150 mg Documented By: CPB Hydromorphone HCl (Hydromorphone Inj 1 Mg/Ml Syringe) 0.5 mg IV Q6H PRN PRN Reason: Severe Pain (Scale 7, 8, 9,10) Stop: 11/14/23 16:33 Last Admin: 10/31/23 16:43 Dose: 0.4 mg Documented By: CPB Sodium Chloride (Nss) 1,000 mls @ 125 mls/hr IV .Q8H NESS Stop: 11/01/23 08:33 Last Admin: 10/31/23 23:37 Dose: 125 mls/hr Documented By: Infusion: 10/31/23 23:37 Dose: Infused Documented By: Admin: 10/31/23 16:56 Dose: 125 mls/hr Documented By: CPB Ketorolac Tromethamine (Ketorolac Tromethamine 15 Mg/Ml Vial) 15 mg IV Q6 NESS Stop: 11/01/23 18:01 Last Admin: 10/31/23 18:52 Dose: 15 mg Documented By: CPB Phenazopyridine HCl (Phenazopyridine Hcl 200 Mg Tab) 200 mg PO TID NESS Stop: 11/01/23 20:59 Last Admin: 10/31/23 20:41 Dose: 200 mg Documented By: CPB Discontinued Medications Sodium Chloride (Nss) 1,000 mls @ 999 mls/hr IV .Q1H1M ONE Stop: 10/31/23 10:28 Last Infusion: 10/31/23 10:41 Dose: Infused Documented By: Admin: 10/31/23 09:40 Dose: 999 mls/hr Documented By: NITA Acetaminophen (Ofirmev) 1,000 mg in 100 mls @ 400 mls/hr IV NOW STA Stop: 10/31/23 09:42 Last Infusion: 10/31/23 10:14 Dose: Infused Documented By: Admin: 10/31/23 09:40 Dose: 400 mls/hr Documented By: NITA Sodium Chloride (Nss) 1,000 mls @ 999 mls/hr IV .Q1H1M ONE Stop: 10/31/23 13:36 Last Infusion: 10/31/23 14:02 Dose: Infused Documented By: Admin: 10/31/23 13:01 Dose: 999 mls/hr Documented By: BETH Promethazine HCl (Phenergan) 12.5 mg in 50.5 mls @ 202 mls/hr IV NOW STA Stop: 10/31/23 14:16 Last Infusion: 10/31/23 14:51 Dose: Infused Documented By: Admin: 10/31/23 14:25 Dose: 202 mls/hr Documented By: MANOLO Ioversol (Optiray 320 500ml) 94 ml IV ONCE ONE Stop: 10/31/23 11:41 Last Admin: 10/31/23 11:40 Dose: 94 ml Documented By: JENIFFER Ketorolac Tromethamine (Ketorolac Tromethamine 15 Mg/Ml Vial) 15 mg IV NOW STA Stop: 10/31/23 09:29 Last Admin: 10/31/23 09:39 Dose: 15 mg Documented By: NITA Ketorolac Tromethamine (Ketorolac Tromethamine 15 Mg/Ml Vial) 15 mg IV NOW STA Stop: 10/31/23 12:37 Last Admin: 10/31/23 13:02 Dose: 15 mg Documented By: BETH Morphine Sulfate (Morphine Sulfate 4 Mg/Ml 1 Ml Carp\Vial) 4 mg IV NOW STA Stop: 10/31/23 12:37 Last Admin: 10/31/23 13:01 Dose: 4 mg Documented By: BETH Morphine Sulfate (Morphine Sulfate 10 Mg/Ml Carp/Vial) 6 mg IV NOW STA Stop: 10/31/23 14:03 Last Admin: 10/31/23 14:23 Dose: 6 mg Documented By: MANOLO Ondansetron HCl (Ondansetron Inj 2 Mg/Ml 2 Ml Vial) 4 mg IV NOW STA Stop: 10/31/23 09:29 Last Admin: 10/31/23 09:39 Dose: 4 mg Documented By: NITA Ondansetron HCl (Ondansetron Inj 2 Mg/Ml 2 Ml Vial) 4 mg IV NOW STA Stop: 10/31/23 12:37 Last Admin: 10/31/23 13:01 Dose: 4 mg Documented By: BETH Tamsulosin HCl (Tamsulosin Hcl 0.4 Mg Cap) 0.4 mg PO NOW ONE Stop: 10/31/23 12:40 Last Admin: 10/31/23 13:02 Dose: 0.4 mg Documented By: BETH Imaging Data Radiologist's Impression: Abdomen/Pelvis CT 10/31/23 09:[address] WITH IV CONTRAST CT DOSE: 1467.64 mGy.cm HISTORY: right flank pain TECHNIQUE: Multiaxial CT images of the abdomen and pelvis were performed following the use of intravenous contrast. A dose lowering technique was utilized adhering to the principles of ALARA. COMPARISON STUDY: Abdomen and pelvis CT 08/09/2021. FINDINGS: There is moderate right hydroureteronephrosis secondary to a 5 mm obstructing stone within the distal right ureter. This is a few centimeters proximal to the right ureterovesical junction. The bladder is decompressed and not well evaluated. No left-sided hydronephrosis. The left kidney enhances normally. The lung bases are clear. No pneumoperitoneum. No pneumatosis. The liver, gallbladder, pancreas, spleen, and adrenal glands unremarkable. The main portal vein is patent. Normal caliber abdominal aorta. No retroperitoneal or pelvic lymphadenopathy. No pelvic free fluid. The uterus and left ovary are unremarkable. There is a small stable cysts within the right ovary. This is likely benign. No bowel wall thickening or obstruction. Normal appendix. IMPRESSION: An obstructing 5 mm stone within the distal right ureter resulting in moderate right hydroureteronephrosis. ACT 112: Negative or not required by law. Electronically signed by: Huy Mccall M.D. 10/31/2023 12:00 PM Discharge Plan Visit Data Chief Complaint: Urinary Symptoms Stated Complaint: RIGHT SIDE PAIN, BACK PAIN, FREQUENT URINATION ED Provider: Veto Trammell Discharge Problem: Hydronephrosis, right, Ureterolithiasis, Acute right flank pain Discharge Instructions Interventions: ED Discharge Assessment Last Done: 10/31/23 16:34
[2023-10-31 09:50] LABS: Basophils # (auto) 0.04 K/uL (0.00-0.20); Basophils % (auto) 0.7 %; Eosinophils # (auto) 0.05 K/uL (0.00-0.50); Eosinophils % (auto) 0.8 %; Hematocrit (blood only) 42.8 % (37.0-47.0); Hemoglobin 14.1 g/dl (12.0-16.0); Immature Granulocytes # (auto) 0.01 K/uL (0.01-0.20); Immature Granulocytes % (auto) 0.2 %; Lymphocytes # (auto) 1.59 K/uL (1.20-3.40); Lymphocytes % (auto) 26.5 %; Mean Corpuscular Hemoglobin 29.2 pg (25.0-34.0); Mean Corpuscular Hgb Conc 32.9 g/dL (32.0-36.0); Mean Corpuscular Volume 88.6 fL (80.0-100.0); Monocytes # (auto) 0.47 K/uL (0.11-0.59); Monocytes % (auto) 7.8 %; Neutrophils # (auto) 3.84 K/uL (1.40-6.50); Platelet Count 227 K/uL (130-400); RDW Coefficient of Variation 12.7 % (11.5-14.5); RDW Standard Deviation 41.3 fL (36.4-46.3); Red Blood Count 4.83 M/uL (4.20-5.40)
[2023-10-31 09:54] LABS: Pregnancy Test, Serum Negative (Negative)
[2023-10-31 09:56] LABS: Albumin Globulin Ratio 1.3 (0.9-2); Albumin Level 4.4 gm/dl (3.4-5.0); BUN Creatinine Ratio 13.1 (10-20); Bilirubin,Total 0.7 mg/dl (0.2-1.0); Calcium 9.5 mg/dl (8.6-10.3); Creatinine Clr Calc Pharmacy 132.2 ml/min; Est GFR (African American) 113.5 ml/min; Globulin 3.3 gm/dl (2.5-4.0); Potassium 3.9 mmol/L (3.5-5.1); Total Protein 7.7 gm/dl (6.0-8.3)
[2023-10-31] MEDS ORDERED: OPTIRAY 320 500ml IV ONE (11:40)
--- NOTE | 2023-10-31 12:03 | CT Scan Report ---
ABDOMEN AND PELVIS CT WITH IV CONTRAST CT DOSE: 1467.64 mGy.cm HISTORY: right flank pain TECHNIQUE: Multiaxial CT images of the abdomen and pelvis were performed following the use of intrave nous contrast. A dose lowering technique was utilized adhering to the principles of ALARA. COMPARISON STUDY: Abdomen and pelvis CT 08/09/2021. FINDINGS: There is moderate right hydroureteronephrosis secondary to a 5 mm obstructing stone within the distal right ureter. This is a few centimeters proximal to the right ureterovesical junction. The bladder is decompressed and not well evaluated. No left-sided hydronephrosis. The left kidney enhanc es normally. The lung bases are clear. No pneumoperitoneum. No pneumatosis. The liver, gallbladder, p ancreas, spleen, and adrenal glands unremarkable. The main portal vein is patent. Normal caliber abdo connie aorta. No retroperitoneal or pelvic lymphadenopathy. No pelvic free fluid. The uterus and left ovary are unremarkable. There is a small stable cysts within the right ovary. This is likely benign. No bowel wall thickening or obstruction. Normal appendix. IMPRESSION: An obstructing 5 mm stone within the distal right ureter resulting in moderate right hydroureteroneph rosis. ACT 112: Negative or not required by law. Electronically signed by: Huy Mccall M.D. 10/31/2023 12:00 PM
[2023-10-31] MEDS ORDERED: MoRPHine SULFATE 4 MG/ML 1 ML CARP\\VIAL IV STA (12:36)
[2023-10-31] MEDS ORDERED: TAMSULOSIN HCL 0.4 MG CAP PO ONE (12:39)
[2023-10-31] MEDS ORDERED: PROMETHAZINE 12.5 MG/50.5 ML BAG IV STA (14:02)
[2023-10-31] MEDS ORDERED: MoRPHine SULFATE 10 MG/ML CARP/VIAL IV STA (14:02)
--- NOTE | 2023-10-31 14:25 | History & Physical Report ---
Date of Service October 31, 2023 Assessment & Plan (1) Renal colic: (2) Hydronephrosis, right: (3) Right ureteral calculus: Plan: Patient is 23-year-old female with PMH IBS, GERD, palpitations, obesity presented to ER with complaint of right-sided abdominal pain that started this morning. Denies fevers No leukocytosis. Renal functions WNL. Negative test. UA: Trace blood, 5-10 WBC, >30 epithelial cells, 1+ bacteria. Likely contamination Urine culture pending CT Abd/pelvis: An obstructing 5 mm stone within the distal right ureter resulting in moderate right hydroureteronephrosis. In ER given to L NSS, Flomax, multiple doses of morphine, Toradol and Zofran Scheduled Toradol. Tylenol, oxycodone, Dilaudid as needed pain IVF Flomax daily Scheduled Pyridium for 1 day and reassess Strain urine If would pass stone plan to send for analysis NPO midnight Urology consult. Spoke with injection wax molder. Suggests conservative measures with pain control, NPO midnight in case procedure needed tomorrow. If patient would decompensate over night to reach back out to injection wax molder. CBC, BMP in a.m. (4) Elevated blood pressure reading: Plan: BP elevated in ER: 146/88. Likely secondary to pain Treat pain as above, monitor BP (5) IBS (irritable bowel syndrome): Plan: Previously used Bentyl. Not currently using anything (6) GERD (gastroesophageal reflux disease): Plan: Continue Pepcid as needed (7) Anxiety and depression: Plan: Prescribed sertraline however patient states has not been taking (8) Obesity (BMI 30-39.9): Plan: BMI: 35 On naltrexone, bupropion for weight loss Continue bupropion. Hold naltrexone as receiving pain medicine DVT Prophylaxis Ambulate Full Code Follows with Dr Ag for routine care Pt was seen and care coordinated with Dr Woo. See addendum History of Present Illness Chief Complaint: Right-sided abdominal pain Primary Care Provider: Gustavo Ag MD Patient is 23-year-old female with PMH IBS, GERD, palpitations, obesity presented to ER with complaint of right-sided abdominal pain that started this morning. Patient states pain is sharp along right flank and right abdomen. Rates 10 out of 10. She reports it feels like labor pain. Denies . Also reports associated nausea, vomiting with severe pain. Patient states when pain is severe it makes her feel cold. Patient reports feels like is not emptying her bladder completely. Denies history of kidney stones. Denies any fevers, diaphoresis, vaginal discharge, diarrhea, constipation, MORALES, dizziness, syncope, CP, SOB, cough, sore throat, rhinorrhea, paresthesias, weakness, extremity edema, rashes, hematuria, dysuria, urinary frequency. Allergies Allergy/AdvReac Type Severity Reaction Status Date / Time bee venom protein (honey bee) Allergy Intermediate swelling Verified 03/11/22 23:06 adhesive tape Allergy Mild Rash Verified 03/11/22 23:06 latex Allergy Mild Rash Verified 03/11/22 23:06 pseudoephedrine Allergy Mild Vomiting, Verified 03/11/22 23:06 breathing difficulty vancomycin AdvReac Severe Redness of Verified 03/11/22 23:06 Skin omeprazole AdvReac Intermediate Vomiting Verified 03/11/22 23:06 and diarrhea Home Medications Medication Instructions Recorded Confirmed Type cyanocobalamin (vitamin B-12) 1,000 mcg PO QAM 12/13/21 10/31/23 History 1,000 mcg tablet famotidine 20 mg tablet 20 mg PO DAILY PRN Heartburn 03/11/22 10/31/23 History bupropion HCl 150 mg tablet,12 hr 150 mg PO BID 10/31/23 10/31/23 History sustained-release metoprolol succinate 25 mg 12.5 mg PO DAILY 10/31/23 10/31/23 History tablet,extended release 24 hr naltrexone 50 mg tablet 25 mg PO BID 10/31/23 10/31/23 History sertraline 50 mg tablet 50 mg PO DAILY 10/31/23 10/31/23 History Past Med/Surg History Medical History (Updated 10/31/23 @ 23:34 by Veto Trammell MD) Obesity (BMI 30-39.9) Premature labor Hypothyroidism History of bacteremia history of S. anginosus following dental procedure in May 2020 Barretts esophagus GERD (gastroesophageal reflux disease) Hx of sepsis 06/25/2020 FROM ROOT CANAL SURGERY Temporomandibular joint disorder Anxiety and depression IBS (irritable bowel syndrome) ADH disorder Surgical History History of colonoscopy History of esophagogastroduodenoscopy (EGD) H/O oral surgery Family History Grandmother (Paternal) Family history of diabetes mellitus Other Heart disease Social History Smoking Status: Never smoker Second Hand Exposure: Yes (significant other smokes); Do You Dip or Chew Tobacco: No; Hx Alcohol Use: No Hx Substance Use: No Preferred Language: Burmese Communication Ability: Effective Shore Worker Required: No Beliefs That Will Affect Care: None marital status: Current Living Situation: Family Current Living Situation Comment: lives with , 2 children and parents current occupational status: employed and student Feels Safe at Home: Yes Gender Identity: Female Assistive Devices: None Review of Systems Review of Systems: All systems reviewed & are unremarkable except as noted in HPI & below Physical Exam Physical Exam: General: + tearful, +distress secondary to right flank pain, obese Head: normocephalic, atraumatic Eyes: conjunctiva non-injected, anicteric ENT: normal inspection external ears, nose, mucous membranes moist Neck: supple, trachea midline Lungs: clear, no respiratory distress, no wheezing/rhonchi/rales CV: RRR, no murmur, no pretibial edema Abd: normal BS, soft, +right flank tenderness to palpation Ext: no cyanosis, no calf tenderness Neuro: A&O x 3, no focal deficits noted, +anxious and tearful affect Skin: warm, dry Results & Data Results & Data Vital Signs (Past 12 Hours) Vital Signs Temp Pulse Pulse Resp BP BP Pulse Ox 10/31/23 14:14 79 10/31/23 13:00 59 L 19 146/88 H 95 10/31/23 09:55 67 10/31/23 09:31 97 10/31/23 09:06 36.8 C 72 18 118/63 97 O2 Del Method 10/31/23 14:14 10/31/23 13:00 Room Air 10/31/23 09:55 10/31/23 09:31 Room Air 10/31/23 09:06 Laboratory Results Short CBC 10/31/23 Range/Units 09:18 WBC 6.00 (4.8-10.8) K/ul Hgb 14.1 (12.0-16.0) g/dl Hct 42.8 (37.0-47.0) % Plt Count 227 (130-400) K/uL BMP 10/31/23 09:18 Sodium 139 Potassium 3.9 Chloride 108 H Carbon Dioxide 25 BUN 11 Creatinine 0.84 Glucose 102 H Calcium 9.5 Liver Function 10/31/23 Range/Units 09:18 Total Bilirubin 0.7 (0.2-1.0) mg/dl AST 12 L (13-39) U/L ALT 12 (7-52) U/L Alkaline Phosphatase 36 (34-104) U/L Albumin 4.4 (3.4-5.0) gm/dl Urine 10/31/23 Range/Units 09:15 Urine Color Dark Yellow Urine Appearance Cloudy A (Clear) Urine pH 5.5 (4.5-7.5) Ur Specific [place] 1.033 H (1.000-1.030) Urine Protein Negative (Negative) Urine Glucose (UA) Negative (Negative) Diagnostic Findings Abdomen/Pelvis CT 10/31/23 09:[address] WITH IV CONTRAST CT DOSE: 1467.64 mGy.cm HISTORY: right flank pain TECHNIQUE: Multiaxial CT images of the abdomen and pelvis were performed following the use of intravenous contrast. A dose lowering technique was utilized adhering to the principles of ALARA. COMPARISON STUDY: Abdomen and pelvis CT 08/09/2021. FINDINGS: There is moderate right hydroureteronephrosis secondary to a 5 mm obstructing stone within the distal right ureter. This is a few centimeters proximal to the right ureterovesical junction. The bladder is decompressed and not well evaluated. No left-sided hydronephrosis. The left kidney enhances normally. The lung bases are clear. No pneumoperitoneum. No pneumatosis. The liver, gallbladder, pancreas, spleen, and adrenal glands unremarkable. The main portal vein is patent. Normal caliber abdominal aorta. No retroperitoneal or pelvic lymphadenopathy. No pelvic free fluid. The uterus and left ovary are unremarkable. There is a small stable cysts within the right ovary. This is likely benign. No bowel wall thickening or obstruction. Normal appendix. IMPRESSION: An obstructing 5 mm stone within the distal right ureter resulting in moderate right hydroureteronephrosis. ACT 112: Negative or not required by law. Electronically signed by: Huy Mccall M.D. 10/31/2023 12:00 PM Supervising Physician Co-Signing Physician Notes Pt seen and examined by myself, Dyan Woo MD on the day of service. Care was coordinated with Verito Peacock PA-C. 23yoF admitted with R sided obstructive uropathy after presenting with severe abdominal pain. Has been receiving high doses of narcotics as pain not controlled. Now with sinus bradycardia- cautious further use of narcotics. Continue to monitor HR. Urology consulted- appreciate recs. Otherwise as above.
[2023-10-31] MEDS ORDERED: PROMETHAZINE HCL 12.5 MG in SODIUM CHLORIDE 0.9% 50 ML IV PRN (16:34)
[2023-10-31] MEDS ORDERED: POLYETHYLENE (MIRALAX) 17 GM PACK PO PRN (16:34)
[2023-10-31] MEDS ORDERED: oxyCODONE HCL IR 5 MG TAB (IMMEDIATE RELEASE) PO PRN (16:34)
[2023-10-31] MEDS ORDERED: ACETAMINOPHEN 325 MG TAB PO PRN (16:34)
[2023-10-31] MEDS ORDERED: HYDROmorphone INJ 1 MG/ML SYRINGE IV PRN ×2 (16:34→17:26)
[2023-10-31] MEDS ORDERED: FAMOTIDINE 20 MG TAB PO PRN (16:34)
[2023-10-31] MEDS ORDERED: ONDANSETRON INJ 2 MG/ML 2 ML VIAL IV PRN (16:34)
[2023-10-31] MEDS: SODIUM CHLORIDE 0.9% 1,000 ML IV SCH ×2 (16:56→23:37)
[2023-10-31] MEDS: KETOROLAC TROMETHAMINE 15 MG/ML VIAL IV SCH (18:52)
[2023-10-31] MEDS: PHENAZOPYRIDINE HCL 200 MG TAB PO SCH (20:41)
[2023-10-31] MEDS: buPROPion SR 150 MG TABCR PO SCH (20:41)
[2023-11-01] MEDS: KETOROLAC TROMETHAMINE 15 MG/ML VIAL IV SCH ×4 (00:27→17:21)
[2023-11-01 06:51] LABS: Hemoglobin 11.7 g/dl (12.0-16.0); Mean Corpuscular Hemoglobin 29.8 pg (25.0-34.0); Mean Corpuscular Hgb Conc 33.4 g/dL (32.0-36.0); Mean Corpuscular Volume 89.1 fL (80.0-100.0); Mean Platelet Volume 9.9 fL (9.4-12.4); Platelet Count 185 K/uL (130-400); RDW Coefficient of Variation 12.8 % (11.5-14.5); Red Blood Count 3.93 M/uL (4.20-5.40); White Blood Count 8.94 K/ul (4.8-10.8)
[2023-11-01 07:24] LABS: BUN Creatinine Ratio 17.6 (10-20); Creatinine Clr Calc Pharmacy 152.6 ml/min; Est GFR (African American) 132.4 ml/min; Est GFR (Non-African American) 114.2 ml/min; Potassium 3.9 mmol/L (3.5-5.1)
[2023-11-01] MEDS: TAMSULOSIN HCL 0.4 MG CAP PO SCH (08:05)
[2023-11-01] MEDS: PHENAZOPYRIDINE HCL 200 MG TAB PO SCH ×2 (08:06→16:32)
[2023-11-01] MEDS: METOPROLOL SUCC 25MG EXT REL TAB PO SCH (08:06)
[2023-11-01] MEDS: CYANOCOBALAMIN (B-12) 500 MCG TABLET PO SCH (08:06)
[2023-11-01] MEDS: buPROPion SR 150 MG TABCR PO SCH ×2 (08:06→20:27)
--- NOTE | 2023-11-01 08:35 | Electrocardiogram Report ---
Test Reason : Blood Pressure : / mmHG Vent. Rate : 057 BPM Atrial Rate : 057 BPM P-R Int : 142 ms QRS Dur : 100 ms QT Int : 456 ms P-R-T Axes : 029 036 040 degrees QTc Int : 443 ms Sinus bradycardia Otherwise normal ECG When compared with ECG of 11-MAR-2022 20:35, No significant change was found Confirmed by Lucius Lentz ([id number]) on 11/01/2023 8:34:42 AM Referred By: Gustavo Ag Confirmed By:Lucius Lentz
--- NOTE | 2023-11-01 09:51 | Urology Consultation ---
Date of Consultation November 01, 2023 Assessment & Plan (1) Acute right flank pain: (2) Right ureteral calculus: (3) Hydronephrosis, right: Plan 23yo/F admitted with intractable right flank pain secondary to an obstructing 5mm distal right ureteral stone. -Afebrile. BP 90/52 this morning otherwise stable vitals. -Labs reviewed- no leukocytosis and normal renal function. -Urine culture final with more than three types of organisms present, all high counts -We reviewed her CT findings. We discussed options for acute stone management with cystoscopy and stent placement. Ureteral stents were discussed as well as postoperative issues and pain management. She is aware a second procedure will likely be needed for stone treatment. Risks and benefits were discussed. All questions were answered. She is agreeable to proceeding with stent placement today. -Will plan to proceed to OR today for cystoscopy, right retrograde pyelogram, right ureteral stent placement. -Risks and benefits were discussed as per consent. -Keep NPO. -Continue supportive care and pain management as needed. -Will cover with Ancef preoperatively. -Urology will follow. Supervising Physician Co-Signing Physician Notes Discussed patient with MIKE. Agree with plan. Discussed with patient that due to bacteria in her urine will not be able to treat stone as it could make her septic. Patient was agreeable for a stent placement. Consent obtained. Patient marked History of Present Illness Attending Physician: Emanuel Burroughs MD History of Present Illness 23-year-old female with PMHx including IBS, GERD, palpitations, obesity who presented to the ER 10/31/23 with complaints of acute right-sided abdominal pain. On arrival she was afebrile and hemodynamically stable. Labs showing no leukocytosis and normal renal function. Urinalysis with trace blood, 1+bacteria, >30 Epithelial cells, neg LE, negative nitrite. CT abdomen pelvis obtained and notable for a 5mm stone within the distal right ureter resulting in moderate right hydroureteronephrosis. ED course: IVF, Flomax, multiple doses of morphine, Toradol and Zofran. Admitted to medicine service for pain management. Pt examined at bedside this AM. Awake, resting in bed on arrival. No acute distress. Has been NPO other than a few sips of water with medication. Still with right-sided pain, managing with medication. Denies fever, chills, nausea, vomiting. Voiding without issue. Denies hematuria. Reports some dysuria. Taking Pyridium. Straining urine and denies any noticeable stone passage. Denies prior history of stones. Allergies Allergy/AdvReac Type Severity Reaction Status Date / Time bee venom protein (honey bee) Allergy Intermediate swelling Verified 03/11/22 23:06 adhesive tape Allergy Mild Rash Verified 03/11/22 23:06 latex Allergy Mild Rash Verified 03/11/22 23:06 pseudoephedrine Allergy Mild Vomiting, Verified 03/11/22 23:06 breathing difficulty vancomycin AdvReac Severe Redness of Verified 03/11/22 23:06 Skin omeprazole AdvReac Intermediate Vomiting Verified 03/11/22 23:06 and diarrhea Home Medications Medication Instructions Recorded Confirmed Type cyanocobalamin (vitamin B-12) 1,000 mcg PO QAM 12/13/21 10/31/23 History 1,000 mcg tablet famotidine 20 mg tablet 20 mg PO DAILY PRN Heartburn 03/11/22 10/31/23 History bupropion HCl 150 mg tablet,12 hr 150 mg PO BID 10/31/23 10/31/23 History sustained-release metoprolol succinate 25 mg 12.5 mg PO DAILY 10/31/23 10/31/23 History tablet,extended release 24 hr naltrexone 50 mg tablet 25 mg PO BID 10/31/23 10/31/23 History sertraline 50 mg tablet 50 mg PO DAILY 10/31/23 10/31/23 History Patient History Medical History (Updated 10/31/23 @ 23:34 by Veto Trammell MD) Obesity (BMI 30-39.9) Premature labor Hypothyroidism History of bacteremia history of S. anginosus following dental procedure in May 2020 Barretts esophagus GERD (gastroesophageal reflux disease) Hx of sepsis 06/25/2020 FROM ROOT CANAL SURGERY Temporomandibular joint disorder Anxiety and depression IBS (irritable bowel syndrome) ADH disorder Surgical History History of colonoscopy History of esophagogastroduodenoscopy (EGD) H/O oral surgery Family History Grandmother (Paternal) Family history of diabetes mellitus Other Heart disease Social History Smoking Status: Never smoker Second Hand Exposure: Yes (significant other smokes); Do You Dip or Chew Tobacco: No; Hx Alcohol Use: No Hx Substance Use: No Preferred Language: Mozambican Communication Ability: Effective Dry Color Tester Required: No Beliefs That Will Affect Care: None marital status: Current Living Situation: Family Current Living Situation Comment: lives with , 2 children and parents current occupational status: employed and student Other Information That Helps Us Care for You: No Feels Safe at Home: Yes Safety Concerns: Feels Safe At This Time Gender Identity: Female Assistive Devices: None Review of Systems Review of Systems: All systems reviewed & are unremarkable except as noted in HPI & below Physical Exam Constitutional: well developed and well nourished; no acute distress Neck: normal visual inspection Respiratory: normal respiratory effort; no respiratory distress and no labored breathing Musculoskeletal: Head/Neck/Chest: normocephalic Skin: No visible rashes or lesions to exposed skin areas Neurologic: moves all extremities and awake Psychiatric: A+Ox3, euthymic affect Results & Data Vital Signs (Past 12 Hours) Vital Signs Temp Pulse Pulse Resp BP BP Pulse Ox 11/01/23 07:05 36.6 C 63 16 90/52 L 98 10/31/23 23:32 37.0 C 71 18 107/61 98 10/31/23 23:30 37.0 C 71 18 107/61 98 10/31/23 22:26 101/56 L 10/31/23 22:26 80 19 93 10/31/23 22:23 83/50 L 96 10/31/23 22:23 88 20 96 10/31/23 22:00 100 H 13 97 O2 Del Method 11/01/23 07:05 Room Air 10/31/23 23:32 Room Air 10/31/23 23:30 Room Air 10/31/23 22:26 10/31/23 22:26 Room Air 10/31/23 22:23 Room Air 10/31/23 22:23 Room Air 10/31/23 22:00 Room Air PG Care Time/CCT Total # of Minutes Spent Total Time Spent with Patient: Total time spent is greater than 50% in coordination of care (as documented) at patient's floor/unit and/or counseling patient: Coding Level of Care Code 27116 IN/OBS CONSULT LVL 4,60M Diagnoses Acute right flank pain R10.9 Right ureteral calculus N20.1 Hydronephrosis, right N13.30
[2023-11-01] MEDS ORDERED: ceFAZolin 2000MG 2,000 MG/15 ML SYR IV ONE (12:00)
[2023-11-01] MEDS ORDERED: LACTATED RINGER'S 1,000 ML IV SCH (13:30)
[2023-11-01] MEDS ORDERED: ONDANSETRON INJ 2 MG/ML 2 ML VIAL IV PRN (13:52)
[2023-11-01] MEDS ORDERED: fentaNYL citrate PF 100 MCG/2 ML VIAL IV PRN (13:52)
[2023-11-01] MEDS ORDERED: ATROPINE SULFATE 0.1 MG/ML 10ML SYR IV PRN (13:52)
--- NOTE | 2023-11-01 13:52 | Anesthesiology Consultation ---
Date of Service November 01, 2023 Assessment & Plan Chart Review Chart Review: Acceptable Risk for Surgery and Patient NOT seen in Pre Admission Testing Consults Requested none History Surgery Operation Date: 11/01/23 10:10 Proposed Procedures p Cystoscopy, Right Retrograde Pyelogram and Stent Insertion - Shlomo Alejandra MD Height/Weight Height: 5 ft 8 in Weight: 108.5 kg Allergies Allergy/AdvReac Type Severity Reaction Status Date / Time bee venom protein (honey bee) Allergy Intermediate swelling Verified 03/11/22 23:06 adhesive tape Allergy Mild Rash Verified 03/11/22 23:06 latex Allergy Mild Rash Verified 03/11/22 23:06 pseudoephedrine Allergy Mild Vomiting, Verified 03/11/22 23:06 breathing difficulty vancomycin AdvReac Severe Redness of Verified 03/11/22 23:06 Skin omeprazole AdvReac Intermediate Vomiting Verified 03/11/22 23:06 and diarrhea Medications Home Medications Medication Instructions Recorded Confirmed Last Taken cyanocobalamin (vitamin B-12) 1,000 mcg PO QAM 12/13/21 10/31/23 03/11/22 1,000 mcg tablet famotidine 20 mg tablet 20 mg PO DAILY PRN Heartburn 03/11/22 10/31/23 Unknown bupropion HCl 150 mg tablet,12 hr 150 mg PO BID 10/31/23 10/31/23 Unknown sustained-release metoprolol succinate 25 mg 12.5 mg PO DAILY 10/31/23 10/31/23 Unknown tablet,extended release 24 hr naltrexone 50 mg tablet 25 mg PO BID 10/31/23 10/31/23 Unknown sertraline 50 mg tablet 50 mg PO DAILY 10/31/23 10/31/23 Unknown Active Medications Generic Name Dose Route Start Last Admin Trade Name Freq PRN Reason Stop Dose Admin Bupropion HCl 150 mg 10/31/23 21:00 11/01/23 08:06 Bupropion Sr 150 Mg Tabcr PO 11/30/23 20:59 150 mg BID NESS Administration Cyanocobalamin 1,000 mcg 11/01/23 09:00 11/01/23 08:06 Cyanocobalamin (B-12) 500 Mcg Tablet PO 12/01/23 08:59 1,000 mcg QAM NESS Administration Hydromorphone HCl 0.5 mg 10/31/23 17:26 10/31/23 16:43 Hydromorphone Inj 1 Mg/Ml Syringe IV 11/14/23 16:33 0.4 mg Q6H PRN Administration Severe Pain (Scale 7, 8, 9,10) Ketorolac Tromethamine 15 mg 10/31/23 18:00 11/01/23 11:08 Ketorolac Tromethamine 15 Mg/Ml Vial IV 11/01/23 18:01 15 mg Q6 NESS Administration Metoprolol Succinate 12.5 mg 11/01/23 09:00 11/01/23 08:06 Metoprolol Succ 25mg Ext Rel Tab PO 12/01/23 08:59 Not Given DAILY NESS Phenazopyridine HCl 200 mg 10/31/23 21:00 11/01/23 08:06 Phenazopyridine Hcl 200 Mg Tab PO 11/01/23 20:59 200 mg TID NESS Administration Tamsulosin HCl 0.4 mg 11/01/23 09:00 11/01/23 08:05 Tamsulosin Hcl 0.4 Mg Cap PO 12/01/23 08:59 0.4 mg QAM NESS Administration NPO Date Last Intake of Fluids: 11/01/23 Time Last Intake of Fluids: 00:00 Date Last Intake of Solids: 11/01/23 Time Last Intake of Solids: 00:00 Past Medical History Medical History (Updated 10/31/23 @ 23:34 by Veto Trammell MD) Obesity (BMI 30-39.9) Premature labor Hypothyroidism History of bacteremia history of S. anginosus following dental procedure in May 2020 Barretts esophagus GERD (gastroesophageal reflux disease) Hx of sepsis 06/25/2020 FROM ROOT CANAL SURGERY Temporomandibular joint disorder Anxiety and depression IBS (irritable bowel syndrome) ADH disorder Past Family History Family History Grandmother (Paternal) Family history of diabetes mellitus Other Heart disease Past Surgical History Surgical History History of colonoscopy History of esophagogastroduodenoscopy (EGD) H/O oral surgery Social History Smoking Status: Never smoker Do You Dip or Chew Tobacco: No Hx Alcohol Use: No Hx Substance Use: No substance use type: does not use Physical Exam Vital Signs Last Vital Signs Temp 36.7 C 11/01/23 13:13 Pulse 79 11/01/23 13:13 Resp 18 11/01/23 13:13 BP 123/71 11/01/23 13:13 Pulse Ox 99 11/01/23 13:13 O2 Del Method Room Air 11/01/23 13:13 O2 Flow Rate 2 10/31/23 18:30 Constitutional well developed and well nourished; no acute distress Neck normal visual inspection Respiratory normal respiratory effort; no respiratory distress and no labored breathing Musculoskeletal Head/Neck/Chest: normocephalic Neurologic moves all extremities and awake Psychiatric A+Ox3, euthymic affect Testing Laboratory Results 11/01/23 06:13 11/01/23 06:13 Urine Color Dark Yellow 10/31/23 09:15 Urine Appearance Cloudy (Clear) A 10/31/23 09:15 Urine pH 5.5 (4.5-7.5) 10/31/23 09:15 Ur Specific [place] 1.033 (1.000-1.030) H 10/31/23 09:15 Urine Protein Negative (Negative) 10/31/23 09:15 Urine Glucose (UA) Negative (Negative) 10/31/23 09:15 Urine Ketones Trace (Negative) H 10/31/23 09:15 Urine Nitrite Negative (Negative) 10/31/23 09:15 Ur Leukocyte Esterase Negative (Negative) 10/31/23 09:15 Urine WBC (Auto) 5-10 /hpf (0-5) H 10/31/23 09:15 Urine RBC (Auto) 0-4 /hpf (0-4) 10/31/23 09:15 U Hyaline Cast (Auto) Not Reportable 10/31/23 09:15 U Epithel Cells (Auto) >30 /lpf (0-5) H 10/31/23 09:15 Urine Bacteria (Auto) 1+ (Negative) H 10/31/23 09:15 10/31/23 09:15 Urine Culture - Final Urine,Clean Catch More than three types of organisms present, all high counts mixed probable skin tye - No further identifications or sensitivities to follow.
[2023-11-01] MEDS ORDERED: MIDAZOLAM HCL 1 MG/ML 2ML VIAL ONE (14:17)
[2023-11-01] MEDS ORDERED: LIDOCAINE 2% 2 ML VIAL/AMP(20MG/ML) INFIL ONE (14:17)
[2023-11-01] MEDS ORDERED: fentaNYL citrate PF 100 MCG/2 ML VIAL ONE ×2 (14:17→14:32)
[2023-11-01] MEDS ORDERED: PROPOFOL IV EMULSION 10 MG/ML 20 ML VIAL IV ONE (14:17)
[2023-11-01] MEDS ORDERED: ONDANSETRON INJ 2 MG/ML 2 ML VIAL ONE (14:21)
[2023-11-01] MEDS ORDERED: DIATRIZOATE MEGLUMINE 30% 100ML VIAL INSTIL ONE (14:40)
--- NOTE | 2023-11-01 14:48 | Operative Report ---
PG Post Operative Report Pre & Post Diagnosis Operation Date: 11/01/23 10:10 Pre-Op Diagnosis: Right Ureteral Calculus Post-Op Diagnosis: Right Ureteral Calculus I identified the patient and participated in the time-out.: Yes Procedure Operation Date: 11/01/23 10:10 Actual Procedures p Cystoscopy, Right Retrograde Pyelogram with radiographic interpretation and Stent Insertion(Right) - Shlomo Alejandra MD Surgeon Shlomo Alejandra MD Manager Advanced None Estimated Blood Loss 0 Findings Consistent with Post-Op Diagnosis Retrograde showed mild hydronephrosis. Right ureteral stent in appropriate position. Specimens None Drains 6 [place] by 24 cm right ureteral stent Anesthesia Type MAC Complications none Indications 23-year-old female with a 5 mm distal right ureteral calculus and urinalysis suspicious for infection. Risk and benefits discussed and opted for stent placement. Explained that we could not treat the stent due to concern for infection. Description of Procedure After informed consent was obtained, the patient was transported operative suite. MAC anesthesia was induced. The patient was placed in dorsolithotomy position prepped and draped in a sterile fashion. They received preoperative Ancef for antibiotic prophylaxis. An appropriate surgical timeout was performed. A 22 [place] rigid scope was inserted per urethra into the bladder. Dempsey cystoscopy revealed no stones or lesions. I turned my attention the right ureteral orifice and intubated this with a 5 [place] open-ended catheter. A right retrograde pyelogram was shot which showed mild hydronephrosis. A sensor wire was advanced into the kidney and confirmed fluoroscopically. A 6 [place] by 24 cm right ureteral stent was deployed with a good proximal coil in the renal pelvis and a good distal coil noted in the bladder, confirmed fluoroscopically and under direct visualization, respectively. The bladder was emptied and the scope was removed. This concluded the end of the case. All counts were correct at the end of the case. I was present, scrubbed, and actively participated for the entirety of the procedure. I attest to the content of the Intraoperative Record and any orders documented therein. Any exceptions are noted below.
--- NOTE | 2023-11-01 15:04 | Fluoroscopy Report ---
FL retrograde includes kub CLINICAL HISTORY: RETROGRADE, STENT COMPARISON STUDY: Abdomen and pelvis CT 10/31/2023. FLUOROSCOPY TIME: 7 seconds FLUOROSCOPY IMAGES: 5 Ka,r: 2.5 mGy FINDINGS: Retrograde opacification of the right ureter and renal collecting system followed by yanick perdomo of a right ureteral stent. Only the proximal portion of the stent is identified and appears in go od position. IMPRESSION: Fluoroscopic assistance as above. ACT 112: Negative or not required by law. Electronically signed by: Huy Mccall M.D. 11/01/2023 3:03 PM
--- NOTE | 2023-11-01 21:52 | Hospitalist Progress Note ---
Date of Service November 01, 2023 Assessment & Plan (1) Renal colic: (2) Hydronephrosis, right: (3) Right ureteral calculus: (4) Elevated blood pressure reading: (5) IBS (irritable bowel syndrome): (6) GERD (gastroesophageal reflux disease): (7) Anxiety and depression: (8) Obesity (BMI 30-39.9): Plan Patient is a 23-year-old female with PMHx significant for IBS, GERD, palpitations, anxiety/depression, obesity admitted with R sided obstructive uropathy. Renal colic Hydronephrosis, right Right ureteral calculus Presented with right-sided abdominal pain On admission, afebrile, WBC wnl, renal function wnl UA suggestive of infection, urine Cx with no significant growth CT abd/pelvis noting an obstructing 5 mm stone within the distal right ureter resulting in moderate right hydroureteronephrosis. Urology consulted, appreciate recs. -s/p R ureteral stent placement on 11/01 -Urology recommending d/c, pt asking to be observed further overnight Pain control prn Elevated blood pressure reading BP elevated in ER: 146/88 Likely secondary to pain Treat pain as above, monitor BP Continue home metoprolol Currently wnl IBS (irritable bowel syndrome) Previously treated with Bentyl Stable, not currently on medications GERD (gastroesophageal reflux disease) Continue Pepcid as needed Anxiety and depression Prescribed sertraline however patient states has not been taking On Wellbutrin below for weight loss, but also treats depression PCP follow up Obesity (BMI 30-39.9) BMI: 35 On naltrexone, bupropion for weight loss Continue bupropion. Hold naltrexone Diet: regular DVT Prophylaxis: Ambulation as tolerated given age CODE STATUS: Full Code Dispo: Home in AM if pt remains stable Admission and Anticipated Discharge Date Admission Date: October 31, 2023 Subjective Pt seen with partner at bedside after her procedure. States that she is having burning with urination. Advised that urology recommending discharge but pt states that she would like to be observed further overnight. Otherwise denied acute concerns. Review of Systems Review of Systems: All systems reviewed & are unremarkable except as noted in Subjective Physical Exam Physical Exam: General: Alert, oriented. No acute distress Skin: No noted rashes or bruises Psych: Appropriate mood and affect Neuro: No gross deficits HEENT: NC/AT CV: RRR Resp: Breath sounds clear bilaterally, no increased effort of breathing. Abdomen: Soft, nontender Extremities: No edema in lower extremities bilaterally. Results & Data Results & Data Vital Signs (Past 12 Hours) Vital Signs Temp Pulse Pulse Resp BP Pulse Ox O2 Del Method 11/01/23 13:13 36.7 C 79 79 18 123/71 99 Room Air 11/01/23 07:05 36.6 C 63 16 90/52 L 98 Room Air
[2023-11-02 07:04] VITALS: BP 106/72; PULSE 70; RESP 16; TEMP 98.2; O2SAT 97
[2023-11-02 07:35] LABS: Hematocrit (blood only) 35.3 % (37.0-47.0); Hemoglobin 11.6 g/dl (12.0-16.0); Mean Corpuscular Hemoglobin 29.1 pg (25.0-34.0); Mean Corpuscular Hgb Conc 32.9 g/dL (32.0-36.0); Mean Corpuscular Volume 88.5 fL (80.0-100.0); Platelet Count 194 K/uL (130-400); RDW Coefficient of Variation 13.1 % (11.5-14.5); RDW Standard Deviation 42.4 fL (36.4-46.3); Red Blood Count 3.99 M/uL (4.20-5.40); White Blood Count 6.34 K/ul (4.8-10.8)
--- NOTE | 2023-11-02 07:36 | Urology Progress Note ---
Date of Service November 02, 2023 Assessment & Plan (1) Acute right flank pain: (2) Right ureteral calculus: (3) Hydronephrosis, right: Plan 23yo/F admitted with intractable right flank pain secondary to an obstructing 5mm distal right ureteral stone. - POD #1 s/p cystoscopy and right ureteral stent placement. - Feeling well, tolerating the stent with minimal bother. - Afebrile, VSS. - Labs reviewed - no leukocytosis, normal renal function. - Urine culture final with more than three types of organisms present, all high counts. - Okay for d/c from perspective. - Recommend d/c with short course of PO antibiotics, Tamsulosin, prn Pyridium for stent management. - Plan to follow-up with urology outpatient as scheduled to arrange definitive stone treatment. - Urology will sign-off. Please call with any further questions or concerns. Admission and Anticipated Discharge Date Admission Date: October 31, 2023 Subjective Pt examined at bedside this AM. Awake, eating breakfast on arrival. No acute distress. Overall feeling well. Tolerating the stent with minimal bother. Denies fever, chills, nausea, vomiting at present Voiding without issue. Some hematuria, no dysuria. Review of Systems Constitutional: as per Subjective / HPI Genitourinary: as per Subjective / HPI Physical Exam Constitutional: no acute distress Respiratory: no respiratory distress and no labored breathing Neurologic: moves all extremities and awake Psychiatric: A+Ox3, euthymic affect Results & Data Vital Signs (Past 12 Hours) Vital Signs Temp Pulse Resp BP Pulse Ox O2 Del Method 11/02/23 07:02 36.8 C 70 16 106/72 97 Room Air 11/01/23 20:25 36.6 C 75 18 110/68 99 Room Air PG Care Time/CCT Total # of Minutes Spent Total Time Spent with Patient: Total time spent is greater than 50% in coordination of care (as documented) at patient's floor/unit and/or counseling patient: Coding Level of Care Code 25554 SUB INP/OBS CARE 2/35MIN Diagnoses Acute right flank pain R10.9 Right ureteral calculus N20.1 Hydronephrosis, right N13.30
[2023-11-02 08:03] LABS: BUN Creatinine Ratio 18.3 (10-20); Calcium 8.6 mg/dl (8.6-10.3); Creatinine Clr Calc Pharmacy 137.7 ml/min; Est GFR (African American) 116.9 ml/min; Est GFR (Non-African American) 100.9 ml/min; Magnesium 1.8 mg/dl (1.7-2.4); Phosphorus 3.6 mg/dl (2.5-4.9); Potassium 3.9 mmol/L (3.5-5.1)
[2023-11-02] MEDS: METOPROLOL SUCC 25MG EXT REL TAB PO SCH (08:09)
[2023-11-02] MEDS: buPROPion SR 150 MG TABCR PO SCH (08:09)
[2023-11-02] MEDS: CYANOCOBALAMIN (B-12) 500 MCG TABLET PO SCH (08:10)
[2023-11-02] MEDS: TAMSULOSIN HCL 0.4 MG CAP PO SCH (08:10)
[2023-11-02] MEDS ORDERED: SULFAMETHOXAZOLE/TRIMETHOPRIM DS 800/160MG TAB PO ONE (08:14)
--- NOTE | 2023-11-02 10:18 | Discharge Summary ---
Discharge Summary Date of Service November 02, 2023 Notes For Next Care Provider Patient admitted to hospital secondary to acute right flank pain. Patient was found to have an obstructing 5 mm stone at distal right ureter resulting in moderate right hydroureteronephrosis. She underwent cystoscopy with stent placement by urology, Dr. Alejandra. On postop day #1 she is feeling well without any abdominal pain, flank pain or urinary complaints. She is being discharged on 3-day course of oral Bactrim. She will need to follow-up with urology as scheduled. Medication Changes From Visit Bactrim DS 1 tablet twice daily for 3 days for antibiotic coverage. Next dose due 11/02/23 @ 9 p.m. Flomax 0.4mg once daily by mouth. Discuss with urology regarding how long you will be required to take this medication. Pyridium 200mg three times daily as needed for pain with urination. Continue all other medications as prescribed. Admission HPI Per Admitting Provider Patient is 23-year-old female with PMH IBS, GERD, palpitations, obesity presented to ER with complaint of right-sided abdominal pain that started this morning. Patient states pain is sharp along right flank and right abdomen. Rates 10 out of 10. She reports it feels like labor pain. Denies . Also reports associated nausea, vomiting with severe pain. Patient states when pain is severe it makes her feel cold. Patient reports feels like is not emptying her bladder completely. Denies history of kidney stones. Denies any fevers, diaphoresis, vaginal discharge, diarrhea, constipation, MORALES, dizziness, syncope, CP, SOB, cough, sore throat, rhinorrhea, paresthesias, weakness, extremity edema, rashes, hematuria, dysuria, urinary frequency. Admission Exam Per Admitting Provider General: + tearful, +distress secondary to right flank pain, obese Head: normocephalic, atraumatic Eyes: conjunctiva non-injected, anicteric ENT: normal inspection external ears, nose, mucous membranes moist Neck: supple, trachea midline Lungs: clear, no respiratory distress, no wheezing/rhonchi/rales CV: RRR, no murmur, no pretibial edema Abd: normal BS, soft, +right flank tenderness to palpation Ext: no cyanosis, no calf tenderness Neuro: A&O x 3, no focal deficits noted, +anxious and tearful affect Skin: warm, dry Principal Dx & Hospital Course #1 = Principal Diagnosis (1) Renal colic: (2) Hydronephrosis, right: (3) Right ureteral calculus: Patient is 23-year-old female with PMH IBS, GERD, palpitations, obesity presented to ER with complaint of right-sided abdominal pain that started this morning. Admitting CT abdomen pelvis revealed an obstructing 5 mm stone within the distal right ureter resulting in moderate right hydroureteronephrosis. Initial urinalysis was negative for infection. She was seen and evaluated by urology. She was started on Flomax. She underwent cystoscopy with right ureteral stent placement. She tolerated the procedure well. On postop day 1 she was hemodynamically stable, afebrile and without any urinary complaints or flank pain. She is being discharged on 3-day course of oral Bactrim. She will get a dose prior to discharge. She is to follow-up with urology as outpatient for further stent management. She will continue daily Flomax. She will utilize Pyridium as needed for stent pain or dysuria. Her chronic medical conditions remained stable throughout hospitalization. She will continue medications at discharge. All questions were answered prior to discharge. She will follow-up with primary care provider as scheduled. (4) Elevated blood pressure reading: (5) IBS (irritable bowel syndrome): (6) GERD (gastroesophageal reflux disease): (7) Anxiety and depression: (8) Obesity (BMI 30-39.9): Discharge Exam Gen: WD/WN, NAD, A&O x3 HEENT: Normocephalic, atraumatic, conjunctivae moist, sclerae anicteric, mucous membranes moist. Lung: Clear to Auscultation bilaterally, no wheezes/rales/rhonchi Heart: Regular rate, regular rhythm, no murmurs, rubs, or gallops Abdomen: Soft, NT, ND +BS x 4 Extremities: No edema Skin: Warm, no rash, negative turgor. Updated Medication List Medication Instructions Recorded Confirmed Type cyanocobalamin (vitamin B-12) 1,000 mcg PO QAM 12/13/21 10/31/23 History 1,000 mcg tablet famotidine 20 mg tablet 20 mg PO DAILY PRN Heartburn 03/11/22 10/31/23 History bupropion HCl 150 mg tablet,12 hr 150 mg PO BID 10/31/23 10/31/23 History sustained-release metoprolol succinate 25 mg 12.5 mg PO DAILY 10/31/23 10/31/23 History tablet,extended release 24 hr naltrexone 50 mg tablet 25 mg PO BID 10/31/23 10/31/23 History sertraline 50 mg tablet 50 mg PO DAILY 10/31/23 10/31/23 History phenazopyridine 200 mg tablet 200 mg PO Q8H PRN pain 6 doses #6 11/02/23 Rx (Pyridium) tabs sulfamethoxazole 800 1 tab PO BID 3 days #6 tabs 11/02/23 Rx mg-trimethoprim 160 mg tablet (Bactrim DS) tamsulosin 0.4 mg capsule 0.4 mg PO QAM #30 caps 11/02/23 Rx Hospital Stay Data Consultations 10/31/23 14:02 ED Decision to Admit Stat 10/31/23 16:34 Consult Urology Routine Procedures Performed Operation Date: 11/01/23 10:10 Actual Procedures p Cystoscopy, Right Retrograde Pyelogram and Stent Insertion(Right) - Shlomo Alejandra MD Diagnostic Imagining Performed 10/31/23 09:28 CT abd pelvis IV con only Stat 11/01/23 14:16 FL retrograde includes kub Routine Pending Results Patient Have Any Pending Studies at Discharge: No Discharge Instructions Given to Patient (Per Discharging Provider) MEDICATION CHANGES: Bactrim DS 1 tablet twice daily for 3 days for antibiotic coverage. Next dose due 11/02/23 @ 9 p.m. Flomax 0.4mg once daily by mouth. Discuss with urology regarding how long you will be required to take this medication. Pyridium 200mg three times daily as needed for pain with urination. Continue all other medications as prescribed. SUMMARY OF TEST RESULTS: You were admitted to hospital secondary to kidney stone that was in your right ureter. You required a procedure called a cystoscopy with stent insertion by Urologist, Dr. Alejandra. You tolerated the procedure well. You were given antibiotics pre operatively. You will be discharged on additional 3 days of antibiotics per your urologist. PENDING TEST RESULTS: None RECOMMENDATIONS FOR FOLLOW-UP: Please follow up with Primary Care Provider as scheduled. Please follow up with Urologist as scheduled regarding your Ureteral Stent. Continue all medications as prescribed. Complete antibiotics as prescribed. Recommend taking a daily probiotic while on antibiotic therapy. You may utilize the medication Pyridium for pain or discomfort with urination or stent pain. This will cause your urine to turn the color orange. OTHER INSTRUCTIONS: Seek medical attention if you have: * temperature above 101 * chest pain or trouble breathing * abdominal pain, nausea, vomiting * diarrhea, dark stools or bloody stools * any unanswered questions or concerns Call 911 if symptoms are severe. Please take good care of yourself. It has been a pleasure taking care of you. Please take care of yourself. If you have any questions regarding your recent hospitalization please contact [facility] and request viky Hospitalist @ [phone]. Della Cox PA-C Total Time Total Time Spent Total Time Spent (In Minutes): 40 minutes Supervising Physician Co-Signing Physician Notes Pt seen and examined by myself, Dyan Woo MD on the day of service. Care was coordinated with Della Cox PA-C. 23yoF admitted with R sided obstructive uropathy after presenting with severe abdominal pain. S/p stent placement 11/01 with improvement in symptoms. Pt notes that she is doing well. Notes hematuria occasionally. HR has remained stable. Abdomen mildly tender diffusely on exam. Stable for d/c per Urology and pt agreeable. Bactrim DS, flomax on d/c per urology recs. Urology f/u. Otherwise as above.
== END 2023-11-02 12:04 | disposition home or self-care (01) | DRG 661 ==
LOC: ED 08:54 → SUATTDRO 14:22 → EDINP 14:22 → 3E 16:34